=== PATIENT | female | born 1955 | race African-American/Black ===

== ENCOUNTER 2018-01-04 21:14 | Emergency (ER) | payer MEDICAID ==
--- OUTSIDE RECORDS SUMMARY | 2018-01-04 21:16 | XMS REPORT | Clinical Summary ---
:1955 Author Organization [facility] Address [address] [place] [address] Care Team Providers Name Role Phone Asked, No Pcp Primary Care Provider Unavailable Allergies No Known Allergies Current Medications Prescription Sig. Disp. Refills Start Date End Date Status hydrocortisone (CORTEF) Take by mouth 3 Active 20 MG tablet (three) times a day. unkown dose levothyroxine Take 88 mcg by Active (SYNTHROID, LEVOXYL) 88 mouth every mcg tablet morning. sertraline (ZOLOFT) 100 Take 200 mg by Active MG tablet mouth daily. ondansetron (ZOFRAN, Take 1 tablet (4 30 tablet 0 12/11/2016 Active HYDROCHLORIDE,) 4 MG mg total) by tabletIndications: mouth every 8 Nausea (eight) hours as needed for nausea. Active Problems Problem Noted Date Abdominal pain 11/23/2016 Immunizations Name Dates Previously Given Next Due INFLUENZA QUAD PF 11/25/2016 Social History Tobacco Use Types Packs/Day Years Used Date Former Smoker Cigarettes 1 27 05/07/1972 - 09/06/1998 Alcohol Use Drinks/Week oz/Week Comments No Sex Assigned at Date Recorded Not on file Last Filed Vital Signs Not on file Plan of Treatment Health Maintenance Due Date Last Done Comments PAP SMEAR 1977 COLONOSCOPY 2006 MAMMOGRAM 2006 SHINGRIX VACCINE (#1) 2006 ZOSTER VACCINE 2016 INFLUENZA VACCINE 04/06/2018 11/25/2016 Results Not on fileafter 01/03/2017 Insurance Payer Benefit Plan / Group Subscriber ID Type Phone Address [facility] [employer] xxxxxxxxx HMO
[2018-01-04] MEDS ORDERED: NA CHLORIDE 0.9% 1,000 ML ONE ×2 (22:10→23:12)
[2018-01-04 22:30] LABS: Absolute Lymphocytes (CBC) 2.3 K/uL (0.7-4.9); Absolute Monocytes 0.5 K/uL (0.1-1.3); Absolute Neutrophil 2.3 K/uL (1.8-8.0); Basophils % 0.5 % (0-1.3); Eosinophils % 3.5 % (0-4.4); Hematocrit 38.8 % (36.0-45.0); MCH 26.9 pg (27.0-35.0); MCV 85.2 fL (80-100); MPV 8.2 fL (7.6-11.3); Monocytes % 9.7 % (3.3-12.3); RBC Red Blood Cell Count 4.55 M/uL (3.86-4.86)
[2018-01-04 22:34] LABS: Potassium 4.2 mEq/L (3.6-5.0)
[2018-01-05] MEDS ORDERED: KETOROLAC 30 MG/ML INJ ONE (00:39)
[2018-01-05 01:54] LABS: Urine Blood NEGATIVE (NEG); Urine Glucose NEGATIVE (NEG); Urine Protein 1+ (NEG); Urine Specific Gravity >1.030 (1.005-1.030); Urine pH 5.5 (5.0-7.0)
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
[2018-01-05 07:52] VITALS: TEMP 97
[2018-01-05 08:11] VITALS: BP 114/78; O2SAT 97
--- NOTE | 2018-01-05 08:15 | RAD REPORT ---
EXAM DESCRIPTION: CT - Head C Spine Cap Wo Con - 01/05/2018 1:04 am CLINICAL HISTORY: Trauma, head and neck injury. Chest, abdomen and pelvis pain. COMPARISON: 11/23/2016, 01/13/2014 TECHNIQUE: CT head without contrast. CT cervical spine without contrast with coronal and sagittal reformatted images. CT chest, abdomen and pelvis without contrast with coronal and sagittal reformatted images of the [facility] [place]. All CT scans are performed using dose optimization technique as appropriate and may include automated exposure control or mA/KV adjustment according to patient size. FINDINGS: CT HEAD WITHOUT CONTRAST: No intracranial hemorrhage, hydrocephalus or extra-axial fluid collection. No areas of brain edema o r midline shift. The paranasal sinuses and mastoids are clear. The calvarium is intact. CT CERVICAL SPINE WITHOUT CONTRAST: No fracture or subluxation. The prevertebral soft tissues are normal in thickness.Mild lower cervica l degenerative change. CT CHEST, ABDOMEN, PELVIS WITHOUT CONTRAST: NOTE: Lack of contrast is a significant limitation in the assessment of trauma related findings. Spec ifically, solid organ, vascular and bowel evaluation is significantly limited. The lungs are clear.Cholecystectomy clips.No pneumothorax or pericardial/pleural fluid. No evidence of intra-abdominal visceral injury, free fluid or free air is seen within the above detai led limitations. Punctate bilateral nephrolithiasis without hydronephrosis. Evidence of prior gastric bypass present. No concerning pelvic findings. No fractures. IMPRESSION: Negative for acute traumatic findings within the above detailed limitations.
--- NOTE | 2018-01-05 10:20 | EKG ---
Test Date: 2018-01-04 Test Time: 22:17:54 Half Sole Fitter: GRIS MEASUREMENT RESULTS: Intervals: Rate: 77 CA: 150 QRSD: 86 QT: 392 QTc: 443 [place]: P: 51 CA: 150 QRS: 0 T: 46 INTERPRETIVE STATEMENTS: Normal sinus rhythm Inferior infarct, age undetermined Abnormal ECG Compared to ECG 06/23/2017 20:06:33 Myocardial infarct finding now present T-wave abnormality no longer present Electronically Signed On 01-05-18 10:20:29 CDT by Philip Hutchinson
== END 2018-01-05 07:26 | disposition home or self-care (01) ==
LOC: ER 21:14 → UNDOADMOB 01-05 06:19 → ERHOLD 01-05 06:19 → UNDODISOB 01-05 07:26 → ER 01-05 07:26
DX: I95.9 Hypotension, unspecified (principal); E11.9 Type 2 diabetes mellitus without complications; N17.9 Acute kidney failure, unspecified; E03.9 Hypothyroidism, unspecified; V49.9XXA Car occupant (driver) (passenger) injured in unspecified traffic accident, initial encounter
CPT/HCPCS: 36415; 70450; 71250; 72125; 80048; 81003; 82962; 84484; 85025; 86850; 86900; 86901; 93005; 96361; 96374; 99285; G0378; J7030

== ENCOUNTER 2018-03-13 22:43 | Emergency (ER) | payer MEDICAID ==
--- OUTSIDE RECORDS SUMMARY | 2018-03-13 22:45 | XMS REPORT | Clinical Summary ---
:1955 Author Organization [facility] Address [address] [place] [address] Care Team Providers Name Role Phone Asked, [...] Health Maintenance Due Date Last Done Comments CERVICAL CANCER SCREENING 1977 BREAST CANCER SCREENING 2006 COLON CANCER SCREENING 2006 SHINGRIX VACCINE (#1) 2006 ZOSTER VACCINE 2016 INFLUENZA VACCINE 04/06/2018 11/25/2016 Results Not on fileafter 03/12/2017 Insurance Payer Benefit Plan / Group Subscriber ID Type Phone Address [facility] [employer] xxxxxxxxx HMO
[2018-03-14] MEDS ORDERED: NA CHLORIDE 0.9% 1,000 ML ONE ×2 (00:08→01:52)
[2018-03-14 00:34] LABS: Absolute Lymphocytes (CBC) 2.2 K/uL (0.7-4.9); Absolute Monocytes 0.6 K/uL (0.1-1.3); Absolute Neutrophil 2.2 K/uL (1.8-8.0); Basophils % 0.8 % (0-1.3); Eosinophils % 4.9 % (0-4.4); Hematocrit 40.2 % (36.0-45.0); Lymphocytes % 42.4 % (15.3-44.8); MCH 27.1 pg (27.0-35.0); MCV 86.7 fL (80-100); MPV 7.9 fL (7.6-11.3); Monocytes % 10.8 % (3.3-12.3); RBC Red Blood Cell Count 4.64 M/uL (3.86-4.86)
[2018-03-14 00:35] LABS: Protime INR 0.94
[2018-03-14 00:56] LABS: ALT/SGPT 59 U/L (12-78); AST/SGOT 49 U/L (15-37); Albumin 3.8 g/dL (3.4-5.0); Alkaline Phosphatase 92 U/L (45-117); BUN Blood Urea Nitrogen 24 mg/dL (7-18); Bicarbonate 31 mmol/L (21-32); Bilirubin Direct < 0.1 mg/dL (0-0.2); Bilirubin Total 0.3 mg/dL (0.2-1.0); CKMB Creatine Kinase MB 1.5 ng/mL (0.3-3.6); Creatine Phosphokinase 160 U/L (26-192); Glucose Level 73 mg/dL (74-106); Lipase 136 U/L (73-393); Magnesium 2.2 mg/dL (1.8-2.4); NT PRO-BNP 32 pg/mL (<125); Potassium 4.4 mmol/L (3.5-5.1); Protein, Total 7.5 g/dL (6.4-8.2); Sodium Level 144 mmol/L (136-145)
[2018-03-14 01:21] LABS: Urine Blood NEGATIVE (NEG); Urine Glucose NEGATIVE (NEG); Urine Protein NEGATIVE (NEG); Urine Specific Gravity >1.030 (1.005-1.030); Urine pH 6.5 (5.0-7.0)
[2018-03-14] MEDS ORDERED: FENTANYL CITR 100 MCG/2 ML ONE (01:52)
[2018-03-14] MEDS ORDERED: ONDANSETRON 4 MG/2 ML VIAL ONE (01:52)
[2018-03-14] MEDS ORDERED: ACETYLCYST 6,000 MG/30 ML VIAL ONE (01:53)
--- NOTE | 2018-03-14 04:40 | EDPHYS ---
Physician Documentation [facility] Name: Adela Watts Age: 62 yrs Sex: Female : 1955 Arrival Date: 03/13/2018 Time: 22:56 Bed 19 Private MD: ED Physician Patricio Gaviria HPI: 03/14 00:53 This 62 yrs old Black Female presents to ER via Ambulatory with complaints of derick Dizziness, Back Pain, Neck and Upper Back Pain. 00:53 The patient presents with dizziness. Onset: The symptoms/episode began/occurred derick yesterday. Context: occurred at home. Modifying factors: The symptoms are alleviated by nothing, the symptoms are aggravated by nothing. Severity of symptoms: At their worst the symptoms were mild in the emergency department the symptoms are unchanged. Historical: - Allergies: 03/13 23:28 No Known Allergies; jd3 - Home Meds: 23:28 [place] 10-325 mg Oral tab 1 tab three times a day [Active]; Travatan Z 0.004 % jd3 ophthalmic drop 1 drop once daily [Active]; anxiety pill twice a day [Active]; baclofen 10 mg Oral tab 1 tab twice a day [Active]; levothyroxine 88 mcg tab 1 tab once daily [Active]; metformin 500 mg Oral Tb24 as needed [Active]; sertraline 100 mg Oral tab 1 tab once daily [Active]; Wellbutrin XL 300 mg Oral Tb24 1 tab once daily [Active]; - PMHx: 23:28 Anxiety; Chronic pain; Depression; Diabetes - NIDDM; Hypothyroidism; jd3 - PSHx: 23:28 Cholecystectomy; Hysterectomy; Gastric Bypass; Lap Band; Thyroidectomy; jd3 - Immunization history:: Adult Immunizations up to date. - Social history:: Smoking status: Patient/guardian denies using tobacco, the patient reports quitting approximately 19 years ago. - Ebola Screening: : Patient negative for fever greater than or equal to 101.5 degrees Fahrenheit, and additional compatible Ebola Virus Disease symptoms. - Family history:: not pertinent. ROS: 03/14 00:53 Constitutional: Negative for fever, chills, and weight loss, Eyes: Negative for injury, derick pain, redness, and discharge, ENT: Negative for injury, pain, and discharge, Neck: Negative for injury, pain, and swelling, Cardiovascular: Negative for chest pain, palpitations, and edema, Respiratory: Negative for shortness of breath, cough, wheezing, and pleuritic chest pain, Abdomen/GI: Negative for abdominal pain, nausea, vomiting, diarrhea, and constipation, : Negative for injury, bleeding, discharge, and swelling, MS/Extremity: Negative for injury and deformity, Skin: Negative for injury, rash, and discoloration, Neuro: Negative for headache, weakness, numbness, tingling, and seizure, Psych: Negative for depression, anxiety, suicide ideation, homicidal ideation, and hallucinations, Allergy/Immunology: Negative for hives, rash, and allergies, Endocrine: Negative for neck swelling, polydipsia, polyuria, polyphagia, and marked weight changes, Hematologic/Lymphatic: Negative for swollen nodes, abnormal bleeding, and unusual bruising. Back: Positive for pain at rest. Exam: 00:53 Constitutional: This is a well developed, well nourished patient who is awake, alert, derick and in no acute distress. Head/Face: Normocephalic, atraumatic. Eyes: Pupils equal round and reactive to light, extra-ocular motions intact. Lids and lashes normal. Conjunctiva and sclera are non-icteric and not injected. Cornea within normal limits. Periorbital areas with no swelling, redness, or edema. ENT: Nares patent. No nasal discharge, no septal abnormalities noted. Tympanic membranes are normal and external auditory canals are clear. Oropharynx with no redness, swelling, or masses, exudates, or evidence of obstruction, uvula midline. Mucous membranes moist. Neck: Trachea midline, no thyromegaly or masses palpated, and no cervical lymphadenopathy. Supple, full range of motion without nuchal rigidity, or vertebral point tenderness. No Meningismus. Chest/axilla: Normal chest wall appearance and motion. Nontender with no deformity. No lesions are appreciated. Cardiovascular: Regular rate and rhythm with a normal S1 and S2. No gallops, murmurs, or rubs. Normal PMI, no JVD. No pulse deficits. Respiratory: Lungs have equal breath sounds bilaterally, clear to auscultation and percussion. No rales, rhonchi or wheezes noted. No increased work of breathing, no retractions or nasal flaring. Abdomen/GI: Soft, non-tender, with normal bowel sounds. No distension or tympany. No guarding or rebound. No evidence of tenderness throughout. Back: No spinal tenderness. No costovertebral tenderness. Full range of motion. Skin: Warm, dry with normal turgor. Normal color with no rashes, no lesions, and no evidence of cellulitis. MS/ Extremity: Pulses equal, no cyanosis. Neurovascular intact. Full, normal range of motion. Neuro: Awake and alert, GCS 15, oriented to person, place, time, and situation. Cranial nerves II-XII grossly intact. Motor strength 5/5 in all extremities. Sensory grossly intact. Cerebellar exam normal. Normal gait. Psych: Awake, alert, with orientation to person, place and time. Behavior, mood, and affect are within normal limits. Vital Signs: 03/13 23:30 BP 106 / 77; Pulse 68; Resp 18 S; Temp 98.6(O); Pulse Ox 97% on R/A; Weight 81.65 kg jd3 (R); Height 5 ft. 5 in. (165.10 cm) (R); Pain 06/15; 03/14 00:55 BP 91 / 62; Pulse 80; Resp 16 S; Pulse Ox 97% on R/A; jd3 02:45 BP 122 / 90; Pulse 81; Resp 17 S; Pulse Ox 99% on R/A; jd3 03:48 BP 94 / 65; Pulse 78; Resp 17 S; Pulse Ox 97% on R/A; jd3 05:00 BP 123 / 58; Pulse 84; Resp 16 S; Pulse Ox 99% on R/A; jd3 05:51 BP 119 / 89; Pulse 84; Resp 17 S; Pulse Ox 98% on R/A; jd3 03/13 23:30 Body Mass Index 29.95 (81.65 kg, 165.10 cm) [facility] MDM: 03/13 23:26 Patient medically screened. [facility] 03/14 00:57 Data reviewed: vital signs, nurses notes, lab test result(s), EKG, radiologic studies, [facility] CT scan, plain films. 03/13 23:27 Order name: Basic Metabolic Panel; Complete Time: 01:23 [facility] 03/13 23:27 Order name: CBC with Diff; Complete Time: 00:52 [facility] 03/13 23:27 Order name: Ckmb; Complete Time: 01:23 [facility] 03/13 23:27 Order name: CPK; Complete Time: 01:23 [facility] 03/13 23:27 Order name: LFT's; Complete Time: 01:23 [facility] 03/13 23:27 Order name: Magnesium; Complete Time: 01:23 [facility] 03/13 23:27 Order name: NT PRO-BNP; Complete Time: 01:23 [facility] 03/13 23:27 Order name: PT-INR; Complete Time: 00:52 [facility] 03/13 23:27 Order name: Ptt, Activated; Complete Time: 00:52 [facility] 03/13 23:27 Order name: Troponin (emerg Dept Use Only); Complete Time: 00:52 [facility] 03/13 23:27 Order name: Lipase; Complete Time: 01:23 [facility] 03/13 23:27 Order name: Urine Culture [facility] 03/14 00:14 Order name: Urine Dipstick--Ancillary (enter results); Complete Time: 01:23 rg2 03/14 04:03 Order name: Ckmb [facility] 03/13 23:27 Order name: XRAY Chest (1 view) [facility] 03/13 23:27 Order name: Cardiac monitoring; Complete Time: 23:35 [facility] 03/13 23:27 Order name: EKG - Nurse/Tech; Complete Time: 00:14 [facility] 03/13 23:27 Order name: IV Saline Lock; Complete Time: 00:14 [facility] 03/13 23:27 Order name: Labs collected and sent; Complete Time: 00:14 [facility] 03/14 00:52 Order name: CT Aorta for Dissection [facility] 03/14 01:48 Order name: CT Head Brain wo Cont [facility] 03/14 04:03 Order name: Creatine Phosphokinase [facility] 03/14 04:03 Order name: Troponin (emerg Dept Use Only) [facility] 03/13 23:27 Order name: O2 Per Protocol; Complete Time: 23:36 [facility] 03/13 23:27 Order name: O2 Sat Monitoring; Complete Time: 23:35 [facility] 03/13 23:27 Order name: Urine Dipstick-Ancillary (obtain specimen); Complete Time: 00:14 [facility] 03/14 01:46 Order name: PO challenge: juice; Complete Time: 01:58 [facility] 03/14 02:33 Order name: Orthostatics; Complete Time: 04:05 [facility] 03/14 04:03 Order name: Repeat Cardiac Enzymes at: now; Complete Time: 04:39 derick Administered Medications: 00:14 Drug: NS 0.9% 1000 ml Route: IV; Rate: 125 ml/hr; Site: right antecubital; jd3 05:52 Follow up: Response: No adverse reaction; IV Status: Order to discontinue infusion jd3 02:37 Drug: NS 0.9% 1000 ml Route: IV; Rate: 1 bolus; Site: left antecubital; jd3 04:40 Follow up: Response: No adverse reaction; IV Status: Completed infusion; IV Intake: jd3 1000ml 02:42 Drug: Mucomyst - Acetylcysteine 600 mg Route: PO; jd3 04:39 Follow up: Response: No adverse reaction jd3 02:42 Drug: fentaNYL (PF) 25 mcg Route: IVP; Site: left antecubital; jd3 04:40 Follow up: Response: No adverse reaction jd3 02:42 Drug: Zofran 4 mg Route: IVP; Site: left antecubital; jd3 04:40 Follow up: Response: No adverse reaction jd3 04:53 Drug: Aspirin 81 mg Route: PO; jd3 05:30 Follow up: Response: No adverse reaction jd3 Disposition: 03/14/18 04:39 Discharged to Home. Impression: Dizziness and giddiness, Type 2 diabetes mellitus, Headache, Unspecified kidney failure, Other chronic pain. - Condition is Stable. - Discharge Instructions: Chronic Pain, Type 2 Diabetes Mellitus, Adult, Dizziness, General Headache Without Cause, Aspirin and Your Heart, General Headache Without Cause, [id number]-ta-Awrk, Type 2 Diabetes Mellitus, Adult, [id number], Dizziness, [id number]. - Medication Reconciliation Form, Thank You Letter, Antibiotic Education, Prescription Opioid Use, SBAR form form. - Follow up: Private Physician; When: 2 - 3 days; Reason: Recheck today's complaints, Continuance of care, Re-evaluation by your physician. - Problem is new. - Symptoms have improved. Signatures: Dispatcher [employer] EDPatricio Christianson MD MD cha Davies, Jonathon, RN RN jd3 Corrections: (The following items were deleted from the chart) 05:52 04:39 03/14/2018 04:39 Discharged to Home. Impression: Dizziness and giddiness; Type 2 jd3 diabetes mellitus; Headache; Unspecified kidney failure; Other chronic pain. Condition is Stable. Forms are SBAR form, Medication Reconciliation Form, Thank You Letter, Antibiotic Education, Prescription Opioid Use. Follow up: Private Physician; When: 2 - 3 days; Reason: Recheck today's complaints, Continuance of care, Re-evaluation by your physician. Problem is new. Symptoms have improved. derick
--- NOTE | 2018-03-14 04:40 | ER ---
Nurse's Notes [facility] Name: Adela Watts Age: 62 yrs Sex: Female : 1955 Arrival Date: 03/13/2018 Time: 22:56 Bed 19 Private MD: Diagnosis: Dizziness and giddiness;Type 2 diabetes mellitus;Headache;Unspecified kidney failure;Other chronic pain Presentation: 03/13 23:23 Presenting complaint: Patient states: "I am having a headache and my right neck and jd3 back are hurting. I am also having dizziness.". Transition of care: patient was not received from another setting of care. Onset of symptoms was March 13, 2018. Risk Assessment: Do you want to hurt yourself or someone else? Patient reports no desire to harm self or others. Initial Sepsis Screen: Does the patient meet any 2 criteria? No. Patient's initial sepsis screen is negative. Does the patient have a suspected source of infection? No. Patient's initial sepsis screen is negative. Care prior to arrival: None. 23:23 Method Of Arrival: Ambulatory jd3 23:23 Acuity: SHADY 3 jd3 Historical: - Allergies: 23:28 No Known Allergies; jd3 - Home Meds: 23:28 [place] 10-325 mg Oral tab 1 tab three times a day [Active]; Travatan Z 0.004 % jd3 ophthalmic drop 1 drop once daily [Active]; anxiety pill twice a day [Active]; baclofen 10 mg Oral tab 1 tab twice a day [Active]; levothyroxine 88 mcg tab 1 tab once daily [Active]; metformin 500 mg Oral Tb24 as needed [Active]; sertraline 100 mg Oral tab 1 tab once daily [Active]; Wellbutrin XL 300 mg Oral Tb24 1 tab once daily [Active]; - PMHx: 23:28 Anxiety; Chronic pain; Depression; Diabetes - NIDDM; Hypothyroidism; jd3 - PSHx: 23:28 Cholecystectomy; Hysterectomy; Gastric Bypass; Lap Band; Thyroidectomy; jd3 - Immunization history:: Adult Immunizations up to date. - Social history:: Smoking status: Patient/guardian denies using tobacco, the patient reports quitting approximately 19 years ago. - Ebola Screening: : Patient negative for fever greater than or equal to 101.5 degrees Fahrenheit, and additional compatible Ebola Virus Disease symptoms. - Family history:: not pertinent. Screenin:34 Abuse screen: Denies threats or abuse. Nutritional screening: No deficits noted. jd3 Tuberculosis screening: No symptoms or risk factors identified. Fall Risk Ambulatory Aid- None/Bed Rest/Nurse Assist (0 pts). Gait- Normal/Bed Rest/Wheelchair (0 pts) Mental Status- Oriented to own ability (0 pts). Total Ratliff Fall Scale indicates No Risk (0-24 pts). Assessment: 23:31 General: Appears uncomfortable, Behavior is calm, cooperative. Pain: Complains of pain jd3 in head, neck, right trapezius and right scapular area Pain currently is 10 out of 10 on a pain scale. Quality of pain is described as aching. Neuro: Level of Consciousness is awake, alert, obeys commands, Oriented to person, place, time, situation, Moves all extremities. Full function Speech is normal, Facial symmetry appears normal, Pupils are PERRLA, Intact. Cardiovascular: Heart tones S1 S2 present Capillary refill < 3 seconds Patient's skin is warm and dry. Respiratory: Airway is patent Respiratory effort is even, unlabored, Respiratory pattern is regular, symmetrical. GI: Abdomen is round non-distended, Patient currently denies nausea, vomiting. : No signs and/or symptoms were reported regarding the genitourinary system. EENT: No signs and/or symptoms were reported regarding the EENT system. Derm: Skin is intact, Skin is dry, Skin is normal, Skin temperature is warm. Musculoskeletal: Circulation, motion, and sensation intact. Range of motion:. 03/14 00:30 Reassessment: Patient appears in no apparent distress at this time. Patient and/or jd3 family updated on plan of care and expected duration. Pain level reassessed. Patient is alert, oriented x 3, equal unlabored respirations, skin warm/dry/pink. 00:55 Reassessment: Patient appears in no apparent distress at this time. Patient and/or jd3 family updated on plan of care and expected duration. Pain level reassessed. Patient is alert, oriented x 3, equal unlabored respirations, skin warm/dry/pink. 02:45 Reassessment: Patient appears in no apparent distress at this time. Patient and/or jd3 family updated on plan of care and expected duration. Pain level reassessed. Patient is alert, oriented x 3, equal unlabored respirations, skin warm/dry/pink. 03:48 Reassessment: Patient appears in no apparent distress at this time. Patient and/or jd3 family updated on plan of care and expected duration. Pain level reassessed. Patient is alert, oriented x 3, equal unlabored respirations, skin warm/dry/pink. 05:01 Reassessment: Patient appears in no apparent distress at this time. Patient and/or jd3 family updated on plan of care and expected duration. Pain level reassessed. Patient is alert, oriented x 3, equal unlabored respirations, skin warm/dry/pink. 05:49 Reassessment: Patient appears in no apparent distress at this time. Patient and/or jd3 family updated on plan of care and expected duration. Pain level reassessed. Patient is alert, oriented x 3, equal unlabored respirations, skin warm/dry/pink. pt reported understanding of discharge instructions, even and steady gait out to lobby to wait for ride. Vital Signs: 03/13 23:30 BP 106 / 77; Pulse 68; Resp 18 S; Temp 98.6(O); Pulse Ox 97% on R/A; Weight 81.65 kg jd3 (R); Height 5 ft. 5 in. (165.10 cm) (R); Pain 1010; 03/14 00:55 BP 91 / 62; Pulse 80; Resp 16 S; Pulse Ox 97% on R/A; jd3 02:45 BP 122 / 90; Pulse 81; Resp 17 S; Pulse Ox 99% on R/A; jd3 03:48 BP 94 / 65; Pulse 78; Resp 17 S; Pulse Ox 97% on R/A; jd3 05:00 BP 123 / 58; Pulse 84; Resp 16 S; Pulse Ox 99% on R/A; jd3 05:51 BP 119 / 89; Pulse 84; Resp 17 S; Pulse Ox 98% on R/A; jd3 03/13 23:30 Body Mass Index 29.95 (81.65 kg, 165.10 cm) [facility] ED Course: 03/13 22:56 Patient arrived in ED. al2 23:09 Yadiel Beck RN is Primary Nurse. jd3 23:25 Triage completed. jd3 23:26 Patricio Gaviria MD is Attending Physician. derick 23:31 Arm band placed on. jd3 23:35 Patient has correct armband on for positive identification. Bed in low position. Call jd3 light in reach. Side rails up X 1. 23:53 X-ray completed. Portable x-ray completed in exam room. Patient tolerated procedure kw well. 23:54 XRAY Chest (1 view) In Process Unspecified. EDMS 03/14 00:00 Inserted saline lock: 20 gauge in right antecubital area, using aseptic technique. jd3 Blood collected. 01:[address] via wheelchair. kw1 01:47 Inserted saline lock: 20 gauge in left antecubital area, using aseptic technique. ak1 ,using aseptic technique. measurement and sensing technician stated pt IV in right AC would not flush, requested new IV. 01:59 CT Head Brain wo Cont In Process Unspecified. EDMS 01:59 Radiology exam delayed due to IV insertion attempt and/or patient not having kw1 appropriate IV at this time. 02:16 CT completed. Patient tolerated procedure well. Patient moved back from CT. kw1 02:18 CT Aorta for Dissection In Process Unspecified. EDMS 05:49 No provider procedures requiring assistance completed. IV discontinued, intact, jd3 bleeding controlled, No redness/swelling at site. Pressure dressing applied. Administered Medications: 00:14 Drug: NS 0.9% 1000 ml Route: IV; Rate: 125 ml/hr; Site: right antecubital; jd3 05:52 Follow up: Response: No adverse reaction; IV Status: Order to discontinue infusion jd3 02:37 Drug: NS 0.9% 1000 ml Route: IV; Rate: 1 bolus; Site: left antecubital; jd3 04:40 Follow up: Response: No adverse reaction; IV Status: Completed infusion; IV Intake: jd3 1000ml 02:42 Drug: Mucomyst - Acetylcysteine 600 mg Route: PO; jd3 04:39 Follow up: Response: No adverse reaction jd3 02:42 Drug: fentaNYL (PF) 25 mcg Route: IVP; Site: left antecubital; jd3 04:40 Follow up: Response: No adverse reaction jd3 02:42 Drug: Zofran 4 mg Route: IVP; Site: left antecubital; jd3 04:40 Follow up: Response: No adverse reaction jd3 04:53 Drug: Aspirin 81 mg Route: PO; jd3 05:30 Follow up: Response: No adverse reaction jd3 Intake: 04:40 IV: 1000ml; Total: 1000ml. jd3 Outcome: 04:39 Discharge ordered by MD. sepulveda 05:50 Discharged to home jd3 05:50 Condition: stable 05:50 Discharge instructions given to patient, Instructed on discharge instructions, follow up and referral plans. Demonstrated understanding of instructions, follow-up care. 05:52 Patient left the ED. jd3 Addendum: 03/18/2018 11:47 Addendum: Culture Results: Phone call Attempt #1 at 1146, left a voicemail. a a5 14:11 Addendum: Culture Results: Phone call Attempt #2 spoke to pt's family member and they a a5 will relay the message for pt to call ER. Signatures: Dispatcher [employer] Patricio Carr MD MD cha Calderon, Audri, RN RN Francine Parker Amber RN RN Yadiel Baltazar RN RN jd3 Wilhelm, Kimberly kw1 Love, Angelica al2
[2018-03-14] MEDS ORDERED: ASPIRIN 81 MG CHEWABLE TABLET ONE (04:54)
[2018-03-14 05:17] LABS: CKMB Creatine Kinase MB 1.3 ng/mL (0.3-3.6)
[2018-03-14 05:56] VITALS: TEMP 98.6
[2018-03-14 06:02] VITALS: BP 119/89; O2SAT 98
--- NOTE | 2018-03-14 08:53 | RAD REPORT ---
EXAM DESCRIPTION: CT - Head Brain Wo Cont - 03/14/2018 6:45 am CLINICAL HISTORY: Headache COMPARISON: January 11, 2018 TECHNIQUE: Computed axial tomography of the head was obtained. IV contrast was not requested.A preli minary report was generated by [employer] and reviewed prior to this dictation All CT scans are performed using dose optimization technique as appropriate and may include automated exposure control or mA/KV adjustment according to patient size. FINDINGS: An intracranial bleed is not seen . The ventricles are normal in caliber. No extra-axial fluid collection is noted. Fluid within the sinuses/ mastoids is not seen. A 5 millimeter metallic round structure is present wi thin the tissues anterior to the right ear IMPRESSION: No acute intracranial abnormality is seen. If patient's symptoms persist MRI of the bra in would be recommended.
--- NOTE | 2018-03-14 09:10 | EKG ---
Test Date: 2018-03-14 Test Time: 00:16:26 Welfare Specialist: THERESE MEASUREMENT RESULTS: Intervals: Rate: 66 HI: 154 QRSD: 94 QT: 418 QTc: 438 [place]: P: 41 HI: 154 QRS: 2 T: 63 INTERPRETIVE STATEMENTS: Normal sinus rhythm Normal ECG Compared to ECG 01/04/2018 22:17:54 Myocardial infarct finding no longer present Electronically Signed On 03-14-18 09:09:37 CDT by Philip Hutchinson
--- NOTE | 2018-03-14 09:10 | RAD REPORT ---
EXAM DESCRIPTION: CT - Angio Aorta For Dissection - 03/14/2018 6:46 am CLINICAL HISTORY: . Chest pain abdominal pain back pain COMPARISON: January 2018 TECHNIQUE: Computed tomography angiography of the chest, abdomen pelvis were obtained. 100 cc Isovue 370 was administered intravenously. Coronal and sagittal reconstruction were performed. MIP 3D reconstruction was performed All CT scans are performed using dose optimization technique as appropriate and may include automated exposure control or mA/KV adjustment according to patient size. FINDINGS: An aortic dissection is not seen. An aortic aneurysm is not displayed. The celiac, SMA and ISIDRO are patent . A lung consolidation is not present. A pericardial effusion is not seen. A pleural effusion is not no radha. A 9 x 5 nodular opacity within the lingula image 57 is unchanged. The liver,spleen, pancreas adrenals kidneys demonstrate no significant abnormality. Postsurgical tamayo ges of a gastric bypass are seen. The appendix is normal. There no evidence diverticulitis. No ascites is noted. A tiny umbilical herni a contains fat IMPRESSION: Negative for an aortic dissection. 9 x 5 nodular opacity within the lingula is unchanged. Per Fleischner guidelines A followup CT chest in 6 months is recommended to assess stability.
--- NOTE | 2018-03-14 09:10 | RAD REPORT ---
EXAM DESCRIPTION: Gregorio Single View03/13/2018 11:54 pm CLINICAL HISTORY: Chest pain COMPARISON: June 2017 FINDINGS: The lungs appear clear of acute infiltrate. The heart is mildly enlarged. The aorta is to rtuous/ectatic IMPRESSION: No acute abnormalities displayed
== END 2018-03-14 05:52 | disposition home or self-care (01) ==
LOC: ER 22:43
DX: R51 Headache (principal); G89.29 Other chronic pain; E11.9 Type 2 diabetes mellitus without complications; N19 Unspecified kidney failure; E03.9 Hypothyroidism, unspecified; F32.9 Major depressive disorder, single episode, unspecified
CPT/HCPCS: 36415; 70450; 71045; 71275; 74175; 80048; 80076; 81003; 82550; 82553; 83690; 83735; 83880; 84484; 85025; 85610; 85730; 87077; 87086; 87088; 87186; 93005; 96361; 96374; 96375; 99284; J2405; J3010; J7030; Q9967

== ENCOUNTER 2018-05-17 22:04 | Emergency (ER) | payer MEDICAID ==
--- NOTE | 2018-05-18 00:10 | ER ---
Nurse's Notes [facility] Name: Adela Watts Age: 62 yrs Sex: Female : 1955 Arrival Date: 05/17/2018 Time: 22:07 Bed 16 Private MD: Diagnosis: Contusion left shoulder. S/P Fall Presentation: 05/17 22:11 Presenting complaint: Patient states: that yesterday she was sitting on the side of the bed and was reaching for something and fell. Thought she was ok but when she woke up this am she was having left shoulder pain. Denies hitting head or any LOC. Care prior to arrival: None. Mechanism of Injury: Fall out of bed. Trauma event details: Injury occurred in the [facility], Injury occurred: at home. Injury occurred: May 16, 2018. 22:11 Acuity: SHADY 4 22:11 Method Of Arrival: Ambulatory 22:14 Transition of care: patient was not received from another setting of care. Onset of symptoms was May 16, 2018. Risk Assessment: Do you want to hurt yourself or someone else? Patient reports no desire to harm self or others. Initial Sepsis Screen: Does the patient meet any 2 criteria? No. Patient's initial sepsis screen is negative. Does the patient have a suspected source of infection? No. Patient's initial sepsis screen is negative. Historical: - Allergies: 22:17 No Known Allergies; fc - Home Meds: 22:17 baclofen 10 mg Oral tab 1 tab twice a day [Active]; levothyroxine 88 mcg tab 1 tab once fc daily [Active]; metformin 500 mg Oral Tb24 as needed [Active]; Mayo 10-325 mg Oral tab 1 tab three times a day [Active]; Wellbutrin XL 300 mg Oral Tb24 1 tab once daily [Active]; Travatan Z 0.004 % ophthalmic drop 1 drop once daily [Active]; Hydroxyzine Oral 3 times per day [Active]; - PMHx: 22:17 Anxiety; Chronic pain; Depression; Diabetes - NIDDM; Hypothyroidism; fc - PSHx: 22:17 Cholecystectomy; Hysterectomy; Gastric Bypass; Lap Band; Thyroidectomy; fc - Immunization history: Last tetanus immunization: unknown. - Social history:: Smoking status: Patient/guardian denies using tobacco. - Ebola Screening: : Patient negative for fever greater than or equal to 101.5 degrees Fahrenheit, and additional compatible Ebola Virus Disease symptoms Patient denies exposure to infectious person Patient denies travel to an Ebola-affected area in the 21 days before illness onset. Screenin:11 Abuse screen: Denies threats or abuse. Tuberculosis screening: No symptoms or risk fc factors identified. 22:17 Nutritional screening: No deficits noted. Fall Risk No fall in past 12 months (0 pts). fc Secondary diagnosis (15 points) impaired mobility, No IV (0 pts). Ambulatory Aid- None/Bed Rest/Nurse Assist (0 pts). Gait- Weak (10 pts.). Mental Status- Overestimates/Forgets Limitations (15 pts.). Total Ratliff Fall Scale indicates Low Risk Score (25-44 pts). Fall prevention measures have been instituted. Side Rails Up X 2 Placed close to Nursing Station Frequent Obs/Assesments occuring As available Patient and Family Educated on Fall Prevention Program and strategies. Assessment: 22:42 General: Appears in no apparent distress. Behavior is calm, cooperative. Pain: ak1 Complains of pain in anterior aspect of left shoulder and posterior aspect of left shoulder. Neuro: No deficits noted. Cardiovascular: No deficits noted. Respiratory: No deficits noted. GI: No signs and/or symptoms were reported involving the gastrointestinal system. : No signs and/or symptoms were reported regarding the genitourinary system. EENT: No signs and/or symptoms were reported regarding the EENT system. Derm: No signs and/or symptoms reported regarding the dermatologic system. Musculoskeletal: Range of motion: limited in left shoulder pt c/o pain to left shoulder with movement. 23:29 Reassessment: Patient appears in no apparent distress at this time. No changes from ak1 previously documented assessment. pt stated while lying still she has no pain. . Vital Signs: 22:18 BP 102 / 76; Pulse 85; Resp 18; Temp 98.4(O); Pulse Ox 98% on R/A; Weight 83.91 kg (R); fc Height 5 ft. 5 in. (165.10 cm) (R); Pain 10/10; 23:06 BP 97 / 74; Pulse 88; Resp 16; Pulse Ox 100% on R/A; mt 05/18 00:41 BP 97 / 68; Pulse 59; Resp 17 S; Pulse Ox 97% on R/A; jd3 05/17 22:18 Body Mass Index 30.79 (83.91 kg, 165.10 cm) fc 05/17 22:18 Pt states that her bp has been running low and PCP aware fc [place] Coma Score: 22:11 Eye Response: spontaneous(4). Verbal Response: oriented(5). Motor Response: obeys fc commands(6). Total: 15. Trauma Score (Adult): 22:11 Eye Response: spontaneous(1); Verbal Response: oriented(1); Motor Response: obeys fc commands(2); Systolic BP: > 89 mm Hg(4); Respiratory Rate: 10 to 29 per min(4); [place] Score: 15; Trauma Score: 12 ED Course: 22:07 Patient arrived in ED. ds1 22:11 Patient has correct armband on for positive identification. Bed in low position. Call fc light in reach. 22:11 Patient maintains SpO2 saturation greater than 95% on room air. fc 22:13 Triage completed. fc 22:17 Arm band placed on Patient placed in an exam room, on a stretcher. fc 22:32 Elaine Randolph, RN is Primary Nurse. ak1 22:42 Pulse ox on. NIBP on. ak1 23:57 Jordi Wallace MD is Attending Physician. pkl 09 00:09 XRAY Shoulder LEFT 2 view In Process Unspecified. EDMS 00:09 Po Urban MD is Referral Physician. pkl 00:20 X-ray completed. Portable x-ray completed in exam room. Patient tolerated procedure kw well. 00:41 Sling applied to left arm. jd3 01:05 No provider procedures requiring assistance completed. Patient did not have IV access ak1 during this emergency room visit. Administered Medications: 00:40 CANCELLED (Patient Refused): Motrin 400 mg PO once ak1 01:04 Drug: Mayo (7.5 mg-325 mg) 1 tabs Route: PO; ak1 01:04 Follow up: Response: No adverse reaction; Medication administered at discharge. ak1 Outcome: 00:10 Discharge ordered by . pkl 01:05 Discharged to home ambulatory, with family. ak1 01:05 Condition: good 01:05 Discharge instructions given to patient, Instructed on discharge instructions, follow up and referral plans. no drinking with medication, no driving heavy equipment, medication usage, Demonstrated understanding of instructions, follow-up care, medications, Prescriptions given X 1. 01:06 Patient left the ED. ak1 Signatures: Dispatcher [employer] EDMS Jordi Wallace MD MD pkl Chretien, Felicia RN RN Ellen Leonardo ds1 Francine Yu Amber RN RN ak1 Linda Neumann mt, Jonathon, RN RN jd3
--- NOTE | 2018-05-18 00:10 | EDPHYS ---
Physician Documentation [facility] Name: Adela Watts Age: 62 yrs Sex: Female : 1955 Arrival Date: 05/17/2018 Time: 22:07 Bed 16 Private MD: ED Physician Jordi Wallace HPI: 05/18 00:02 This 62 yrs old Black Female presents to ER via Ambulatory with complaints of Fall pkl Injury. 00:02 Details of fall: The patient fell from a supine position, out of bed. Onset: The pkl symptoms/episode began/occurred yesterday. Associated injuries: The patient sustained left shoulder. Historical: - Allergies: 05/17 22:17 No Known Allergies; fc - Home Meds: 22:17 baclofen 10 mg Oral tab 1 tab twice a day [Active]; levothyroxine 88 mcg tab 1 tab once fc daily [Active]; metformin 500 mg Oral Tb24 as needed [Active]; [place] 10-325 mg Oral tab 1 tab three times a day [Active]; Wellbutrin XL 300 mg Oral Tb24 1 tab once daily [Active]; Travatan Z 0.004 % ophthalmic drop 1 drop once daily [Active]; Hydroxyzine Oral 3 times per day [Active]; - PMHx: 22:17 Anxiety; Chronic pain; Depression; Diabetes - NIDDM; Hypothyroidism; fc - PSHx: 22:17 Cholecystectomy; Hysterectomy; Gastric Bypass; Lap Band; Thyroidectomy; fc - Immunization history: Last tetanus immunization: unknown. - Social history:: Smoking status: Patient/guardian denies using tobacco. - Ebola Screening: : Patient negative for fever greater than or equal to 101.5 degrees Fahrenheit, and additional compatible Ebola Virus Disease symptoms Patient denies exposure to infectious person Patient denies travel to an Ebola-affected area in the 21 days before illness onset. ROS: 05/18 00:02 Eyes: Negative for injury, pain, redness, and discharge, ENT: Negative for injury, pkl pain, and discharge, Neck: Negative for injury, pain, and swelling, Cardiovascular: Negative for chest pain, palpitations, and edema, Respiratory: Negative for shortness of breath, cough, wheezing, and pleuritic chest pain, Abdomen/GI: Negative for abdominal pain, nausea, vomiting, diarrhea, and constipation, Back: Negative for injury and pain, : Negative for injury, bleeding, discharge, and swelling. MS/extremity: Positive for contusion, pain, of the left shoulder. Skin: Negative for rash. Neuro: Negative for altered mental status, loss of consciousness. Exam: 00:02 Head/Face: Normocephalic, atraumatic. Eyes: Pupils equal round and reactive to light, pkl extra-ocular motions intact. Lids and lashes normal. Conjunctiva and sclera are non-icteric and not injected. Cornea within normal limits. Periorbital areas with no swelling, redness, or edema. ENT: Nares patent. No nasal discharge, no septal abnormalities noted. Tympanic membranes are normal and external auditory canals are clear. Oropharynx with no redness, swelling, or masses, exudates, or evidence of obstruction, uvula midline. Mucous membranes moist. Neck: Trachea midline, no thyromegaly or masses palpated, and no cervical lymphadenopathy. Supple, full range of motion without nuchal rigidity, or vertebral point tenderness. No Meningismus. Chest/axilla: Normal chest wall appearance and motion. Nontender with no deformity. No lesions are appreciated. Cardiovascular: Regular rate and rhythm with a normal S1 and S2. No gallops, murmurs, or rubs. Normal PMI, no JVD. No pulse deficits. Respiratory: Lungs have equal breath sounds bilaterally, clear to auscultation and percussion. No rales, rhonchi or wheezes noted. No increased work of breathing, no retractions or nasal flaring. Abdomen/GI: Soft, non-tender, with normal bowel sounds. No distension or tympany. No guarding or rebound. No evidence of tenderness throughout. Skin: Warm, dry with normal turgor. Normal color with no rashes, no lesions, and no evidence of cellulitis. Neuro: Awake and alert, GCS 15, oriented to person, place, time, and situation. Cranial nerves II-XII grossly intact. Motor strength 5/5 in all extremities. Sensory grossly intact. Cerebellar exam normal. Normal gait. 00:02 Musculoskeletal/extremity: Extremities: grossly normal except: noted in the left shoulder: pain, tenderness. Vital Signs: 05/17 22:18 BP 102 / 76; Pulse 85; Resp 18; Temp 98.4(O); Pulse Ox 98% on R/A; Weight 83.91 kg (R); fc Height 5 ft. 5 in. (165.10 cm) (R); Pain 10; 23:06 BP 97 / 74; Pulse 88; Resp 16; Pulse Ox 100% on R/A; mt 05/18 00:41 BP 97 / 68; Pulse 59; Resp 17 S; Pulse Ox 97% on R/A; jd3 05/17 22:18 Body Mass Index 30.79 (83.91 kg, 165.10 cm) 05/17 22:18 Pt states that her bp has been running low and PCP aware fc [place] Coma Score: 22:11 Eye Response: spontaneous(4). Verbal Response: oriented(5). Motor Response: obeys fc commands(6). Total: 15. Trauma Score (Adult): 22:11 Eye Response: spontaneous(1); Verbal Response: oriented(1); Motor Response: obeys fc commands(2); Systolic BP: > 89 mm Hg(4); Respiratory Rate: 10 to 29 per min(4); [place] Score: 15; Trauma Score: 12 MDM: 23:57 Patient medically screened. pkl 05/18 00:09 Data reviewed: vital signs, nurses notes, radiologic studies, plain films. pkl 05/17 23:12 Order name: XRAY Shoulder LEFT 2 view snw 05/18 00:09 Order name: Sling; Complete Time: 00:41 pkl Administered Medications: 00:40 CANCELLED (Patient Refused): Motrin 400 mg PO once ak1 01:04 Drug: Naubinway (7.5 mg-325 mg) 1 tabs Route: PO; ak1 01:04 Follow up: Response: No adverse reaction; Medication administered at discharge. ak1 Disposition: 05/18/18 00:10 Discharged to Home. Impression: Contusion left shoulder. S/P Fall. - Condition is Stable. - Prescriptions for Ultram 50 mg Oral Tablet - take 1 tablet by ORAL route every 8 hours As needed; 20 tablet. - Medication Reconciliation Form, Thank You Letter, Antibiotic Education, Prescription Opioid Use form. - Follow up: Po Urban MD; When: 2 - 3 days; Reason: Re-evaluation by your physician. - Problem is new. - Symptoms have improved. Signatures: Dispatcher [employer] EDMS Jordi Wallace MD MD pkMandie Gaines RN RN Elaine Randolph RN RN ak1 Corrections: (The following items were deleted from the chart) 00:40 00:09 Motrin 400 mg PO once ordered. pkl ak1 01:06 00:10 05/18/2018 00:10 Discharged to Home. Impression: Contusion left shoulder. S/P ak1 Fall. Condition is Stable. Forms are Medication Reconciliation Form, Thank You Letter, Antibiotic Education, Prescription Opioid Use. Follow up: Po Urban; When: 2 - 3 days; Reason: Re-evaluation by your physician. Problem is new. Symptoms have improved. pkl
[2018-05-18] MEDS ORDERED: HYDROCODONE/APAP 7.5/325 MG TAB ONE (01:08)
[2018-05-18 01:21] VITALS: TEMP 98.4
[2018-05-18 01:24] VITALS: BP 97/68; O2SAT 97
--- OUTSIDE RECORDS SUMMARY | 2018-05-18 08:12 | XMS REPORT | Clinical Summary ---
:1955 Author Organization [facility] Address [address] [place] [address] Care Team Providers Name Role Phone Asked, [...] VACCINE 04/06/2018 11/25/2016 Results Not on fileafter 05/16/2017 Insurance Payer Benefit Plan / Group Subscriber ID Type Phone Address [facility] [employer] xxxxxxxxx HMO
--- NOTE | 2018-05-18 08:22 | RAD REPORT ---
EXAM DESCRIPTION: RAD - Shoulder Left 2 View - 05/18/2018 12:09 am CLINICAL HISTORY: PAIN History of fall COMPARISON: No comparisons FINDINGS: Vague poorly defined lucency is seen in the glenoid, which is equivocal for fracture. Dege nerative changes are present involving the AC joint and glenohumeral joint. No dislocation suspected. If pain persists or progresses, CT or MR imaging of the left shoulder may be of value.
== END 2018-05-18 01:06 | disposition home or self-care (01) ==
LOC: ER 22:04
DX: S40.012A Contusion of left shoulder, initial encounter (principal); W06.XXXA Fall from bed, initial encounter; Y93.9 Activity, unspecified; Y92.003 Bedroom of unspecified non-institutional (private) residence as the place of occurrence of the external cause; E03.9 Hypothyroidism, unspecified; E11.9 Type 2 diabetes mellitus without complications; F41.9 Anxiety disorder, unspecified; F32.9 Major depressive disorder, single episode, unspecified
CPT/HCPCS: 99284

== ENCOUNTER 2018-06-18 22:16 | Emergency (ER) | payer MEDICAID ==
--- OUTSIDE RECORDS SUMMARY | 2018-06-18 22:18 | XMS REPORT | Clinical Summary ---
:1955 Author Organization [facility] Address [address] [place] [address] Care Team Providers Name Role Phone Asked, [...] VACCINE 04/06/2018 11/25/2016 Results Not on fileafter 06/17/2017 Insurance Payer Benefit Plan / Group Subscriber ID Type Phone Address [facility] [employer] xxxxxxxxx HMO
[2018-06-18] MEDS ORDERED: IBUPROFEN 400 MG TAB ONE (23:03)
[2018-06-18] MEDS ORDERED: CYCLOBENZAPRINE 10 MG TAB ONE (23:03)
[2018-06-18] MEDS ORDERED: IBUPROFEN 200 MG TAB PO ONE (23:04)
--- NOTE | 2018-06-18 23:42 | ER ---
Nurse's Notes [facility] Name: Adela Watts Age: 62 yrs Sex: Female : 1955 Arrival Date: 06/18/2018 Time: 22:17 Bed 5 Private MD: Sapphire Rodriguez C Diagnosis: Muscle spasm of back Presentation: 06/18 22:42 Presenting complaint: Patient states: "I am hurting all down my left side, including my jd3 chest, arm, and leg. I see a pain management doctor for my back, but this is all different.". Transition of care: patient was not received from another setting of care. Onset of symptoms was June 18, 2018. Risk Assessment: Do you want to hurt yourself or someone else? Patient reports no desire to harm self or others. Initial Sepsis Screen: Does the patient meet any 2 criteria? No. Patient's initial sepsis screen is negative. Does the patient have a suspected source of infection? No. Patient's initial sepsis screen is negative. Care prior to arrival: None. 22:42 Method Of Arrival: Ambulatory jd3 22:42 Acuity: SHADY 3 jd3 Historical: - Allergies: 22:47 No Known Allergies; jd3 - Home Meds: 22:47 baclofen 10 mg Oral tab 1 tab twice a day [Active]; Hydroxyzine Oral 3 times per day jd3 [Active]; levothyroxine 88 mcg tab 1 tab once daily [Active]; metformin 500 mg Oral Tb24 as needed [Active]; [place] 10-325 mg Oral tab 1 tab three times a day [Active]; sertraline 100 mg Oral tab 1 tab once daily [Active]; Travatan Z 0.004 % ophthalmic drop 1 drop once daily [Active]; Wellbutrin XL 300 mg Oral Tb24 1 tab once daily [Active]; - PMHx: 22:47 Anxiety; Chronic pain; Depression; Diabetes - NIDDM; Hypothyroidism; jd3 - PSHx: 22:47 Cholecystectomy; Hysterectomy; Gastric Bypass; Lap Band; Thyroidectomy; jd3 - Immunization history:: Flu vaccine is not up to date. - Social history:: Smoking status: Patient/guardian denies using tobacco, the patient reports quitting approximately 29 years ago. - Ebola Screening: : Patient negative for fever greater than or equal to 101.5 degrees Fahrenheit, and additional compatible Ebola Virus Disease symptoms. Screenin:50 Abuse screen: Denies threats or abuse. Nutritional screening: No deficits noted. jd3 Tuberculosis screening: No symptoms or risk factors identified. Fall Risk Ambulatory Aid- None/Bed Rest/Nurse Assist (0 pts). Gait- Weak (10 pts.). Mental Status- Oriented to own ability (0 pts). Total Ratliff Fall Scale indicates No Risk (0-24 pts). Assessment: 22:47 General: Appears in no apparent distress. uncomfortable, Behavior is calm, cooperative, jd3 appropriate for age. Pain: Complains of pain in chest, abdomen, left arm and left leg Also complains of nausea. Neuro: Level of Consciousness is awake, alert, obeys commands, Oriented to person, place, time, situation, Appropriate for age Speech is normal, Facial symmetry appears normal, Pupils are PERRLA, Intact. Cardiovascular: Heart tones S1 S2 present Capillary refill < 3 seconds Patient's skin is warm and dry. Respiratory: Airway is patent Respiratory effort is even, unlabored, Respiratory pattern is regular, symmetrical, Breath sounds are clear bilaterally. GI: Abdomen is round non-distended, Bowel sounds present X 4 quads. Abd is soft and non tender X 4 quads. Reports nausea, vomiting. : No signs and/or symptoms were reported regarding the genitourinary system. EENT: No signs and/or symptoms were reported regarding the EENT system. Derm: Skin is intact, Skin is dry, Skin is normal, Skin temperature is warm. Musculoskeletal: Circulation, motion, and sensation intact. Range of motion: intact in all extremities. 23:36 Reassessment: Patient appears in no apparent distress at this time. Patient and/or jd3 family updated on plan of care and expected duration. Pain level reassessed. Patient is alert, oriented x 3, equal unlabored respirations, skin warm/dry/pink. awaiting provider to reassess pt. 06/19 00:00 Reassessment: Patient appears in no apparent distress at this time. Patient and/or jd3 family updated on plan of care and expected duration. Pain level reassessed. Patient is alert, oriented x 3, equal unlabored respirations, skin warm/dry/pink. Vital Signs: 06/18 22:25 BP 112 / 92; Pulse 73; Resp 18; Temp 98.7; Pulse Ox 98% ; Weight 83.91 kg; Height 5 ft. ms 5 in. (165.10 cm); Pain 10/10; 23:37 Pulse 77; Resp 17 S; Pulse Ox 99% on R/A; jd3 22:25 Body Mass Index 30.79 (83.91 kg, 165.10 cm) ms ED Course: 22:17 Patient arrived in ED. am2 22:18 Sapphire Rodriguez FNP is Private Physician. am2 22:20 Robb Cotter NP is [facility]. pm1 22:20 Chago Lockett MD is Attending Physician. pm1 22:32 Yadiel Beck RN is Primary Nurse. jd3 22:45 Triage completed. jd3 22:47 Arm band placed on. jd3 22:51 Patient has correct armband on for positive identification. Placed in gown. Bed in low jd3 position. Call light in reach. Side rails up X 1. 23:16 Sling applied to left arm. jd3 06/19 00:01 No provider procedures requiring assistance completed. Patient did not have IV access jd3 during this emergency room visit. Administered Medications: 06/18 23:05 Drug: Flexeril 10 mg Route: PO; jd3 06/19 00:02 Follow up: Response: No adverse reaction jd3 06/18 23:05 Drug: Ibuprofen 600 mg Route: PO; jd3 06/19 00:02 Follow up: Response: No adverse reaction jd3 Outcome: 06/18 23:42 Discharge ordered by . pm1 06/19 00:01 Discharged to home ambulatory. jd3 Condition: stable Discharge instructions given to patient, Instructed on discharge instructions, follow up and referral plans. medication usage, Demonstrated understanding of instructions, follow-up care, medications, Prescriptions given X 1. 00:02 Patient left the ED. jd3 Signatures: Caron Hawk ms Robb Cotter, ELVIS [employer]CT PROGRAMMER pm1 Carolyn Shepard am2 Yadiel Beck, MILE RN jd3
--- NOTE | 2018-06-18 23:42 | EDPHYS ---
Physician Documentation [facility] Name: Adela Watts Age: 62 yrs Sex: Female : 1955 Arrival Date: 06/18/2018 Time: 22:17 Bed 5 Private MD: Sapphire Rodriguez C ED Physician Chago Lockett HPI: 06/18 23:00 This 62 yrs old Black Female presents to ER via Ambulatory with complaints of Left side pm1 pain. 23:00 The patient presents with pain. The symptoms are located in the left trapezius, left pm1 scapular area, left subscapular area, left low back and left mid back. Onset: The symptoms/episode began/occurred yesterday. The pain does not radiate. Associated signs and symptoms: Pertinent negatives: chest pain, fever, nausea, numbness, tingling, vomiting, Shortness of breath. Modifying factors: The patient symptoms are alleviated by holding left arm up and tilting her head to the right. Severity of symptoms: in the emergency department the symptoms are unchanged. The patient has experienced similar episodes in the past, a few times, and the symptoms today are exactly the same, to previous muscle spasms that were improved with an arm sling and muscle relaxants. Historical: - Allergies: 22:47 No Known Allergies; jd3 - Home Meds: 22:47 baclofen 10 mg Oral tab 1 tab twice a day [Active]; Hydroxyzine Oral 3 times per day jd3 [Active]; levothyroxine 88 mcg tab 1 tab once daily [Active]; metformin 500 mg Oral Tb24 as needed [Active]; Deloit 10-325 mg Oral tab 1 tab three times a day [Active]; sertraline 100 mg Oral tab 1 tab once daily [Active]; Travatan Z 0.004 % ophthalmic drop 1 drop once daily [Active]; Wellbutrin XL 300 mg Oral Tb24 1 tab once daily [Active]; - PMHx: 22:47 Anxiety; Chronic pain; Depression; Diabetes - NIDDM; Hypothyroidism; jd3 - PSHx: 22:47 Cholecystectomy; Hysterectomy; Gastric Bypass; Lap Band; Thyroidectomy; jd3 - Immunization history:: Flu vaccine is not up to date. - Social history:: Smoking status: Patient/guardian denies using tobacco, the patient reports quitting approximately 29 years ago. - Ebola Screening: : Patient negative for fever greater than or equal to 101.5 degrees Fahrenheit, and additional compatible Ebola Virus Disease symptoms. ROS: 23:00 Constitutional: Negative for fever, chills, and weight loss, Eyes: Negative for injury, pm1 pain, redness, and discharge, ENT: Negative for injury, pain, and discharge, Neck: Negative for injury, pain, and swelling, Cardiovascular: Negative for chest pain, palpitations, and edema, Respiratory: Negative for shortness of breath, cough, wheezing, and pleuritic chest pain, Abdomen/GI: Negative for abdominal pain, nausea, vomiting, diarrhea, and constipation. 23:00 : Negative for injury, bleeding, discharge, and swelling, MS/Extremity: Negative for injury and deformity, Skin: Negative for injury, rash, and discoloration, Neuro: Negative for headache, weakness, numbness, tingling, and seizure. 23:00 Back: Positive for pain with movement, of the left trapezius, left scapular area, left subscapular area, left low back and left mid back. Exam: 23:00 Constitutional: This is a well developed, well nourished patient who is awake, alert, pm1 and in no acute distress. Head/Face: Normocephalic, atraumatic. Eyes: Pupils equal round and reactive to light, extra-ocular motions intact. Lids and lashes normal. Conjunctiva and sclera are non-icteric and not injected. Cornea within normal limits. Periorbital areas with no swelling, redness, or edema. ENT: Nares patent. No nasal discharge, no septal abnormalities noted. Tympanic membranes are normal and external auditory canals are clear. Oropharynx with no redness, swelling, or masses, exudates, or evidence of obstruction, uvula midline. Mucous membranes moist. Neck: Trachea midline, no thyromegaly or masses palpated, and no cervical lymphadenopathy. Supple, full range of motion without nuchal rigidity, or vertebral point tenderness. No Meningismus. Chest/axilla: Normal chest wall appearance and motion. Nontender with no deformity. No lesions are appreciated. Cardiovascular: Regular rate and rhythm with a normal S1 and S2. No gallops, murmurs, or rubs. Normal PMI, no JVD. No pulse deficits. Respiratory: Lungs have equal breath sounds bilaterally, clear to auscultation and percussion. No rales, rhonchi or wheezes noted. No increased work of breathing, no retractions or nasal flaring. Abdomen/GI: Soft, non-tender, with normal bowel sounds. No distension or tympany. No guarding or rebound. No evidence of tenderness throughout. 23:00 Skin: Warm, dry with normal turgor. Normal color with no rashes, no lesions, and no evidence of cellulitis. MS/ Extremity: Pulses equal, no cyanosis. Neurovascular intact. Full, normal range of motion. 23:00 Back: normal spinal alignment noted, muscle spasm, is appreciated in the left trapezius, left scapular area, left low back and left mid back. 23:00 Neuro: Orientation: is normal, Motor: is normal, moves all fours, strength is normal, strength is 5/5 in all extremities, Sensation: is normal, no obvious gross deficits, Gait: is steady, at a normal pace, without difficulty. Vital Signs: 22:25 BP 112 / 92; Pulse 73; Resp 18; Temp 98.7; Pulse Ox 98% ; Weight 83.91 kg; Height 5 ft. ms 5 in. (165.10 cm); Pain 10/10; 23:37 Pulse 77; Resp 17 S; Pulse Ox 99% on R/A; jd3 22:25 Body Mass Index 30.79 (83.91 kg, 165.10 cm) ms MDM: 22:26 Patient medically screened. pm1 23:41 Data reviewed: vital signs. Data interpreted: Pulse oximetry: on room air is 99 %. pm1 Interpretation: normal. Counseling: I had a detailed discussion with the patient and/or guardian regarding: the historical points, exam findings, and any diagnostic results supporting the discharge/admit diagnosis, the need for outpatient follow up, to return to the emergency department if symptoms worsen or persist or if there are any questions or concerns that arise at home. 06/18 22:40 Order name: Lexi; Complete Time: 23:15 pm1 Administered Medications: 23:05 Drug: Flexeril 10 mg Route: PO; jd3 06/19 00:02 Follow up: Response: No adverse reaction jd3 06/18 23:05 Drug: Ibuprofen 600 mg Route: PO; jd3 06/19 00:02 Follow up: Response: No adverse reaction jd3 Disposition: 00:59 Co-signature as Attending Physician, Chago Lockett MD. Disposition: 06/18/18 23:42 Discharged to Home. Impression: Muscle spasm of back. - Condition is Stable. - Discharge Instructions: Muscle Cramps and Spasms. - Prescriptions for Cyclobenzaprine 10 mg Oral Tablet - take 1 tablet by ORAL route every 8 hours As needed; 30 tablet. - Medication Reconciliation Form, Thank You Letter form. - Follow up: Emergency Department; When: As needed; Reason: Worsening of condition. Follow up: Private Physician; When: 2 - 3 days; Reason: Recheck today's complaints, Continuance of care, Re-evaluation by your physician. - Problem is new. - Symptoms have improved. Signatures: Robb Cotter, DIESEL DRAGLINE OPERATOR DIESEL DRAGLINE OPERATOR pm1 Chago Lockett MD MD Yadiel Beck RN RN jd3 Corrections: (The following items were deleted from the chart) 00:02 06/18 23:42 06/18/2018 23:42 Discharged to Home. Impression: Muscle spasm of back. jd3 Condition is Stable. Forms are Medication Reconciliation Form, Thank You Letter, Antibiotic Education, Prescription Opioid Use. Follow up: Emergency Department; When: As needed; Reason: Worsening of condition. Follow up: Private Physician; When: 2 - 3 days; Reason: Recheck today's complaints, Continuance of care, Re-evaluation by your physician. Problem is new. Symptoms have improved. pm1
[2018-06-19 00:23] VITALS: BP 112/92; TEMP 98.7
[2018-06-19 00:24] VITALS: O2SAT 99
== END 2018-06-19 00:02 | disposition home or self-care (01) ==
LOC: ER 22:16
DX: M62.830 Muscle spasm of back (principal); E03.9 Hypothyroidism, unspecified; E11.9 Type 2 diabetes mellitus without complications; F32.9 Major depressive disorder, single episode, unspecified; F41.9 Anxiety disorder, unspecified
CPT/HCPCS: 99283

== ENCOUNTER 2018-11-21 09:42 | Emergency (ER) | payer MEDICAID ==
--- OUTSIDE RECORDS SUMMARY | 2018-11-21 09:44 | XMS REPORT | Clinical Summary ---
:1955 Author Organization [facility] Address [address] [place] [address] Care Team Providers Name Role Phone Asked, No Pcp Primary Care Provider Unavailable Allergies No Known Allergies Medications Medication Sig Dispensed Refills Start Date End Date Status hydrocortisone (CORTEF) Take by mouth 3 0 Active 20 MG tablet (three) times a day. unkown dose levothyroxine Take 88 mcg by 0 Active (SYNTHROID, LEVOXYL) 88 mouth every mcg tablet morning. sertraline (ZOLOFT) 100 Take 200 mg by 0 Active MG tablet mouth daily. ondansetron (ZOFRAN, [...] Assigned at Date Recorded Not on file Job Start Date Occupation Industry Not on file Not on file Not on file Travel History Travel Start Travel End No recent travel history available. Last Filed Vital Signs Not on file Plan of Treatment Health Maintenance Due Date Last Done Comments CERVICAL CANCER SCREENING 1977 BREAST CANCER SCREENING 2006 COLON CANCER SCREENING 2006 SHINGLES VACCINES (#1) 2006 INFLUENZA VACCINE 04/06/2018 11/25/2016 Results Not on fileafter 11/20/2017 Insurance Payer Benefit Plan / Group Subscriber ID Type Phone Address [facility] [employer] xxxxxxxxx HMO ([place]) [address] [place] [address] Advance Directives Patient has advance care planning documents on file. For more information, please contact:Adriano [address] [place] [address]
--- OUTSIDE RECORDS SUMMARY | 2018-11-21 09:44 | XMS REPORT ---
:1955 [facility] Address [address] [place] [address] [address] [place] [id number] Care Team Providers Name Role Phone Unavailable Unavailable Unavailable Problems This patient has no known problems. Allergies, Adverse Reactions, Alerts This patient has no known allergies or adverse reactions. Medications This patient has no known medications.
[2018-11-21] MEDS ORDERED: MEPERIDINE HCL 50 MG/ML AMP ONE (10:49)
[2018-11-21] MEDS ORDERED: ONDANSETRON 4 MG (ODT) TAB ONE (10:49)
--- NOTE | 2018-11-21 11:35 | RAD REPORT ---
EXAM DESCRIPTION: RAD - Lumbar Spine 3 Views - 11/21/2018 11:29 am CLINICAL HISTORY: Back pain FINDINGS: Mild anterior subluxation of L4 on L5. The bones are osteoporotic. Mild spondylosis. Osteoarthritis involves the facet joints of lower lumba r spine No fracture or dislocation is seen.
--- NOTE | 2018-11-21 11:35 | RAD REPORT ---
EXAM DESCRIPTION: RAD - Pelvis - 11/21/2018 11:29 am CLINICAL HISTORY: PAIN History of fall COMPARISON: None FINDINGS: AP pelvis and left hip - two views are submitted Mild degenerative changes are present in the hips bilaterally. No evidence of acute fracture, disloca tion or AVN. Moderate lower lumbar degenerative changes are seen.
--- NOTE | 2018-11-21 11:46 | EDPHYS ---
Physician Documentation [facility] Name: Adela Watts Age: 63 yrs Sex: Female : 1955 Arrival Date: 11/21/2018 Time: 09:44 Bed 26 Private MD: Sapphire Rodriguez ED Physician Patricio Gaviria HPI: 11/21 10:35 This 63 yrs old Black Female presents to ER via Wheelchair with complaints of Fall jr8 Injury, Hip Pain. 10:35 Details of fall: The patient fell from an upright position. Onset: The symptoms/episode jr8 began/occurred suddenly, 2 week(s) ago. Associated injuries: The patient sustained injury to the low back, left hip. Severity of symptoms: At their worst the symptoms were moderate, in the emergency department the symptoms are unchanged. The patient has not experienced similar symptoms in the past. The patient has not recently seen a physician. Patient stated that she fell about 2 weeks ago. Has been able to walk but still in a lot of pain from incident. Pain to buttock, low back , and left hip . Historical: - Allergies: 10:09 No Known Allergies; hb - Immunization history:: Adult Immunizations up to date. - Social history:: Smoking status: Patient/guardian denies using tobacco. - Ebola Screening: : No symptoms or risks identified at this time. ROS: 10:35 Eyes: Negative for injury, pain, redness, and discharge, ENT: Negative for injury, jr8 pain, and discharge, Neck: Negative for injury, pain, and swelling, Cardiovascular: Negative for chest pain, palpitations, and edema, Respiratory: Negative for shortness of breath, cough, wheezing, and pleuritic chest pain, Abdomen/GI: Negative for abdominal pain, nausea, vomiting, diarrhea, and constipation, Skin: Negative for injury, rash, and discoloration, Neuro: Negative for headache, weakness, numbness, tingling, and seizure. 10:35 Back: Positive for pain at rest, pain with movement, of the low back area. 10:35 MS/extremity: Positive for pain, tenderness, of the left hip. Exam: 10:35 Head/Face: Normocephalic, atraumatic. Eyes: Pupils equal round and reactive to light, jr8 extra-ocular motions intact. Lids and lashes normal. Conjunctiva and sclera are non-icteric and not injected. Cornea within normal limits. Periorbital areas with no swelling, redness, or edema. ENT: Nares patent. No nasal discharge, no septal abnormalities noted. Tympanic membranes are normal and external auditory canals are clear. Oropharynx with no redness, swelling, or masses, exudates, or evidence of obstruction, uvula midline. Mucous membranes moist. Neck: Trachea midline, no thyromegaly or masses palpated, and no cervical lymphadenopathy. Supple, full range of motion without nuchal rigidity, or vertebral point tenderness. No Meningismus. Chest/axilla: Normal chest wall appearance and motion. Nontender with no deformity. No lesions are appreciated. Cardiovascular: Regular rate and rhythm with a normal S1 and S2. No gallops, murmurs, or rubs. Normal PMI, no JVD. No pulse deficits. Respiratory: Lungs have equal breath sounds bilaterally, clear to auscultation and percussion. No rales, rhonchi or wheezes noted. No increased work of breathing, no retractions or nasal flaring. Abdomen/GI: Soft, non-tender, with normal bowel sounds. No distension or tympany. No guarding or rebound. No evidence of tenderness throughout. Skin: Warm, dry with normal turgor. Normal color with no rashes, no lesions, and no evidence of cellulitis. Neuro: Awake and alert, GCS 15, oriented to person, place, time, and situation. Cranial nerves II-XII grossly intact. Motor strength 5/5 in all extremities. Sensory grossly intact. Cerebellar exam normal. Normal gait. 10:35 Back: pain, that is mild, of the left low back, ROM is painful, normal spinal alignment noted, CVA tenderness, is absent, vertebral tenderness, is not appreciated. 10:35 Musculoskeletal/extremity: Extremities: grossly normal except: noted in the left hip: pain, tenderness, ROM: intact in all extremities, full active range of motion, full passive range of motion, limited active range of motion due to pain, limited passive range of motion due to pain, Circulation is intact in all extremities. Sensation intact. No bruising or obvious deformity present . Vital Signs: 10:09 BP 146 / 86; Pulse 78; Resp 16; Temp 98.4; Pulse Ox 100% on R/A; Pain 10/10; hb MDM: 10:15 Patient medically screened. jr8 11:44 Data reviewed: vital signs, nurses notes, radiologic studies, plain films, and as a jr8 result, I will discharge patient. Data interpreted: Pulse oximetry: on room air is 100 %. Interpretation: normal. Counseling: I had a detailed discussion with the patient and/or guardian regarding: the historical points, exam findings, and any diagnostic results supporting the discharge/admit diagnosis, radiology results, the need for outpatient follow up, a family practitioner, a bait painter, to return to the emergency department if symptoms worsen or persist or if there are any questions or concerns that arise at home. 11/21 10:35 Order name: XRAY Lumbar Spine (3 Views); Complete Time: 11:37 jr8 11/21 10:35 Order name: XRAY Pelvis; Complete Time: 11:37 jr8 11/21 10:35 Order name: XRAY Hip LEFT 2 view jr8 Administered Medications: 10:42 Drug: Demerol 50 mg Route: IM; Site: left gluteus; aj1 11:58 Follow up: Response: No adverse reaction; Pain is decreased aj1 10:42 Drug: Zofran 4 mg Route: PO; aj1 11:58 Follow up: Response: No adverse reaction aj Disposition: 13:47 Co-signature as Attending Physician, Patricio Gaviria MD I agree with the assessment and derick plan of care. Disposition: 11/21/18 11:44 Discharged to Home. Impression: Low back pain, Contusion of left hip. - Condition is Stable. - Discharge Instructions: Back Pain, Adult, Chronic Back Pain. - Prescriptions for Mobic 7.5 mg Oral Tablet - take 1 tablet by ORAL route once daily take with food; 20 tablet. Tramadol 50 mg Oral Tablet - take 1 tablet by ORAL route every 8 hours as needed; 12 tablet. - Medication Reconciliation Form, Thank You Letter, Antibiotic Education, Prescription Opioid Use form. - Follow up: Private Physician; When: 5 - 6 days; Reason: Recheck today's complaints, Continuance of care, Re-evaluation by your physician. - Problem is new. - Symptoms have improved. Signatures: Dispatcher [employer] Mary Beth Hilton RN RN aj1 Patricio Gaviria MD MD cha Roszak, Josh, PA PA jr8 Xochitl Blunt RN RN Corrections: (The following items were deleted from the chart) 11:59 11:44 11/21/2018 11:44 Discharged to Home. Impression: Low back pain; Contusion of left aj1 hip. Condition is Stable. Forms are Medication Reconciliation Form, Thank You Letter, Antibiotic Education, Prescription Opioid Use. Follow up: Private Physician; When: 5 - 6 days; Reason: Recheck today's complaints, Continuance of care, Re-evaluation by your physician. Problem is new. Symptoms have improved. jr8
--- NOTE | 2018-11-21 11:46 | ER ---
Nurse's Notes [facility] Name: Adela Watts Age: 63 yrs Sex: Female : 1955 Arrival Date: 11/21/2018 Time: 09:44 Bed 26 Private MD: Sapphire Rodriguez Diagnosis: Low back pain;Contusion of left hip Presentation: 11/21 10:08 Presenting complaint: Right hip pain after fall from standing 2-3 weeks ago. Pt slumped hb over to the side in wheelchair, sticking finger down throat to induce vomiting in triage. Transition of care: patient was not received from another setting of care. Onset of symptoms is unknown. Risk Assessment: Do you want to hurt yourself or someone else? Patient reports no desire to harm self or others. Care prior to arrival: None. 10:08 Method Of Arrival: Wheelchair hb 10:08 Acuity: SHADY 4 hb 10:36 Initial Sepsis Screen: Does the patient meet any 2 criteria? No. Patient's initial aj1 sepsis screen is negative. Does the patient have a suspected source of infection? No. Patient's initial sepsis screen is negative. Historical: - Allergies: 10:09 No Known Allergies; hb - Immunization history:: Adult Immunizations up to date. - Social history:: Smoking status: Patient/guardian denies using tobacco. - Ebola Screening: : No symptoms or risks identified at this time. Screenin:35 Abuse screen: Denies threats or abuse. Denies injuries from another. Nutritional aj1 screening: No deficits noted. Tuberculosis screening: No symptoms or risk factors identified. 11:59 Fall Risk None identified. aj1 Assessment: 10:35 General: Appears in no apparent distress. uncomfortable, Behavior is cooperative, aj1 restless. Pain: Complains of pain in back and left hip Pain currently is 10 out of 10 on a pain scale. Neuro: Level of Consciousness is awake, alert, obeys commands. Cardiovascular: Patient's skin is warm and dry. Respiratory: Airway is patent Respiratory effort is even, unlabored, Respiratory pattern is regular, agonal. Derm: No signs and/or symptoms reported regarding the dermatologic system. Skin is pink, warm \T\ dry. normal. Musculoskeletal: Range of motion: limited in left hip. 11:28 Reassessment: Patient appears in no apparent distress at this time. No changes from aj1 previously documented assessment. Patient and/or family updated on plan of care and expected duration. Pain level reassessed. Patient is alert, oriented x 3, equal unlabored respirations, skin warm/dry/pink. Vital Signs: 10:09 BP 146 / 86; Pulse 78; Resp 16; Temp 98.4; Pulse Ox 100% on R/A; Pain 10/10; hb ED Course: 09:44 Patient arrived in ED. mr 09:46 Sapphire Rodriguez is Private Physician. mr 10:09 Triage completed. hb 10:09 Arm band placed on right wrist. hb 10:15 Gen Licea PA is PHCP. jr8 10:15 Patricio Gaviria MD is Attending Physician. jr8 10:16 Mary Beth Chaudhary, RN is Primary Nurse. aj1 10:35 Patient has correct armband on for positive identification. Bed in low position. Call aj1 light in reach. Side rails up X 1. 10:35 No provider procedures requiring assistance completed. aj1 11:16 Patient moved to radiology via stretcher. mh1 11:28 X-ray completed. Patient tolerated procedure well. Patient moved back from radiology. ls3 11:29 XRAY Lumbar Spine (3 Views) In Process Unspecified. EDMS 11:29 XRAY Pelvis In Process Unspecified. EDMS 11:29 XRAY Hip LEFT 2 view In Process Unspecified. EDMS 11:59 Patient did not have IV access during this emergency room visit. aj1 Administered Medications: 10:42 Drug: Demerol 50 mg Route: IM; Site: left gluteus; aj1 11:58 Follow up: Response: No adverse reaction; Pain is decreased aj1 10:42 Drug: Zofran 4 mg Route: PO; aj1 11:58 Follow up: Response: No adverse reaction aj1 Outcome: 11:44 Discharge ordered by . jr8 11:59 Discharged to home via wheelchair. aj1 11:59 Condition: good 11:59 Discharge instructions given to patient, Instructed on discharge instructions, follow up and referral plans. medication usage, Demonstrated understanding of instructions, follow-up care, medications, Prescriptions given X 2. 11:59 Patient left the ED. aj1 Signatures: Dispatcher [employer] Mary Beth Hilton, MILE RN aj1 DelatorreMary vale Martha 1 Gen Licea PA PA jr8 Xochitl Blunt, RN RN María Elena Emanuel ls3
[2018-11-21 12:04] VITALS: BP 146/86; TEMP 98.4; O2SAT 100
--- NOTE | 2018-11-21 12:24 | RAD REPORT ---
EXAM DESCRIPTION: RAD - Hip Left 2 View - 11/21/2018 11:29 am CLINICAL HISTORY: PAIN History of fall COMPARISON: None FINDINGS: AP pelvis and left hip - two views are submitted Mild degenerative changes are present in the hips bilaterally. No evidence of acute fracture, disloca tion or AVN. Moderate lower lumbar degenerative changes are seen.
== END 2018-11-21 11:59 | disposition home or self-care (01) ==
LOC: ER 09:42
DX: S70.02XA Contusion of left hip, initial encounter (principal); W19.XXXA Unspecified fall, initial encounter; Y93.9 Activity, unspecified; Y92.9 Unspecified place or not applicable
CPT/HCPCS: 72100; 72170; 96372; 99283; J2175

== ENCOUNTER 2019-02-15 06:57 | Emergency (ER) | payer MEDICAID ==
--- OUTSIDE RECORDS SUMMARY | 2019-02-15 06:59 | XMS REPORT | Clinical Summary ---
:1955 Author Organization [facility] Address [address] [place] [address] Care Team Providers Name Role Phone Asked, [...] Health Maintenance Due Date Last Done Comments BREAST CANCER SCREENING 2006 COLONOSCOPY SCREENING 2006 SHINGLES VACCINES (#1) 2006 INFLUENZA VACCINE 04/06/2019 11/25/2016 Results Not on fileafter 02/14/2018 ([place]) [address] [place] [address] Advance Directives Patient has advance care planning documents on file. For more information, please contact:Adriano [address] [place] [address]
--- OUTSIDE RECORDS SUMMARY | 2019-02-15 06:59 | XMS REPORT ---
:1955 [facility] Address [address] [place] [address] Care Team Providers Name Role Phone Unavailable Unavailable Unavailable Problems This patient has no known problems. Allergies, Adverse Reactions, Alerts This patient has no known allergies or adverse reactions. Medications This patient has no known medications.
[2019-02-15] MEDS ORDERED: HYDROCODONE/APAP 10/325 TAB ONE (08:30)
--- NOTE | 2019-02-15 09:10 | RAD REPORT ---
EXAM DESCRIPTION: RAD - Lumbar Spine 3 Views - 02/15/2019 8:10 am CLINICAL HISTORY: Back pain FINDINGS: Minimal anterior subluxation of L4 on L5 Osteoporosis No fracture is seen. Osteoarthritis involves the lower lumbar spine. .
--- NOTE | 2019-02-15 09:12 | RAD REPORT ---
EXAM DESCRIPTION: RAD - Hip Left 2 View - 02/15/2019 8:10 am CLINICAL HISTORY: Left hip pain status post injury FINDINGS: Bony/calcific density adjacent to the femoral greater trochanter is chronic No acute fracture or dislocation seen. Osteoporosis. If patient continues to have symptoms to suggest an occult fracture MRI would be recommended
--- NOTE | 2019-02-15 09:20 | RAD REPORT ---
EXAM DESCRIPTION: RAD - Shoulder Right 2 View - 02/15/2019 8:18 am CLINICAL HISTORY: Right shoulder pain FINDINGS: No fracture or dislocation is seen.
--- NOTE | 2019-02-15 10:00 | RAD REPORT ---
EXAM DESCRIPTION: RAD - Elbow Right 3 View - 02/15/2019 8:10 am CLINICAL HISTORY: Right elbow pain status post injury FINDINGS: No fracture or dislocation is seen.
--- NOTE | 2019-02-15 10:07 | ER ---
Nurse's Notes [facility] Name: Adela Watts Age: 63 yrs Sex: Female : 1955 Arrival Date: 02/15/2019 Time: 06:58 Bed 19 Private MD: Sapphire Rodriguez C Diagnosis: Contusion of right elbow;Lumbar Strain Presentation: 02/15 07:21 Presenting complaint: Patient states: i fell a couple of days ago, landed on my RIGHT tw2 shoulder and elbow and my lower left back hurts. Transition of care: patient was not received from another setting of care. Onset of symptoms was February 15, 2019. Risk Assessment: Do you want to hurt yourself or someone else? Patient reports no desire to harm self or others. Initial Sepsis Screen: Does the patient meet any 2 criteria? No. Patient's initial sepsis screen is negative. Does the patient have a suspected source of infection? No. Patient's initial sepsis screen is negative. Care prior to arrival: None. 07:21 Method Of Arrival: Ambulatory tw2 07:21 Acuity: SHADY 4 tw2 Triage Assessment: 07:22 General: Appears in no apparent distress. well groomed, Behavior is calm, cooperative, tw2 appropriate for age. Pain: Complains of pain in right elbow and shoulder and left lower back. EENT: No signs and/or symptoms were reported regarding the EENT system. Neuro: Level of Consciousness is awake, alert, obeys commands, Oriented to person, place, time, situation. Cardiovascular: Patient's skin is warm and dry. Respiratory: Airway is patent Respiratory effort is even, unlabored, Respiratory pattern is regular, symmetrical. GI: No signs and/or symptoms were reported involving the gastrointestinal system. : No signs and/or symptoms were reported regarding the genitourinary system. Derm: No signs and/or symptoms reported regarding the dermatologic system. Musculoskeletal: Range of motion: intact in all extremities. Historical: - Allergies: 07: No Known Allergies; tw2 - Home Meds: 07:26 Wellbutrin XL 300 mg Oral Tb24 1 tab once daily [Active]; Travatan Z 0.004 % ophthalmic tw2 drop 1 drop once daily [Active]; sertraline 100 mg Oral tab 1 tab once daily [Active]; metformin 500 mg Oral Tb24 as needed [Active]; levothyroxine 88 mcg tab 1 tab once daily [Active]; Hydroxyzine Oral 3 times per day [Active]; - PMHx: 07:26 Anxiety; Chronic pain; Diabetes - NIDDM; Hypothyroidism; Depression; tw2 - Immunization history:: Adult Immunizations. - Social history:: Smoking status: . - Ebola Screening: : Patient negative for fever greater than or equal to 101.5 degrees Fahrenheit, and additional compatible Ebola Virus Disease symptoms. Screenin:27 Abuse screen: Denies threats or abuse. Nutritional screening: No deficits noted. tw2 Tuberculosis screening: No symptoms or risk factors identified. Fall Risk None identified. Assessment: 07:26 Reassessment: see triage assessment. tw2 07:42 Reassessment: pt is in xray at this time. tw2 08:33 Reassessment: Patient appears in no apparent distress at this time. No changes from tw2 previously documented assessment. Patient and/or family updated on plan of care and expected duration. Pain level reassessed. Patient is alert, oriented x 3, equal unlabored respirations, skin warm/dry/pink. 10:23 Reassessment: Patient appears in no apparent distress at this time. No changes from tw2 previously documented assessment. Patient and/or family updated on plan of care and expected duration. Pain level reassessed. Patient is alert, oriented x 3, equal unlabored respirations, skin warm/dry/pink. Patient states feeling better. Patient states symptoms have improved. Vital Signs: 07:23 BP 147 / 110; Pulse 68; Resp 17; Pulse Ox 97% on R/A; Weight 83.91 kg (R); Height 5 ft. tw2 7 in. (170.18 cm); Pain 10/10; 08:33 BP 135 / 99; Pulse 63; Resp 17; Temp 97.8(TE); Pulse Ox 99% on R/A; tw2 10:23 BP 132 / 87; Pulse 68; Resp 17; Pulse Ox 100% on R/A; tw2 07:23 Body Mass Index 28.97 (83.91 kg, 170.18 cm) tw2 ED Course: 06:58 Patient arrived in ED. am2 07:00 Sapphire Rodriguez FNP is Private Physician. am2 07:12 Sridhar Mahoney PA is PHCP. m 07:12 Moshe Middleton MD is Attending Physician. m 07:20 Erinn Eduardo, RN is Primary Nurse. tw2 07:20 Bed in low position. Call light in reach. tw2 07:22 Triage completed. tw2 07:22 Arm band placed on. tw2 07:43 Hip Left 2 View XRAY In Process Unspecified. EDMS 08:10 Elbow Right 3 View XRAY In Process Unspecified. EDMS 08:10 Lumbar Spine (3 Views) XRAY In Process Unspecified. EDMS 08:11 Shoulder Right (2 View) XRAY In Process Unspecified. EDMS 09:54 Orthoglass splint: posterior long arm splint applied to the right arm. capillary refill dh3 less than 3 seconds, checked off by Jessica Tate Sling applied to right arm. 10:06 Deng Campbell MD is Referral Physician. jmm 10:24 No provider procedures requiring assistance completed. Patient did not have IV access tw2 during this emergency room visit. Administered Medications: 08:25 Drug: [place] 10 mg-325 mg 1 tabs Route: PO; tw2 09:40 Follow up: Response: No adverse reaction; Pain is decreased tw2 Outcome: 10:06 Discharge ordered by MD. [facility] 10:24 Discharged to home ambulatory. tw2 10:24 Condition: stable 10:24 Discharge instructions given to patient, Instructed on discharge instructions, follow up and referral plans. no drinking with medication, no driving heavy equipment, medication usage, Demonstrated understanding of instructions, follow-up care, medications, Prescriptions given X 1. 10:24 Patient left the ED. tw2 Signatures: Dispatcher [employer] Sridhar Carrillo PA PA jmm Wise, Tara, RN RN tw2 Carolyn Shepard am2 Willow Pepper 3
--- NOTE | 2019-02-15 10:07 | EDPHYS ---
Physician Documentation [facility] Name: Adela Watts Age: 63 yrs Sex: Female : 1955 Arrival Date: 02/15/2019 Time: 06:58 Bed 19 Private MD: Sapphire Rodriguez C ED Physician Moshe Middleton HPI: 02/15 07:14 This 63 yrs old Black Female presents to ER via Ambulatory with complaints of Fall jmm Injury, Arm Pain, Hip Pain. 07:14 Details of fall: The patient fell from an upright position. Onset: The symptoms/episode jmm began/occurred acutely, 2 day(s) ago. This is a 63 year old female with a history of chronic back pain that presents to the ED with complaints of right elbow pain and left hip pain after a fall which occurred 2 days ago. Patient states she landed directly on her right side but developed left sided pain soon after. Patient is able to bear weight. . Historical: - Allergies: 07:26 No Known Allergies; tw2 - Home Meds: 07:26 Wellbutrin XL 300 mg Oral Tb24 1 tab once daily [Active]; Travatan Z 0.004 % ophthalmic tw2 drop 1 drop once daily [Active]; sertraline 100 mg Oral tab 1 tab once daily [Active]; metformin 500 mg Oral Tb24 as needed [Active]; levothyroxine 88 mcg tab 1 tab once daily [Active]; Hydroxyzine Oral 3 times per day [Active]; - PMHx: 07:26 Anxiety; Chronic pain; Diabetes - NIDDM; Hypothyroidism; Depression; tw2 - Immunization history:: Adult Immunizations. - Social history:: Smoking status: . - Ebola Screening: : Patient negative for fever greater than or equal to 101.5 degrees Fahrenheit, and additional compatible Ebola Virus Disease symptoms. ROS: 07:25 Constitutional: Negative for fever, chills, and weight loss, Cardiovascular: Negative jmm for chest pain, palpitations, and edema, Respiratory: Negative for shortness of breath, cough, wheezing, and pleuritic chest pain, Abdomen/GI: Negative for abdominal pain, nausea, vomiting, diarrhea, and constipation. 07:25 Back: Positive for pain with movement. 07:25 MS/extremity: Positive for injury or acute deformity, pain. 07:25 All other systems are negative. Vital Signs: 07:23 BP 147 / 110; Pulse 68; Resp 17; Pulse Ox 97% on R/A; Weight 83.91 kg (R); Height 5 ft. tw2 7 in. (170.18 cm); Pain 10/10; 08:33 BP 135 / 99; Pulse 63; Resp 17; Temp 97.8(TE); Pulse Ox 99% on R/A; tw2 10:23 BP 132 / 87; Pulse 68; Resp 17; Pulse Ox 100% on R/A; tw2 07:23 Body Mass Index 28.97 (83.91 kg, 170.18 cm) tw2 Procedures: 10:04 Splinting: Splint applied to right arm using sling, posterior splint. applied by tech. aiden Examined by me, post splint application: neurovascular intact, 2+ distal pulses palpable, brisk capillary refill noted, Patient tolerated well. MDM: 07:14 Patient medically screened. [facility] 10:04 Data reviewed: vital signs, nurses notes. Counseling: I had a detailed discussion with aiden the patient and/or guardian regarding: the historical points, exam findings, and any diagnostic results supporting the discharge/admit diagnosis, radiology results, the need for outpatient follow up, to return to the emergency department if symptoms worsen or persist or if there are any questions or concerns that arise at home. 02/15 07:18 Order name: Elbow Right 3 View XRAY; Complete Time: 10:03 [facility] 02/15 07:18 Order name: Lumbar Spine (3 Views) XRAY; Complete Time: 09:22 [facility] 02/15 07:18 Order name: Hip Left 2 View XRAY; Complete Time: 09:22 [facility] 02/15 07:37 Order name: Shoulder Right (2 View) XRAY; Complete Time: 09:26 [facility] 02/15 09:37 Order name: Posterior Elbow Splint; Complete Time: 09:57 [facility] 02/15 09:37 Order name: Sling; Complete Time: 09:57 [facility] Administered Medications: 08:25 Drug: [place] 10 mg-325 mg 1 tabs Route: PO; tw2 09:40 Follow up: Response: No adverse reaction; Pain is decreased tw2 Disposition: 18:52 Co-signature as Attending Physician, Moshe Middleton MD Available for consultation at ps1 all times. . Disposition: 02/15/19 10:06 Discharged to Home. Impression: Contusion of right elbow, Lumbar Strain. - Condition is Stable. - Discharge Instructions: Back Pain, Adult, Elbow Contusion. - Prescriptions for Tylenol- Codeine #3 300-30 mg Oral Tablet - take 1 tablet by ORAL route every 6 hours As needed; 20 tablet. - Medication Reconciliation Form, Thank You Letter, Antibiotic Education, Prescription Opioid Use form. - Follow up: Deng Campbell MD; When: 2 - 3 days; Reason: Recheck today's complaints, Continuance of care, Re-evaluation by your physician. Signatures: Dispatcher [employer] EDMS Sridhar Mahoney PA PA Erinn Rosario RN RN tw2 Moshe Middleton MD MD ps1 Corrections: (The following items were deleted from the chart) 10:24 10:06 02/15/2019 10:06 Discharged to Home. Impression: Contusion of right elbow; Lumbar tw2 Strain. Condition is Stable. Forms are Medication Reconciliation Form, Thank You Letter, Antibiotic Education, Prescription Opioid Use. Follow up: Deng Campbell; When: 2 - 3 days; Reason: Recheck today's complaints, Continuance of care, Re-evaluation by your physician. aiden
[2019-02-15 10:50] VITALS: TEMP 97.8
[2019-02-15 10:51] VITALS: BP 132/87; O2SAT 100
== END 2019-02-15 10:24 | disposition home or self-care (01) ==
LOC: ER 06:57
DX: S50.01XA Contusion of right elbow, initial encounter (principal); S39.012A Strain of muscle, fascia and tendon of lower back, initial encounter; W19.XXXA Unspecified fall, initial encounter; Y93.9 Activity, unspecified; Y92.9 Unspecified place or not applicable; E11.9 Type 2 diabetes mellitus without complications; E03.9 Hypothyroidism, unspecified; F32.9 Major depressive disorder, single episode, unspecified; F41.9 Anxiety disorder, unspecified
CPT/HCPCS: 72100; 99284

== ENCOUNTER 2019-08-27 22:34 | Emergency (ER) | payer MEDICAID ==
--- OUTSIDE RECORDS SUMMARY | 2019-08-27 22:35 | XMS REPORT ---
:1955 [facility] [address] [place] [address] [address]. [address] [place] [id number] Care Team Providers Name Role Phone Unavailable Unavailable Unavailable Problems This patient has no known problems. Allergies, Adverse Reactions, Alerts This patient has no known allergies or adverse reactions. Medications This patient has no known medications.
--- NOTE | 2019-08-27 23:22 | EDPHYS ---
Physician Documentation [facility] Name: Adela Watts Age: 64 yrs Sex: Female : 1955 Arrival Date: 08/27/2019 Time: 22:37 Bed 18 Private MD: ED Physician Moshe Middleton HPI: 08/27 23:16 This 64 yrs old Black Female presents to ER via Ambulatory with complaints of Arm Pain. ps1 23:16 Pain is chronic. Has had pain for years. Has had prescriptions for pain but transition ps1 from [facility]. Pain localized to bicep insertion. No advanced imaging. . Historical: - Allergies: 23:11 No Known Allergies; lp1 - Home Meds: 23:11 levothyroxine 88 mcg tab 1 tab once daily [Active]; Wellbutrin XL 300 mg Oral Tb24 1 lp1 tab once daily [Active]; Travatan Z 0.004 % ophthalmic drop 1 drop once daily [Active]; - PMHx: 23:11 Anxiety; Chronic pain; Depression; Diabetes - NIDDM; Hypothyroidism; lp1 - PSHx: 23:11 Cholecystectomy; goiter removal; Hysterectomy; lap band; lp1 - Immunization history:: Adult Immunizations up to date. - Social history:: Smoking status: Patient/guardian denies using tobacco. - Ebola Screening: : No symptoms or risks identified at this time. ROS: 23:18 Constitutional: Negative for fever, chills, and weight loss, Eyes: Negative for injury, ps1 pain, redness, and discharge, Cardiovascular: Negative for chest pain, palpitations, and edema, Respiratory: Negative for shortness of breath, cough, wheezing, and pleuritic chest pain, Abdomen/GI: Negative for abdominal pain, nausea, vomiting, diarrhea, and constipation, Skin: Negative for injury, rash, and discoloration. 23:18 Neuro: Negative for headache, weakness, numbness, tingling, and seizure. 23:18 MS/extremity: Positive for tenderness, of the anterior aspect of right shoulder and right axilla. Exam: 23:18 Constitutional: This is a well developed, well nourished patient who is awake, alert, ps1 and in no acute distress. Head/Face: Normocephalic, atraumatic. Eyes: Pupils equal round and reactive to light, extra-ocular motions intact. Lids and lashes normal. Conjunctiva and sclera are non-icteric and not injected. Chest/axilla: Normal chest wall appearance and motion. Nontender with no deformity. No lesions are appreciated. Cardiovascular: Regular rate and rhythm. No gallops, murmurs, or rubs. Normal PMI, no JVD. No pulse deficits. Respiratory: Lungs have equal breath sounds bilaterally, clear to auscultation and percussion. No rales, rhonchi or wheezes noted. No increased work of breathing, no retractions or nasal flaring. Abdomen/GI: Soft, non-tender, with normal bowel sounds. No distension or tympany. No guarding or rebound. No evidence of tenderness throughout. Skin: Warm, dry with normal turgor. Normal color with no rashes, no lesions, and no evidence of cellulitis. Neuro: Awake and alert, GCS 15, oriented to person, place, time, and situation. Cranial nerves II-XII grossly intact. Sensory grossly intact. 23:18 Musculoskeletal/extremity: Extremities: grossly normal except: noted in the anterior aspect of right shoulder: pain, There is no evidence of dislocation or functional limitation. . Vital Signs: 23:08 BP 104 / 64; Pulse 88; Resp 16; Temp 97.5; Pulse Ox 100% on R/A; Weight 83.91 kg; lp1 Height 5 ft. 5 in. (165.10 cm); Pain 10/10; 23:08 Body Mass Index 30.78 (83.91 kg, 165.10 cm) lp1 MDM: 23:20 Differential diagnosis: tendonitis. Data reviewed: vital signs, nurses notes, and as a ps1 result, I will discharge patient. Counseling: I had a detailed discussion with the patient and/or guardian regarding: the historical points, exam findings, and any diagnostic results supporting the discharge/admit diagnosis, the need for outpatient follow up, a orthopedic surgeon. 23:21 Patient medically screened. ps1 Administered Medications: No medications were administered Disposition: 08/27/19 23:21 Discharged to Home. Impression: Bicipital tendonitis. - Condition is Stable. - Discharge Instructions: Bicipital Tendinitis. - Prescriptions for Robaxin 500 mg Oral Tablet - take 2 tablet by ORAL route every 6 hours As needed; 40 tablet. Tylenol- Codeine #3 300-30 mg Oral Tablet - take 2 tablets by ORAL route every 6 hours As needed; 20 tablet. - Medication Reconciliation Form, Thank You Letter, Antibiotic Education, Prescription Opioid Use form. - Follow up: Bradley Leo MD; When: As needed; Reason: Further diagnostic work-up, Recheck today's complaints, Continuance of care, Re-evaluation by your physician. Follow up: Emergency Department; When: As needed; Reason: Fever > 102 F, Worsening of condition. - Problem is chronic. - Symptoms are unchanged. Signatures: Paty Roger RN RN lp1 Moshe Middleton MD MD ps1 Corrections: (The following items were deleted from the chart) 23:43 23:21 08/27/2019 23:21 Discharged to Home. Impression: Bicipital tendonitis. Condition lp1 is Stable. Forms are Medication Reconciliation Form, Thank You Letter, Antibiotic Education, Prescription Opioid Use. Follow up: Dr. Bradley Leo; When: As needed; Reason: Further diagnostic work-up, Recheck today's complaints, Continuance of care, Re-evaluation by your physician. Follow up: Emergency Department; When: As needed; Reason: Fever > 102 F, Worsening of condition. Problem is chronic. Symptoms are unchanged. ps1
--- NOTE | 2019-08-27 23:22 | ER ---
Nurse's Notes [facility] Name: Adela Watts Age: 64 yrs Sex: Female : 1955 Arrival Date: 08/27/2019 Time: 22:37 Bed 18 Private MD: Diagnosis: Bicipital tendonitis Presentation: 08/27 23:05 Presenting complaint: Patient states: Right arm pain that has been going on for the lp1 last year, states worse over the last 2-3 days; denies any injury/trauma; States back spasms for years but worse over the last couple days; Spasms to general body. Transition of care: patient was not received from another setting of care. Onset of symptoms was August 27, 2019. Risk Assessment: Do you want to hurt yourself or someone else? Patient reports no desire to harm self or others. Initial Sepsis Screen: Does the patient meet any 2 criteria? No. Patient's initial sepsis screen is negative. Does the patient have a suspected source of infection? No. Patient's initial sepsis screen is negative. Care prior to arrival: None. 23:05 Method Of Arrival: Ambulatory lp1 23:05 Acuity: SHADY 4 lp1 Historical: - Allergies: 23:11 No Known Allergies; lp1 - Home Meds: 23:11 levothyroxine 88 mcg tab 1 tab once daily [Active]; Wellbutrin XL 300 mg Oral Tb24 1 lp1 tab once daily [Active]; Travatan Z 0.004 % ophthalmic drop 1 drop once daily [Active]; - PMHx: 23:11 Anxiety; Chronic pain; Depression; Diabetes - NIDDM; Hypothyroidism; lp1 - PSHx: 23:11 Cholecystectomy; goiter removal; Hysterectomy; lap band; lp1 - Immunization history:: Adult Immunizations up to date. - Social history:: Smoking status: Patient/guardian denies using tobacco. - Ebola Screening: : No symptoms or risks identified at this time. Screenin:11 Abuse screen: Denies threats or abuse. Denies injuries from another. Nutritional lp1 screening: No deficits noted. Tuberculosis screening: No symptoms or risk factors identified. Fall Risk None identified. Assessment: 23:12 General: Appears in no apparent distress. Behavior is calm, cooperative, appropriate lp1 for age. Pain: Complains of pain in right arm Pain currently is 10 out of 10 on a pain scale. Quality of pain is described as aching. Neuro: Level of Consciousness is awake, alert, obeys commands, Oriented to person, place, time, situation, Gait is steady. Cardiovascular: Patient's skin is warm and dry. Respiratory: No deficits noted. GI: No signs and/or symptoms were reported involving the gastrointestinal system. : No signs and/or symptoms were reported regarding the genitourinary system. EENT: No signs and/or symptoms were reported regarding the EENT system. Derm: Skin is intact, Skin is dry, Skin is normal. Musculoskeletal: Circulation, motion, and sensation intact. Range of motion: intact in all extremities. Vital Signs: 23:08 BP 104 / 64; Pulse 88; Resp 16; Temp 97.5; Pulse Ox 100% on R/A; Weight 83.91 kg; lp1 Height 5 ft. 5 in. (165.10 cm); Pain 10/10; 23:08 Body Mass Index 30.78 (83.91 kg, 165.10 cm) lp1 ED Course: 22:37 Patient arrived in ED. ag3 22:49 Paty Roger, MILE is Primary Nurse. lp1 22:59 Moshe Middleton MD is Attending Physician. ps1 23:08 Triage completed. lp1 23:08 Arm band placed on. lp1 23:13 Patient has correct armband on for positive identification. lp1 23:21 Bradley Leo MD is Referral Physician. ps1 23:42 No provider procedures requiring assistance completed. Patient did not have IV access lp1 during this emergency room visit. Administered Medications: No medications were administered Outcome: 23:21 Discharge ordered by . ps1 23:42 Discharged to home ambulatory. lp1 23:42 Condition: good 23:42 Discharge instructions given to patient, Instructed on discharge instructions, follow up and referral plans. medication usage, Demonstrated understanding of instructions, follow-up care, medications, Prescriptions given X 2. 23:43 Patient left the ED. lp1 Signatures: Paty Roger RN RN lp1 Moshe Middleton MD MD ps1 Kera Gan ag3 Corrections: (The following items were deleted from the chart) 23:42 23:08 BP 104 / 64; Pulse 88bpm; Resp 16bpm; Pulse Ox 100% RA; 83.91 kg; Height 5 ft. 5 lp1 in.; BMI: 30.7; Pain 10/10; lp1
[2019-08-28 00:57] VITALS: BP 104/64; TEMP 97.5; O2SAT 100
== END 2019-08-27 23:43 | disposition home or self-care (01) ==
LOC: ER 22:34
DX: M75.21 Bicipital tendinitis, right shoulder (principal); F41.9 Anxiety disorder, unspecified; F32.9 Major depressive disorder, single episode, unspecified; E11.9 Type 2 diabetes mellitus without complications; E03.9 Hypothyroidism, unspecified
CPT/HCPCS: 99282

== ENCOUNTER 2021-02-01 05:53 | Emergency (ER) | payer MEDICAID ==
--- OUTSIDE RECORDS SUMMARY | 2021-02-01 06:23 | XMS REPORT | Continuity of Care Document ---
:1955 Author Organization [facility] t Address [address] [place] [address] Care Team Providers Name Role Phone Asked, Pcp Primary Care Physician Unavailable Problems Condition Condition Condition Status Onset Resolution Last Treating Co mments Source Name Details Category Date Date Treatment Clinician Date Abdominal Abdominal Disease Active Peter ston pain pain 3-20 [facility] 00:00: st 00 Allergies, Adverse Reactions, Alerts This patient has no known allergies or adverse reactions. Social History Social Habit Start Date Stop Date Quantity Comments Source Cigarettes smoked 2019-08-04 2019-08-04 [facility] current (pack per 00:00:00 00:00:00 day) - Reported Cigarette 2019-08-04 2019-08-04 [facility] pack-years 00:00:00 00:00:00 Tobacco use and 2019-08-04 2019-08-04 Never used Adriano Emery [facility] exposure 00:00:00 00:00:00 Alcohol intake 2019-08-04 2019-08-04 Current [facility]ist 00:00:00 00:00:00 non-drinker of alcohol (finding) History of tobacco 1972-05-07 1998-09-06 Current smoker [facility] use 00:00:00 00:00:00 Sex Ass[birth year] [facility] 00:00:00 00:00:00 Smoking Status Start Date Stop Date Source Former smoker 2019-08-04 00:00:00 2019-08-04 00:00:00 [facility] Medications Ordered Filled Start Stop Current Ordering Indication Dosage Frequency Signature Comments Components Source Medication Medication Date Date Medication? Clinician (SIG) Name Name travoprost 2018-09 Yes 1[drp] QD Administer [facility] (TRAVATAN-Z 1-29 1 drop to Met [facility]odi ) 0.004 % 17:42: both eyes st 06 daily. buPROPion 2018-09 Yes 100mg Q.5D Take 100 Peter ston (WELLBUTRIN 1-29 mg by [facility] ) 100 MG 17:42: mouth 2 st tablet 06 (two) times a day. ondansetron Yes Nausea 4mg Q8H Take 1 [facility] cristine (ZOFRAN, 4-07 tablet (4 Met [facility] HYDROCHLORI 00:00: mg total) s t DE,) 4 MG 00 by mouth tablet every 8 (eight) hours as needed for nausea. hydrocortis Yes [id number] Take by [facility] one 3-23 [id number] mouth 3 [facility] i (CORTEF) 20 21:05: 3D (three) st MG tablet 54 times a day. unkown dose levothyroxi Yes 88ug QD Take 88 Peter ston ne 3-23 mcg by [facility] (SYNTHROID, 21:05: mouth st LEVOXYL) 88 54 every mcg tablet morning. Immunizations Ordered Immunization Filled Immunization Date Status Commen ts Source Name Name FLUZONE QUAD PF 2016-11-25 Completed [facility] 00:00:00 [facility] Procedures This patient has no known procedures. Plan of Care Planned Activity Planned Date Details Comments Source Future Scheduled 2021-04-06 INFLUENZA VACCINE [facility] Test 00:00:00 [code = INFLUENZA VACCINE] Future Scheduled 2006 [facility]EN[facility] [code = BREAST CANCER SCREENING] Future Scheduled 2006 COLONOSCOPY SCREENING [facility] Test 00:00:00 [code = COLONOSCOPY SCREENING] Future Scheduled 2006 SHINGLES VACCINES [place] [facility] Test 00:00:00 (#1) [code = SHINGLES VACCINES (#1)] Future Scheduled 1977 [facility] malignant neoplasm of cervix (procedure) [code = 436954308] Future Scheduled 1968 COVID-19 VACCINE (1) Peter stoelena [facility] Test 00:00:00 [code = COVID-19 VACCINE (1)] Results This patient has no known results.
[2021-02-01 06:43] LABS: Basophils % 0.5 % (0-1.3); Hematocrit 34.8 % (36.0-45.0); Lymphocytes % 15.2 % (15.3-44.8); MPV 7.9 fL (7.6-11.3); RBC Red Blood Cell Count 4.61 M/uL (3.86-4.86)
[2021-02-01] MEDS ORDERED: ONDANSETRON 4 MG/2 ML VIAL ONE (06:57)
[2021-02-01] MEDS ORDERED: MORPHINE 4 MG/ML SYR ONE (06:57)
[2021-02-01 07:07] LABS: ALT/SGPT 50 U/L (12-78); AST/SGOT 56 U/L (15-37); Albumin 3.5 g/dL (3.4-5.0); Alkaline Phosphatase 160 U/L (45-117); BUN Blood Urea Nitrogen 15 mg/dL (7-18); Bicarbonate 30 mmol/L (21-32); Bilirubin Direct < 0.1 mg/dL (0-0.2); Bilirubin Total 0.3 mg/dL (0.2-1.0); Glucose Level 106 mg/dL (74-106); Magnesium 2.1 mg/dL (1.8-2.4); Protein, Total 7.8 g/dL (6.4-8.2); Sodium Level 142 mmol/L (136-145)
--- NOTE | 2021-02-01 07:17 | EDPHYS ---
Physician Documentation [facility] Name: Adela Watts Age: 65 yrs Sex: Female : 1955 Arrival Date: 02/01/2021 Time: 05:56 Bed 7 Private MD: ED Physician Vinicius Soria HPI: 02/01 06:39 This 65 yrs old Black Female presents to ER via EMS with complaints of leg cramps. mh7 06:39 The patient presents with pain, that is acute, spasm. The complaints affect the right mh7 leg. Context: The problem was sustained at an unknown site, resulted from an unknown cause, the patient can fully bear weight, the patient is able to ambulate. Onset: The symptoms/episode began/occurred last night. Modifying factors: The symptoms are alleviated by nothing. the symptoms are aggravated by movement, weight bearing. Associated signs and symptoms: Pertinent negatives calf tenderness, fever, nausea, numbness, rash, swelling, tingling, vomiting, warmth, weakness. Treatment prior to arrival includes: no previous treatment. Severity of symptoms: At their worst the symptoms were moderate, last night, in the emergency department the symptoms are unchanged. Historical: - Allergies: 06:03 No Known Allergies; rr5 - Home Meds: 06:03 levothyroxine 88 mcg tab 1 tab once daily [Active]; Travatan Z 0.004 % ophthalmic drop rr5 1 drop once daily [Active]; Wellbutrin XL 300 mg Oral Tb24 1 tab once daily [Active]; - PMHx: 06:03 Anxiety; Chronic pain; Depression; Diabetes - NIDDM; Hypothyroidism; rr5 - PSHx: 06:03 Hysterectomy; Thyroidectomy; Cholecystectomy; rr5 - Immunization history:: Adult Immunizations. - Social history:: Smoking status: unknown. ROS: 06:39 Constitutional: Negative for fever, chills, and weight loss, Eyes: Negative for injury, mh7 pain, redness, and discharge, ENT: Negative for injury, pain, and discharge, Neck: Negative for injury, pain, and swelling, Cardiovascular: Negative for chest pain, palpitations, and edema, Respiratory: Negative for shortness of breath, cough, wheezing, and pleuritic chest pain, Abdomen/GI: Negative for abdominal pain, nausea, vomiting, diarrhea, and constipation. 06:39 : Negative for injury, bleeding, discharge, and swelling, Skin: Negative for injury, rash, and discoloration, Neuro: Negative for headache, weakness, numbness, tingling, and seizure, Psych: Negative for depression, anxiety, suicide ideation, homicidal ideation, and hallucinations, Allergy/Immunology: Negative for hives, rash, and allergies, Endocrine: Negative for neck swelling, polydipsia, polyuria, polyphagia, and marked weight changes, Hematologic/Lymphatic: Negative for swollen nodes, abnormal bleeding, and unusual bruising. 06:39 Back: Positive for pain at rest. Exam: 06:39 Constitutional: This is a well developed, well nourished patient who is awake, alert, mh7 and in no acute distress. Head/Face: Normocephalic, atraumatic. Eyes: Pupils equal round and reactive to light, extra-ocular motions intact. Lids and lashes normal. Conjunctiva and sclera are non-icteric and not injected. Cornea within normal limits. Periorbital areas with no swelling, redness, or edema. Neck: Trachea midline, no thyromegaly or masses palpated, and no cervical lymphadenopathy. Supple, full range of motion without nuchal rigidity, or vertebral point tenderness. No Meningismus. Chest/axilla: Normal chest wall appearance and motion. Nontender with no deformity. No lesions are appreciated. Cardiovascular: Regular rate and rhythm with a normal S1 and S2. No gallops, murmurs, or rubs. Normal PMI, no JVD. No pulse deficits. Respiratory: Lungs have equal breath sounds bilaterally, clear to auscultation and percussion. No rales, rhonchi or wheezes noted. No increased work of breathing, no retractions or nasal flaring. Abdomen/GI: Soft, non-tender, with normal bowel sounds. No distension or tympany. No guarding or rebound. No evidence of tenderness throughout. 06:39 Skin: Warm, dry with normal turgor. Normal color with no rashes, no lesions, and no evidence of cellulitis. 06:39 Neuro: Awake and alert, GCS 15, oriented to person, place, time, and situation. Cranial nerves II-XII grossly intact. Motor strength 5/5 in all extremities. Sensory grossly intact. Cerebellar exam normal. Normal gait. Psych: Awake, alert, with orientation to person, place and time. Behavior, mood, and affect are within normal limits. 06:39 Back: pain, that is moderate, of the lumbar area, ROM is painful, with all movement, normal spinal alignment noted, CVA tenderness, is absent, vertebral tenderness, is not appreciated, muscle spasm, is appreciated in the lumbar area, Straight leg raises: right lower extremity illicits pain, at 30 degrees, left lower extremity illicits pain, at 30 degrees. 06:39 Musculoskeletal/extremity: Extremities: noted in the right leg: pain, tenderness, ROM: limited active range of motion due to pain, in the right leg, limited passive range of motion due to pain, in the right leg, Circulation is intact in all extremities. Sensation intact. Compartment Syndrome exam of affected extremity: is normal. no numbness, no tingling, no sensation deficit, no palor, no weak pulses, Joints: All joints appear normal with full range of motion. Weight bearing: Vital Signs: 06:01 BP 138 / 90; Pulse 92; Resp 16; Temp 98.2; Pulse Ox 100% ; Weight 90.72 kg; Height 5 rr5 ft. 5 in. (165.10 cm); Pain 8/10; 07:00 BP 117 / 99; Pulse 86; Resp 16; Temp 98; Pulse Ox 97% ; rr5 06:01 Body Mass Index 33.28 (90.72 kg, 165.10 cm) rr5 MDM: 02/01 06:32 Order name: CBC with Diff; Complete Time: 07:10 [facility] 02/01 06:32 Order name: Basic Metabolic Panel; Complete Time: 07:10 [facility] 02/01 06:32 Order name: LFT's; Complete Time: 07:10 7 02/01 06:32 Order name: Magnesium; Complete Time: 07:10 [facility] 02/01 06:32 Order name: Saline Lock; Complete Time: 06:42 7 Administered Medications: 06:40 Drug: Zofran (Ondansetron) 4 mg Route: IVP; Site: right antecubital; rr5 07:15 Follow up: Response: No adverse reaction rr5 06:42 Drug: morphine 4 mg {Note: rass 0.} Route: IVP; Site: right antecubital; rr5 07:15 Follow up: Response: Pain is decreased rr5 Disposition: 02/01/21 07:16 Patient has left against medical advice. - Patients states they are going to Home. - Condition is Stable. Signatures: Dispatcher [employer] Sigifredo Tillman RN RN rr5 Vinicius Soria MD MD 7
--- NOTE | 2021-02-01 07:17 | ER ---
Nurse's Notes [facility] Name: Adela Watts Age: 65 yrs Sex: Female : 1955 Arrival Date: 02/01/2021 Time: 05:56 Bed 7 Private MD: Diagnosis: Presentation: 02/01 06:01 Chief complaint: EMS states: leg cramps started 7 PM last night and it got worse this rr5 morning. BS 123 mg/Dl. Coronavirus screen: Client denies travel out of the [place] in the last 14 days. At this time, the client does not indicate any symptoms associated with coronavirus-19. Ebola Screen: Patient negative for fever greater than or equal to 101.5 degrees Fahrenheit, and additional compatible Ebola Virus Disease symptoms Patient denies exposure to infectious person. Patient denies travel to an Ebola-affected area in the 21 days before illness onset. Initial Sepsis Screen: Does the patient meet any 2 criteria? No. Patient's initial sepsis screen is negative. Does the patient have a suspected source of infection? No. Patient's initial sepsis screen is negative. Risk Assessment: Do you want to hurt yourself or someone else? Patient reports no desire to harm self or others. Onset of symptoms was January 31, 2021. 06:01 Method Of Arrival: EMS: [facility] rr5 06:01 Acuity: SHADY 3 rr5 Historical: - Allergies: 06:03 No Known Allergies; rr5 - Home Meds: 06:03 levothyroxine 88 mcg tab 1 tab once daily [Active]; Travatan Z 0.004 % ophthalmic drop rr5 1 drop once daily [Active]; Wellbutrin XL 300 mg Oral Tb24 1 tab once daily [Active]; - PMHx: 06:03 Anxiety; Chronic pain; Depression; Diabetes - NIDDM; Hypothyroidism; rr5 - PSHx: 06:03 Hysterectomy; Thyroidectomy; Cholecystectomy; rr5 - Immunization history:: Adult Immunizations. - Social history:: Smoking status: unknown. Screenin:05 Abuse screen: Denies threats or abuse. Denies injuries from another. Nutritional rr5 screening: No deficits noted. Tuberculosis screening: No symptoms or risk factors identified. Fall Risk IV access (20 points). Total Ratliff Fall Scale indicates No Risk (0-24 pts). Assessment: 06:05 General: Appears in no apparent distress. uncomfortable, Behavior is calm, cooperative, rr5 appropriate for age. 06:05 Pain: Complains of pain in right leg and left leg Pain currently is 8 out of 10 on a rr5 pain scale. Quality of pain is described as aching, Pain began gradually, Is intermittent. Neuro: Level of Consciousness is awake, alert, obeys commands, Oriented to person, place, time, situation. Cardiovascular: Capillary refill < 3 seconds Patient's skin is warm and dry. Respiratory: Airway is patent Respiratory effort is even, unlabored, Respiratory pattern is regular, symmetrical. GI: No signs and/or symptoms were reported involving the gastrointestinal system. : No signs and/or symptoms were reported regarding the genitourinary system. EENT: No signs and/or symptoms were reported regarding the EENT system. Derm: Skin is intact, is healthy with good turgor, Skin temperature is warm. Musculoskeletal: Capillary refill < 3 seconds, Reports pain in right leg and left leg muscle cramps. 07:00 Reassessment: RECD REPORT FROM JOEL TREADWELL. 65YO BF P/W LEG CRAMPS. rr5 07:14 Reassessment: PT SIGN OUT AMA. PT URGED TO REMAIN BY STAFF AND PROVIDER BUT REFUSED. PT rr5 COUNSELED TO RETURN IF S/S WORSEN. AOx4, AMBULATORY WITH STEADY GAIT. Vital Signs: 06:01 BP 138 / 90; Pulse 92; Resp 16; Temp 98.2; Pulse Ox 100% ; Weight 90.72 kg; Height 5 rr5 ft. 5 in. (165.10 cm); Pain 8/10; 07:00 BP 117 / 99; Pulse 86; Resp 16; Temp 98; Pulse Ox 97% ; rr5 06:01 Body Mass Index 33.28 (90.72 kg, 165.10 cm) rr5 ED Course: 05:56 Patient arrived in ED. iw 05:56 Joel Diego RN is Primary Nurse. rr5 06:02 Triage completed. rr5 06:03 Arm band placed on right wrist. rr5 06:05 Patient has correct armband on for positive identification. Bed in low position. Call rr5 light in reach. Side rails up X2. Pulse ox on. NIBP on. 06:15 Vinicius Soria MD is Attending Physician. [facility] 06:20 No provider procedures requiring assistance completed. Maintain EMS IV. Dressing rr5 intact. Good blood return noted. Site clean \T\ dry. Gauge \T\ site: G20 right Ac. 07:14 IV discontinued, intact, bleeding controlled, No redness/swelling at site. Pressure rr5 dressing applied. Administered Medications: 06:40 Drug: Zofran (Ondansetron) 4 mg Route: IVP; Site: right antecubital; rr5 07:15 Follow up: Response: No adverse reaction rr5 06:42 Drug: morphine 4 mg {Note: rass 0.} Route: IVP; Site: right antecubital; rr5 07:15 Follow up: Response: Pain is decreased rr5 Outcome: 07:14 AMA AMA form signed rr5 07:14 Condition: stable 07:16 Patient left the ED. rr5 Signatures: Jie Zelaya RN RN iw Joel Diego RN RN rr5 Vinicius Soria MD MD [facility]
[2021-02-01 07:25] VITALS: BP 117/99; TEMP 98; O2SAT 97
== END 2021-02-01 07:16 | disposition left against medical advice (07) ==
LOC: ER 05:53
DX: R25.2 Cramp and spasm (principal); Z53.29 Procedure and treatment not carried out because of patient's decision for other reasons; F41.9 Anxiety disorder, unspecified; G89.29 Other chronic pain; F32.9 Major depressive disorder, single episode, unspecified; E11.9 Type 2 diabetes mellitus without complications; E03.9 Hypothyroidism, unspecified
CPT/HCPCS: 85025; 80048; 36415; 83735; 80076; 96375; 96374; 99283; J2405

== ENCOUNTER 2021-03-01 06:12 | Emergency (ER) | payer MEDICAID ==
--- OUTSIDE RECORDS SUMMARY | 2021-03-01 06:15 | XMS REPORT | Continuity of Care Document ---
:1955 Author Organization [facility] t Address [address] [place] [address] Care Team Providers Name Role Phone Asked, [...] Comments Source Cigarettes smoked 2019-08-04 2019-08-04 [place] [facility] current (pack per 00:00:00 00:00:00 day) - Reported Cigarette 2019-08-04 2019-08-04 [place] [facility] pack-years 00:00:00 00:00:00 Tobacco use and 2019-08-04 2019-08-04 Never used [facility] exposure 00:00:00 00:00:00 Alcohol intake 2019-08-04 2019-08-04 Current [facility] 00:00:00 00:00:00 non-drinker of alcohol (finding) History of tobacco 1972-05-07 1998-09-06 Current smoker [facility] [facility] use 00:00:00 00:00:00 Sex Ass[birth year] [facility] 00:00:00 00:00:00 Smoking Status Start Date Stop Date Source Former smoker 2019-08-04 00:00:00 2019-08-04 00:00:00 Adriano Gongora Medications Ordered Filled Start Stop Current Ordering Indication Dosage Frequency Signature Comments Components Source Medication Medication Date Date Medication? Clinician (SIG) Name Name travoprost 2018-09 Yes 1[drp] QD Administer [place] (TRAVATAN-Z 1-29 1 drop to Met [facility] ) 0.004 % 17:42: both eyes st 06 daily. buPROPion 2018-09 Yes 100mg Q.5D Take 100 Peter ston (WELLBUTRIN 1-29 mg by [facility] ) 100 MG 17:42: mouth 2 st tablet 06 (two) times a day. ondansetron Yes Nausea 4mg Q8H Take 1 Ho uscristine (ZOFRAN, 4-07 tablet (4 Met [facility] HYDROCHLORI 00:00: mg total) s t DE,) 4 MG 00 by mouth tablet every 8 (eight) hours as needed for nausea. hydrocortis Yes [id number] Take by [place] one 3-23 [id number] mouth 3 Method i (CORTEF) 20 21:05: 3D (three) st MG tablet 54 times a day. unkown dose levothyroxi Yes 88ug QD Take 88 Peter ston ne 3-23 mcg by [facility] (SYNTHROID, 21:05: mouth st LEVOXYL) 88 54 every mcg tablet morning. Immunizations Ordered Immunization Filled Immunization Date Status Commen ts Source Name Name TOMÁS DE JESUS PF 2016-11-25 Completed [place] 00:00:00 [facility] Procedures This patient has no known procedures. Plan of Care Planned Activity Planned Date Details Comments Source Future Scheduled 2021-04-06 INFLUENZA VACCINE [facility] [facility] Test 00:00:00 [code = INFLUENZA VACCINE] Future Scheduled 2006 BREAST CANCER [facility] Test 00:00:00 SCREENING [code = BREAST CANCER SCREENING] Future Scheduled 2006 COLONOSCOPY SCREENING [place] [facility] Test 00:00:00 [code = COLONOSCOPY SCREENING] Future Scheduled 2006 SHINGLES VACCINES [place] [facility] Test 00:00:00 (#1) [code = SHINGLES VACCINES (#1)] Future Scheduled 1977 Screening for [facility] Test 00:00:00 malignant neoplasm of cervix (procedure) [code = 382873824] Future Scheduled 1968 COVID-19 VACCINE (1) [facility] Test 00:00:00 [code = COVID-19 VACCINE (1)] Results This patient has no known results.
[2021-03-01] MEDS ORDERED: MORPHINE 4 MG/ML SYR ONE (07:42)
--- NOTE | 2021-03-01 07:51 | ER ---
Nurse's Notes [facility] Name: Adela Watts Age: 65 yrs Sex: Female : 1955 Arrival Date: 03/01/2021 Time: 06:16 Bed 8 Private MD: Sapphire Rodriguez Diagnosis: Strain of muscle, fascia and tendon at neck level;Chronic pain syndrome Presentation: 03/01 06:31 Chief complaint: Patient states: neck pain for 3 days, denies trauma. Coronavirus em screen: Client denies travel out of the [place] in the last 14 days. Ebola Screen: Patient negative for fever greater than or equal to 101.5 degrees Fahrenheit, and additional compatible Ebola Virus Disease symptoms Patient denies exposure to infectious person. Patient denies travel to an Ebola-affected area in the 21 days before illness onset. No symptoms or risks identified at this time. Initial Sepsis Screen: Does the patient meet any 2 criteria? No. Patient's initial sepsis screen is negative. Does the patient have a suspected source of infection? No. Patient's initial sepsis screen is negative. Risk Assessment: Do you want to hurt yourself or someone else? Patient reports no desire to harm self or others. Onset of symptoms was March 01, 2021. 06:31 Method Of Arrival: Ambulatory em 06:31 Acuity: SHADY 4 em Historical: - Allergies: 06:33 No Known Allergies; em - PMHx: 06:33 Anxiety; Chronic pain; Depression; Diabetes - NIDDM; Hypothyroidism; em - PSHx: 06:33 Hysterectomy; Thyroidectomy; Cholecystectomy; em - Immunization history:: Adult Immunizations up to date, Client reports receiving the 2nd dose of the Covid vaccine. - Social history:: Smoking status: Patient denies any tobacco usage or history of. Screenin:41 Abuse screen: Denies threats or abuse. Nutritional screening: No deficits noted. bb Tuberculosis screening: No symptoms or risk factors identified. Fall Risk None identified. Assessment: 06:41 General: Appears in no apparent distress. uncomfortable, Behavior is calm, cooperative. bb Pain: Complains of pain in neck and back Pain currently is 10 out of 10 on a pain scale. Neuro: Level of Consciousness is awake, alert, obeys commands, Oriented to person, place, time, situation. Cardiovascular: Capillary refill < 3 seconds Patient's skin is warm and dry. Respiratory: Airway is patent Respiratory effort is even, unlabored, Respiratory pattern is regular. GI: No signs and/or symptoms were reported involving the gastrointestinal system. Derm: Skin is dry, Skin is normal, Skin temperature is warm. Musculoskeletal: Circulation, motion, and sensation intact. Reports pain in neck radiating down back denies numbness or tingling. Vital Signs: 06:31 BP 143 / 96; Pulse 76; Resp 12; Temp 97.9; Pulse Ox 97% on R/A; Weight 92.99 kg; Height em 5 ft. 5 in. (165.10 cm); Pain 10/10; 07:00 BP 127 / 89; Pulse 77; Resp 20; Pulse Ox 99% on R/A; kg 08:35 BP 148 / 94; Pulse 77; Resp 20; Pulse Ox 100% on R/A; kg 06:31 Body Mass Index 34.11 (92.99 kg, 165.10 cm) em ED Course: 06:16 Patient arrived in ED. es 06:16 Sapphire Rodriguez is Private Physician. es 06:33 Triage completed. em 06:33 Arm band placed on. em 06:38 Vinicius Soria MD is Attending Physician. [facility] 06:41 Patient has correct armband on for positive identification. Bed in low position. Call bb light in reach. Side rails up X 1. Warm blanket given. 06:59 Sangeetha Pineda RN is Primary Nurse. kg 07:05 Report given to Sangeetha TREADWELL. bb 07:22 Attending Physician role handed off by Vinicius Soria MD derick 07:22 Patricio Gaviria MD is Attending Physician. derick 07:44 CT C Spine In Process Unspecified. EDMS 07:50 Mian Jose MD is Referral Physician. derick 08:36 No provider procedures requiring assistance completed. Patient did not have IV access kg during this emergency room visit. Administered Medications: 07:19 Drug: morphine 4 mg Route: IM; Site: right deltoid; kg 08:37 Follow up: Response: No adverse reaction; Pain is decreased kg Outcome: 07:50 Discharge ordered by . derick 08:36 Discharged to home ambulatory. kg 08:36 Condition: good 08:36 Discharge instructions given to patient, Instructed on discharge instructions, follow up and referral plans. Demonstrated understanding of instructions, follow-up care, medications, Prescriptions given X 2. 08:37 Patient left the ED. kg Signatures: Dispatcher [employer] Patricio Carr MD MD cha Salyer, Edna es Munoz, Edgar, RN RN Yudith Jacques RN RN Vinicius Martins MD MD [facility] Sangeetha Pineda RN RN kg
--- NOTE | 2021-03-01 07:51 | EDPHYS ---
Physician Documentation [facility] Name: Adela Watts Age: 65 yrs Sex: Female : 1955 Arrival Date: 03/01/2021 Time: 06:16 Bed 8 Private MD: Sapphire Rodriguez ED Physician Patricio Gaviria HPI: 03/01 07:14 This 65 yrs old Black Female presents to ER via Ambulatory with complaints of Neck mh7 Problem. 07:14 The patient or guardian complains of pain, that is acute. The symptoms are located mh7 posterior lateral neck. Onset: The symptoms/episode began/occurred 3 day(s) ago. Context: The problem was sustained at home, The neck injury/problem resulted from from unknown cause. Associated signs and symptoms: Pertinent negatives: chills, constipation, fever, headache, bladder incontinence, bowel incontinence, nausea, numbness, tingling, vomiting, weakness. The pain radiates to the right shoulder. Modifying factors: The symptoms are alleviated by nothing. the symptoms are aggravated by movement. Severity of symptoms: At their worst the symptoms were moderate, earlier today, in the emergency department the symptoms are unchanged. Historical: - Allergies: 06:33 No Known Allergies; em - PMHx: 06:33 Anxiety; Chronic pain; Depression; Diabetes - NIDDM; Hypothyroidism; em - PSHx: 06:33 Hysterectomy; Thyroidectomy; Cholecystectomy; em - Immunization history:: Adult Immunizations up to date, Client reports receiving the 2nd dose of the Covid vaccine. - Social history:: Smoking status: Patient denies any tobacco usage or history of. ROS: 07:14 Constitutional: Negative for fever, chills, and weight loss, Eyes: Negative for injury, mh7 pain, redness, and discharge, ENT: Negative for injury, pain, and discharge, Cardiovascular: Negative for chest pain, palpitations, and edema, Respiratory: Negative for shortness of breath, cough, wheezing, and pleuritic chest pain, Abdomen/GI: Negative for abdominal pain, nausea, vomiting, diarrhea, and constipation, Back: Negative for injury and pain, : Negative for injury, bleeding, discharge, and swelling, MS/Extremity: Negative for injury and deformity, Skin: Negative for injury, rash, and discoloration, Neuro: Negative for headache, weakness, numbness, tingling, and seizure, Psych: Negative for depression, anxiety, suicide ideation, homicidal ideation, and hallucinations, Allergy/Immunology: Negative for hives, rash, and allergies, Endocrine: Negative for neck swelling, polydipsia, polyuria, polyphagia, and marked weight changes, Hematologic/Lymphatic: Negative for swollen nodes, abnormal bleeding, and unusual bruising. Exam: 07:14 Constitutional: This is a well developed, well nourished patient who is awake, alert, mh7 and in no acute distress. Head/Face: Normocephalic, atraumatic. Eyes: Pupils equal round and reactive to light, extra-ocular motions intact. Lids and lashes normal. Conjunctiva and sclera are non-icteric and not injected. Cornea within normal limits. Periorbital areas with no swelling, redness, or edema. 07:14 Chest/axilla: Normal chest wall appearance and motion. Nontender with no deformity. No lesions are appreciated. Cardiovascular: Regular rate and rhythm with a normal S1 and S2. No gallops, murmurs, or rubs. Normal PMI, no JVD. No pulse deficits. Respiratory: Lungs have equal breath sounds bilaterally, clear to auscultation and percussion. No rales, rhonchi or wheezes noted. No increased work of breathing, no retractions or nasal flaring. Abdomen/GI: Soft, non-tender, with normal bowel sounds. No distension or tympany. No guarding or rebound. No evidence of tenderness throughout. Back: No spinal tenderness. No costovertebral tenderness. Full range of motion. Skin: Warm, dry with normal turgor. Normal color with no rashes, no lesions, and no evidence of cellulitis. MS/ Extremity: Pulses equal, no cyanosis. Neurovascular intact. Full, normal range of motion. Neuro: Awake and alert, GCS 15, oriented to person, place, time, and situation. Cranial nerves II-XII grossly intact. Motor strength 5/5 in all extremities. Sensory grossly intact. Cerebellar exam normal. Normal gait. Psych: Awake, alert, with orientation to person, place and time. Behavior, mood, and affect are within normal limits. 07:14 Neck: External neck: tenderness, that is moderate, of the right mid cervical area and right trapezius, C-spine: appears grossly normal, Thyroid: appears normal, Trachea: is midline with no obvious abnormalities, ROM/movement: pain, that is moderate, with any movement, limited range of motion, that is moderate, in any direction, Meningeal signs: are not present, nuchal rigidity, is not appreciated, Lymph nodes: no appreciated lymphadenopathy. Vital Signs: 06:31 BP 143 / 96; Pulse 76; Resp 12; Temp 97.9; Pulse Ox 97% on R/A; Weight 92.99 kg; Height em 5 ft. 5 in. (165.10 cm); Pain 10/10; 07:00 BP 127 / 89; Pulse 77; Resp 20; Pulse Ox 99% on R/A; kg 08:35 BP 148 / 94; Pulse 77; Resp 20; Pulse Ox 100% on R/A; kg 06:31 Body Mass Index 34.11 (92.99 kg, 165.10 cm) em MDM: 07:22 Patient medically screened. derick 07:49 Differential diagnosis: arthritis, Cervical Disc Herniation Cervical Spondylosis derick cervical strain, Degenerative Disc Disease Neck Contusion Osteoarthritis Spondylolisthesis Spondylosis torticollis. Data reviewed: vital signs, nurses notes, radiologic studies, CT scan. Data interpreted: monitor technician: not applicable for this patient encounter. Pulse oximetry: on room air is 97 %. Test interpretation: by ED physician or midlevel provider:. Counseling: I had a detailed discussion with the patient and/or guardian regarding: the historical points, exam findings, and any diagnostic results supporting the discharge/admit diagnosis, lab results, the need for outpatient follow up, for definitive care, a family practitioner, a neurologist. 03/01 07:14 Order name: CT C Spine mh7 Administered Medications: 07:19 Drug: morphine 4 mg Route: IM; Site: right deltoid; kg 08:37 Follow up: Response: No adverse reaction; Pain is decreased kg Disposition: 03/01/21 07:50 Discharged to Home. Impression: Strain of muscle, fascia and tendon at neck level, Chronic pain syndrome. - Condition is Stable. - Discharge Instructions: Chronic Pain, Muscle Strain, Cervical Sprain, [id number]. - Prescriptions for Motrin IB 200 mg Oral Tablet - take 2 tablet by ORAL route every 6 hours As needed as needed with food; 30 tablet. Cyclobenzaprine 5 mg Oral Tablet - take 1 tablet by ORAL route 3 times per day As needed; 15 tablet. - Medication Reconciliation Form, Thank You Letter, Antibiotic Education, Prescription Opioid Use form. - Follow up: Private Physician; When: 2 - 3 days; Reason: Recheck today's complaints, Continuance of care, Re-evaluation by your physician. Follow up: Mian Jose; When: 2 - 3 days; Reason: Recheck today's complaints, Re-evaluation by your physician. - Problem is new. - Symptoms have improved. 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 Impression: Strain of muscle, fascia and kg tendon at neck level; Chronic pain syndrome. Condition is Stable. Discharge Instructions: Chronic Pain, Muscle Strain, Cervical Sprain, [id number]. Prescriptions for Motrin IB 200 mg Oral Tablet - take 2 tablet by ORAL route every 6 hours As needed as needed with food; 30 tablet, Cyclobenzaprine 5 mg Oral Tablet - take 1 tablet by ORAL route 3 times per day As needed; 15 tablet. and Forms are Medication Reconciliation Form, Thank You Letter, Antibiotic Education, Prescription Opioid Use. Follow up: Private Physician; When: 2 - 3 days; Reason: Recheck today's complaints, Continuance of care, Re-evaluation by your physician. Follow up: Mian Jose; When: 2 - 3 days; Reason: Recheck today's complaints, Re-evaluation by your physician. Problem is new. Symptoms have improved. derick
--- NOTE | 2021-03-01 08:14 | RAD REPORT ---
EXAM DESCRIPTION: CT - C Spine Wo Con - 03/01/2021 7:44 am CLINICAL HISTORY: Nontraumatic neck pain COMPARISON: None. TECHNIQUE: Axial 2 mm thick images of the cervical spine were obtained with sagittal and coronal rec onstruction images generated and reviewed. All CT scans are performed using dose optimization technique as appropriate and may include automated exposure control or mA/KV adjustment according to patient size. FINDINGS: Mastoid air cells and partially visualized paranasal sinuses are clear. Partially visualiz ed globes and orbits also unremarkable. Prominent internal carotid artery calcifications are present. Patient has a prominent sized sella turcica with low-density. This is probably empty sella configura tion. There has been no change since 2018. Cervical body height and alignment are normal. Slight narrowing of the C4-5 disc space is noted. Elizabeth ent has very large anterior endplate spurs at C5-6 with bridging ossification. More moderate spurs ar e seen at C4-5. No fracture or acute bone process identifiable. No pathologic abnormalities seen. Advanced facet joint degenerative change on the right at C3-4 causes a mild foraminal stenosis. There is prominent protrusion of disc material with calcification at C4-5. Central spinal stenosis do wn to 7-8 mm is present. The protruding disc material, endplate spurring and uncovertebral changes ca use significant bilateral foraminal stenosis at this level as well. Prominent disc bulge present as well at C6-7 causing borderline to mild spinal stenosis. Severe right -sided facet degenerative change seen. There is protruding disc material in calcification causing a s ignificant right foraminal stenosis. No paraspinal mass or hematoma. Thyroidectomy surgical changes are noted. A few small nonspecific cer vical lymph nodes are present. Central canal detail is inherently limited on CT imaging. IMPRESSION: No fracture or acute cervical spine finding seen. Advanced cervical spondylosis changes are present causing significant central spinal stenosis and for aminal stenosis at C4-5. C6-7 shows borderline to mild spinal stenosis and a significant right foraminal stenosis. Follow-up outpatient MRI cervical spine examination may be helpful for better characterization of the central canal and cord.
[2021-03-01 08:44] VITALS: TEMP 97.9
[2021-03-01 08:47] VITALS: BP 148/94; O2SAT 100
== END 2021-03-01 08:37 | disposition home or self-care (01) ==
LOC: ER 06:12
DX: S16.1XXA Strain of muscle, fascia and tendon at neck level, initial encounter (principal); G89.4 Chronic pain syndrome
CPT/HCPCS: 72125; 96372; 99283

== ENCOUNTER 2022-04-27 11:02 | Emergency (ER) | payer OTHER ==
--- OUTSIDE RECORDS SUMMARY | 2022-04-27 11:05 | XMS REPORT | Continuity of Care Document ---
:1955 Author Organization [facility] t Address [address] [place] [address] Care Team Providers Name Role Phone Natalie Rodriguez Primary Care Physician Only, Ang Db Test Attending Clinician Unavailable Davin Nunez RN Attending Clinician Unavailable Brianna Tse Attending Clinician BRIANNA SUH Attending Clinician Unavailable Doctor Unassigned, [place] Attending Clinician Unavailable MARISSA MERCADO Attending Clinician Unavailable Payers Payer Name Policy Type Policy Number Effective Date Expiration Date S ource Problems This patient has no known problems. Allergies, Adverse Reactions, Alerts Allergy Allergy Status Severity Reaction(s) Onset Inactive Treating Comm ents Source Name Type Date Date Clinician NO KNOWN Drug Active [facility] Social History Social Habit Start Date Stop Date Quantity Comments Source Sex Assigned At [birth year] [facility] 00:00:00 00:00:00 Medical [place] Smoking Status Start Date Stop Date Source Unknown if ever smoked [facility] Medications Ordered Filled Start Stop Current Ordering Indication Dosage Frequency Signature Comments Components Source Medication Medication Date Date Medication? Clinician (SIG) Name Name levothyroxi 2019- Yes 88ug Take 88 Uni vers ne 88 mcg 3-14 mcg by ity of tablet 15:22: mouth [place] 57 every Medical morning. Branch rOPINIRole Yes 10mg Take 10 mg U nivers 5 mg tablet 3-14 by mouth ity of 15:22: at [place] 57 bedtime. Medical Branch hydrOXYzine Yes 25mg Take 25 mg Univers 25 mg 3-14 by mouth ity of tablet 15:22: every 6 [place] (six) Medical hours. Branch escitalopra 2019-0 Yes 20mg Take 20 mg Univers m oxalate 3-14 by mouth ity of 20 mg 15:22: daily. [place] tablet 57 Medical Branch lisinopril 0 Yes 10mg Take 10 mg U nivers 10 mg 3-14 by mouth ity of tablet 15:22: daily. [place] [address] Medical Branch levothyroxi 0 Yes 88ug Take 88 Uni vers ne 88 mcg 3-14 mcg by ity of tablet 15:22: mouth [place] 57 every Medical morning. Branch rOPINIRole 0 Yes 10mg Take 10 mg U nivers 5 mg tablet 3-14 by mouth ity of 15:22: at [place] bedtime. Medical Branch hydrOXYzine 0 Yes 25mg Take 25 mg Univers 25 mg 3-14 by mouth ity of tablet 15:22: every 6 [place] [address] (six) Medical hours. Branch escitalopra Yes 20mg Take 20 mg Univers m oxalate 3-14 by mouth ity of 20 mg 15:22: daily. [place] tablet Medical Branch lisinopril 0 Yes 10mg Take 10 mg U nivers 10 mg 3-14 by mouth ity of tablet 15:22: daily. [place] [address] Medical Branch levothyroxi 0 Yes 88ug Take 88 Uni vers ne 88 mcg 3-14 mcg by ity of tablet 15:22: mouth [place] 57 every Medical morning. Branch rOPINIRole 0 Yes 10mg Take 10 mg U nivers 5 mg tablet 3-14 by mouth ity of 15:22: at [place] [address] bedtime. Medical Branch hydrOXYzine 0 Yes 25mg Take 25 mg Univers 25 mg 3-14 by mouth ity of tablet 15:22: every 6 [place] (six) Medical hours. Branch escitalopra 0 Yes 20mg Take 20 mg Univers m oxalate 3-14 by mouth ity of 20 mg 15:22: daily. [place] tablet Medical Branch lisinopril 0 Yes 10mg Take 10 mg U nivers 10 mg 3-14 by mouth ity of tablet 15:22: daily. [place] [address] Medical Branch levothyroxi 0 Yes 88ug Take 88 Uni vers ne 88 mcg 3-14 mcg by ity of tablet 15:22: mouth [place] every Medical morning. Branch rOPINIRole 2019-0 Yes 10mg Take 10 mg U nivers 5 mg tablet 3-14 by mouth ity of 15:22: at [place] [address] bedtime. Medical Branch hydrOXYzine 0 Yes 25mg Take 25 mg Univers 25 mg 3-14 by mouth ity of tablet 15:22: every 6 [place] [address] (six) Medical hours. Branch escitalopra 0 Yes 20mg Take 20 mg Univers m oxalate 3-14 by mouth ity of 20 mg 15:22: daily. [place] tablet Medical Branch lisinopril 0 Yes 10mg Take 10 mg U nivers 10 mg 3-14 by mouth ity of tablet 15:22: daily. [address] Branch levothyroxi 0 Yes 88ug Take 88 Uni vers ne 88 mcg 3-14 mcg by ity of tablet 15:22: mouth [place] every Medical morning. Branch rOPINIRole 0 Yes 10mg Take 10 mg U nivers 5 mg tablet 3-14 by mouth ity of 15:22: at [place] [address] bedtime. Medical Branch hydrOXYzine 0 Yes 25mg Take 25 mg Univers 25 mg 3-14 by mouth ity of tablet 15:22: every 6 [place] [address] (six) Medical hours. Branch escitalopra 0 Yes 20mg Take 20 mg Univers m oxalate 3-14 by mouth ity of 20 mg 15:22: daily. [place] tablet [address] [place] [address] lisinopril 0 Yes 10mg Take 10 mg U nivers 10 mg 3-14 by mouth ity of tablet 15:22: daily. [address] Immunizations Ordered Filled Immunization Date Status Comments [facility] e Immunization Name Name SARS-COV-2 COVID-19 2020-12-11 Completed Unive rsity of MODERNA VACCINE 00:00:00 [facility] SARS-COV-2 COVID-19 2020-12-11 Completed Unive rsity of MODERNA VACCINE 00:00:00 [facility] SARS-COV-2 COVID-19 2020-12-11 Completed Unive rsity of MODERNA VACCINE 00:00:00 [facility] SARS-COV-2 COVID-19 2020-12-11 Completed Unive rsity of MODERNA VACCINE 00:00:00 [facility] SARS-COV-2 COVID-19 2020-12-11 Completed Unive rsity of MODERNA VACCINE 00:00:00 [facility] SARS-COV-2 COVID-19 2020-11-13 Completed Unive rsity of MODERNA VACCINE 00:00:00 [facility] SARS-COV-2 COVID-19 2020-11-13 Completed Unive rsity of MODERNA VACCINE 00:00:00 [facility] SARS-COV-2 COVID-19 2020-11-13 Completed Unive rsity of MODERNA VACCINE 00:00:00 [facility] SARS-COV-2 COVID-19 2020-11-13 Completed Unive rsity of MODERNA VACCINE 00:00:00 [facility] SARS-COV-2 COVID-19 2020-11-13 Completed Unive rsity of MODERNA VACCINE 00:00:00 [facility] Procedures This patient has no known procedures. Encounters Start End Encounter Admission Attending Care Care Encounter Source Date/Time Date/Time Type Type Clinicians Facility Department ID 2021-09-07 2021-09-07 Outpatient [facility] [id number] Univers 09:45:00 09:45:00 [id number] [facility] 2021-09-07 2021-09-07 Telephone Only, Jay [facility] [id number] Univers 00:00:00 00:00:00 Db Test HEALTH [id number] it y of [place] [id number] Cristiano as FISH?BLEA [id number] [address] MEDICAL OFFICE BUILDING 2021-09-07 2021-09-07 Telephone LIZBETH Nunez [id number] Univers 00:00:00 00:00:00 Anekatiee NARDA [id number] ity of [facility] [id number] Cristiano as [id number] [address] 2021-09-06 2021-09-06 Laboratory Only, Ang Db Test [facility] [id number] Univers 15:30:00 15:45:00 Only Lanette Suhy HEALTH [id number] ity of [facility] [id number] Cristiano as FISH?BLEA [id number] [place] zeina [address] MEDICAL OFFICE BUILDING 2021-09-06 2021-09-06 Outpatient R [facility] [id number] Univers 15:30:00 15:30:00 [id number] ity [facility] 2021-09-06 2021-09-06 [facility] [id number] Univers 15:30:00 15:30:00 [facility] 2021-09-06 Letter Doctor LIZBETH [id number] Univers 00:00:00 00:00:00 (Out) Unassigned, NARDA [id number] ity of [facility] [id number] Cristiano as [phone] [address] 2021-09-06 2021-09-06 Letter Doctor LIZBETH [id number] Univers 00:00:00 00:00:00 (Out) Unassigned, NARDA [id number] ity of [place] [facility] [id number] Cristiano as [id number] [address] 2020-12-11 2020-12-11 Outpatient R ROGELIO [facility] [id number] Univers 10:30:00 10:30:00 MARISSA [facility] 2020-11-13 2020-11-13 [facility] [id number] Univers 08:20:00 08:20:00 MARISSA [facility] Results This patient has no known results.
[2022-04-27] MEDS ORDERED: CYCLOBENZAPRINE 10 MG TAB ONE (11:32)
[2022-04-27] MEDS ORDERED: dexAMETHasone 10 MG/ML VIAL ONE (11:33)
[2022-04-27] MEDS ORDERED: HYDROCODONE/APAP 5/325 MG TAB ONE (11:33)
--- NOTE | 2022-04-27 12:36 | EDPHYS ---
Physician Documentation [facility] Name: Adela Watts Age: 66 yrs Sex: Female : 1955 Arrival Date: 04/27/2022 Time: 11:04 Bed 10 Private MD: ED Physician Korey Thomas HPI: 04/27 12:07 This 66 yrs old Black Female presents to ER via Ambulatory with complaints of Back rn Pain, Leg Pain. 12:07 The patient presents with pain that is chronic, with no known mechanism of injury. The rn symptoms are located in the low back. Onset: The symptoms/episode began/occurred at an unknown time. The pain radiates to the left leg. Associated signs and symptoms: Pertinent negatives: abdominal pain, chest pain, fever, hematuria, incontinence, urinary retention, weakness. Modifying factors: The patient symptoms are alleviated by remaining still, the patient symptoms are aggravated by any movement. Severity of symptoms: At their worst the symptoms were moderate, in the emergency department the symptoms are unchanged. The patient has experienced similar episodes in the past, chronically. The patient has not recently seen a physician. Pt reports chronic back pain, has seen pain management and has had spinal injections in past. Reports back pain identical to previous episodes of back pain, no new injury, no new symptoms. Came in because hasn't been able to get in with pain management. Reports norco used to get rid of this pain. No weakness of lower extremities or bowel/bladder problems. . Historical: - Allergies: 11:10 No Known Allergies; ss - PMHx: 11:10 Anxiety; Chronic pain; Depression; Diabetes - NIDDM; Hypothyroidism; ss - PSHx: 11:10 Thyroidectomy; Hysterectomy; ss - Immunization history:: Client reports receiving the 2nd dose of the Covid vaccine. - Social history:: Smoking status: Patient denies any tobacco usage or history of. - Family history:: not pertinent. - Hospitalizations: : No recent hospitalization is reported. ROS: 12:07 Constitutional: Negative for fever, chills, and weight loss, Eyes: Negative for injury, rn pain, redness, and discharge, Neck: Negative for injury, pain, and swelling, Cardiovascular: Negative for chest pain, palpitations, and edema, Respiratory: Negative for shortness of breath, cough, wheezing, and pleuritic chest pain, Abdomen/GI: Negative for abdominal pain, nausea, vomiting, diarrhea, and constipation, Back: Negative for injury : Negative for injury, bleeding, discharge, and swelling, MS/Extremity: Negative for injury and deformity, Skin: Negative for injury, rash, and discoloration, Neuro: Negative for headache, weakness, numbness, tingling, and seizure. Exam: 12:07 Constitutional: This is a well developed, well nourished patient who is awake, alert, rn and in no acute distress. Head/Face: Normocephalic, atraumatic. Cardiovascular: Regular rate and rhythm. No pulse deficits. Respiratory: No increased work of breathing, no retractions or nasal flaring. Abdomen/GI: Soft, non-tender Back: No spinal tenderness. Skin: Warm, dry MS/ Extremity: Pulses equal, no cyanosis. Neurovascular intact. Full, normal range of motion. Equal circumference. Neuro: Awake and alert, GCS 15, oriented to person, place, time, and situation. Cranial nerves II-XII grossly intact. Motor strength 5/5 in all extremities. Sensory grossly intact. Vital Signs: 11:10 BP 119 / 92; Pulse 98; Resp 17; Temp 98.6(TE); Pulse Ox 97% on R/A; Weight 95.25 kg; ss Height 5 ft. 5 in. (165.10 cm); Pain 10/10; 11:10 Body Mass Index 34.95 (95.25 kg, 165.10 cm) ss MDM: 11:06 Patient medically screened. rn 12:34 Differential diagnosis: arthritis, chronic back pain, Osteoarthritis disc problems, rn radiculopathy. Data reviewed: vital signs, nurses notes, and as a result, I will discharge patient. Counseling: I had a detailed discussion with the patient and/or guardian regarding: the historical points, exam findings, and any diagnostic results supporting the discharge/admit diagnosis, the need for outpatient follow up, to return to the emergency department if symptoms worsen or persist or if there are any questions or concerns that arise at home. Response to treatment: the patient's symptoms have mildly improved after treatment, and as a result, I will discharge patient. Special discussion: I discussed with the patient/guardian in detail that at this point there is no indication for admission to the hospital. It is understood, however, that if the symptoms persist or worsen the patient needs to return immediately for re-evaluation. Based on the history and exam findings, there is no indication for further emergent testing or inpatient evaluation. I discussed with the patient/guardian the need to see the painter aircraft for further evaluation of the symptoms. I discussed with the patient/guardian the need to see the primary care provider for further evaluation of the symptoms. ED course: Patient improved, not resolved, stable vitals, normal neuro exam without signs/symptoms of cord problems. Will dc home with pain management/steroids/muscle relaxer and will f/u with pcp and pain management as well as get outpt MRI.. Administered Medications: 11:29 Drug: HYDROcodone-acetaminophen (5 mg-500 mg) 1 tabs Route: PO; ss 12:50 Follow up: Response: No adverse reaction; No adverse reaction, some relief in symptoms ss 11:29 Drug: Decadron (dexamethasone) 10 mg Route: IM; Site: left deltoid; ss 12:51 Follow up: Response: No adverse reaction; Marked relief of symptoms ss 11:29 Drug: Flexeril (cyclobenzaprine) 10 mg Route: PO; ss 12:51 Follow up: Response: No adverse reaction; Marked relief of symptoms ss Disposition Summary: 04/27/22 12:35 Discharge Ordered Location: Home rn Problem: chronic rn Symptoms: have improved rn Condition: Stable rn Diagnosis - Low back pain rn - Chronic pain, not elsewhere classified rn Followup: rn - With: Private Physician - When: As needed - Reason: Recheck today's complaints, Re-evaluation by your physician Discharge Instructions: - Discharge Summary Sheet rn - Chronic Back Pain rn - Chronic Pain, Adult rn Forms: - Medication Reconciliation Form rn - Thank You Letter rn - Antibiotic rn neurosurgical - Prescription Opioid Use rn Prescriptions: - Cyclobenzaprine 10 mg Oral Tablet - take 1 tablet by ORAL route every 8 hours As needed; 12 tablet; Refills: 0, rn Product Selection Permitted - Tramadol 50 mg Oral Tablet - take 1 tablet by ORAL route every 8 hours as needed; 12 tablet; Refills: 0, rn Product Selection Permitted - Medrol (Larry) 4 mg Oral Tablets, Dose Pack - take 1 tablet by ORAL route as directed - follow package instructions; 1 rn packet; Refills: 0, Product Selection Permitted Signatures: Korey Thomas MD MD rn Smirch, Shelby, RN RN ss Corrections: (The following items were deleted from the chart) 11:12 11:10 PSHx: hysterectomy; ss ss
--- NOTE | 2022-04-27 12:36 | ER ---
Nurse's Notes [facility] Name: Adela Watts Age: 66 yrs Sex: Female : 1955 Arrival Date: 04/27/2022 Time: 11:04 Bed 10 Private MD: Diagnosis: Low back pain;Chronic pain, not elsewhere classified Presentation: 04/27 11:12 Chief complaint: Patient states: Pain to L buttock that radiates down L leg that began ss 4 days ago. Coronavirus screen: Client denies travel out of the [place] in the last 14 days. Ebola Screen: Patient denies exposure to infectious person. Patient denies travel to an Ebola-affected area in the 21 days before illness onset. Initial Sepsis Screen: Does the patient meet any 2 criteria? No. Patient's initial sepsis screen is negative. Does the patient have a suspected source of infection? No. Patient's initial sepsis screen is negative. Risk Assessment: Do you want to hurt yourself or someone else? Patient reports no desire to harm self or others. Onset of symptoms was April 23, 2022. 11:12 Method Of Arrival: Ambulatory ss 11:12 Acuity: SHADY 4 ss Historical: - Allergies: 11:10 No Known Allergies; ss - PMHx: 11:10 Anxiety; Chronic pain; Depression; Diabetes - NIDDM; Hypothyroidism; ss - PSHx: 11:10 Thyroidectomy; Hysterectomy; ss - Immunization history:: Client reports receiving the 2nd dose of the Covid vaccine. - Social history:: Smoking status: Patient denies any tobacco usage or history of. - Family history:: not pertinent. - Hospitalizations: : No recent hospitalization is reported. Screenin:49 Abuse screen: Denies threats or abuse. Denies injuries from another. Nutritional ss screening: No deficits noted. Tuberculosis screening: Never had TB. Fall Risk None identified. Assessment: 12:50 Reassessment: Patient appears in no apparent distress at this time. Patient and/or ss family updated on plan of care and expected duration. Pain level reassessed. Patient states feeling better. Respiratory: Airway is patent Respiratory effort is even, unlabored, Respiratory pattern is regular, symmetrical. Derm: Skin is pink, warm \T\ dry. normal. Vital Signs: 11:10 BP 119 / 92; Pulse 98; Resp 17; Temp 98.6(TE); Pulse Ox 97% on R/A; Weight 95.25 kg; ss Height 5 ft. 5 in. (165.10 cm); Pain 10; 11:10 Body Mass Index 34.95 (95.25 kg, 165.10 cm) ss ED Course: 11:04 Patient arrived in ED. mr 11:06 Korey Thomas MD is Attending Physician. rn 11:10 Arm band placed on right wrist. ss 11:14 Triage completed. ss 11:29 Cecille Wilkerson RN is Primary Nurse. ss 12:45 No provider procedures requiring assistance completed. Patient did not have IV access ss during this emergency room visit. 12:49 Patient has correct armband on for positive identification. ss Administered Medications: 11:29 Drug: HYDROcodone-acetaminophen (5 mg-500 mg) 1 tabs Route: PO; ss 12:50 Follow up: Response: No adverse reaction; No adverse reaction, some relief in symptoms ss 11:29 Drug: Decadron (dexamethasone) 10 mg Route: IM; Site: left deltoid; ss 12:51 Follow up: Response: No adverse reaction; Marked relief of symptoms ss 11:29 Drug: Flexeril (cyclobenzaprine) 10 mg Route: PO; ss 12:51 Follow up: Response: No adverse reaction; Marked relief of symptoms ss Medication: 12:50 VIS not applicable for this client. ss Outcome: 12:35 Discharge ordered by . rn 12:45 Discharged to home via wheelchair, awaiting in ER lobby for ride. ss 12:45 Condition: good 12:45 Discharge instructions given to patient, Instructed on discharge instructions, follow up and referral plans. medication usage, Demonstrated understanding of instructions, follow-up care, Prescriptions given X 3. 12:50 Patient left the ED. ss Signatures: Juan Ramon mr Korey Thomas MD MD rn Smirch, Shelby, RN RN ss Corrections: (The following items were deleted from the chart) 11:12 11:10 PSHx: hysterectomy; ss ss
[2022-04-27 14:02] VITALS: BP 119/92; TEMP 98.6; O2SAT 97
== END 2022-04-27 12:50 | disposition home or self-care (01) ==
LOC: ER 11:02
DX: M54.50 Low back pain, unspecified (principal); G89.29 Other chronic pain; E11.9 Type 2 diabetes mellitus without complications
CPT/HCPCS: 96372; 99283; J1100

== ENCOUNTER 2023-01-20 10:32 | Emergency (ER) | payer OTHER ==
--- OUTSIDE RECORDS SUMMARY | 2023-01-20 10:46 | XMS REPORT | Continuity of Care Document ---
:1955 Author Organization [facility] t Address [address] [place] [address] Care Team Providers Name Role Phone Asked, No Pcp Primary Care Physician Unavailable VENUS PARK Attending Clinician Unavailable Venus Park MD Attending Clinician Doctor Unassigned, [place] Attending Clinician Unavailable Only, Ang Db Test Attending Clinician Unavailable Davin Nunez RN Attending Clinician Unavailable Myra Tse Attending Clinician MYRA SUH Attending Clinician Unavailable MARISSA MERCADO Attending Clinician Unavailable Payers Payer Name Policy Type Policy Number Effective Date Expiration Date [facility] [id number] 2022 STAR PLUS 00:00:00 Problems Condition Condition Condition Status Onset Resolution Last Treating Co mments Source Name Details Category Date Date Treatment Clinician Date Abdominal Abdominal Disease Active Met hodi pain pain 3-20 [facility] 00:00: Hospita 00 l No known No known Disease Unive rs active active ity of problems problems [facility] Allergies, Adverse Reactions, Alerts Allergy Allergy Status Severity Reaction(s) Onset Inactive Treating Comm ents Source Name Type Date Date Clinician NO KNOWN Drug Active Univers ALLERGIE Class ity of S [facility] Social History Social Habit Start Date Stop Date Quantity Comments Source History of tobacco Cigarette Smoker University of use [facility] Gender identity [facility] Sexual orientation [facility] Exposure to 2022-08-31 2022-09-10 Not sure [facility] SARS-CoV-2 (event) 00:00:00 09:38:00 [facility] Tobacco use and 2022-09-10 2022-09-10 Smokeless Universit y of exposure 00:00:00 00:00:00 tobacco non-user [facility] History of Social 2019-08-04 2019-08-[address] function 00:00:00 00:00:00 Hospital Cigarettes smoked 2019-08-04 2019-08-[address] current (pack per 00:00:00 00:00:00 Hospita l day) - Reported Cigarette 2019-08-04 2019-08-04 [facility] pack-years 00:00:00 00:00:00 Hospital Alcohol intake 2019-08-04 2019-08-04 Current [facility] 00:00:00 00:00:00 non-drinker of Hospital alcohol (finding) Sex [birth year] [facility] 00:00:00 00:00:00 Hospital Smoking Status Start Date Stop Date Source Tobacco smoking [facility] consumption unknown Medical Bran ch Ex-smoker 2022-09-10 00:00:00 2022-09-10 [facility] [place] 00:00:00 [facility] Medications Ordered Filled Start Stop Current Ordering Indication Dosage Frequency Signature Comments Components Source Medication Medication Date Date Medication? Clinician (SIG) Name Name travoprost 2018-09 Yes 1[drp] QD Administer Methodi (TRAVATAN-Z 1-[address] ) 0.004 % 17:42: both eyes [facility] 06 daily. l buPROPion 2018-09 Yes 100mg Q.5D Take 100 Met hodi (WELLBUTRIN 1-[address] ) 100 MG 17:42: mouth 2 Hospit a tablet 06 (two) l times a day. travoprost 2018-09 Yes 1[drp] QD Administer Methodi (TRAVATAN-Z 1-[address] ) 0.004 % 17:42: both eyes [facility] 06 daily. l buPROPion 2018-09 Yes 100mg Q.5D Take 100 Met hodi (WELLBUTRIN 1-[address] ) 100 MG 17:42: mouth 2 Hospit a tablet 06 (two) l times a day. rOPINIRole Yes 10mg Take 10 mg U nivers 5 mg tablet 3-14 by mouth ity of 15:22: at [place] 57 bedtime. Medical Branch hydrOXYzine 2019-0 Yes 25mg Take 25 mg Univers 25 mg 3-14 by mouth ity of tablet 15:22: every 6 [place] [address] (six) Medical hours. Branch escitalopra 2018-0 Yes 20mg Take 20 mg Univers m oxalate 3-14 by mouth ity of 20 mg 15:22: daily. [place] tablet 57 Medical Branch lisinopril 2018-0 Yes 10mg Take 10 mg U nivers 10 mg 3-14 by mouth ity of tablet 15:22: daily. [place] [address] Medical Branch levothyroxi 20190 Yes 88ug Take 88 Uni vers ne 88 mcg 3-14 mcg by ity of tablet 15:22: mouth [place] every Medical morning. Branch rOPINIRole 0 Yes 10mg Take 10 mg U nivers 5 mg tablet 3-14 by mouth ity of 15:22: at [place] [address] bedtime. Medical Branch hydrOXYzine 0 Yes 25mg Take 25 mg Univers 25 mg 3-14 by mouth ity of tablet 15:22: every 6 [place] [address] (six) Medical hours. Branch escitalopra 0 Yes 20mg Take 20 mg Univers m oxalate 3-14 by mouth ity of 20 mg 15:22: daily. [place] tablet Medical Branch lisinopril 0 Yes 10mg Take 10 mg U nivers 10 mg 3-14 by mouth ity of tablet 15:22: daily. [place] [address] Medical Branch levothyroxi 0 Yes 88ug Take 88 Uni vers ne 88 mcg 3-14 mcg by ity of tablet 15:22: mouth [place] [address] every Medical morning. Branch rOPINIRole 2019-0 Yes 10mg Take 10 mg U nivers 5 mg tablet 3-14 by mouth ity of 15:22: at [place] [address] bedtime. Medical Branch hydrOXYzine 20190 Yes 25mg Take 25 mg Univers 25 mg 3-14 by mouth ity of tablet 15:22: every 6 [place] [address] (six) Medical hours. Branch escitalopra 20190 Yes 20mg Take 20 mg Univers m oxalate 3-14 by mouth ity of 20 mg 15:22: daily. [place] tablet Medical Branch lisinopril 2019-0 Yes 10mg Take 10 mg U nivers 10 mg 3-14 by mouth ity of tablet 15:22: daily. [place] [address] Medical Branch levothyroxi 2019-0 Yes 88ug Take 88 Uni vers ne 88 mcg 3-14 mcg by ity of tablet 15:22: mouth [place] every Medical morning. Branch rOPINIRole 0 Yes 10mg Take 10 mg U nivers 5 mg tablet 3-14 by mouth ity of 15:22: at [place] bedtime. Medical Branch hydrOXYzine Yes 25mg Take 25 mg Univers 25 mg 3-14 by mouth ity of tablet 15:22: every 6 [place] (six) Medical hours. Branch escitalopra Yes 20mg Take 20 mg Univers m oxalate 3-14 by mouth ity of 20 mg 15:22: daily. [place] tablet 57 Medical Branch lisinopril 0 Yes 10mg Take 10 mg U nivers 10 mg 3-14 by mouth ity of tablet 15:22: daily. [place] [address] Medical Branch levothyroxi Yes 88ug Take 88 Uni vers ne 88 mcg 3-14 mcg by ity of tablet 15:22: mouth [place] every Medical morning. Branch rOPINIRole Yes 10mg Take 10 mg U nivers 5 mg tablet 3-14 by mouth ity of 15:22: at [place] bedtime. Medical Branch hydrOXYzine Yes 25mg Take 25 mg Univers 25 mg 3-14 by mouth ity of tablet 15:22: every 6 [place] (six) Medical hours. Branch escitalopra Yes 20mg Take 20 mg Univers m oxalate 3-14 by mouth ity of 20 mg 15:22: daily. [place] tablet 57 Medical Branch lisinopril 0 Yes 10mg Take 10 mg U nivers 10 mg 3-14 by mouth ity of tablet 15:22: daily. [place] [address] Medical Branch levothyroxi 0 Yes 88ug Take [...] 15:22: daily. [place] tablet Medical Branch lisinopril 2018-0 Yes 10mg Take 10 mg U nivers 10 mg 3-14 by mouth ity of tablet 15:22: daily. [place] [address] Medical Branch levothyroxi 0 Yes 88ug Take 88 Uni vers ne 88 mcg 3-14 mcg by ity of tablet 15:22: mouth [place] [address] every Medical morning. Branch rOPINIRole 0 Yes 10mg Take 10 mg U nivers 5 mg tablet 3-14 by mouth ity of 15:22: at [place] [address] bedtime. Medical Branch hydrOXYzine 0 Yes 25mg Take 25 mg Univers 25 mg 3-14 by mouth ity of tablet 15:22: every 6 [place] [address] (six) Medical hours. Branch escitalopra 0 Yes 20mg Take 20 mg Univers m oxalate 3-14 by mouth ity of 20 mg 15:22: daily. [place] tablet Medical Branch lisinopril 0 Yes 10mg Take 10 mg U nivers 10 mg 3-14 by mouth ity of tablet 15:22: daily. [place] [address] Medical Branch levothyroxi 0 Yes 88ug Take 88 Uni vers ne 88 mcg 3-14 mcg by ity of tablet 15:22: mouth [place] [address] every Medical morning. Branch rOPINIRole 0 Yes 10mg Take 10 mg U nivers 5 mg tablet 3-14 by mouth ity of 15:22: at [place] [address] bedtime. Medical Branch hydrOXYzine 0 Yes 25mg Take 25 mg Univers 25 mg 3-14 by mouth ity of tablet 15:22: every 6 [place] [address] (six) Medical hours. Branch escitalopra 0 Yes 20mg Take 20 mg Univers m oxalate 3-14 by mouth ity of 20 mg 15:22: daily. [place] tablet Medical Branch lisinopril 2019-0 Yes 10mg Take 10 mg U nivers 10 mg 3-14 by mouth ity of tablet 15:22: daily. [place] [address] Medical Branch levothyroxi 0 Yes 88ug Take 88 Uni vers ne 88 mcg 3-14 mcg by ity of tablet 15:22: mouth [place] [address] every Medical morning. Branch rOPINIRole 2019-0 Yes 10mg Take 10 mg U nivers 5 mg tablet 3-14 by mouth ity of 15:22: at [place] [address] bedtime. Medical Branch hydrOXYzine Yes 25mg Take 25 mg Univers 25 mg 3-14 by mouth ity of tablet 15:22: every 6 [place] [address] (six) Medical hours. Branch escitalopra Yes 20mg Take 20 mg Univers m oxalate 3-14 by mouth ity of 20 mg 15:22: daily. [place] [address] Medical Branch lisinopril Yes 10mg Take 10 mg U nivers 10 mg 3-14 by mouth ity of tablet 15:22: daily. [place] [address] Medical Branch levothyroxi Yes 88ug Take 88 Uni vers ne 88 mcg 3-14 mcg by ity of tablet 15:22: mouth [place] [address] every Medical morning. Branch ondansetron Yes [id number] 4mg Q8H Take 1 Methodi (ZOFRAN, 4-07 tablet (4 st HYDROCHLORI 00:00: mg total) H ospita DE,) 4 MG 00 by mouth l tablet every 8 (eight) hours as needed for nausea. ondansetron Yes [id number] 4mg Q8H Take 1 Method[facility] (ZOFRAN, 4-07 tablet (4 st HYDROCHLORI 00:00: mg total) H ospita DE,) 4 MG 00 by mouth l tablet every 8 (eight) hours as needed for nausea. hydrocortis Yes [id number] Take by Methodi one 3-[id number] (CORTEF) 20 21:05: 3D (three) [facility] MG tablet 54 times a l day. unkown dose levothyroxi Yes 88ug QD Take 88 Met hodi ne 3-[address] (SYNTHROID, 21:05: mouth Hospi ta LEVOXYL) 88 54 every l mcg tablet morning. hydrocortis 2016- Yes Q.[id number] Take by Methodi one 3-[id number] (CORTEF) 20 21:05: 3D (three) Hos [facility] MG tablet 54 times a l day. unkown dose levothyroxi Yes 88ug QD Take 88 Met hodi ne 3-[address] (SYNTHROID, 21:05: mouth Hospi ta LEVOXYL) 88 54 every l mcg tablet morning. Immunizations Ordered Filled Immunization Date Status Comments [facility] e Immunization Name Name Influenza Virus 2022-07-29 Completed Universit y of Vaccine 00:00:00 [facility] Influenza Virus 2022-07-29 Completed Universit y of Vaccine 00:00:00 [facility] SARS-COV-2 COVID-19 2020-12-11 Completed Unive rsity of MODERNA 12+ YRS 00:00:00 [place] Med ical VACCINE Branch SARS-COV-2 COVID-19 2020-12-11 Completed Unive rsity of MODERNA 12+ YRS 00:00:00 [place] Med ical VACCINE Branch SARS-COV-2 COVID-19 2020-12-11 Completed Unive rsity of MODERNA VACCINE 00:00:00 [facility] [place] [facility] ical Branch SARS-COV-2 COVID-19 2020-12-11 Completed Unive rsity of MODERNA VACCINE 00:00:00 [facility] [place] [facility] ical Branch SARS-COV-2 COVID-19 2020-12-11 Completed Unive rsity of MODERNA VACCINE 00:00:00 [facility] [place] [facility] ical Branch SARS-COV-2 COVID-19 2020-12-11 Completed Unive rsity of MODERNA VACCINE 00:00:00 [facility] [place] [facility] ical Branch SARS-COV-2 COVID-19 2020-12-11 Completed Unive rsity of MODERNA VACCINE 00:00:00 [facility] [place] [facility] ical Branch SARS-COV-2 COVID-19 2020-12-11 Completed Unive rsity of MODERNA 12+ YRS 00:00:00 [place] Med ical VACCINE Branch SARS-COV-2 COVID-19 2020-12-11 Completed Unive rsity of MODERNA 12+ YRS 00:00:00 [place] Med ical VACCINE Branch SARS-COV-2 COVID-19 2020-11-13 Completed Unive rsity of MODERNA 12+ YRS 00:00:00 [place] Med ical VACCINE Branch SARS-COV-2 COVID-19 2020-11-13 Completed Unive rsity of MODERNA 12+ YRS 00:00:00 [place] Med ical VACCINE Branch SARS-COV-2 COVID-19 2020-11-13 Completed Unive rsity of MODERNA VACCINE 00:00:00 [place] Med ical Branch SARS-COV-2 COVID-19 2020-11-13 Completed Unive rsity of MODERNA VACCINE 00:00:00 [place] Med ical Branch SARS-COV-2 COVID-19 2020-11-13 Completed Unive rsity of MODERNA VACCINE 00:00:00 [place] Med ical Branch SARS-COV-2 COVID-19 2020-11-13 Completed Unive rsity of MODERNA VACCINE 00:00:00 [place] Med ical Branch SARS-COV-2 COVID-19 2020-11-13 Completed Unive rsity of MODERNA VACCINE 00:00:00 [place] Med ical Branch SARS-COV-2 COVID-19 2020-11-13 Completed Unive rsity of MODERNA 12+ YRS 00:00:00 [place] Med ical VACCINE Branch SARS-COV-2 COVID-19 2020-11-13 Completed Unive rsity of MODERNA 12+ YRS 00:00:00 [place] Med ical VACCINE Branch FLUZONE QUAD PF 2016-11-25 Completed [facility] 00:00:00 Hospital FLUZONE QUAD PF 2016-11-25 Completed [facility] 00:00:00 Hospital Vital Signs Vital Name Observation Time Observation Value Comments Source Systolic blood 2022-09-10 15:49:00 110 mm[Hg] [facility] [place] pressure [facility] [place] Diastolic blood 2022-09-10 15:49:00 78 mm[Hg] [facility]ive [facility] of [place] pressure [facility] Branch Heart rate 2022-09-10 15:49:00 92 /min [facility] Body height 2022-09-10 15:49:00 165.1 cm [facility] Body weight 2022-09-10 15:49:00 90.719 kg [facility] BMI 2022-09-10 15:49:00 33.28 kg/m2 [facility] Oxygen saturation 2022-09-10 15:49:00 97 /[facility] Br anch by Pulse oximetry Procedures Procedure Date / Time Performed Performing Clinician [facility] e CONSENT/REFUSAL FOR 2022-09-10 15:38:58 Doctor Unassigned, No [facility] [place] DIAGNOSIS AND Name Medical Branch 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 - 2022-07-28 06:01:00 [facility]igned, [facility]ERR[facility] Name Medical Branch Plan of Care Planned Activity Planned Date Details Comments Source Future Scheduled 2022-12-27 SHINGLES VACCINES (1 [facility] Test 22:44:07 of 2) [code = SHINGLES VACCINES (1 of 2)] Future Scheduled 2022-12-27 65+ PNEUMOCOCCAL [facility] Test 22:44:07 VACCINE (1 - PCV) [code = 65+ PNEUMOCOCCAL VACCINE (1 - PCV)] Future Scheduled 2022-12-27 INFLUENZA VACCINE [facility] Test 22:44:07 [code = INFLUENZA VACCINE] Future Scheduled 2022-12-27 COVID-19 VACCINE (#1) [facility] Test 22:44:07 [code = COVID-19 VACCINE (#1)] Future Scheduled 2022-12-27 [facility] Test 22:44:07 SCREENING [code = BREAST CANCER SCREENING] Future Scheduled 2022-12-27 COLONOSCOPY SCREENING [facility] Test 22:44:07 [code = COLONOSCOPY SCREENING] Future Scheduled 2022-12-27 SHINGLES VACCINES (1 [facility] Test 22:44:07 of 2) [code = SHINGLES VACCINES (1 of 2)] Future Scheduled 2022-12-27 65+ PNEUMOCOCCAL [facility] Test 22:44:07 VACCINE (1 - PCV) [code = 65+ PNEUMOCOCCAL VACCINE (1 - PCV)] Future Scheduled 2022-12-27 INFLUENZA VACCINE [facility] Test 22:44:07 [code = INFLUENZA VACCINE] Future Scheduled 2022-12-27 COVID-19 VACCINE (#1) [facility] Test 22:44:07 [code = COVID-19 VACCINE (#1)] Future Scheduled 2022-12-27 [facility] Test 22:44:07 SCREENING [code = BREAST CANCER SCREENING] Future Scheduled 2022-12-27 COLONOSCOPY SCREENING [facility] Test 22:44:07 [code = COLONOSCOPY SCREENING] Encounters Start End Encounter Admission Attending Care Care Encounter Source Date/Time Date/Time Type Type Clinicians Facility Department ID 2022-10-06 2022-10-06 Outpatient Reagan PARK [facility] [id number] Univers 09:30:00 09:30:00 VENUS hilton [facility] 2022-09-102022-09-10 Office Xavier [facility] [id number] Univers 10:00:00 10:11:06 Visit Venus DA SILVAMARSHALL [id number] ity [facility] [id number] [id number] Ar zeina NAL 059 [facility] 2022-09-10 2022-09-10 Outpatient R XAVIER [facility] [id number] Univers 10:00:00 10:11:06 VENUS ity o f [facility] 2022-09-10 2022-09-10 Orders Doctor LIZBETH [id number] Univers 00:00:00 00:00:00 Only Unassigned, NARDA [id number] ity of [facility] [id number] [place] as [id number] [address] 2022-07-28 2022-07-28 Orders Doctor LIZBETH [id number] Univers 00:00:00 00:00:00 Only Unassigned, NARDA [id number] ity of [facility] [id number] Crist[place] as [phone] [facility] [address] [place] 2021-09-07 2021-09-07 Telephone Only, Jay [facility] [id number] Univers 00:00:00 00:00:00 Db Test HEALTH [id number] it y of [place] 4.2.7.2.686 [place] as FISH?BLEA [id number] Ar dical KNEY [address] [place] MEDICAL OFFICE BUILDING 2021-09-07 2021-09-07 Telephone EnriqueLIZBETH [id number] Univers 00:00:00 00:00:00 Aneatrice NARDA [id number] ity of [facility] [id number] [place] as [phone] [facility] [address] [place] 2021-09-06 2021-09-06 Laboratory Only, Ang Db Test [facility] 1.2.8 [id number] Univers 15:30:00 15:45:00 Only Green, Myra HEALTH [id number] ity of [place] 4.2.7.2.686 Crist[place] as FISH?BLEA [phone] Ar zeina [address] MEDICAL OFFICE BUILDING 2021-09-06 2021-09-06 Outpatient Reagan SUH [facility] [id number] Univers 15:30:00 15:30:00 [facility] 2021-09-06 2021-09-06 Letter Doctor NIEVES [id number] Univers 00:00:00 00:00:00 (Out) Unassigned, NARDA [id number] ity of [place] [facility] [id number] Crist[place] as [phone] [address] 2021-09-06 2021-09-06 Letter Doctor NIEVES [id number] Univers 00:00:00 00:00:00 (Out) Unassigned, NARDA [id number] ity of [place] [facility] [id number] [place] as [phone] [address] 2020-12-11 2020-12-11 Outpatient Reagan MERCADO [facility] [id number] Univers 10:30:00 10:30:00 [facility] 2020-11-13 2020-11-13 [facility] [id number] Univers 08:20:00 08:20:00 [facility] Results This patient has no known results.
[2023-01-20] MEDS ORDERED: MORPHINE 4 MG/ML SYR ONE (11:24)
[2023-01-20] MEDS ORDERED: ONDANSETRON 4 MG (ODT) TAB ONE (11:24)
--- NOTE | 2023-01-20 12:05 | RAD REPORT ---
EXAM DESCRIPTION: CT - Thorax Wo Con CLINICAL HISTORY: Chest pain fall, chest injury COMPARISON: Chest For Pe Angio dated 06/23/2017 FINDINGS: Mild linear atelectasis is present in the lingula and both lung bases. No focal infiltrate seen. No worrisome nodule or mass evident. No pleural thickening or pleural effusion. No pneumothora x. No axillary, mediastinal or hilar adenopathy. No evidence of fracture. No gross upper abdominal finding. Thyroidectomy. All CT scans are performed using dose optimization technique as appropriate and may include automated exposure control or mA/KV adjustment according to patient size. IMPRESSION: No acute intrathoracic abnormality.
--- NOTE | 2023-01-20 12:23 | EDPHYS ---
Physician Documentation [facility] Name: Adela Watts Age: 67 yrs Sex: Female : 1955 Arrival Date: 01/20/2023 Time: 10:32 Bed 14 Private MD: MARVEL Physician Patricio Gaviria HPI: 01/20 10:56 This 67 yrs old Black Female presents to ER via Ambulatory with complaints of Fall jmm Injury, Rib pain. 10:56 Details of fall: The patient fell from an upright position. Onset: The symptoms/episode jmm began/occurred acutely, 3 day(s) ago. Patient states that she slipped hitting her chest against the tub 3 days ago. Patient states that she has had continued pain with shortness of breath. Denies other injury.. Historical: - Allergies: 10:50 No Known Allergies; nj1 - PMHx: 10:50 Anxiety; Chronic pain; Depression; Diabetes - NIDDM; Hypothyroidism; Glaucoma; nj1 - PSHx: 10:50 hysterectomy; Thyroidectomy; nj1 - Immunization history:: Client reports receiving the 2nd dose of the Covid vaccine. - Social history:: Smoking status: Patient/guardian denies using tobacco, but has a distant history of tobacco abuse. ROS: 10:56 Constitutional: Negative for fever, chills, and weight loss. jmm 10:56 Cardiovascular: Positive for chest pain. 10:56 All other systems are negative. Exam: 10:56 Constitutional: This is a well developed, well nourished patient who is awake, alert, jmm and in no acute distress. Head/Face: atraumatic. Eyes: EOMI, no conjunctival erythema appreciated ENT: Moist Mucus Membranes Neck: Trachea midline, Supple 10:56 Cardiovascular: Regular rate and rhythm. No edema appreciated Respiratory: Normal respirations, no respiratory distress appreciated Abdomen/GI: Non distended Back: Normal ROM Skin: General appearance color normal MS/ Extremity: Moves all extremities, no obvious deformities appreciated, no edema noted to the lower extremities Neuro: Awake and alert Psych: Behavior is normal, Mood is normal, Patient is cooperative and pleasant 10:56 Chest/axilla: Inspection: normal, Palpation: tenderness, that is mild, of the right breast. Vital Signs: 10:45 BP 105 / 70; Pulse 80; Resp 17; Temp 97.9; Pulse Ox 99% ; Weight 95.25 kg; Height 5 ft. nj1 5 in. ; Pain 8/10; 12:49 BP 117 / 65; Pulse 79; Resp 16; Pulse Ox 99% ; bp 10:45 Body Mass Index 34.95 (95.25 kg, 165.1 cm) nj1 10:45 Pain Scale: Adult nj1 MDM: 10:56 Patient medically screened. [facility] 12:21 Differential diagnosis: Fracture, pneumothorax, contusion. Data reviewed: vital signs, [facility] nurses notes, radiologic studies, CT scan. I considered the following discharge prescriptions or medication management in the emergency department Medications were administered in the Emergency Department. See MAR. Counseling: I had a detailed discussion with the patient and/or guardian regarding: the historical points, exam findings, and any diagnostic results supporting the discharge/admit diagnosis, radiology results, the need for outpatient follow up, to return to the emergency department if symptoms worsen or persist or if there are any questions or concerns that arise at home. 01/20 11:00 Order name: CT Chest Wo Con; Complete Time: 12:15 [facility] Administered Medications: 11:29 Drug: morphine IM 4 mg Route: IM; Site: right deltoid; bp 12:50 Follow up: Response: No adverse reaction bp 11:29 Drug: Ondansetron PO 4 mg Route: PO; bp 12:50 Follow up: Response: No adverse reaction bp Disposition Summary: 01/20/23 12:22 Discharge Ordered Location: Home [facility] Condition: Stable [facility] Diagnosis - Chest wall contusion [facility] Followup: [facility] - With: Private Physician - When: 2 - 3 days - Reason: Recheck today's complaints, Continuance of care, Re-evaluation by your physician Discharge Instructions: - Discharge Summary Sheet [facility] - Chest Wall Pain [facility] Forms: - Medication Reconciliation Form [facility] - Thank You Letter [facility] - Antibiotic Education [facility] - Prescription Opioid Use [facility] Prescriptions: - orphenadrine citrate 100 mg Oral Tablet Sustained Release - take 1 tablet by ORAL route 2 times per day As needed; 20 tablet; Refills: 0, [facility] Product Selection Permitted Signatures: Dispatcher [employer] Sridhar Carrillo PA PA jmm Peltier, Brian, RN RN bp Pavithra Yung RN RN nj1
--- NOTE | 2023-01-20 12:23 | ER ---
Nurse's Notes [facility] Name: Adela Watts Age: 67 yrs Sex: Female : 1955 Arrival Date: 01/20/2023 Time: 10:32 Bed 14 Private MD: Diagnosis: Chest wall contusion Presentation: 01/20 10:45 Chief complaint: Patient states: A few days ago, her chair slipped when trying to get nj1 up the table, hitting right chest wall on edge of table, pain got a little better but it seems to be getting worse now. Coronavirus screen: Vaccine status: Patient reports receiving the 2nd dose of the covid vaccine. Ebola Screen: Patient denies travel to an Ebola-affected area in the 21 days before illness onset. Initial Sepsis Screen: Does the patient meet any 2 criteria? No. Patient's initial sepsis screen is negative. Does the patient have a suspected source of infection? No. Patient's initial sepsis screen is negative. Risk Assessment: Do you want to hurt yourself or someone else? Patient reports no desire to harm self or others. Onset of symptoms was January 14, 2023. 10:45 Method Of Arrival: Ambulatory [facility] 10:45 Acuity: SHADY 3 nj1 Triage Assessment: 10:45 General: Appears uncomfortable, obese, Behavior is calm, cooperative, appropriate for bp age. Pain: Complains of pain in right lateral posterior chest. EENT: No deficits noted. Neuro: No deficits noted. Cardiovascular: No deficits noted. Respiratory: No deficits noted. GI: No signs and/or symptoms were reported involving the gastrointestinal system. : No signs and/or symptoms were reported regarding the genitourinary system. Derm: No deficits noted. Musculoskeletal: No deficits noted. Historical: - Allergies: 10:50 No Known Allergies; nj1 - PMHx: 10:50 Anxiety; Chronic pain; Depression; Diabetes - NIDDM; Hypothyroidism; Glaucoma; nj1 - PSHx: 10:50 hysterectomy; Thyroidectomy; nj1 - Immunization history:: Client reports receiving the 2nd dose of the Covid vaccine. - Social history:: Smoking status: Patient/guardian denies using tobacco, but has a distant history of tobacco abuse. Screenin:45 [facility] ED Fall Risk Assessment (Adult) History of falling in the last 3 months, bp including since admission Yes- single mechanical fall (1 pt). Abuse screen: Denies threats or abuse. Denies injuries from another. Nutritional screening: No deficits noted. Tuberculosis screening: No symptoms or risk factors identified. Assessment: 10:45 General: SEE TRIAGE NOTE. bp 12:49 Reassessment: PT DC HOME. bp Vital Signs: 10:45 BP 105 / 70; Pulse 80; Resp 17; Temp 97.9; Pulse Ox 99% ; Weight 95.25 kg; Height 5 ft. nj1 5 in. ; Pain 8/10; 12:49 BP 117 / 65; Pulse 79; Resp 16; Pulse Ox 99% ; bp 10:45 Body Mass Index 34.95 (95.25 kg, 165.1 cm) nj1 10:45 Pain Scale: Adult [facility] ED Course: 10:35 Patient arrived in ED. mr 10:45 Patient has correct armband on for positive identification. Bed in low position. Call bp light in reach. Side rails up X2. 10:49 Triage completed. nj1 10:51 Arm band placed on right wrist. [facility] 10:52 Sridhar Mahoney PA is PHCP. [facility] 10:52 Patricio Gaviria MD is Attending Physician. [facility] 10:59 Wan Cote, MILE is Primary Nurse. bp 11:20 CT Chest Wo Con In Process Unspecified. EDMS 12:49 No provider procedures requiring assistance completed. Patient did not have IV access bp during this emergency room visit. Administered Medications: 11:29 Drug: morphine IM 4 mg Route: IM; Site: right deltoid; bp 12:50 Follow up: Response: No adverse reaction bp 11:29 Drug: Ondansetron PO 4 mg Route: PO; bp 12:50 Follow up: Response: No adverse reaction bp Medication: 10:45 VIS not applicable for this client. bp Outcome: 12:22 Discharge ordered by MD. jmm 12:49 Discharged to home ambulatory. bp 12:49 Condition: stable 12:49 Discharge instructions given to patient, Instructed on discharge instructions, follow up and referral plans. medication usage, Demonstrated understanding of instructions, follow-up care, medications, Prescriptions given X 1. 12:50 Patient left the ED. bp Signatures: Dispatcher [employer] EDMS Sridhar Mahoney PA PA Mary Spann mr Wan Cote, RN RN Carlos Diaza, RN RN nj1
[2023-01-20 12:57] VITALS: TEMP 97.9; O2SAT 99
[2023-01-20 12:58] VITALS: BP 117/65
== END 2023-01-20 12:50 | disposition home or self-care (01) ==
LOC: ER 10:32
DX: S20.219A Contusion of unspecified front wall of thorax, initial encounter (principal)
CPT/HCPCS: 71250; Q0162

== ENCOUNTER 2023-02-01 21:00 | Emergency (ER) | payer OTHER ==
--- OUTSIDE RECORDS SUMMARY | 2023-02-01 21:04 | XMS REPORT | Continuity of Care Document ---
:1955 Author Organization [facility] t Address [address] [facility] [place] [address] Care Team Providers Name Role Phone Asked, No Pcp Primary Care Physician Unavailable VENUS PARK Attending Clinician Unavailable Venus Park MD Attending Clinician Doctor Unassigned, [place] Attending Clinician Unavailable Only, Ang Db Test Attending Clinician Unavailable Davin Nunez RN Attending Clinician Unavailable Myra Tse Attending Clinician MYRA SUH Attending Clinician Unavailable MARISSA MERCADO Attending Clinician Unavailable Payers Payer Name Policy Type Policy Number Effective Date Expiration Date [facility] [id number] 2022 [employer] 00:00:00 Problems Condition Condition Condition Status Onset Resolution Last Treating Co mments Source Name Details Category Date Date Treatment Clinician Date Abdominal Abdominal Disease Active [facility] pain pain [facility]osp[facility] 00 l No known No known Disease Unive rs active active ity of problems problems [facility] Allergies, Adverse Reactions, Alerts Allergy Allergy Status Severity Reaction(s) Onset Inactive Treating Comm ents Source Name Type Date Date Clinician NO KNOWN Drug Active Univers ALLERGIE Class ity of S [facility] Social History Social Habit Start Date Stop Date Quantity Comments Source History of tobacco Cigarette Smoker University of use [facility] Gender identity [facility] Exposure to 2022-08-31 2022-09-10 Not sure [facility] SARS-CoV-2 (event) 00:00:00 09:38:00 [facility] Tobacco use and 2022-09-10 2022-09-10 Smokeless Universit y of exposure 00:00:00 00:00:00 tobacco non-user [facility] History of Social 2019-08-04 2019-08-[address] function 00:00:00 00:00:00 Hospital Cigarettes smoked 2019-08-04 2019-08-[address] current (pack per 00:00:00 00:00:00 Hospita l day) - Reported Cigarette 2019-08-04 2019-08-04 [facility]00 Hospital Alcohol intake 2019-08-04 2019-08-04 Current [facility] 00[facility]00:00 00:00:00 non-drinker of Hospital alcohol (finding) Sex Assigned At [birth year] [facility] 00:[facility]:00 [facility]:00 [facility] Smoking Status Start Date Stop Date Source Tobacco smoking [facility] consumption unknown Medical Bran ch Ex-smoker 2022-09-10 00:00:00 2022-09-10 University o [facility] 00:00:00 [facility] Branch Medications Ordered Filled Start Stop Current Ordering [...] eyes [facility] 06 daily. l buPROPion 2019-1 Yes 100mg Q.5D Take 100 Met hodi (WELLBUTRIN 1-[address] ) 100 MG 17:42: mouth 2 Hospit a tablet 06 (two) l times a day. levothyroxi 20190 Yes 88ug Take 88 Uni vers ne 88 mcg 3-14 mcg by ity of tablet 15:22: mouth [place] every Medical morning. Branch rOPINIRole 2019-0 Yes 10mg Take 10 mg U nivers 5 mg tablet 3-14 by mouth ity of 15:22: at [place] [address] bedtime. Medical Branch hydrOXYzine 0 Yes 25mg Take 25 mg Univers 25 mg 3-14 by mouth ity of tablet 15:22: every 6 [place] (six) Medical hours. Branch escitalopra 0 Yes 20mg Take 20 mg Univers m oxalate 3-14 by mouth ity of 20 mg 15:22: daily. [place] [address] Medical Branch lisinopril 0 Yes 10mg Take 10 mg U nivers 10 mg 3-14 by mouth ity of tablet 15:22: daily. [place] [address] Medical Branch levothyroxi 0 Yes 88ug Take 88 Uni vers ne 88 mcg 3-14 mcg by ity of tablet 15:22: mouth [place] 57 every Medical morning. Branch rOPINIRole 0 Yes 10mg Take 10 mg U nivers 5 mg tablet 3-14 by mouth ity of 15:22: at [place] [address] bedtime. Medical Branch hydrOXYzine 0 Yes 25mg Take 25 mg Univers 25 mg 3-14 by mouth ity of tablet 15:22: every 6 [place] [address] (six) Medical hours. Branch escitalopra 2018-0 Yes 20mg Take 20 mg Univers m oxalate 3-14 by mouth ity of 20 mg 15:22: daily. [place] [address] Medical Branch lisinopril 2019-0 Yes 10mg Take 10 mg U nivers 10 mg 3-14 by mouth ity of tablet 15:22: daily. [place] [address] Medical Branch levothyroxi 0 Yes 88ug Take 88 Uni vers ne 88 mcg 3-14 mcg by ity of tablet 15:22: mouth [place] every Medical morning. Branch rOPINIRole 2019-0 Yes 10mg Take 10 mg U nivers 5 mg tablet 3-14 by mouth ity of 15:22: at [place] [address] bedtime. Medical Branch hydrOXYzine 2019-0 Yes 25mg Take 25 mg Univers 25 mg 3-14 by mouth ity of tablet 15:22: every 6 [place] [address] (six) Medical hours. Branch escitalopra 2019-0 Yes 20mg Take 20 mg Univers m oxalate 3-14 by mouth ity of 20 mg 15:22: daily. [place] tablet Medical Branch lisinopril 2018-0 Yes 10mg Take 10 mg U nivers 10 mg 3-14 by mouth ity of tablet 15:22: daily. [place] [address] Medical Branch levothyroxi 2018-0 Yes 88ug Take 88 Uni vers ne 88 mcg 3-14 mcg by ity of tablet 15:22: mouth [place] every Medical morning. Branch rOPINIRole 2019-0 Yes 10mg Take 10 mg U nivers 5 mg tablet 3-14 by mouth ity of 15:22: at [place] [address] bedtime. Medical Branch hydrOXYzine 2018-0 Yes 25mg Take 25 mg Univers 25 mg 3-14 by mouth ity of tablet 15:22: every 6 [place] [address] (six) Medical hours. Branch escitalopra 2018-0 Yes 20mg Take 20 mg Univers m oxalate 3-14 by mouth ity of 20 mg 15:22: daily. [place] tablet Medical Branch lisinopril 0 Yes 10mg Take 10 mg U nivers 10 mg 3-14 by mouth ity of tablet 15:22: daily. [place] [address] Medical Branch levothyroxi 2019-0 Yes 88ug Take 88 Uni vers ne 88 mcg 3-14 mcg by ity of tablet 15:22: mouth [place] [address] every Medical morning. Branch rOPINIRole 2019-0 Yes 10mg Take 10 mg U nivers 5 mg tablet 3-14 by mouth ity of 15:22: at [place] [address] bedtime. Medical Branch hydrOXYzine 2019-0 Yes 25mg Take 25 mg Univers 25 mg 3-14 by mouth ity of tablet 15:22: every 6 [place] [address] (six) Medical hours. Branch escitalopra 2019-0 Yes 20mg Take 20 mg Univers m oxalate 3-14 by mouth ity of 20 mg 15:22: daily. [place] [address] Medical Branch lisinopril 2019-0 Yes 10mg Take 10 mg U nivers 10 mg 3-14 by mouth ity of tablet 15:22: daily. [place] [address] Medical Branch levothyroxi 2019-0 Yes 88ug Take 88 Uni vers ne 88 mcg 3-14 mcg by ity of tablet 15:22: mouth [place] every Medical morning. Branch rOPINIRole 2019-0 Yes 10mg Take 10 mg U nivers 5 mg tablet 3-14 by mouth ity of 15:22: at [place] [address] bedtime. Medical Branch hydrOXYzine 2019-0 Yes 25mg Take 25 mg Univers 25 mg 3-14 by mouth ity of tablet 15:22: every 6 [place] [address] (six) Medical hours. Branch escitalopra 2019-0 Yes 20mg Take 20 mg Univers m oxalate 3-14 by mouth ity of 20 mg 15:22: daily. [place] [address] Medical Branch lisinopril 2019-0 Yes 10mg Take 10 mg U nivers 10 mg 3-14 by mouth ity of tablet 15:22: daily. [place] [address] Medical Branch levothyroxi 2018-0 Yes 88ug Take 88 Uni vers ne 88 mcg 3-14 mcg by ity of tablet 15:22: mouth [place] [address] every Medical morning. Branch rOPINIRole 2019-0 Yes 10mg Take 10 mg U nivers 5 mg tablet 3-14 by mouth ity of 15:22: at [place] [address] bedtime. Medical Branch hydrOXYzine 2019-0 Yes 25mg Take 25 mg Univers 25 mg 3-14 by mouth ity of tablet 15:22: every 6 [place] [address] (six) Medical hours. Branch escitalopra 2019-0 Yes 20mg Take 20 mg Univers m oxalate 3-14 by mouth ity of 20 mg 15:22: daily. [place] [address] Medical Branch lisinopril 2019-0 Yes 10mg Take 10 mg U nivers 10 mg 3-14 by mouth ity of tablet 15:22: daily. [place] [address] Medical Branch levothyroxi 2019-0 Yes 88ug Take 88 Uni vers ne 88 mcg 3-14 mcg by ity of tablet 15:22: mouth [place] [address] every Medical morning. Branch rOPINIRole 2019-0 Yes 10mg Take 10 mg U nivers 5 mg tablet 3-14 by mouth ity of 15:22: at [place] [address] bedtime. Medical Branch hydrOXYzine 2019-0 Yes 25mg Take 25 mg Univers 25 mg 3-14 by mouth ity of tablet 15:22: every 6 [place] [address] (six) Medical hours. Branch escitalopra Yes 20mg Take 20 mg Univers m oxalate 3-14 by mouth ity of 20 mg 15:22: daily. [place] tablet [address] [place] [address] Branch lisinopril 0 Yes 10mg Take 10 mg U nivers 10 mg 3-14 by mouth ity of tablet 15:22: daily. [address] levothyroxi 0 Yes 88ug Take 88 Uni vers ne 88 mcg 3-14 mcg by ity of tablet 15:22: mouth [place] [address] every Medical morning. Branch rOPINIRole 0 Yes 10mg Take 10 mg U nivers 5 mg tablet 3-14 by mouth ity of 15:22: at [place] [address] bedtime. Medical Branch hydrOXYzine 0 Yes 25mg Take 25 mg Univers 25 mg 3-14 by mouth ity of tablet 15:22: every 6 [place] [address] (six) Medical hours. Branch escitalopra Yes 20mg Take 20 mg Univers m oxalate 3-14 by mouth ity of 20 mg 15:22: daily. [address] lisinopril Yes 10mg Take 10 mg U nivers 10 mg 3-14 by mouth ity of tablet 15:22: daily. [address] ondansetron Yes [id number] 4mg Q8H Take 1 Method[facility] (ZOFRAN, 4-07 tablet (4 st HYDROCHLORI 00:00: mg total) H ospita DE,) 4 MG 00 by mouth l tablet every 8 (eight) hours as needed for nausea. ondansetron Yes [id number] 4mg Q8H Take 1 [facility] (ZOFRAN, 4-07 tablet (4 st HYDROCHLORI 00:00: mg total) H ospita DE,) 4 MG 00 by mouth l tablet every 8 (eight) hours as needed for nausea. ondansetron 2016-0 Yes [id number] 4mg Q8H Take 1 [facility] (ZOFRAN, 4-07 tablet (4 st HYDROCHLORI 00:00: mg total) H ospita DE,) 4 MG 00 by mouth l tablet every 8 (eight) hours as needed for nausea. hydrocortis 2017-0 Yes [id number] Take by [facility] one 3-[id number] (CORTEF) 20 21:05: 3D (three) [facility] MG tablet 54 times a l day. unkown dose levothyroxi Yes 88ug QD Take 88 Met hodi ne 3-[address] (SYNTHROID, 21:05: mouth Hospi ta LEVOXYL) 88 54 every l mcg tablet morning. hydrocortis Yes [id number] Take by Method[facility] one 3-[id number] (CORTEF) 20 21:05: 3D (three) [facility] MG tablet 54 times a l day. unkown dose levothyroxi Yes 88ug QD Take 88 Met hodi ne 3-[address] (SYNTHROID, 21:05: mouth Hospi ta LEVOXYL) 88 54 every l mcg tablet morning. hydrocortis Yes [id number] Take by Methodi one 3-[id number] (CORTEF) 20 21:05: 3D (three) [facility] MG tablet 54 times a l day. unkown dose levothyroxi Yes 88ug QD Take 88 Met hodi ne 3-[address] (SYNTHROID, 21:05: mouth Hospi ta LEVOXYL) 88 54 every l mcg tablet morning. Immunizations Ordered Filled Immunization Date Status Comments [facility] Immunization Name Name Influenza Virus 2022-07-29 Completed Universit y of Vaccine 00:00:00 [facility] Influenza Virus 2022-07-29 Completed Universit y of Vaccine 00:00:00 [facility] SARS-COV-2 COVID-19 2020-12-11 Completed Unive rsity of MODERNA 12+ YRS 00:00:00 [facility] VACCINE Branch SARS-COV-2 COVID-19 2020-12-11 Completed Unive rsity of MODERNA 12+ YRS 00:00:00 [facility] VACCINE Branch SARS-COV-2 COVID-19 2020-12-11 Completed Unive rsity of [place] VACCINE 00:00:00 [facility] SARS-COV-2 COVID-19 2020-12-11 Completed Unive rsity of [place] VACCINE 00:00:00 [facility] SARS-COV-2 COVID-19 2020-12-11 Completed Unive rsity of [place] VACCINE 00:00:00 [place] Med ical Branch SARS-COV-2 COVID-19 2020-12-11 Completed Unive rsity of MODERNA VACCINE 00:00:00 [place] Med ical Branch SARS-COV-2 COVID-19 2020-12-11 Completed Unive rsity of MODERNA VACCINE 00:00:00 [place] Med ical Branch SARS-COV-2 COVID-19 2020-12-11 Completed Unive [...] YRS 00:00:00 [place] Med ical VACCINE Branch FLUZONE QUAD PF 2016-11-25 Completed [facility] 00:00:00 [facility] FLUZONE QUAD PF 2016-11-25 Completed [facility] 00:00:00 [facility] 2016-11-25 Completed [facility] 00:00:00 Hospital Vital Signs Vital Name Observation Time Observation Value Comments Source Systolic blood 2022-09-10 15:49:00 110 mm[Hg] Univer sity [facility] pressure Medical Branch Diastolic blood 2022-09-10 15:49:00 78 [facility]Hg[facility] Heart rate 2022-09-10 15:49:00 92 /min [facility] Medical [place] Body height 2022-09-10 15:49:00 165.1 cm [facility] Body weight 2022-09-10 15:49:00 90.719 kg [facility] BMI 2022-09-10 15:49:00 33.28 kg/m2 [facility] Oxygen saturation 2022-09-10 15:49:00 97 /min [facility] Arterial blood Medical Br anch by Pulse oximetry Procedures Procedure Date / Time Performed Performing Clinician [facility] CONSENT/REFUSAL FOR 2022-09-10 15:38:58 Doctor Unassigned, No [facility] [place] DIAGNOSIS AND Name Medical Branch 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 - 2022-07-28 06:01:00 Doctor Unassigned, No [facility] [place] ADC REFERRAL Name Medical Branch Plan of Care Planned Activity Planned Date Details Comments Source Future Scheduled 2022-12-27 COVID-19 VACCINE (#1) [facility] Test 22:44:07 [code = COVID-19 VACCINE (#1)] Future Scheduled 2022-12-27 BREAST CANCER [facility] Test 22:44:07 SCREENING [code = BREAST CANCER SCREENING] Future Scheduled 2022-12-27 COLONOSCOPY SCREENING [facility] Test 22:44:07 [code = COLONOSCOPY SCREENING] Future Scheduled 2022-12-27 SHINGLES VACCINES (1 Met [facility] Test 22:44:07 of 2) [code = SHINGLES VACCINES (1 of 2)] Future Scheduled 2022-12-27 65+ [facility]OCOCCAL [facility] Test 22:44:07 VACCINE (1 - PCV) [code = 65+ PNEUMOCOCCAL VACCINE (1 - PCV)] Future Scheduled 2022-12-27 INFLUENZA VACCINE [facility] Test 22:44:07 [code = INFLUENZA VACCINE] Future Scheduled 2022-12-27 COVID-19 VACCINE (#1) [facility] Test 22:44:07 [code = COVID-19 VACCINE (#1)] Future Scheduled 2022-12-27 COVID-19 VACCINE (#1) [facility] Test 22:44:07 [code = COVID-19 VACCINE (#1)] Future Scheduled 2022-12-27 BREAST CANCER [facility] Test 22:44:07 SCREENING [code = BREAST CANCER SCREENING] Future Scheduled 2022-12-27 BREAST CANCER [facility] Test 22:44:07 SCREENING [code = BREAST CANCER SCREENING] Future Scheduled 2022-12-27 COLONOSCOPY SCREENING [facility] Test 22:44:07 [code = COLONOSCOPY SCREENING] Future Scheduled 2022-12-27 SHINGLES VACCINES (1 Met [facility] Test 22:44:07 of 2) [code = SHINGLES VACCINES (1 of 2)] Future Scheduled 2022-12-27 65+ [facility]AL [facility] Test 22:44:07 VACCINE (1 - PCV) [code = 65+ PNEUMOCOCCAL VACCINE (1 - PCV)] Future Scheduled 2022-12-27 INFLUENZA VACCINE [facility] Test 22:44:07 [code = INFLUENZA VACCINE] Future Scheduled 2022-12-27 COLONOSCOPY SCREENING [facility] Test 22:44:07 [code = COLONOSCOPY SCREENING] Future Scheduled 2022-12-27 SHINGLES VACCINES (1 Met [facility] Test 22:44:07 of 2) [code = SHINGLES VACCINES (1 of 2)] Future Scheduled 2022-12-27 65+ PNEUMOCOCCAL Methodi [facility] Test 22:44:07 VACCINE (1 - PCV) [code = 65+ PNEUMOCOCCAL VACCINE (1 - PCV)] Future Scheduled 2022-12-27 INFLUENZA VACCINE [facility] Test 22:44:07 [code = INFLUENZA VACCINE] Encounters Start End Encounter Admission Attending Care Care Encounter Source Date/Time Date/Time Type Type Clinicians Facility Department ID 2022-10-06 2022-10-06 Outpatient R XAVIER [facility] [id number] Univers 09:30:00 09:30:00 VENUS trottery o f [facility] 2022-09-10 2022-09-10 Office Xavier [facility] [id number] Univers 10:00:00 10:11:06 Visit Venus ROBERTSON [id number] [place]y [id number] PROF[place] [id number] Ak zeina CRUZ 059 Branch BUILDING 2022-09-10 2022-09-10 Outpatient R XAVIER, [facility] [id number] Univers 10:00:00 10:11:06 VENUS ity o f [facility] 2022-09-10 2022-09-10 Orders Doctor LIZBETH [id number] Univers 00:00:00 00:00:00 Only Unassigned, NARDA [id number] ity of [facility] [facility] [id number] Cristiano as [id number] [facility] [address] [place] 2022-07-28 2022-07-28 Orders Doctor NIEVES [id number] Univers 00:00:00 00:00:00 Only Unassigned, NARDA [id number] ity of [facility] [id number] Cristiano as [phone] [facility] 009 Branch 2021-09-07 2021-09-07 Telephone Only, Ang [facility] [id number] Univers 00:00:00 00:00:00 Db Test HEALTH [id number] it y of [place] [id number] Cristiano as FISH?BLEA [id number] [facility] KNEY [address] [place] MEDICAL OFFICE BUILDING 2021-09-07 2021-09-07 Telephone EnriqueLIZBETH [id number] Univers 00:00:00 00:00:00 Aneatrice NARDA 350.1.13.10 ity of [facility] [id number] Cristiano as [phone] [facility] 019 Branch 2021-09-06 2021-09-06 Laboratory Only, Ang Db Test [facility] 1.2.8 40.114 [id number] Univers 15:30:00 15:45:00 Only Green, Myra HEALTH [id number] ity of [place] [id number] Cristiano as FISH?BLEA [id number] [address] MEDICAL OFFICE BUILDING 2021-09-06 2021-09-06 Outpatient Reagan SUH [facility] [id number] Univers 15:30:00 15:30:00 [facility] 2021-09-06 2021-09-06 Letter Doctor LIZBETH [id number] Univers 00:00:00 00:00:00 (Out) Unassigned, NARDA [id number] ity of [place] [facility] [id number] Cristiano as [id number] [address] 2021-09-06 2021-09-06 Letter Doctor LIZBETH [id number] Univers 00:00:00 00:00:00 (Out) Unassigned, NARDA [id number] ity of [place] [facility] [id number] Cristiano as [phone] [address] 2020-12-11 2020-12-11 Outpatient Reagan MERCADO [facility] [id number] Univers 10:30:00 10:30:[address] [facility] 2020-11-13 2020-11-13 Outpatient Reagan MERCADO [facility] [id number] Univers 08:20:00 08:20:00 [facility] Results This patient has no known results.
[2023-02-01] MEDS ORDERED: MORPHINE 4 MG/ML SYR ONE (21:43)
[2023-02-01] MEDS ORDERED: ONDANSETRON 4 MG/2 ML VIAL ONE (21:43)
[2023-02-01 21:57] LABS: Absolute Lymphocytes (CBC) 1.8 K/uL (0.7-4.9); Lymphocytes % 30.9 % (15.3-44.8); MCV 82.7 fL (80-100); MPV 7.2 fL (7.6-11.3); RBC Red Blood Cell Count 4.71 M/uL (3.86-4.86)
[2023-02-01 22:23] LABS: Albumin 3.2 g/dL (3.4-5.0); Bilirubin Direct 0.1 mg/dL (0-0.2); Bilirubin Indirect, Calculated 0.2 mg/dL (0.2-0.8); Bilirubin Total 0.3 mg/dL (0.2-1.0); Protein, Total 7.6 g/dL (6.4-8.2); Troponin High Sensitivity 11.3 pg/mL (<58.9)
[2023-02-01 22:26] LABS: Magnesium 1.9 mg/dL (1.6-2.4); Potassium 3.4 mEq/L (3.5-5.1)
[2023-02-01 22:54] LABS: Protime INR 0.97
[2023-02-01] MEDS ORDERED: POTASSIUM 25 MEQ EFFERV TAB ONE (23:51)
[2023-02-01] MEDS ORDERED: KETOROLAC 30 MG/ML INJ ONE (23:54)
[2023-02-01] MEDS ORDERED: dexAMETHasone 10 MG/ML VIAL ONE (23:54)
[2023-02-01] MEDS ORDERED: NA CHLORIDE 0.9% 500 ML ONE (23:55)
--- NOTE | 2023-02-02 02:12 | EDPHYS ---
Physician Documentation [facility] Name: Adela Watts Age: 67 yrs Sex: Female : 1955 Arrival Date: 02/01/2023 Time: 21:00 Bed 15 Private MD: ED Physician Andrew Cartagena HPI: 02/01 22:00 This 67 yrs old Black Female presents to ER via Ambulatory with complaints of Arm Pain, cp Shoulder Pain, Neck pain. 22:00 The patient or guardian complains of pain, that is acute. cp 22:00 The complaints affect the left lateral neck and left upper back and left shoulder and cp left arm. Context: resulted from unknown cause. 22:00 Onset: The symptoms/episode began/occurred today. Treatment prior to arrival includes: cp no previous treatment. Associated signs and symptoms: Pertinent negatives: deformity, numbness, warmth, weakness. Historical: - PMHx: 21:23 Anxiety; Chronic pain; Glaucoma; Hypothyroidism; Diabetes - NIDDM; Depression; kd3 - PSHx: 21:23 hysterectomy; Thyroidectomy; kd3 - Immunization history:: Adult Immunizations up to date. - Social history:: Smoking status: Patient denies any tobacco usage or history of. ROS: 22:05 Constitutional: Negative for body aches, chills, fever, poor PO intake. cp 22:05 Eyes: Negative for injury, pain, redness, and discharge. cp 22:05 ENT: Negative for drainage from ear(s), ear pain, sore throat, difficulty swallowing, difficulty handling secretions. 22:05 Cardiovascular: Negative for chest pain, palpitations. 22:05 Respiratory: Negative for cough, shortness of breath, wheezing. 22:05 Abdomen/GI: Negative for abdominal pain, nausea, vomiting, and diarrhea. 22:05 Back: Positive for pain at rest, pain with movement, of the left trapezius and left scapular area. 22:05 MS/extremity: Positive for pain, tenderness, of the left hand and left arm, Negative for injury or acute deformity, decreased range of motion, paresthesias. 22:05 Skin: Negative for cellulitis, rash. 22:05 Neuro: Negative for altered mental status, dizziness, headache, numbness, syncope, weakness. 22:05 All other systems are negative. Exam: 22:04 ECG was reviewed by the Attending Physician. cp 22:10 Constitutional: The patient appears in no acute distress, alert, awake, cp non-diaphoretic, non-toxic, well developed, well nourished, uncomfortable. 22:10 Head/Face: Normocephalic, atraumatic. cp 22:10 Eyes: Periorbital structures: appear normal, Conjunctiva: normal, no exudate, no injection, Sclera: no appreciated abnormality, Lids and lashes: appear normal, bilaterally. 22:10 ENT: External ear(s): are unremarkable, Nose: is normal, Mouth: Lips: moist, Oral mucosa: pink and intact, moist, Posterior pharynx: is normal, airway is patent, no erythema, no exudate. 22:10 Neck: C-spine: vertebral tenderness, is not appreciated, crepitus, is not appreciated, ROM/movement: pain, that is mild, with any movement, limited range of motion, is not appreciated, Meningeal signs: are not present, nuchal rigidity, is not appreciated. 22:10 Chest/axilla: Inspection: normal. 22:10 Cardiovascular: Rate: normal, Rhythm: regular, Pulses: Pulses are 2+ in left radial artery. Edema: is not appreciated, JVD: is not appreciated. 22:10 Respiratory: the patient does not display signs of respiratory distress, Respirations: normal, no use of accessory muscles, no retractions, labored breathing, is not present, Breath sounds: decreased breath sounds, are not appreciated, stridor, is not appreciated, wheezing: is not appreciated. 22:10 Abdomen/GI: Inspection: abdomen appears normal, Palpation: abdomen is soft and non-tender, in all quadrants. 22:10 Back: pain, that is moderate, of the left trapezius and left scapular area, vertebral tenderness, is not appreciated. 22:10 Musculoskeletal/extremity: Extremities: noted in the left arm: pain, There is no evidence of decreased ROM, deformity. 22:10 Skin: cellulitis, is not appreciated, no rash present. 22:10 Neuro: Orientation: to person, place \T\ time. Mentation: is normal, Motor: moves all fours, strength is normal, Sensation: no obvious gross deficits. Vital Signs: 21:19 Pulse 84; Resp 18; Temp 100.1(O); Pulse Ox 95% on R/A; Weight 95.25 kg; Height 5 ft. 5 kd3 in. ; 21:19 BP 129 / 86; kd3 22:18 BP 139 / 99; Pulse 84; Resp 16; Pulse Ox 100% on R/A; mb9 23:14 BP 155 / 122; Pulse 84; Resp 17; Pulse Ox 98% on R/A; mb9 02/02 00:30 BP 156 / 99; Pulse 72; Resp 18 S; Pulse Ox 100% on R/A; as6 01:49 BP 138 / 107; Pulse 62; Resp 18 S; Pulse Ox 97% on R/A; as6 02/01 21:19 Body Mass Index 34.95 (95.25 kg, 165.1 cm) kd3 MDM: 02/01 21:27 Patient medically screened. 22:00 Differential diagnosis: tendonitis, DVT, arterial occlusion, pneumothorax, muscle cp strain, acute WA. 02/02 02:10 Data reviewed: vital signs, nurses notes, lab test result(s), EKG, radiologic studies, cp CT scan, plain films, ultrasound. 02:10 ED course: Patient denies cough/congestion. US tech reports negative studies for left cp arm DVT and/or arterial occlusion. 02:11 I considered the following discharge prescriptions or medication management in the emergency department Medications were administered in the Emergency Department. See NOV. 02:11 Independent interpretation of the following test(s) in the Emergency Department EKG: See my EKG interpretation above. Care significantly affected by the following chronic conditions: Diabetes, pain. Counseling: I had a detailed discussion with the patient and/or guardian regarding: the historical points, exam findings, and any diagnostic results supporting the discharge/admit diagnosis, lab results, radiology results, the need for outpatient follow up, a family practitioner, to return to the emergency department if symptoms worsen or persist or if there are any questions or concerns that arise at home. 02/01 21:27 Order name: Basic Metabolic Panel; Complete Time: 22:54 02/01 22:54 Interpretation: Normal except: K 3.4; ANION GAP 4.4; GFR 65. 02/01 21:27 Order name: CBC with Diff; Complete Time: 22:54 02/01 22:55 Interpretation: Normal except: MCH 25.9; MCHC 31.3; RDW 16.9; MPV 7.2. cp 02/01 21:27 Order name: LFT's; Complete Time: 22:54 cp 02/01 22:55 Interpretation: Normal except: ALB 3.2; GLOB 4.4; A/G 0.7. cp 02/01 21:27 Order name: Magnesium; Complete Time: 22:54 cp 02/01 21:27 Order name: PT-INR; Complete Time: 23:27 cp 02/01 21:27 Order name: Troponin HS; Complete Time: 22:54 cp 02/01 21:27 Order name: XRAY Chest (1 view) cp 02/01 23:43 Order name: CT Chest W/ Con cp 02/02 02:24 Order name: UPPER EXTREMITY VENOUS UNILATE EDMS 02/02 02:24 Order name: Upper Ext Artery Uni Lanre EDMS 02/01 21:27 Order name: EKG; Complete Time: 21:28 cp 02/01 21:27 Order name: Cardiac monitoring; Complete Time: 21:48 cp 02/01 21:27 Order name: EKG - Nurse/Tech; Complete Time: 21:48 cp 02/01 21:27 Order name: IV Saline Lock; Complete Time: 21:48 cp 02/01 21:27 Order name: Labs collected and sent; Complete Time: 21:48 cp 02/01 21:27 Order name: O2 Per Protocol; Complete Time: 21:48 cp 02/01 21:27 Order name: O2 Sat Monitoring; Complete Time: 21:48 cp EC/29 22:04 Rate is 81 beats/min. Rhythm is regular. ID interval is normal. QRS interval is normal. cp QT interval is normal. T waves are Inverted in leads aVR, V2. Interpreted by me. Reviewed by me. Administered Medications: 21:45 Drug: morphine IVP or IV 4 mg Route: IVP; Infused Over: 4 mins; Site: right antecubital;mb9 23:13 Follow up: Response: No adverse reaction mb9 21:47 Drug: Ondansetron IVP 4 mg Route: IVP; Site: right antecubital; mb9 23:13 Follow up: Response: No adverse reaction mb9 23:45 Drug: Decadron - Dexamethasone IVP 10 mg Route: IVP; Site: right antecubital; mb9 02/02 02:29 Follow up: Response: No adverse reaction 02/01 23:55 Drug: Ketorolac IVP 15 mg Route: IVP; Site: right antecubital; 9 02/02 02:29 Follow up: Response: No adverse reaction 02/01 23:59 Drug: Potassium PO Effervescent Tablet 50 mEq Route: PO; 02/02 02:29 Follow up: Response: No adverse reaction 02/01 23:59 Drug: NS 0.9% IV 500 ml Route: IV; Rate: 250 ml/hr; Site: right antecubital; 02/02 02:29 Follow up: Response: No adverse reaction; IV Status: Completed infusion; IV Intake: as6 250ml Disposition: : Co-signature as Attending Physician, Andrew Cartagena MD I agree with the assessment sp4 and plan of care. I reviewed the patient's care provided by the Advanced Practice Provider and agree with the diagnosis and treatment plan. Disposition Summary: 02/02/23 02:11 Discharge Ordered Location: Home cp Condition: Stable cp Diagnosis - Dorsalgia, unspecified cp - Pain in left arm cp Followup: cp - With: Private Physician - When: 2 - 3 days - Reason: Recheck today's complaints Discharge Instructions: - Discharge Summary Sheet cp - Musculoskeletal Pain cp Forms: - Medication Reconciliation Form cp - Thank You Letter cp - Antibiotic Education cp - Prescription Opioid Use cp Prescriptions: - Tramadol 50 mg Oral Tablet - take 1 tablet by ORAL route every 8 hours as needed; 12 tablet; Refills: 0, cp Product Selection Permitted - Medrol (Larry) 4 mg Oral Tablets, Dose Pack - take 1 tablet by ORAL route as directed - follow package instructions; 1 cp packet; Refills: 0, Product Selection Permitted - methocarbamol 750 mg Oral Tablet - take 1 tablet by ORAL route 3 times per day; 30 tablet; Refills: 0, Product cp Selection Permitted Signatures: Dispatcher [employer] Patricio Saxena PA PA cp Doucette, Kyli RN RN kd3 Mary Dozier RN RN [id number] Andrew Cartagena MD MD sp4 Kemal Dillard RN as6 Corrections: (The following items were deleted from the chart) 02:16 01:31 The patient or guardian complains of pain, that is acute, cp cp 02:16 01:31 This 67 yrs old Black Female presents to ER via Ambulatory with complaints of Arm cp Pain, Shoulder Pain, Neck pain. cp 02:24 01:35 Extremity Venous Uni Ltd+[email or web address].RAD.BRZ ordered. EDMS EDMS 02:24 01:37 Lower Extremity Artery Uni Ltd+US.RAD.BRZ ordered. EDMS EDMS
--- NOTE | 2023-02-02 02:12 | ER ---
Nurse's Notes [facility] Name: Adela Watts Age: 67 yrs Sex: Female : 1955 Arrival Date: 02/01/2023 Time: 21:00 Bed 15 Private MD: Diagnosis: Dorsalgia, unspecified;Pain in left arm Presentation: 02/01 21:19 Chief complaint: Patient states: I have a pain that starts in my left collar bone and kd3 it goes down my arm and even goes into my back. I do not know that i injured it. It started earlier today. Coronavirus screen: Vaccine status: Patient reports receiving the 2nd dose of the covid vaccine. Ebola Screen: No symptoms or risks identified at this time. Initial Sepsis Screen: Does the patient meet any 2 criteria? No. Patient's initial sepsis screen is negative. Does the patient have a suspected source of infection? No. Patient's initial sepsis screen is negative. Risk Assessment: Do you want to hurt yourself or someone else? Patient reports no desire to harm self or others. Onset of symptoms was February 01, 2023. 21:19 Method Of Arrival: Ambulatory kd3 21:19 Acuity: SHADY 4 kd3 21:24 Chief complaint:. kd3 Triage Assessment: 21:23 General: Appears uncomfortable, Behavior is calm, cooperative. Pain: Complains of pain kd3 in anterior aspect of left shoulder Pain radiates to left sternocleidomastoid. Neuro: Level of Consciousness is awake, alert, obeys commands, Oriented to person, place, time, situation. Historical: - PMHx: 21:23 Anxiety; Chronic pain; Glaucoma; Hypothyroidism; Diabetes - NIDDM; Depression; kd3 - PSHx: 21:23 hysterectomy; Thyroidectomy; kd3 - Immunization history:: Adult Immunizations up to date. - Social history:: Smoking status: Patient denies any tobacco usage or history of. Screenin:17 [facility] ED Fall Risk Assessment (Adult) History of falling in the last 3 months, mb9 including since admission No falls in past 3 months (0 pts) Confusion or Disorientation No (0 pts) Intoxicated or Sedated No (0 pts) Impaired Gait No (0 pts) Mobility Assist Device Used No (0 pt) Altered Elimination No (0 pt) Score/Fall Risk Level 0 - 2 = Low Risk Oriented to surroundings, Maintained a safe environment, Educated pt \T\ family on fall prevention, incl call for assistance when getting out of bed. Abuse screen: Denies threats or abuse. Nutritional screening: No deficits noted. Tuberculosis screening: No symptoms or risk factors identified. Assessment: 22:19 General: Appears in no apparent distress. Pain: Complains of pain in left mb9 sternocleidomastoid Pain radiates to neck and left arm and anterior aspect of left shoulder Pain currently is 10 out of 10 on a pain scale. Quality of pain is described as sharp, shooting, Pain began suddenly. Neuro: Level of Consciousness is awake, alert, obeys commands, Oriented to person, place, time, situation, Appropriate for age. Cardiovascular: Patient's skin is warm and dry. Respiratory: Airway is patent Respiratory effort is even, unlabored, Respiratory pattern is regular, symmetrical, Breath sounds are clear bilaterally. GI: Abdomen is flat, non-distended. Derm: Skin is pink, warm \T\ dry. Musculoskeletal: Range of motion: intact in all extremities. 02/02 01:50 General: ultrasound at bedside . as6 Vital Signs: 02/01 21:19 Pulse 84; Resp 18; Temp 100.1(O); Pulse Ox 95% on R/A; Weight 95.25 kg; Height 5 ft. 5 kd3 in. ; 21:19 BP 129 / 86; kd3 22:18 BP 139 / 99; Pulse 84; Resp 16; Pulse Ox 100% on R/A; mb9 23:14 BP 155 / 122; Pulse 84; Resp 17; Pulse Ox 98% on R/A; mb9 02/02 00:30 BP 156 / 99; Pulse 72; Resp 18 S; Pulse Ox 100% on R/A; as6 01:49 BP 138 / 107; Pulse 62; Resp 18 S; Pulse Ox 97% on R/A; as6 02/01 21:19 Body Mass Index 34.95 (95.25 kg, 165.1 cm) kd3 ED Course: 02/01 21:02 Patient arrived in ED. mr 21:16 Patricio Berry PA is PHCP. cp 21:16 Andrew Cartagena MD is Attending Physician. cp 21:22 Triage completed. kd3 21:24 Arm band placed on right wrist. kd3 21:30 Mary Dozier, RN is Primary Nurse. mb9 21:48 Basic Metabolic Panel Sent. mb9 21:48 CBC with Diff Sent. mb9 21:48 LFT's Sent. mb9 21:48 Magnesium Sent. mb9 21:48 PT-INR Sent. mb9 21:48 Troponin HS Sent. mb9 22:17 Placed in gown. Bed in low position. Call light in reach. Side rails up X 1. Client mb9 placed on continuous cardiac and pulse oximetry monitoring. NIBP monitoring applied. electronic device monitor on. 22:18 No provider procedures requiring assistance completed. mb9 22:18 EKG done, by ED staff, reviewed by Patricio AGUIAR. Inserted saline lock: 22 gauge in mb9 right antecubital area, using aseptic technique. 22:58 XRAY Chest (1 view) In Process Unspecified. EDMS 02/02 00:16 CT Chest W/ Con In Process Unspecified. EDMS 02:24 UPPER EXTREMITY VENOUS UNILATE In Process Unspecified. EDMS 02:24 Upper Ext Artery Uni Lanre In Process Unspecified. EDMS 02:30 IV discontinued, intact, bleeding controlled, No redness/swelling at site. Pressure as6 dressing applied. Administered Medications: 02/01 21:45 Drug: morphine IVP or IV 4 mg Route: IVP; Infused Over: 4 mins; Site: right antecubital;mb9 23:13 Follow up: Response: No adverse reaction mb9 21:47 Drug: Ondansetron IVP 4 mg Route: IVP; Site: right antecubital; mb9 23:13 Follow up: Response: No adverse reaction mb9 23:45 Drug: Decadron - Dexamethasone IVP 10 mg Route: IVP; Site: right antecubital; mb9 02/02 02:29 Follow up: Response: No adverse reaction as6 02/01 23:55 Drug: Ketorolac IVP 15 mg Route: IVP; Site: right antecubital; mb9 02/02 02:29 Follow up: Response: No adverse reaction as6 02/01 23:59 Drug: Potassium PO Effervescent Tablet 50 mEq Route: PO; mb9 02/02 02:29 Follow up: Response: No adverse reaction as6 02/01 23:59 Drug: NS 0.9% IV 500 ml Route: IV; Rate: 250 ml/hr; Site: right antecubital; mb9 02/02 02:29 Follow up: Response: No adverse reaction; IV Status: Completed infusion; IV Intake: as6 250ml Medication: 02/01 22:17 VIS not applicable for this client. mb9 Intake: 02/02 02:29 IV: 250ml; Total: 250ml. as6 Outcome: 02:11 Discharge ordered by MD. jazmin 02:30 Discharged to home ambulatory. as6 02:30 Condition: stable 02:30 Discharge instructions given to patient, Instructed on discharge instructions, follow up and referral plans. medication usage, Demonstrated understanding of instructions, follow-up care, medications, Prescriptions given X 3. 02:30 Patient left the ED. as6 Signatures: Dispatcher [employer] EDGA Delatorre, Mary arrington Patricio Berry, Kemal Bergman cp RN RN as6 Sarah Bernard RN RN kd3 Mary Dozier, RN RN mb9 Corrections: (The following items were deleted from the chart) 02/01 21:23 21:19 BP 129 / 96; kd3 kd3 21:24 21:19 Chief complaint: Patient states: I have a pain that starts in my left collar bone kd3 and it goes down my arm and even goes into my back. I do not know that i injured it. kd3
[2023-02-02 02:40] VITALS: TEMP 100.1
[2023-02-02 02:56] VITALS: BP 138/107; O2SAT 97
--- NOTE | 2023-02-02 11:11 | RAD REPORT ---
EXAM DESCRIPTION: US - UPPER EXTREMITY VENOUS UNILATE - 02/02/2023 2:24 am CLINICAL HISTORY: PAIN TECHNIQUE: Real-time duplex ultrasound scan of the left upper extremity veins integrating B-mode two -dimensional vascular structure, Doppler spectral analysis, color flow Doppler imaging and compressio n. COMPARISON: No relevant prior studies available. FINDINGS: Deep veins: Unremarkable. No DVT in the internal jugular, subclavian, axillary, brachi al, radial or ulnar veins. The veins demonstrate normal color flow, are normally compressible, with normal phasic flow and/or augmentation response. Superficial veins: Unremarkable. No thrombus in the visualized basilic vein. Soft tissues: No acute findings. IMPRESSION: No evidence for deep venous thrombosis within the left upper extremity. Electronically signed by: Kylie Ortiz MD 02/02/2023 2:44 AM CDT Due to temporary technical issues with the PACS/Fluency reporting system, reports are being signed by the in house radiologists without review as a courtesy to insure prompt reporting. The interpreting radiologist is fully responsible for the content of the report.
--- NOTE | 2023-02-02 11:33 | RAD REPORT ---
EXAM DESCRIPTION: US - Upper Ext Artery Uni Lanre - 02/02/2023 2:24 am CLINICAL HISTORY: The patient is 67 years old and is Female; PAIN [facility] MAIN TECHNIQUE: Real-time duplex ultrasound scan of the left upper extremity arteries integrating B-mode two-dimensional vascular structure, Doppler spectral analysis and color flow Doppler imaging. COMPARISON: No relevant prior studies available. FINDINGS: LEFT SUBCLAVIAN ARTERY: No acute findings. Normal waveform. Peak systolic velocity in the left subclavian artery is 94 cm/s. LEFT AXILLARY ARTERY: No acute findings. Normal waveform. Peak systolic velocity in the left axillary artery is 49 cm/s. LEFT BRACHIAL ARTERY: No acute findings. Normal waveform. Peak systolic velocity in the left brachial artery is 47 cm/s. LEFT RADIAL ARTERY: No acute findings. Normal waveform. Peak systolic velocity in the left radial artery is 17 cm/s. LEFT ULNAR ARTERY: No acute findings. Normal waveform. Peak systolic velocity in the left ulnar artery is 25 cm/s. IMPRESSION: No occlusion or high-grade stenosis of the left upper extremity. Electronically signed by: Mikhail Gleason MD 02/02/2023 2:51 AM CDT Due to temporary technical issues with the PACS/Fluency reporting system, reports are being signed by the in house radiologists without review as a courtesy to insure prompt reporting. The interpreting radiologist is fully responsible for the content of the report.
--- NOTE | 2023-02-02 16:14 | RAD REPORT ---
EXAM DESCRIPTION: RAD - Chest Single View - 02/01/2023 10:56 pm CLINICAL HISTORY: Left side pain COMPARISON: 01/20/2023 FINDINGS: Single frontal radiograph view of the chest. Cardiomediastinal silhouette: Normal size and contour. Lungs: No consolidation, pneumothorax, or pleural effusion. Low lung volumes. Bones: Degenerative change of the spine and shoulders. Upper abdomen: No abnormality identified. IMPRESSION: 1. No acute pulmonary process identified. Electronically signed by: Kunal Hoyos 02/02/2023 12:43 AM CDT Due to temporary technical issues with the PACS/Fluency reporting system, reports are being signed by the in house radiologists without review as a courtesy to insure prompt reporting. The interpreting radiologist is fully responsible for the content of the report.
--- NOTE | 2023-02-02 16:21 | RAD REPORT ---
EXAM DESCRIPTION: CT - Thorax W/ Con - 02/02/2023 7:01 am CLINICAL HISTORY: PAIN TECHNIQUE: Axial computed tomography images of the chest with intravenous contrast. Sagittal and c oronal reformatted images were created and reviewed. This CT exam was performed using one or more o f the following dose reduction techniques: automated exposure control, adjustment of the mA and/or kV according to patient size, and/or use of iterative reconstruction technique. COMPARISON: CT Chest dated 01/20/2023 FINDINGS: Lungs: Ill-defined lingular opacity measuring 2.2 x 1.1 x 1.4 cm, similar to the prior. Bibasilar subsegmental atelectasis/pleural parenchymal scar. Pleural space: Unremarkable. No pneumothorax. No significant effusion. Heart: Unremarkable. No cardiomegaly. No significant pericardial effusion. No significant cor onary artery calcifications. Thyroid: Surgical clips adjacent to the thyroid. Bones/joints: Multilevel spondylosis. Contiguous flowing ossification involving multiple consecut braeden vertebral bodies which can be seen in the setting of DISH. Right anterior 7th and 8th rib fract ures with interval development of minimal callus. No dislocation. Soft tissues: Unremarkable. Vasculature: Mild atherosclerotic disease. No thoracic aortic aneurysm. Lymph nodes: Unremarkable. No enlarged lymph nodes. Gallbladder and bile ducts: Prior cholecystectomy. Intrahepatic and extrahepatic biliary dilatati on. Stomach and bowel: Prior gastric bypass. IMPRESSION: 1. No focal infiltrate. 2. Subacute right 7th and 8th rib fractures. 3. Ill-defined lingular opacity which may be related to pleural parenchymal scar. Underlying mass /malignancy is not excluded. Consider a non-contrast Chest CT at 3 months, a PET/CT, or tissue samp ling. Note: This recommendation does not apply to patients younger than 35 years, immunocompromised patients, and patients with cancer. F/u in patients with significant comorbidities as clinically w arranted. For lung cancer screening, adhere to Lung-RADS guidelines. Reference: Radiology. 2017 J ul; 284(1):228-243 4. Other findings as above. Electronically signed by: Kylie Ortiz MD 02/02/2023 1:48 AM CDT Due to temporary technical issues with the PACS/Fluency reporting system, reports are being signed by the in house radiologists without review as a courtesy to insure prompt reporting. The interpreting radiologist is fully responsible for the content of the report.
--- NOTE | 2023-02-03 07:09 | EKG ---
Test Date: 2023-02-01 Test Time: 21:56:26 [employer] Equipment Operator: PASQUALE MEASUREMENT RESULTS: Intervals: Rate: 81 SC: 146 QRSD: 80 QT: 398 QTc: 462 [place]: P: 54 SC: 146 QRS: -20 T: 26 INTERPRETIVE STATEMENTS: Sinus rhythm with occasional premature ventricular complexes Minimal voltage criteria for LVH, may be normal variant Anterolateral infarct, age undetermined Abnormal ECG Compared to ECG 03/14/2018 00:16:26 Ventricular premature complex(es) now present Left ventricular hypertrophy now present Myocardial infarct finding now present Electronically Signed On 02-03-23 07:06:56 CDT by Rupert Hightower
== END 2023-02-02 02:30 | disposition home or self-care (01) ==
LOC: ER 21:00
DX: M54.9 Dorsalgia, unspecified (principal); M79.602 Pain in left arm
CPT/HCPCS: 96361; 93005; 85025; 80048; 36415; 83735; 85610; 80076; 84484; 71260; 71045; 93971; 93931; 96375; 96374; 99285; Q9967; J1100; J2405; J7040

== ENCOUNTER 2023-03-04 03:01 | Emergency (ER) | payer OTHER ==
--- OUTSIDE RECORDS SUMMARY | 2023-03-04 03:05 | XMS REPORT | Continuity of Care Document ---
:1955 Author Organization [facility] t Address [address] [facility]. [address] [place] [address] Care Team Providers Name Role Phone Asked, No Pcp Primary Care Physician Unavailable VENUS PARK Attending Clinician Unavailable Venus Park MD Attending Clinician Doctor Unassigned, [place] Attending Clinician Unavailable Only, Ang Db Test Attending Clinician Unavailable Enrique RN, Anebella Attending Clinician Unavailable Angeli PLASCENCIA Myra Attending Clinician MYRA SUH Attending Clinician Unavailable MARISSA MERCADO Attending Clinician Unavailable Payers Payer Name Policy Type Policy Number Effective Date Expiration Date [facility] [id number] 2022 [employer] 00:00:00 Problems Condition Condition Condition Status Onset Resolution Last Treating Co mments Source Name Details Category Date Date Treatment Clinician Date Abdominal Abdominal Disease Active [facility] pain pain [facility] 00[facility]: Hosp[facility] 00 l No known No known Disease Unive rs active active ity of problems problems [facility] Allergies, Adverse Reactions, Alerts Allergy Allergy Status Severity Reaction(s) Onset Inactive Treating Comm ents Source Name Type Date Date Clinician NO KNOWN Drug Active Univers ALLERGIE Class ity of S [facility] Social History Social Habit Start Date Stop Date Quantity Comments Source History of tobacco Cigarette Smoker University of use [facility] identity [facility] Sexual orientation [facility] Exposure to 2022-08-31 2022-09-10 Not sure University SARS-CoV-2 (event) 00:00:00 09:38:00 [facility] Tobacco use and 2022-09-10 2022-09-10 Smokeless Universit y of exposure 00:00:00 00:00:00 tobacco non-user [facility] History of Social 2019-08-04 2019-08-[address] function 00:00:00 00:00:00 Hospital Cigarettes smoked 2019-08-04 2019-08-[address] current (pack per 00:00:00 00:00:00 Hospita l day) - Reported Cigarette 2019-08-04 2019-08-04 [facility] pack-[facility] 00:00:00 00:00:00 Hospital Alcohol intake 2019-08-04 2019-08-04 Current [facility] 00:00:00 00:00:00 non-drinker of Hospital alcohol (finding) Sex Ass[birth year] At [birth year] [facility] 00:00:00 00:00:00 Hospital Smoking Status Start Date Stop Date Source Tobacco smoking [facility] consumption unknown Medical Bran ch Ex-smoker 2022-09-10 00:00:00 2022-09-10 [facility] [place] 00:00:00 Medical Branch Medications Ordered Filled Start Stop Current [...] 06 (two) l times a day. travoprost 2019 Yes 1[drp] QD Administer [facility] (TRAVATAN-Z 1-[address] ) 0.004 % 17:42: both eyes [facility] 06 daily. l buPROPion 2018-09 Yes 100mg Q.5D Take 100 Met hodi (WELLBUTRIN 1-[address] ) 100 MG 17:42: mouth 2 Hospit a tablet 06 (two) l times a day. levothyroxi Yes 88ug Take 88 Uni vers [...] mouth ity of 20 mg 15:22: daily. [place] tablet 57 Medical Branch lisinopril 0 Yes 10mg Take 10 mg U nivers 10 mg 3-14 by mouth ity of tablet 15:22: daily. [place] [address] Medical Branch levothyroxi Yes 88ug Take 88 [...] ity of tablet 15:22: every 6 [place] 57 (six) Medical hours. Branch escitalopra 2019 Yes 20mg Take 20 mg Univers m oxalate 3-14 by mouth ity of 20 mg 15:22: daily. [place] tablet 57 Medical Branch lisinopril 0 Yes 10mg Take 10 mg U nivers 10 mg 3-14 by mouth ity of tablet 15:22: daily. [place] [address] Medical Branch levothyroxi 0 Yes 88ug Take 88 Uni vers ne 88 mcg 3-14 mcg by ity of tablet 15:22: mouth [place] 57 every Medical morning. Branch rOPINIRole Yes 10mg Take 10 mg U nivers 5 mg tablet 3-14 by mouth ity of 15:22: at [place] [address] bedtime. Medical Branch hydrOXYzine 0 Yes 25mg Take 25 mg Univers 25 mg 3-14 by mouth ity of tablet 15:22: every 6 [place] (six) Medical hours. Branch escitalopra Yes 20mg Take 20 mg Univers m oxalate 3-14 by mouth ity of 20 mg 15:22: daily. [place] tablet Medical Branch lisinopril 0 Yes 10mg Take 10 mg U nivers 10 mg 3-14 by mouth ity of tablet 15:22: daily. [place] [address] Medical Branch levothyroxi Yes 88ug Take 88 Uni vers ne 88 mcg 3-14 mcg by ity of tablet 15:22: mouth [place] every Medical morning. Branch rOPINIRole 0 Yes 10mg Take 10 mg U nivers 5 mg tablet 3-14 by mouth ity of 15:22: at [place] [address] bedtime. Medical Branch hydrOXYzine 0 Yes 25mg Take 25 mg Univers 25 mg 3-14 by mouth ity of tablet 15:22: every 6 [place] [address] (six) Medical hours. Branch escitalopra 0 Yes 20mg Take 20 mg Univers m oxalate 3-14 by mouth ity of 20 mg 15:22: daily. [place] tablet Medical Branch lisinopril 0 Yes 10mg Take 10 mg U nivers 10 mg 3-14 by mouth ity of tablet 15:22: daily. [place] [address] Medical Branch levothyroxi 0 Yes 88ug Take 88 Uni vers ne 88 mcg 3-14 mcg by ity of tablet 15:22: mouth [place] 57 every Medical morning. Branch rOPINIRole 0 Yes 10mg Take 10 mg U nivers 5 mg tablet 3-14 by mouth ity of 15:22: at [place] [address] bedtime. Medical Branch hydrOXYzine 0 Yes 25mg Take 25 mg Univers 25 mg 3-14 by mouth ity of tablet 15:22: every 6 [place] (six) Medical hours. Branch escitalopra 0 Yes 20mg Take 20 mg Univers m oxalate 3-14 by mouth ity of 20 mg 15:22: daily. [place] tablet 57 Medical Branch lisinopril 0 Yes 10mg Take 10 mg U nivers 10 mg 3-14 by mouth ity of tablet 15:22: daily. [place] [address] Medical Branch levothyroxi 0 Yes 88ug Take [...] mouth ity of tablet 15:22: every 6 [place] [address] (six) Medical hours. Branch escitalopra Yes 20mg Take 20 mg Univers m oxalate 3-14 by mouth ity of 20 mg 15:22: daily. [place] tablet Medical Branch lisinopril Yes 10mg Take 10 mg U nivers 10 mg 3-14 by mouth ity of tablet 15:22: daily. [place] [address] Medical Branch levothyroxi 0 Yes 88ug Take 88 Uni vers ne 88 mcg 3-14 mcg by ity of tablet 15:22: mouth [place] 57 every Medical morning. Branch rOPINIRole Yes 10mg Take 10 mg U nivers 5 mg tablet 3-14 by mouth ity of 15:22: at [place] [address] bedtime. Medical Branch hydrOXYzine 0 Yes 25mg Take 25 mg Univers 25 mg 3-14 by mouth ity of tablet 15:22: every 6 [place] (six) Medical hours. Branch escitalopra 0 Yes 20mg Take 20 mg Univers m oxalate 3-14 by mouth ity of 20 mg 15:22: daily. [place] tablet Medical Branch lisinopril 0 Yes 10mg Take 10 mg U nivers 10 mg 3-14 by mouth ity of tablet 15:22: daily. [place] [address] Medical Branch levothyroxi 0 Yes 88ug Take 88 Uni vers ne 88 mcg 3-14 mcg by ity of tablet 15:22: mouth [place] 57 every Medical morning. Branch rOPINIRole 2019-0 Yes 10mg Take 10 mg U nivers 5 mg tablet 3-14 by mouth ity of 15:22: at [place] [address] bedtime. Medical Branch hydrOXYzine 2019-0 Yes 25mg Take 25 mg Univers 25 mg 3-14 by mouth ity of tablet 15:22: every 6 [place] [address] (six) Medical hours. Branch escitalopra 0 Yes 20mg Take 20 mg Univers m oxalate 3-14 by mouth ity of 20 mg 15:22: daily. [place] tablet Medical Branch lisinopril 0 Yes 10mg Take 10 mg U nivers 10 mg 3-14 by mouth ity of tablet 15:22: daily. [address] Branch levothyroxi 0 Yes 88ug Take 88 Uni vers ne 88 mcg 3-14 mcg by ity of tablet 15:22: mouth [place] 57 every Medical morning. Branch rOPINIRole 0 Yes 10mg Take 10 mg U nivers 5 mg tablet 3-14 by mouth ity of 15:22: at [place] [address] bedtime. Medical Branch hydrOXYzine Yes 25mg Take 25 mg Univers 25 mg 3-14 by mouth ity of tablet 15:22: every 6 [place] [address] (six) Medical hours. Branch escitalopra 0 Yes 20mg Take 20 mg Univers m oxalate 3-14 by mouth ity of 20 mg 15:22: daily. [address] lisinopril 0 Yes 10mg Take 10 mg U nivers 10 mg 3-14 by mouth ity of tablet 15:22: daily. [address] ondansetron Yes [id number] 4mg Q8H Take 1 [facility] (ZOFRAN, 4-07 tablet (4 st HYDROCHLORI 00:00: mg total) H ospita [place],) 4 MG 00 by mouth l tablet every 8 (eight) hours as needed for nausea. ondansetron Yes [id number] 4mg Q8H Take 1 [facility] (ZOFRAN, 4-07 tablet (4 st HYDROCHLORI 00:00: mg total) H ospita [place],) 4 MG 00 by mouth l tablet every 8 (eight) hours as needed for nausea. ondansetron Yes [id number] 4mg Q8H Take 1 [facility] (ZOFRAN, 4-07 tablet (4 st HYDROCHLORI 00:00: mg total) H ospita [place],) 4 MG 00 by mouth l tablet every 8 (eight) hours as needed for nausea. ondansetron Yes [id number] 4mg Q8H Take 1 [facility] (ZOFRAN, 4-07 tablet (4 st HYDROCHLORI 00:00: mg total) H ospita [place],) 4 MG 00 by mouth l tablet every 8 (eight) hours as needed for nausea. hydrocortis Yes Q.[id number] Take by [facility] one 3-[id number] (CORTEF) 20 21:05: 3D (three) [facility] tablet 54 times a l day. unkown dose levothyroxi Yes 88ug QD Take 88 Met hodi ne 3-[address] (SYNTHROID, 21:05: mouth Hospi ta LEVOXYL) 88 54 every l mcg tablet morning. hydrocortis 0 Yes Q.[id number] Take by [facility] one 3-[id number] (CORTEF) 20 21:05: 3D (three) [facility] MG tablet 54 times a l day. unkown dose levothyroxi 0 Yes 88ug QD Take 88 Met hodi ne 3-[address] (SYNTHROID, 21:05: mouth Hospi ta LEVOXYL) 88 54 every l mcg tablet morning. hydrocortis 0 Yes Q.[id number] Take by Methodi one 3-[id number] (CORTEF) 20 21:05: 3D (three) [facility] MG tablet 54 times a l day. unkown dose levothyroxi 0 Yes 88ug QD Take 88 Met hodi ne 3-[address] (SYNTHROID, 21:05: mouth Hospi ta LEVOXYL) 88 54 every l mcg tablet morning. hydrocortis 2016-0 Yes Q.[id number] Take by Methodi one 3-[id number] (CORTEF) 20 21:05: 3D (three) [facility] MG tablet 54 times a l day. unkown dose levothyroxi Yes 88ug QD Take 88 Met hodi ne 3-[address] (SYNTHROID, 21:05: mouth Hospi ta LEVOXYL) 88 54 every l mcg tablet morning. Immunizations Ordered Filled Immunization Date Status Comments [facility] Immunization Name Name Influenza Virus 2022-07-29 Completed Universit y of Vaccine 00:00:00 [facility] Influenza Virus 2022-07-29 Completed Universit y of Vaccine 00:00:00 [facility] Branch SARS-COV-2 COVID-19 2020-12-11 Completed Unive rsity [...] Completed Unive rsity of MODERNA VACCINE 00:00:00 [place] Med ical Branch SARS-COV-2 COVID-19 2020-11-13 Completed Unive rsity of MODERNA VACCINE 00:00:00 [place] Med ical Branch SARS-COV-2 COVID-19 2020-11-13 Completed Unive rsity of MODERNA VACCINE 00:00:00 [place] Med ical Branch SARS-COV-2 COVID-19 2020-11-13 Completed Unive rsity of MODERNA VACCINE 00:00:00 [place] Med ical Branch SARS-COV-2 COVID-19 2020-11-13 Completed Unive rsity of MODERNA VACCINE 00:00:00 [facility] ical Branch SARS-COV-2 COVID-19 2020-11-13 Completed Unive rsity of MODERNA 12+ YRS 00:00:00 [facility] ical VACCINE Branch SARS-COV-2 COVID-19 2020-11-13 Completed Unive rsity of MODERNA 12+ YRS 00:00:00 [facility] ical VACCINE Branch FLUZONE QUAD PF 2016-11-25 Completed [facility] 00:[facility]:00 [facility] FLUZONE QUAD PF 2016-11-25 Completed [facility] 00:00:00 Hospital FLUZONE QUAD PF 2016-11-25 Completed [facility] 00:00:00 Hospital FLUZONE QUAD PF 2016-11-25 Completed [facility] 00:00:00 Hospital Vital Signs Vital Name Observation Time Observation Value Comments Source Systolic blood 2022-09-10 15:49:00 110 mm[Hg] [facility] [place] pressure Medical [place] Diastolic blood 2022-09-10 15:49:00 78 mm[Hg] [facility] [place] pressure Medical Branch Heart rate 2022-09-10 15:49:00 92 /min [facility] Body height 2022-09-10 15:49:00 165.1 cm [facility] Body weight 2022-09-10 15:49:00 90.719 kg [facility] BMI 2022-09-10 15:49:00 33.28 kg/m2 [facility] Oxygen saturation 2022-09-10 15:49:00 97 /min [facility] in Arterial blood Medical Br anch by Pulse oximetry Procedures Procedure Date / Time Performed Performing Clinician [facility] CONSENT/REFUSAL FOR 2022-09-10 15:38:58 Doctor Unassigned, No [facility] [place] DIAGNOSIS AND Name Medical Branch 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 - 2022-07-28 06:01:00 Doctor Unassigned, No [facility] [place] ADC REFERRAL Name Medical Branch Plan of Care Planned Activity Planned Date Details Comments Source Future Scheduled 2023-02-24 [facility] Test 04:47:03 malignant neoplasm of colon (procedure) [code = 536888813] Future Scheduled 2023-02-24 [facility] Test 04:47:03 malignant neoplasm of colon (procedure) [code = 625111280] Future Scheduled 2023-02-24 [facility] Test 04:47:03 malignant neoplasm of colon (procedure) [code = 438369431] Future Scheduled 2023-02-24 COVID-19 VACCINE (#1) [facility] Test 04:47:03 [code = COVID-19 VACCINE (#1)] Future Scheduled 2023-02-24 BREAST CANCER [facility] Test 04:47:03 SCREENING [code = BREAST CANCER SCREENING] Future Scheduled 2023-02-24 [facility] Test 04:47:03 malignant neoplasm of colon (procedure) [code = 747866771] Future Scheduled 2023-02-24 [facility] Test 04:47:03 malignant neoplasm of colon (procedure) [code = 489498411] Future Scheduled 2023-02-24 SHINGLES VACCINES (1 [facility] Test 04:47:03 of 2) [code = SHINGLES VACCINES (1 of 2)] Future Scheduled 2023-02-24 65+ PNEUMOCOCCAL [facility] Test 04:47:03 VACCINE (1 - PCV) [code = 65+ PNEUMOCOCCAL VACCINE (1 - PCV)] Future Scheduled 2023-02-24 INFLUENZA VACCINE [facility] Test 04:47:03 [code = INFLUENZA VACCINE] Future Scheduled 2022-12-27 COVID-19 VACCINE (#1) [facility] Test 22:44:07 [code = COVID-19 VACCINE (#1)] Future Scheduled 2022-12-27 BREAST CANCER [facility] Test 22:44:07 SCREENING [code = BREAST CANCER SCREENING] Future Scheduled 2022-12-27 COLONOSCOPY SCREENING [facility] Test 22:44:07 [code = COLONOSCOPY SCREENING] Future Scheduled 2022-12-27 SHINGLES VACCINES (1 [facility] Test 22:44:07 of 2) [code = SHINGLES VACCINES (1 of 2)] Future Scheduled 2022-12-27 65+ PNEUMOCOCCAL [facility] Test 22:44:07 VACCINE (1 - PCV) [code = 65+ PNEUMOCOCCAL VACCINE (1 - PCV)] Future Scheduled 2022-12-27 INFLUENZA VACCINE [facility] Test 22:44:07 [code = INFLUENZA VACCINE] Future Scheduled 2022-12-27 COVID-19 VACCINE (#1) [facility] Test 22:44:07 [code = COVID-19 VACCINE (#1)] Future Scheduled 2022-12-27 BREAST CANCER [facility] Test 22:44:07 SCREENING [code = BREAST CANCER SCREENING] Future Scheduled 2022-12-27 COLONOSCOPY SCREENING [facility] Test 22:44:07 [code = COLONOSCOPY SCREENING] Future Scheduled 2022-12-27 SHINGLES VACCINES (1 [facility] Test 22:44:07 of 2) [code = SHINGLES VACCINES (1 of 2)] Future Scheduled 2022-12-27 65+ PNEUMOCOCCAL [facility] Test 22:44:07 VACCINE (1 - PCV) [code = 65+ PNEUMOCOCCAL VACCINE (1 - PCV)] Future Scheduled 2022-12-27 INFLUENZA VACCINE [facility] Test 22:44:07 [code = INFLUENZA VACCINE] Future Scheduled 2022-12-27 COVID-19 VACCINE (#1) [facility] Test 22:44:07 [code = COVID-19 VACCINE (#1)] Future Scheduled 2022-12-27 BREAST CANCER [facility] Test 22:44:07 SCREENING [code = BREAST CANCER SCREENING] Future Scheduled 2022-12-27 COLONOSCOPY SCREENING [facility] Test 22:44:07 [code = COLONOSCOPY SCREENING] Future Scheduled 2022-12-27 SHINGLES VACCINES (1 [facility] Test 22:44:07 of 2) [code = [...] Department ID 2022-10-06 2022-10-06 Outpatient R XAVIER [facility] [id number] Univers 09:30:00 09:30:00 DAVINELIZABETH krysten o f [facility] 2022-09-10 2022-09-10 Office [facility] [id number] Univers 10:00:00 10:11:06 Visit Venus ROBERTSON [id number] it[place] [id number] Md dicchris CRUZ 059 [facility] 2022-09-10 2022-09-10 [id number] Univers 10:00:00 10:11:06 VENUS bashir o f [facility] 2022-09-10 2022-09-10 Orders Doctor LIZBETH [id number] [id number] Univers 00:00:00 00:00:00 Only Unassigned, NARDA 350.1.13.10 ity of [place] [facility] 4.2.7.2.686 Cristiano as [phone] [address] 2022-07-28 2022-07-28 Orders Doctor LIZBETH [id number] [id number] Univers 00:00:00 00:00:00 Only Unassigned, NARDA 350.1.13.10 ity of [place] [facility] 4.2.7.2.686 Cristiano as [phone] [address] 2021-09-07 2021-09-07 Telephone Only, Jay [facility] 1.2.840.114 [id number] Univers 00:00:00 00:00:00 Db Test HEALTH 350.1.13.10 it y of [place] 4.2.7.2.686 Cristiano as FISH?BLEA [id number] Md dical KNEY [address] MEDICAL OFFICE BUILDING 2021-09-07 2021-09-07 Telephone LIZBETH Nunez [id number] Univers 00:00:00 00:00:00 Aneatrice NARDA 350.1.13.10 ity of HOSPITAL 4.2.7.2.686 Cristiano as [id number] [facility] [address] [place] 2021-09-06 2021-09-06 Laboratory Only, Ang Db Test [facility] 1.2.8 40.114 [id number] Univers 15:30:00 15:45:00 [facility] 350.1.13.10 [place] 4.2.7.2.686 Cristiano as FISH?BLEA [id number] [address] MEDICAL OFFICE BUILDING 2021-09-06 2021-09-06 Outpatient R ANGELI [facility] [id number] Univers 15:30:00 15:30:00 MYRA [facility] 2021-09-06 2021-09-06 Letter Doctor LIZBETH [id number] [id number] Univers 00:00:00 00:00:00 (Out) Unassigned, NARDA 350.1.13.10 ity of [place] [facility] 4.2.7.2.686 Cristiano as [phone] [facility] [address] [place] 2021-09-06 2021-09-06 Letter Doctor LIZBETH 1.2.840.114 [id number] Univers 00:00:00 00:00:00 (Out) Unassigned, NARDA 350.1.13.10 ity of [place] [facility] 4.2.7.2.686 Cristiano as [id number] [address] 2020-12-11 2020-12-11 Outpatient Reagan MERCADO [facility] [id number] Univers 10:30:00 10:30:00 MARISSA [facility] 2020-11-13 2020-11-13 Outpatient Reagan MERCADO [facility] [id number] Univers 08:20:00 08:20:00 [facility] Results This patient has no known results.
[2023-03-04] MEDS ORDERED: ONDANSETRON 4 MG/2 ML VIAL ONE (03:31)
[2023-03-04 03:59] LABS: Protime INR 0.91
[2023-03-04 04:00] LABS: Absolute Lymphocytes (CBC) 1.9 K/uL (0.7-4.9); Hematocrit 40.2 % (36.0-45.0); Lymphocytes % 32.3 % (15.3-44.8); MCV 82.5 fL (80-100); MPV 7.2 fL (7.6-11.3); RBC Red Blood Cell Count 4.87 M/uL (3.86-4.86)
[2023-03-04] MEDS ORDERED: NA CHLORIDE 0.9% 1,000 ML ONE (04:06)
[2023-03-04] MEDS ORDERED: DIPHENHYDRAMINE 50 MG/ML VIAL ONE (04:06)
[2023-03-04] MEDS ORDERED: MORPHINE 4 MG/ML SYR ONE (04:06)
[2023-03-04] MEDS ORDERED: METOCLOPRAMIDE 10 MG/2mL INJ ONE (04:06)
[2023-03-04 04:22] LABS: Albumin 3.1 g/dL (3.4-5.0); Bilirubin Direct 0.1 mg/dL (0-0.2); Bilirubin Indirect, Calculated 0.2 mg/dL (0.2-0.8); Bilirubin Total 0.3 mg/dL (0.2-1.0); Potassium 3.7 mEq/L (3.5-5.1); Protein, Total 7.1 g/dL (6.4-8.2); Troponin High Sensitivity 9.5 pg/mL (<58.9)
--- NOTE | 2023-03-04 07:07 | EDPHYS ---
Physician Documentation [facility] Name: Adela Watts Age: 67 yrs Sex: Female : 1955 Arrival Date: 03/04/2023 Time: 03:01 Bed 16 Private MD: ED Physician Andrew Cartagena HPI: 03/04 03:44 This 67 yrs old Black Female presents to ER via Wheelchair with complaints of Chest sp4 Pain, Vomiting, Headache, Dizziness. 06:42 67-year-old female with history of anxiety, chronic pain, depression, diabetes, sp4 glaucoma presents with cute onset of dizziness, headache, chest discomfort, vomiting starting 3 hours prior to arrival. Patient reports associated anxiety. Historical: - Allergies: 03:13 No Known Allergies; kl - Home Meds: 03:13 levothyroxine 88 mcg tab 1 tab once daily [Active]; kl - PMHx: 03:13 Anxiety; Chronic pain; Depression; Diabetes - NIDDM; Glaucoma; Hypothyroidism; kl - PSHx: 03:13 hysterectomy; Thyroidectomy; kl - Immunization history:: Adult Immunizations up to date. - Social history:: Smoking status: Patient denies any tobacco usage or history of. - Family history:: not pertinent. ROS: 06:42 Constitutional: Negative for fever, chills, and weight loss, positive dizziness, chest sp4 discomfort, vomiting, nausea, headache. Eyes: Negative for injury, pain, redness, and discharge, ENT: Negative for injury, pain, and discharge, Neck: Negative for injury, pain, and swelling, Cardiovascular: Negative for chest pain, palpitations, and edema, positive chest discomfort. Respiratory: Negative for shortness of breath, cough, wheezing, and pleuritic chest pain, Abdomen/GI: Negative for abdominal pain, diarrhea, and constipation, positive nausea vomiting Back: Negative for injury and pain, : Negative for injury, bleeding, discharge, and swelling, MS/Extremity: Negative for injury and deformity, Skin: Negative for injury, rash, and discoloration, Neuro: Negative for headache, weakness, numbness, tingling, and seizure, Psych: Negative for depression, positive anxiety. Allergy/Immunology: Negative for hives, rash, and allergies Endocrine: Negative for neck swelling, polydipsia, polyuria, polyphagia, and weight changes Hematologic/Lymphatic: Negative for swollen nodes, abnormal bleeding, and unusual bruising Exam: 06:42 ECG was reviewed by the Attending Physician. EKG time 0 318, there is normal sinus sp4 rhythm, no ST elevation or depression, no ectopy, overall normal EKG. 06:42 Constitutional: This is a well developed, well nourished patient who is awake, alert, sp4 and in no acute distress. Head/Face: Normocephalic, atraumatic. Eyes: Pupils equal round and reactive to light, extra-ocular motions intact. Lids and lashes normal. Conjunctiva and sclera are not injected. Cornea within normal limits. Periorbital areas with no swelling, redness, or edema. ENT: Nares patent. No nasal discharge, no septal abnormalities noted. Tympanic membranes are normal and external auditory canals are clear. Oropharynx with no redness, swelling, or masses, exudates, or evidence of obstruction, uvula midline. Mucous membranes moist. Neck: Trachea midline, no thyromegaly or masses palpated, and no cervical lymphadenopathy. Supple, full range of motion without nuchal rigidity, or vertebral point tenderness. Chest/axilla: Normal chest wall appearance and motion. Nontender with no deformity. No lesions are appreciated. Cardiovascular: Regular rate and rhythm with a normal S1 and S2. No gallops, murmurs, or rubs. Normal PMI, no JVD. No pulse deficits. Respiratory: Lungs have equal breath sounds bilaterally, clear to auscultation and percussion. No rales, rhonchi or wheezes noted. No increased work of breathing, no retractions or nasal flaring. Abdomen/GI: Soft, non-tender, with normal bowel sounds. No distension or tympany. No guarding or rebound. No evidence of tenderness throughout. Back: No spinal tenderness. No costovertebral tenderness. Skin: Warm, dry with normal turgor. Normal color with no rashes, no lesions, and no evidence of cellulitis. MS/ Extremity: Pulses equal, no cyanosis. Neurovascular intact. Full, normal range of motion. Neuro: Awake and alert, GCS 15, oriented to person, place, time, and situation. Cranial nerves II-XII grossly intact. Motor strength 5/5 in all extremities. Sensory grossly intact. Psych: Awake, alert, with orientation to person, place and time. Behavior, mood, and affect are within normal limits Vital Signs: 03:10 BP 130 / 93; Pulse 84; Resp 18; Temp 98(O); Pulse Ox 100% on R/A; Weight 92.99 kg; kl Height 5 ft. 5 in. ; Pain 8/10; 03:30 BP 125 / 95; Pulse 78; Resp 18 S; Pulse Ox 96% on R/A; ha1 04:30 BP 125 / 92; Pulse 73; Resp 18 S; Pulse Ox 98% on R/A; ha1 05:30 BP 130 / 80; Pulse 71; Resp 18 S; Pulse Ox 95% on R/A; ha1 07:15 BP 125 / 82; Pulse 73; Resp 16; Pulse Ox 98% ; bp 03:10 Body Mass Index 34.11 (92.99 kg, 165.1 cm) kl 03:10 Pain Scale: Adult kl MDM: 03:15 Patient medically screened. sp4 06:40 ED course: EXAM: XR Chest, 1 View CLINICAL HISTORY: The patient is 67 years old and is sp4 Female; CHEST PAIN TECHNIQUE: Single view of the chest. COMPARISON: February 01, 2023. FINDINGS: Lungs: No pulmonary vascular congestion or consolidation. Pleural space: Unremarkable. No pneumothorax. Heart: Unremarkable. No cardiomegaly. Mediastinum: Unremarkable. Bones/joints: No acute fracture visualized. Upper abdomen: No free air in the visualized upper abdomen. IMPRESSION: No acute cardiopulmonary process identified. . ED course: EXAM: CTAngiography Chest With Intravenous Contrast CLINICAL HISTORY: The patient is 67 years old and is Female; CHEST PAIN TECHNIQUE: Axial computed tomographic angiography images of the chest with intravenous contrast. Sagittal and coronal reformatted images were created and reviewed. This CT exam was performed using one or more of the following dose reduction techniques: automated exposure control, adjustment of the mA and/or kV according to patient size, and/or use of iterative reconstruction technique. MIP reconstructed images were created and reviewed. COMPARISON: February 02, 2023. FINDINGS: Pulmonary arteries: No PE identified. Aorta: No acute findings. No thoracic aortic aneurysm. Lungs: Lingula pulmonary lesion versus scar 2.1 cm. No mass. Pleural space: No pleural effusion or pneumothorax. Heart: No cardiomegaly. No significant pericardial effusion. Mediastinum: No pneumomediastinum. Thyroid: Thyroidectomy. Bones/joints: Multilevel marginal and bridging osteophytes. No acute compression fracture. No acute rib fracture visualized. No dislocation. Soft tissues: Unremarkable. Lymph nodes: No pathologically enlarged lymph nodes. Stomach and bowel: Prior gastric bypass. IMPRESSION: 1. 21 mm lingula solid pulmonary nodule versus scar. Consider a non-contrast Chest CT at 3 months, a PET/CT, or tissue sampling. 2. No PE identified. 06:42 Differential diagnosis: acute pericarditis, anxiety, coronary artery disease chest wall sp4 pain, congestive heart failure stable angina. HEART Score: History: Slightly Suspicious (0), ECG: Normal (0), Age: > or = 65 years (2), Risk Factors: > or = 3 Risk factors for atherosclerotic disease (2), Troponin: < or = 1 x Normal Limit (0), Total Score = 4. The patient was given aspirin in the Emergency Department. 07:05 Data reviewed: vital signs, nurses notes, old medical records, lab test result(s), EKG, sp4 radiologic studies, CT scan. ED course: The [age]-year-old female presents with complaint of dizziness, headache, vomiting, chest pain, also anxiety. Patient had extensive work-up that has not identified any acute medical emergencies. EKG is unremarkable today. Patient is stable for discharge home with as needed medications for headache, nausea, and anxiety. Symptoms most likely stem from patient's anxiety disorder.. 03/04 03:15 Order name: Basic Metabolic Panel; Complete Time: 06:10 03/04 03:15 Order name: CBC with Diff; Complete Time: 06:10 03/04 03:15 Order name: LFT's; Complete Time: 06:10 03/04 03:15 Order name: Magnesium; Complete Time: 06:10 03/04 03:15 Order name: NT PRO-BNP; Complete Time: 06:10 03/04 03:15 Order name: PT-INR; Complete Time: 06:10 03/04 03:15 Order name: Troponin HS; Complete Time: 06:10 03/04 03:15 Order name: XRAY Chest (1 view) 03/04 03:49 Order name: CT Chest For PE Angio 03/04 03:15 Order name: EKG; Complete Time: 03:16 03/04 03:15 Order name: Cardiac monitoring; Complete Time: 03:43 sp4 03/04 03:15 Order name: EKG - Nurse/Tech; Complete Time: :43 sp4 03/04 03:15 Order name: IV Saline Lock; Complete Time: :43 sp4 03/04 03:15 Order name: Labs collected and sent; Complete Time: :43 sp4 03/04 03:15 Order name: O2 Per Protocol; Complete Time: : sp4 03/04 03:15 Order name: O2 Sat Monitoring; Complete Time: : sp4 EC:42 Rate is 80 beats/min. Rhythm is regular, Normal Sinus Rhythm. QRS [place] is Normal. CA sp4 interval is normal. QRS interval is normal. QT interval is normal. T waves are Normal. No ST changes noted. Clinical impression: No evidence of ischemia. Interpreted by me. Administered Medications: 03:44 Drug: Ondansetron IVP 4 mg Route: IVP; Site: right antecubital; ha1 07:14 Follow up: Response: No adverse reaction bp 03:50 Drug: NS 0.9% IV 1000 ml Route: IV; Rate: 125 ml/hr; Site: right antecubital; ha1 07:16 Follow up: IV Status: Completed infusion; IV Intake: 400ml bp 03:53 Drug: metoCLOPramide IVP 10 mg Route: IVP; Site: right antecubital; ha1 05:30 Follow up: Response: No adverse reaction ha1 03:55 Drug: diphenhydrAMINE IVP 25 mg Route: IVP; Site: right antecubital; ha1 05:30 Follow up: Response: No adverse reaction ha1 04:00 Drug: morphine IVP or IV 4 mg Route: IVP; Infused Over: 4 mins; Site: right antecubital;ha1 04:25 Follow up: Response: No adverse reaction; Pain is decreased; RASS: Alert and Calm (0) ha1 07:14 Drug: Aspirin PO Chewable Tablet 324 mg Route: PO; bp 07:14 Follow up: Response: No adverse reaction bp 07:14 Drug: [place] PO 10 mg-325 mg 1 tabs Route: PO; bp 07:14 Follow up: Response: No adverse reaction bp 07:14 Drug: Ondansetron PO 4 mg {Note: GIVEN IV.} Route: PO; bp 07:15 Follow up: Response: No adverse reaction bp Disposition Summary: 03/04/23 07:07 Discharge Ordered Location: Home sp4 Problem: new sp4 Symptoms: have improved sp4 Condition: Stable sp4 Diagnosis - Anxiety disorder, unspecified sp4 - Episodic tension-type headache sp4 - Vomiting, unspecified sp4 Followup: sp4 - With: Private Physician - When: 5 - 6 days - Reason: Recheck today's complaints Discharge Instructions: - Discharge Summary Sheet sp4 - Pulmonary Nodule, [id number] sp4 - Managing Anxiety, Adult sp4 Forms: - [email or web address] sp4 Prescriptions: - Fioricet 50-300-40 mg Oral capsule - take 1 capsule by ORAL route every 6 hours PRN head ache; 30 capsule; Refills: sp4 0, Product Selection Permitted - ondansetron 4 mg Oral Tablet,disintegrating - take 1 tablet by ORAL route every 6 hours for 5 days PRN nausea; 30 tablet; sp4 Refills: 0, Product Selection Permitted Signatures: Dispatcher [employer] Sigrid Lewis RN RN kl Peltier, Brian, RN RN bp Nieto, Raymond, MD MD rn3 Radha Liu RN RN ha1 Andrew Cartagena MD MD sp4
--- NOTE | 2023-03-04 07:07 | ER ---
Nurse's Notes [facility] Name: Adela Watts Age: 67 yrs Sex: Female : 1955 Arrival Date: 03/04/2023 Time: 03:01 Bed 16 Private MD: Diagnosis: Anxiety disorder, unspecified;Episodic tension-type headache;Vomiting, unspecified Presentation: 03/04 03:10 Chief complaint: Patient states: Chest pain x 3 hours while sitting in bed left breast kl non radiating pain. Coronavirus screen: Vaccine status: Patient reports receiving the 2nd dose of the covid vaccine. Ebola Screen: Patient negative for fever greater than or equal to 101.5 degrees Fahrenheit, and additional compatible Ebola Virus Disease symptoms. Initial Sepsis Screen: Does the patient meet any 2 criteria? No. Patient's initial sepsis screen is negative. Does the patient have a suspected source of infection? No. Patient's initial sepsis screen is negative. Risk Assessment: Do you want to hurt yourself or someone else? Patient reports no desire to harm self or others. Onset of symptoms was March 04, 2023 at 00:00. 03:10 Method Of Arrival: Wheelchair kl 03:10 Acuity: SHADY 3 kl Triage Assessment: 03:14 General: Appears uncomfortable, Behavior is cooperative. Pain: Complains of pain in kl anterior aspect of left upper chest and left breast Pain does not radiate. Pain currently is 8 out of 10 on a pain scale. EENT: No deficits noted. Neuro: No deficits noted. Cardiovascular: Reports chest pain. Respiratory: No deficits noted. GI: No deficits noted. No signs and/or symptoms were reported involving the gastrointestinal system. : No deficits noted. No signs and/or symptoms were reported regarding the genitourinary system. Derm: No deficits noted. No signs and/or symptoms reported regarding the dermatologic system. Musculoskeletal: No deficits noted. No signs and/or symptoms reported regarding the musculoskeletal system. Historical: - Allergies: 03:13 No Known Allergies; - Home Meds: 03:13 levothyroxine 88 mcg tab 1 tab once daily [Active]; kl - PMHx: 03:13 Anxiety; Chronic pain; Depression; Diabetes - NIDDM; Glaucoma; Hypothyroidism; kl - PSHx: 03:13 hysterectomy; Thyroidectomy; kl - Immunization history:: Adult Immunizations up to date. - Social history:: Smoking status: Patient denies any tobacco usage or history of. - Family history:: not pertinent. Screenin:02 [facility] ED Fall Risk Assessment (Adult) History of falling in the last 3 months, ha1 including since admission No falls in past 3 months (0 pts) Confusion or Disorientation No (0 pts) Intoxicated or Sedated No (0 pts) Impaired Gait No (0 pts) Mobility Assist Device Used No (0 pt) Altered Elimination No (0 pt) Score/Fall Risk Level 0 - 2 = Low Risk Oriented to surroundings, Maintained a safe environment, Educated pt \T\ family on fall prevention, incl call for assistance when getting out of bed. Abuse screen: Denies threats or abuse. Denies injuries from another. Nutritional screening: No deficits noted. Tuberculosis screening: No symptoms or risk factors identified. Assessment: 03:02 General: Appears uncomfortable, Behavior is calm, cooperative. Pain: Complains of pain ha1 in chest and abdomen Pain does not radiate. Pain currently is 8 out of 10 on a pain scale. Pain began suddenly. Neuro: Level of Consciousness is awake, alert, obeys commands, Oriented to person, place, time, situation. Neuro: Reports dizziness. Cardiovascular: Patient's skin is warm and dry. Respiratory: Airway is patent Respiratory effort is even, unlabored, Respiratory pattern is regular, symmetrical. GI: Abdomen is round non-distended, Bowel sounds present X 4 quads. Reports upper abdominal pain, nausea, vomiting. : No signs and/or symptoms were reported regarding the genitourinary system. Derm: Skin is moist, Skin is normal. Musculoskeletal: Circulation, motion, and sensation intact. Range of motion: intact in all extremities. 04:00 Reassessment: Patient and/or family updated on plan of care and expected duration. Pain ha1 level reassessed. Patient is alert, oriented x 3, equal unlabored respirations, skin warm/dry/pink. 05:00 Reassessment: Patient and/or family updated on plan of care and expected duration. Pain ha1 level reassessed. Patient is alert, oriented x 3, equal unlabored respirations, skin warm/dry/pink. Patient denies pain at this time. Patient states feeling better. Patient states symptoms have improved. 06:00 Reassessment: Patient and/or family updated on plan of care and expected duration. Pain ha1 level reassessed. Patient is alert, oriented x 3, equal unlabored respirations, skin warm/dry/pink. Patient denies pain at this time. Patient states feeling better. Patient states symptoms have improved. Vital Signs: 03:10 BP 130 / 93; Pulse 84; Resp 18; Temp 98(O); Pulse Ox 100% on R/A; Weight 92.99 kg; kl Height 5 ft. 5 in. ; Pain 8/10; 03:30 BP 125 / 95; Pulse 78; Resp 18 S; Pulse Ox 96% on R/A; ha1 04:30 BP 125 / 92; Pulse 73; Resp 18 S; Pulse Ox 98% on R/A; ha1 05:30 BP 130 / 80; Pulse 71; Resp 18 S; Pulse Ox 95% on R/A; ha1 07:15 BP 125 / 82; Pulse 73; Resp 16; Pulse Ox 98% ; bp 03:10 Body Mass Index 34.11 (92.99 kg, 165.1 cm) kl 03:10 Pain Scale: Adult kl ED Course: 03:02 Patient arrived in ED. ja2 03:02 Arm band placed on right wrist. ha1 03:02 Patient has correct armband on for positive identification. Placed in gown. Bed in low ha1 position. Call light in reach. Side rails up X 1. 03:13 Triage completed. kl 03:15 Andrew Cartagena MD is Attending Physician. sp4 03:32 Inserted saline lock: 22 gauge in right antecubital area, using aseptic technique. ha1 Blood collected. 03:43 Radha Liu RN is Primary Nurse. ha1 03:43 Basic Metabolic Panel Sent. ha1 03:44 CBC with Diff Sent. ha1 03:44 LFT's Sent. ha1 03:44 Magnesium Sent. ha1 03:44 NT PRO-BNP Sent. ha1 03:44 PT-INR Sent. ha1 03:44 Troponin HS Sent. ha1 03:46 XRAY Chest (1 view) In Process Unspecified. EDMS 04:56 CT Chest For PE Angio In Process Unspecified. EDMS 07:15 No provider procedures requiring assistance completed. IV discontinued, intact, bp bleeding controlled, No redness/swelling at site. Pressure dressing applied. Patient maintains SpO2 saturation greater than 95% on room air. 07:16 Client placed on continuous cardiac and pulse oximetry monitoring. NIBP monitoring bp applied. Administered Medications: 03:44 Drug: Ondansetron IVP 4 mg Route: IVP; Site: right antecubital; ha1 07:14 Follow up: Response: No adverse reaction bp 03:50 Drug: NS 0.9% IV 1000 ml Route: IV; Rate: 125 ml/hr; Site: right antecubital; ha1 07:16 Follow up: IV Status: Completed infusion; IV Intake: 400ml bp 03:53 Drug: metoCLOPramide IVP 10 mg Route: IVP; Site: right antecubital; ha1 05:30 Follow up: Response: No adverse reaction ha1 03:55 Drug: diphenhydrAMINE IVP 25 mg Route: IVP; Site: right antecubital; ha1 05:30 Follow up: Response: No adverse reaction ha1 04:00 Drug: morphine IVP or IV 4 mg Route: IVP; Infused Over: 4 mins; Site: right antecubital;ha1 04:25 Follow up: Response: No adverse reaction; Pain is decreased; RASS: Alert and Calm (0) ha1 07:14 Drug: Aspirin PO Chewable Tablet 324 mg Route: PO; bp 07:14 Follow up: Response: No adverse reaction bp 07:14 Drug: Bells PO 10 mg-325 mg 1 tabs Route: PO; bp 07:14 Follow up: Response: No adverse reaction bp 07:14 Drug: Ondansetron PO 4 mg {Note: GIVEN IV.} Route: PO; bp 07:15 Follow up: Response: No adverse reaction bp Medication: 04:12 VIS not applicable for this client. ha1 Intake: 07:16 IV: 400ml; Total: 400ml. bp Outcome: 07:07 Discharge ordered by MD. ji 07:16 Discharged to home ambulatory. bp 07:16 Condition: stable 07:16 Discharge instructions given to patient, Instructed on discharge instructions, follow up and referral plans. medication usage, Demonstrated understanding of instructions, follow-up care, medications, Prescriptions given X 2. 07:23 Patient left the ED. bp Signatures: Dispatcher [facility], [facility], Cancer CenterSigrid Krause RN RN kl Peltier, Brian, RN RN bp Alexander, Jessica ja2 Radha Liu RN RN ha1 Andrew Cartagena MD MD sp4 Corrections: (The following items were deleted from the chart) 04:10 04:09 diphenhydrAMINE IVP 25 mg IVP in right antecubital ha1 ha1 06:31 05:25 Response: No adverse reaction; Pain is decreased; RASS: Alert and Calm (0) ha1 ha1
[2023-03-04] MEDS ORDERED: ASPIRIN 81 MG CHEWABLE TABLET ONE (07:13)
[2023-03-04] MEDS ORDERED: ONDANSETRON 4 MG (ODT) TAB ONE (07:14)
[2023-03-04] MEDS ORDERED: HYDROCODONE/APAP 10/325 TAB ONE (07:14)
[2023-03-04 07:31] VITALS: TEMP 98
[2023-03-04 07:47] VITALS: BP 125/82; O2SAT 98
--- NOTE | 2023-03-04 11:30 | RAD REPORT ---
EXAM DESCRIPTION: CT Angiography Chest With Intravenous Contrast CLINICAL HISTORY: The patient is 67 years old and is Female; CHEST PAIN TECHNIQUE: Axial computed tomographic angiography images of the chest with intravenous contrast. S agittal and coronal reformatted images were created and reviewed. This CT exam was performed using one or more of the following dose reduction techniques: automated exposure control, adjustment of t he mA and/or kV according to patient size, and/or use of iterative reconstruction technique. MIP re constructed images were created and reviewed. COMPARISON: February 02, 2023. FINDINGS: Pulmonary arteries: No PE identified. Aorta: No acute findings. No thoracic aortic aneurysm. Lungs: Lingula pulmonary lesion versus scar 2.1 cm. No mass. Pleural space: No pleural effusion or pneumothorax. Heart: No cardiomegaly. No significant pericardial effusion. Mediastinum: No pneumomediastinum. Thyroid: Thyroidectomy. Bones/joints: Multilevel marginal and bridging osteophytes. No acute compression fracture. No acute rib fracture visualized. No dislocation. Soft tissues: Unremarkable. Lymph nodes: No pathologically enlarged lymph nodes. Stomach and bowel: Prior gastric bypass. IMPRESSION: 1. 21 mm lingula solid pulmonary nodule versus scar. Consider a non-contrast Chest CT at 3 months, a PET/CT, or tissue sampling. These guidelines do not apply to immunocompromised patients and patients with cancer. Follow up in pa tients with significant comorbidities as clinically warranted. For lung cancer screening, adhere to L shawn-RADS guidelines. Reference: Radiology. 2017; 284(1):228-43. 2. No PE identified. Electronically signed by: Natalie Rangel MD 03/04/2023 5:24 AM CDT Due to temporary technical issues with the PACS/Fluency reporting system, reports are being signed by the in house radiologists without review as a courtesy to insure prompt reporting. The interpreting radiologist is fully responsible for the content of the report.
--- NOTE | 2023-03-04 11:42 | RAD REPORT ---
EXAM DESCRIPTION: XR Chest, 1 View CLINICAL HISTORY: The patient is 67 years old and is Female; CHEST PAIN TECHNIQUE: Single view of the chest. COMPARISON: February 01, 2023. FINDINGS: Lungs: No pulmonary vascular congestion or consolidation. Pleural space: Unremarkable. No pneumothorax. Heart: Unremarkable. No cardiomegaly. Mediastinum: Unremarkable. Bones/joints: No acute fracture visualized. Upper abdomen: No free air in the visualized upper abdomen. IMPRESSION: No acute cardiopulmonary process identified. Electronically signed by: Natalie Rangel MD 03/04/2023 4:08 AM CDT Due to temporary technical issues with the PACS/Fluency reporting system, reports are being signed by the in house radiologists without review as a courtesy to insure prompt reporting. The interpreting radiologist is fully responsible for the content of the report.
--- NOTE | 2023-03-04 12:34 | EKG ---
Test Date: 2023-03-04 Test Time: 03:18:22 Rv Detailer: ADENIKE MEASUREMENT RESULTS: Intervals: Rate: 80 DC: 140 QRSD: 82 QT: 404 QTc: 465 [place]: P: 56 DC: 140 QRS: 6 T: 64 INTERPRETIVE STATEMENTS: Normal sinus rhythm Low voltage QRS Nonspecific ST abnormality Abnormal ECG Compared to ECG 02/01/2023 21:56:26 Low QRS voltage now present ST (T wave) deviation now present Ventricular premature complex(es) no longer present Left ventricular hypertrophy no longer present Myocardial infarct finding no longer present Electronically Signed On 03-04-23 12:34:01 CDT by Isaías Dixon
== END 2023-03-04 07:23 | disposition home or self-care (01) ==
LOC: ER 03:01
DX: F41.9 Anxiety disorder, unspecified (principal); G44.219 Episodic tension-type headache, not intractable; R11.10 Vomiting, unspecified; E11.9 Type 2 diabetes mellitus without complications; E03.9 Hypothyroidism, unspecified
CPT/HCPCS: 96361; 93005; 85025; 80048; 36415; 83735; 85610; 80076; 84484; 83880; 71275; 71045; 96375; 96374; 99285; Q9967; Q0162; J2765; J1200; J2405; J7030

== ENCOUNTER 2023-03-17 07:07 | Emergency (ER) | payer OTHER ==
--- OUTSIDE RECORDS SUMMARY | 2023-03-17 07:11 | XMS REPORT | Continuity of Care Document ---
:1955 Author Organization [facility] t Address [address] [facility]. [address] [place] [address] Care Team Providers Name Role Phone Asked, No Pcp Primary Care Physician Unavailable VENUS PARK Attending Clinician Unavailable Venus Park MD Attending Clinician Doctor Unassigned, [place] Attending Clinician Unavailable Only, Ang Db Test Attending Clinician Unavailable Enrique RN, Anebella Attending Clinician Unavailable Angeli PLASCENCIA Myra Attending Clinician MYRA SUH Attending Clinician Unavailable MARISSA MERCADO Attending Clinician Unavailable Payers Payer Name Policy Type Policy Number Effective Date Expiration Date [facility] [id number] 2022 STAR PLUS 00:00:00 Problems Condition Condition Condition Status Onset Resolution Last Treating Co mments Source Name Details Category Date Date Treatment Clinician Date Abdominal Abdominal Disease Active [facility] pain pain [facility] l No known No known Disease Unive rs active active ity of problems problems [facility] Allergies, Adverse Reactions, Alerts Allergy Allergy Status Severity Reaction(s) Onset Inactive Treating Comm ents Source Name Type Date Date Clinician NO KNOWN Drug Active Univers ALLERGIE Class ity of S [facility] Social History Social Habit Start Date Stop Date Quantity Comments Source History of tobacco Cigarette Smoker University of use [facility] Gender identity [facility] Exposure to 2022-08-31 2022-09-10 Not sure University SARS-CoV-2 (event) 00:00:00 09:38:00 [facility] Tobacco use and 2022-09-10 2022-09-10 Smokeless Universit y of exposure 00:00:00 00:00:00 tobacco non-user [facility] History of Social 2019-08-04 2019-08-[address] [...] Start Date Stop Date Source Tobacco smoking [facility] consumption unknown Medical Bran ch Ex-smoker 2022-09-10 00:00:00 2022-09-10 [facility] [place] 00:00:00 Medical Branch Medications Ordered Filled Start Stop Current Ordering Indication Dosage Frequency Signature Comments Components Source Medication Medication Date Date Medication? Clinician (SIG) Name Name travoprost 2018-09 Yes 1[drp] QD Administer Methodi (TRAVATAN-Z 10-[address] ) 0.004 % 17:42: both eyes [facility] 06 daily. l travoprost 2018-09 Yes 1[drp] QD Administer [facility] (TRAVATAN-Z 10-[address] ) 0.004 % 17:42: both eyes [facility] 06 daily. l buPROPion 2018-09 Yes 100mg Q.5D Take 100 Met hodi (WELLBUTRIN 1-[address] ) 100 MG 17:42: mouth 2 Hospit a tablet 06 (two) l times a day. buPROPion 2018-09 Yes 100mg Q.5D Take 100 Met hodi (WELLBUTRIN 1-[address] ) 100 MG 17:42: mouth 2 Hospit a tablet 06 (two) l times a day. travoprost 2018-09 Yes 1[drp] QD Administer [facility] (TRAVATAN-Z 10-[address] ) 0.004 % [...] 06 (two) l times a day. levothyroxi 0 Yes 88ug Take 88 Uni vers ne 88 mcg 3-14 mcg by ity of tablet 15:22: mouth [place] every Medical morning. Branch rOPINIRole 0 Yes 10mg Take 10 mg U nivers 5 mg tablet 3-14 by mouth ity of 15:22: at [place] [address] bedtime. Medical Branch hydrOXYzine 2018-0 Yes 25mg Take 25 mg Univers 25 mg 3-14 by mouth ity of tablet 15:22: every 6 [place] 57 (six) Medical hours. Branch escitalopra 2019-0 Yes 20mg Take 20 mg Univers m oxalate 3-14 by mouth ity of 20 mg 15:22: daily. [place] tablet 57 Medical Branch lisinopril 2019-0 Yes 10mg Take 10 mg U nivers 10 mg 3-14 by mouth ity of tablet 15:22: daily. [place] 57 Medical Branch levothyroxi 2019-0 Yes 88ug Take 88 Uni vers ne 88 mcg 3-14 mcg by ity of tablet 15:22: mouth [place] 57 every Medical morning. Branch rOPINIRole 2019-0 Yes 10mg Take 10 mg U nivers 5 mg tablet 3-14 by mouth ity of 15:22: at [place] [address] bedtime. Medical Branch hydrOXYzine 2019-0 Yes 25mg Take 25 mg Univers 25 mg 3-14 by mouth ity of tablet 15:22: every 6 [place] [address] (six) Medical hours. Branch escitalopra 2019-0 Yes 20mg Take 20 mg Univers m oxalate 3-14 by mouth ity of 20 mg 15:22: daily. [place] tablet Medical Branch lisinopril 2018-0 Yes 10mg Take 10 mg U nivers 10 mg 3-14 by mouth ity of tablet 15:22: daily. [place] [address] Medical Branch levothyroxi 20190 Yes 88ug Take 88 Uni vers ne 88 mcg 3-14 mcg by ity of tablet 15:22: mouth [place] [address] every Medical morning. Branch rOPINIRole 0 Yes 10mg Take 10 mg U nivers 5 mg tablet 3-14 by mouth ity of 15:22: at [place] [address] bedtime. Medical Branch hydrOXYzine 0 Yes 25mg Take 25 mg Univers 25 mg 3-14 by mouth ity of tablet 15:22: every 6 [place] [address] (six) Medical hours. Branch escitalopra 2018-0 Yes 20mg Take 20 mg Univers m oxalate 3-14 by mouth ity of 20 mg 15:22: daily. [place] tablet Medical Branch lisinopril 0 Yes 10mg Take 10 mg U nivers 10 mg 3-14 by mouth ity of tablet 15:22: daily. [place] [address] Medical Branch levothyroxi 20190 Yes 88ug Take 88 Uni vers ne 88 mcg 3-14 mcg by ity of tablet 15:22: mouth [place] [address] every Medical morning. Branch rOPINIRole 2019-0 Yes 10mg Take 10 mg U nivers 5 mg tablet 3-14 by mouth ity of 15:22: at [place] [address] bedtime. Medical Branch hydrOXYzine 2019-0 Yes 25mg Take 25 mg Univers 25 mg 3-14 by mouth ity of tablet 15:22: every 6 [place] [address] (six) Medical hours. Branch escitalopra 2019-0 Yes 20mg Take 20 mg Univers m oxalate 3-14 by mouth ity of 20 mg 15:22: daily. [place] [address] Medical Branch lisinopril 2019-0 Yes 10mg Take 10 mg U nivers 10 mg 3-14 by mouth ity of tablet 15:22: daily. [place] [address] Medical Branch levothyroxi 2019-0 Yes 88ug Take 88 Uni vers ne 88 mcg 3-14 mcg by ity of tablet 15:22: mouth [place] every Medical morning. Branch rOPINIRole 2019-0 Yes 10mg Take 10 mg U nivers 5 mg tablet 3-14 by mouth ity of 15:22: at [place] [address] bedtime. Medical Branch hydrOXYzine 2019-0 Yes 25mg Take 25 mg Univers 25 mg 3-14 by mouth ity of tablet 15:22: every 6 [place] [address] (six) Medical hours. Branch escitalopra 2019-0 Yes 20mg Take 20 mg Univers m oxalate 3-14 by mouth ity of 20 mg 15:22: daily. [place] [address] Medical Branch lisinopril 0 Yes 10mg Take 10 mg U nivers 10 mg 3-14 by mouth ity of tablet 15:22: daily. [place] [address] Medical Branch levothyroxi 0 Yes 88ug Take 88 Uni vers ne 88 mcg 3-14 mcg by ity of tablet 15:22: mouth [place] [address] every Medical morning. Branch rOPINIRole 2018-0 Yes 10mg Take 10 mg U nivers 5 mg tablet 3-14 by mouth ity of 15:22: at [place] [address] bedtime. Medical Branch hydrOXYzine 0 Yes 25mg Take 25 mg Univers 25 mg 3-14 by mouth ity of tablet 15:22: every 6 [place] [address] (six) Medical hours. Branch escitalopra 0 Yes 20mg Take 20 mg Univers m oxalate 3-14 by mouth ity of 20 mg 15:22: daily. [place] [address] Medical Branch lisinopril 2019-0 Yes 10mg Take 10 mg U nivers 10 mg 3-14 by mouth ity of tablet 15:22: daily. [place] [address] Medical Branch levothyroxi 2019-0 Yes 88ug Take 88 Uni vers ne 88 mcg 3-14 mcg by ity of tablet 15:22: mouth [place] [address] every Medical morning. Branch rOPINIRole 2019-0 Yes 10mg Take 10 mg U nivers 5 mg tablet 3-14 by mouth ity of 15:22: at [place] [address] bedtime. Medical Branch hydrOXYzine 2019-0 Yes 25mg Take 25 mg Univers 25 mg 3-14 by mouth ity of tablet 15:22: every 6 [place] [address] (six) Medical hours. Branch escitalopra 2019-0 Yes 20mg Take 20 mg Univers m oxalate 3-14 by mouth ity of 20 mg 15:22: daily. [place] tablet Medical Branch lisinopril 0 Yes 10mg Take 10 mg U nivers 10 mg 3-14 by mouth ity of tablet 15:22: daily. [place] [address] Medical Branch levothyroxi 0 Yes 88ug Take 88 Uni vers ne 88 mcg 3-14 mcg by ity of tablet 15:22: mouth [place] [address] every Medical morning. Branch rOPINIRole 0 Yes 10mg Take 10 mg U nivers 5 mg tablet 3-14 by mouth ity of 15:22: at [place] [address] bedtime. Medical Branch hydrOXYzine 0 Yes 25mg Take 25 mg Univers 25 mg 3-14 by mouth ity of tablet 15:22: every 6 [place] [address] (six) Medical hours. Branch escitalopra Yes 20mg Take 20 mg Univers m oxalate 3-14 by mouth ity of 20 mg 15:22: daily. [place] [address] Medical Branch lisinopril Yes 10mg Take 10 mg U nivers 10 mg 3-14 by mouth ity of tablet 15:22: daily. [place] [address] Medical Branch levothyroxi Yes 88ug Take 88 Uni vers ne 88 mcg 3-14 mcg by ity of tablet 15:22: mouth [place] [address] every Medical morning. Branch rOPINIRole 0 Yes 10mg Take 10 mg U nivers 5 mg tablet 3-14 by mouth ity of 15:22: at [place] [address] bedtime. Medical Branch hydrOXYzine 0 Yes 25mg Take 25 mg Univers 25 mg 3-14 by mouth ity of tablet 15:22: every 6 [place] [address] (six) Medical hours. Branch escitalopra Yes 20mg Take 20 mg Univers m oxalate 3-14 by mouth ity of 20 mg 15:22: daily. [place] [address] Medical Branch lisinopril 0 Yes 10mg Take 10 mg U nivers 10 mg 3-14 by mouth ity of tablet 15:22: daily. [address] Branch ondansetron Yes [id number] 4mg Q8H Take 1 [facility] (ZOFRAN, 4-07 tablet (4 st HYDROCHLORI 00:00: mg total) H ospita DE,) 4 MG 00 by mouth l tablet every 8 (eight) hours as needed for nausea. ondansetron 2017-0 Yes [id number] 4mg Q8H Take 1 [facility] (ZOFRAN, 4-07 tablet (4 st HYDROCHLORI 00:00: mg total) H ospita DE,) 4 MG 00 by mouth l tablet every 8 (eight) hours as needed for nausea. ondansetron 2017-0 Yes [id number] 4mg Q8H Take 1 [facility] (ZOFRAN, 4-07 tablet (4 st HYDROCHLORI 00:00: mg total) H ospita DE,) 4 MG 00 by mouth l tablet every 8 (eight) hours as needed for nausea. ondansetron 2017-0 Yes [id number] 4mg Q8H Take 1 [facility] (ZOFRAN, 4-07 tablet (4 st HYDROCHLORI 00:00: mg total) H ospita DE,) 4 MG 00 by mouth l tablet every 8 (eight) hours as needed for nausea. ondansetron 2016-0 Yes [id number] 4mg Q8H Take 1 [facility] (ZOFRAN, 4-07 tablet (4 st HYDROCHLORI 00:00: mg total) H ospita DE,) 4 MG 00 by mouth l tablet every 8 (eight) hours as needed for nausea. hydrocortis 2017-0 Yes Q.[id number] Take by Method[facility] one 3-[id number] (CORTEF) 20 21:05: 3D (three) [facility] MG tablet 54 times a l day. unkown dose levothyroxi 2017-0 Yes 88ug QD Take 88 Met hodi ne 3-[address] (SYNTHROID, 21:05: mouth Hospi ta LEVOXYL) 88 54 every l mcg tablet morning. hydrocortis 2017-0 Yes Q.[id number] Take by Methodi one 3-[id number] (CORTEF) 20 21:05: 3D (three) [facility] MG tablet 54 times a l day. unkown dose levothyroxi 2017-0 Yes 88ug QD Take 88 Met hodi ne 3-[address] (SYNTHROID, 21:05: mouth Hospi ta LEVOXYL) 88 54 every l mcg tablet morning. hydrocortis 2017-0 Yes Q.[id number] Take by Methodi one 3-[id number] (CORTEF) 20 21:05: 3D (three) [facility] MG tablet 54 times a l day. unkown dose levothyroxi Yes 88ug QD Take 88 Met hodi ne 3-[address] (SYNTHROID, 21:05: mouth Hospi ta LEVOXYL) 88 54 every l mcg tablet morning. hydrocortis 0 Yes Q.[id number] Take by Methodi one 3-[id number] (CORTEF) 20 21:05: 3D (three) [facility] MG tablet 54 times a l day. unkown dose levothyroxi Yes 88ug QD Take 88 Met hodi ne 3-[address] (SYNTHROID, 21:05: mouth Hospi ta LEVOXYL) 88 54 every l mcg tablet morning. hydrocortis Yes Q.[id number] Take by Methodi one 3-[id number] (CORTEF) 20 21:05: 3D (three) [facility] MG tablet 54 times a l day. unkown dose levothyroxi Yes 88ug QD Take 88 Met hodi ne 3-[address] (SYNTHROID, 21:05: mouth Hospi ta LEVOXYL) 88 54 every l mcg tablet morning. Immunizations Ordered Filled Immunization Date Status Comments [facility] e Immunization Name Name Influenza Virus 2022-07-29 Completed Universit y of Vaccine 00:00:00 [facility] Influenza Virus 2022-07-29 Completed Universit y of Vaccine 00:00:00 [facility] SARS-COV-2 COVID-19 2020-12-11 Completed Unive rsity of MODERNA 12+ YRS 00:00:00 [facility] VACCINE Branch SARS-COV-2 COVID-19 2020-12-11 Completed Unive rsity of MODERNA 12+ YRS 00:00:00 [facility] VACCINE Branch SARS-COV-2 COVID-19 2020-12-11 Completed Unive rsity of MODERNA VACCINE 00:00:00 [facility] SARS-COV-2 COVID-19 2020-12-11 Completed Unive rsity of [...] Unive rsity of MODERNA 12+ YRS 00:00:00 [facility] VACCINE Branch FLUZONE QUAD PF 2016-11-25 Completed [facility] 00:00:00 Hospital FLUZONE QUAD PF 2016-11-25 Completed [facility] 00:00:00 Hospital FLUZONE QUAD PF 2016-11-25 Completed [facility] 00:00:00 Hospital FLUZONE QUAD PF 2016-11-25 Completed [facility] 00:00:00 Hospital FLUZONE QUAD PF 2016-11-25 Completed [facility] 00:00:00 Hospital Vital Signs Vital Name Observation Time Observation Value Comments Source Systolic blood 2022-09-10 15:49:00 110 mm[Hg] Univer sity [facility] pressure Medical Branch Diastolic blood 2022-09-10 15:49:00 78 mm[Hg] Unive rsity [facility] pressure [facility] Heart rate 2022-09-10 15:49:00 92 /min [facility] Body height 2022-09-10 15:49:00 165.1 cm [facility] Body weight 2022-09-10 15:49:00 90.719 kg [facility] BMI 2022-09-10 15:49:00 33.28 kg/m2 [facility] Oxygen saturation 2022-09-10 15:49:00 97 /min [facility] in Arterial blood Medical Br anch by Pulse oximetry Procedures Procedure Date / Time Performed Performing Clinician [facility] e CONSENT/REFUSAL FOR 2022-09-10 15:38:58 Doctor Unassigned, No [facility] [place] DIAGNOSIS AND Name Medical Branch 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 - 2022-07-28 06:01:00 Doctor Unassigned, No [facility] [place] ADC REFERRAL Name Medical Branch Plan of Care Planned Activity Planned Date Details Comments Source Future Scheduled 2023-02-24 Screening for [facility] Test 04:47:03 malignant neoplasm of colon (procedure) [code = 011898559] Future Scheduled 2023-02-24 Screening for [facility] Test 04:47:03 malignant neoplasm of colon (procedure) [code = 116927394] Future Scheduled 2023-02-24 Screening for [facility] Test 04:47:03 malignant neoplasm of colon (procedure) [code = 687002460] Future Scheduled 2023-02-24 Scre[facility] for [facility] Test 04:47:03 malignant neoplasm of colon (procedure) [code = 156807702] Future Scheduled 2023-02-24 COVID-19 VACCINE (#1) [facility] Test 04:47:03 [code = COVID-19 VACCINE (#1)] Future Scheduled 2023-02-24 BREAST CANCER [facility] Test 04:47:03 SCREENING [code = BREAST CANCER SCREENING] Future Scheduled 2023-02-24 [facility] for [facility] Test 04:47:03 malignant neoplasm of colon (procedure) [code = 016525079] Future Scheduled 2023-02-24 [facility] for [facility] Test 04:47:03 malignant neoplasm of colon (procedure) [code = 614351460] Future Scheduled 2023-02-24 SHINGLES VACCINES (1 [facility] Test 04:47:03 of 2) [code = SHINGLES VACCINES (1 of 2)] Future Scheduled 2023-02-24 65+ [facility]OCOCC[facility] Test 04:47:03 VACCINE (1 - PCV) [code = 65+ PNEUMOCOCCAL VACCINE (1 - PCV)] Future Scheduled 2023-02-24 INFLUENZA VACCINE [facility] Test 04:47:03 [code = INFLUENZA VACCINE] Future Scheduled 2023-02-24 [facility] Test 04:47:03 malignant neoplasm of colon (procedure) [code = 671191057] Future Scheduled 2023-02-24 [facility] for [facility] Test 04:47:03 malignant neoplasm of colon (procedure) [code = 527586910] Future Scheduled 2023-02-24 COVID-19 VACCINE (#1) [facility] Test 04:47:03 [code = COVID-19 VACCINE (#1)] Future Scheduled 2023-02-24 BREAST CANCER [facility] Test 04:47:03 SCREENING [code = BREAST CANCER SCREENING] Future Scheduled 2023-02-24 [facility] Test 04:47:03 malignant neoplasm of colon (procedure) [code = 303043539] Future Scheduled 2023-02-24 [facility] Test 04:47:03 malignant neoplasm of colon (procedure) [code = 408659688] Future Scheduled 2023-02-24 SHINGLES VACCINES (1 [facility] Test 04:47:03 of 2) [code = SHINGLES VACCINES (1 of 2)] Future Scheduled 2023-02-24 65+ P[facility]UMOCOCCAL [facility] Test 04:47:03 VACCINE (1 - PCV) [code = 65+ PNEUMOCOCCAL VACCINE (1 - PCV)] Future Scheduled 2023-02-24 INFLUENZA VACCINE [facility] Test 04:47:03 [code = INFLUENZA VACCINE] Future Scheduled 2022-12-27 COVID-19 VACCINE (#1) [facility] Test 22:44:07 [code = COVID-19 VACCINE (#1)] Future Scheduled 2022-12-27 BREAST CANCER [facility] Test 22:44:07 SCREENING [code = BREAST CANCER SCREENING] Future Scheduled 2022-12-27 COLONOSCOPY SCREENING [facility] Test 22:44:07 [code = COLONOSCOPY SCREENING] Future Scheduled 2022-12-27 SHINGLES VACCINES (1 Met [facility] Test 22:44:07 of 2) [code = SHINGLES VACCINES (1 of 2)] Future Scheduled 2022-12-27 65+ PNEUMOCOCCAL [facility] Test 22:44:07 VACCINE (1 - PCV) [code = 65+ PNEUMOCOCCAL VACCINE (1 - PCV)] Future Scheduled 2022-12-27 INFLUENZA VACCINE [facility] Test 22:44:07 [code = INFLUENZA VACCINE] Future Scheduled 2022-12-27 COVID-19 VACCINE (#1) [facility] Test 22:44:07 [code = COVID-19 VACCINE (#1)] Future Scheduled 2022-12-27 BREAST CANCER [facility] Test 22:44:07 SCREENING [code = BREAST CANCER SCREENING] Future Scheduled 2022-12-27 COLONOSCOPY SCREENING [facility] Test 22:44:07 [code = COLONOSCOPY SCREENING] Future Scheduled 2022-12-27 SHINGLES VACCINES (1 Met [facility] Test 22:44:07 of 2) [code = SHINGLES VACCINES (1 of 2)] Future Scheduled 2022-12-27 65+ PNEUMOCOCCAL [facility] Test 22:44:07 VACCINE (1 - PCV) [code = 65+ PNEUMOCOCCAL VACCINE (1 - PCV)] Future Scheduled 2022-12-27 INFLUENZA VACCINE [facility] Test 22:44:07 [code = INFLUENZA VACCINE] Future Scheduled 2022-12-27 COVID-19 VACCINE (#1) [facility] Test 22:44:07 [code = COVID-19 VACCINE (#1)] Future Scheduled 2022-12-27 BREAST CANCER [facility] Test 22:44:07 SCREENING [code = BREAST CANCER SCREENING] Future Scheduled 2022-12-27 COLONOSCOPY SCREENING [facility] Test 22:44:07 [code = COLONOSCOPY SCREENING] Future Scheduled 2022-12-27 SHINGLES VACCINES (1 [facility] Test 22:44:07 of 2) [code = [...] Facility Department ID 2022-10-06 2022-10-06 [facility] [id number] Univers 09:30:00 09:30:00 VENUS hilton [facility] 2022-09-10 2022-09-10 [facility] [id number] Univers 10:00:00 10:11:06 Visit Venus ROBERTSON 350.1.13.10 ity [facility] 4.2.7.2.686 [facility] PROFESSIO [id number] [place] [address] [facility] 2022-09-10 2022-09-10 [facility] [id number] Univers 10:00:00 10:11:06 VENUS hilton [facility] 2022-09-10 2022-09-10 Orders Doctor NIEVES [id number] Univers 00:00:00 00:00:00 Only Unassigned, NARDA 350.1.13.10 ity of [facility] 4.2.7.2.686 Cristiano as [phone] [address] 2022-07-28 2022-07-28 Orders Doctor NIEVES [id number] Univers 00:00:00 00:00:00 Only Unassigned, NARDA 350.1.13.10 ity of [place] [facility] 4.2.7.2.686 Cristiano as [phone] [facility] [address] 2021-09-07 2021-09-07 Telephone Only, Ang [facility] [id number] Univers 00:00:00 00:00:00 Db Test HEALTH 350.1.13.10 it y of [place] 4.2.7.2.686 Cristiano as FISH?BLEA [id number] [address] OFFICE [facility] 2021-09-07 2021-09-07 Telephone LIZBETH Nunez [id number] Univers 00:00:00 00:00:00 Aneatrice NARDA 350.1.13.10 ity of HOSPITAL 4.2.7.2.686 Cristiano as [id number] [facility] [address] 2021-09-06 2021-09-06 Laboratory Only, Ang Db Test [facility] 1.2.8 40.114 [id number] Univers 15:30:00 15:45:00 Only Angeli Myra HEALTH 350.1.13.10 ity of [place] 4.2.7.2.686 Cristiano as FISH?BLEA [id number] [address] 2021-09-06 2021-09-06 Outpatient R ANGELI [facility] [id number] Univers 15:30:00 15:30:00 MYRA ity of [facility] 2021-09-06 2021-09-06 Letter Doctor NIEVES [id number] [id number] Univers 00:00:00 00:00:00 (Out) Unassigned, NARDA 350.1.13.10 ity of [place] [facility] 4.2.7.2.686 Cristiano as [phone] [address] 2021-09-06 2021-09-06 Letter Doctor NIEVES [id number] Univers 00:00:00 00:00:00 (Out) Unassigned, NARDA 350.1.13.10 ity of [place] [facility] 4.2.7.2.686 Cristiano as [id number] [address] 2020-12-112020-12-11 Outpatient Reagan MERCADO [facility] [id number] [facility] 10:30:00 10:30:00 [facility] 2020-11-13 2020-11-13 Outpatient Reagan MERCADO [facility] [id number] [facility] 08:20:00 08:20:00 [facility] Results This patient has no known results.
[2023-03-17] MEDS ORDERED: MECLIZINE HCL 12.5 MG TAB ONE (07:34)
[2023-03-17] MEDS ORDERED: KETOROLAC 30 MG/ML INJ ONE (07:35)
--- NOTE | 2023-03-17 07:52 | EDPHYS ---
Physician Documentation [facility] Name: Adela Watts Age: 67 yrs Sex: Female : 1955 Arrival Date: 03/17/2023 Time: 07:07 Bed 5 Private MD: ED Physician Candie Nance HPI: 03/17 07:28 This 67 yrs old Black Female presents to ER via Wheelchair with complaints of Nausea, sp3 Dizziness. 07:28 67-year-old female with history of chronic pain, depression, diabetes, anxiety presents sp3 to the ED again for similar and chronic symptoms of headache and dizziness. Patient's been here multiple times and has had multiple work-ups but has not yet seen neurology. She denies trauma, fever, chest pain, shortness of breath, abdominal pain, nausea, vomiting, diarrhea, syncope, focal neurological deficit, or any other signs or symptoms at this time.. Historical: - Allergies: 07:19 No Known Allergies; ll3 - PMHx: 07:19 Chronic pain; Depression; Diabetes - NIDDM; Glaucoma; Anxiety; Hypothyroidism; ll3 - PSHx: 07:19 hysterectomy; Thyroidectomy; ll3 - Immunization history:: Client reports receiving the 2nd dose of the Covid vaccine. - Social history:: Smoking status: Patient denies any tobacco usage or history of. ROS: 07:30 Constitutional: Negative for fever, chills, and weight loss, Eyes: Negative for injury, sp3 pain, redness, and discharge, ENT: Negative for injury, pain, and discharge, Neck: Negative for injury, pain, and swelling, Cardiovascular: Negative for chest pain, palpitations, and edema, Respiratory: Negative for shortness of breath, cough, wheezing, and pleuritic chest pain, Abdomen/GI: Negative for abdominal pain, nausea, vomiting, diarrhea, and constipation, Back: Negative for injury and pain, MS/Extremity: Negative for injury and deformity, Skin: Negative for injury, rash, and discoloration, Neuro: Negative for headache, weakness, numbness, tingling, and seizure, Psych: Negative for depression, anxiety, suicide ideation, homicidal ideation, and hallucinations, Allergy/Immunology: Negative for hives, rash, and allergies, Endocrine: Negative for neck swelling, polydipsia, polyuria, polyphagia, and marked weight changes. 07:30 All other systems are negative. Exam: 07:30 Constitutional: This is a well developed, well nourished patient who is awake, alert, sp3 and in no acute distress. Head/Face: Normocephalic, atraumatic. Eyes: Pupils equal round and reactive to light, extra-ocular motions intact. Lids and lashes normal. Conjunctiva and sclera are non-icteric and not injected. Cornea within normal limits. Periorbital areas with no swelling, redness, or edema. ENT: Nares patent. No nasal discharge, no septal abnormalities noted. External auditory canals are clear. Oropharynx with no redness, swelling, or masses, exudates, or evidence of obstruction, uvula midline. Mucous membranes moist. Neck: Trachea midline, no thyromegaly or masses palpated, and no cervical lymphadenopathy. Supple, full range of motion without nuchal rigidity, or vertebral point tenderness. No Meningismus. Chest/axilla: Normal chest wall appearance and motion. Nontender with no deformity. No lesions are appreciated. Cardiovascular: Regular rate and rhythm with a normal S1 and S2. No gallops, murmurs, or rubs. Normal PMI, no JVD. No pulse deficits. Respiratory: Lungs have equal breath sounds bilaterally, clear to auscultation and percussion. No rales, rhonchi or wheezes noted. No increased work of breathing, no retractions or nasal flaring. Abdomen/GI: Soft, non-tender, with normal bowel sounds. No distension or tympany. No guarding or rebound. No evidence of tenderness throughout. Back: No spinal tenderness. No costovertebral tenderness. Full range of motion. Skin: Warm, dry with normal turgor. Normal color with no rashes, no lesions, and no evidence of cellulitis. MS/ Extremity: Pulses equal, no cyanosis. Neurovascular intact. Full, normal range of motion. Neuro: Awake and alert, GCS 15, oriented to person, place, time, and situation. Cranial nerves II-XII grossly intact. Motor strength 5/5 in all extremities. Sensory grossly intact. Cerebellar exam normal. Normal gait. Psych: Awake, alert, with orientation to person, place and time. Behavior, mood, and affect are within normal limits. Vital Signs: 07:19 BP 130 / 104; Pulse 88; Resp 17; Temp 99; Pulse Ox 98% on R/A; Weight 92.99 kg; Height ll3 5 ft. 5 in. ; Pain 10/10; 08:00 BP 133 / 95; Pulse 78; Resp 18; Pulse Ox 95% on R/A; db 07:19 Body Mass Index 34.11 (92.99 kg, 165.1 cm) ll3 07:19 Pain Scale: Adult ll3 MDM: 07:18 Patient medically screened. sp3 07:30 Data reviewed: vital signs, nurses notes, old medical records. ED course: 67-year-old sp3 female with chronic symptoms. Do not believe patient has any acute change or current emergency including acute coronary syndrome, ICH, CVA, sepsis, shock, or any other pathological process that requires immediate intervention. Will obtain EKG and Accu-Chek and administer ketorolac and meclizine and discharged to neurology follow-up.. 07:49 ED course: EKG demonstrates normal sinus rhythm at 84 bpm with normal intervals, normal sp3 QRS, normal axis, nonspecific diffuse ST/T-segment's without evidence of acute ischemia. Accu-Chek is normal. We will safely discharge patient home at this time with neurology follow-up.. 03/17 07:44 Order name: Glucose, Ancillary Testing; Complete Time: 07:48 EDMS 03/17 07:22 Order name: EKG; Complete Time: 07:23 sp3 03/17 07:22 Order name: EKG - Nurse/Tech; Complete Time: 07:37 sp3 03/17 07:22 Order name: Accucheck; Complete Time: 07:37 sp3 Administered Medications: 07:30 Drug: Meclizine PO 25 mg Route: PO; db 08:15 Follow up: Response: No adverse reaction db 07:35 Drug: Ketorolac IM 60 mg Route: IM; Site: right ventrogluteal; db 08:15 Follow up: Response: No adverse reaction db Point of Care Testing: Blood Glucose: 07:40 Blood Glucose: 110 mg/dL; db Ranges: Critical Glucose Levels:Adult <50 mg/dl or >400 mg/dl <40 mg/dl or >180 mg/dl Disposition Summary: 03/17/23 07:51 Discharge Ordered Location: Home sp3 Condition: Stable sp3 Diagnosis - Dizziness, chronic pain sp3 Followup: sp3 - With: [place], [place], MD - When: Upon discharge from the Emergency Department - Reason: Recheck today's complaints Discharge Instructions: - Discharge Summary Sheet sp3 - Chronic Pain, Adult sp3 Forms: - Medication Reconciliation Form sp3 - Thank You Letter sp3 - Antibiotic Education sp3 - Prescription Opioid Use sp3 - Patient Portal [email or web address] sp3 Signatures: Candie Nance MD MD sp3 Angela Truong RN RN 3 Candie Graves RN RN db
--- NOTE | 2023-03-17 07:52 | ER ---
Nurse's Notes [facility] Name: Adela Watts Age: 67 yrs Sex: Female : 1955 Arrival Date: 03/17/2023 Time: 07:07 Bed 5 Private MD: Diagnosis: Dizziness, chronic pain Presentation: 03/17 07:19 Chief complaint: Patient states: Still has STROUD, N/V, dizziness since her last visit here ll3 2 weeks ago. No fever. Coronavirus screen: Vaccine status: Patient reports receiving the 2nd dose of the covid vaccine. Client denies travel out of the [place] in the last 14 days. At this time, the client does not indicate any symptoms associated with coronavirus-19. Ebola Screen: Patient denies travel to an Ebola-affected area in the 21 days before illness onset. Initial Sepsis Screen: Does the patient meet any 2 criteria? No. Patient's initial sepsis screen is negative. Does the patient have a suspected source of infection? No. Patient's initial sepsis screen is negative. Risk Assessment: Do you want to hurt yourself or someone else? Patient reports no desire to harm self or others. Onset of symptoms was February 28, 2023. 07:19 Method Of Arrival: Wheelchair ll3 07:19 Acuity: SHADY 3 ll3 Triage Assessment: 07:21 General: Appears uncomfortable, ill, Behavior is calm, cooperative, appropriate for ll3 age. Pain: Complains of pain in head Quality of pain is described as aching. Neuro: Reports dizziness, headache weakness. Cardiovascular: No deficits noted. Respiratory: No deficits noted. GI: Reports cramping. Historical: - Allergies: 07:19 No Known Allergies; ll3 - PMHx: 07:19 Chronic pain; Depression; Diabetes - NIDDM; Glaucoma; Anxiety; Hypothyroidism; ll3 - PSHx: 07:19 hysterectomy; Thyroidectomy; ll3 - Immunization history:: Client reports receiving the 2nd dose of the Covid vaccine. - Social history:: Smoking status: Patient denies any tobacco usage or history of. Screenin:39 [facility] ED Fall Risk Assessment (Adult) History of falling in the last 3 months, db including since admission No falls in past 3 months (0 pts) Confusion or Disorientation No (0 pts) Intoxicated or Sedated No (0 pts) Impaired Gait No (0 pts) Mobility Assist Device Used No (0 pt) Altered Elimination No (0 pt) Score/Fall Risk Level 0 - 2 = Low Risk Oriented to surroundings, Maintained a safe environment. Abuse screen: Denies threats or abuse. Denies injuries from another. Nutritional screening: No deficits noted. Tuberculosis screening: No symptoms or risk factors identified. Assessment: 07:30 Reassessment: Patient appears in no apparent distress at this time. Patient and/or db family updated on plan of care and expected duration. Pain level reassessed. Patient is alert, oriented x 3, equal unlabored respirations, skin warm/dry/pink. General: Appears in no apparent distress. comfortable, Behavior is calm, cooperative. Pain:. Neuro: Level of Consciousness is awake, alert, obeys commands, Oriented to person, place, time, situation, Reports dizziness. Respiratory: Airway is patent Respiratory effort is even, unlabored, Respiratory pattern is regular, symmetrical. GI: Abdomen is flat, non-distended, Reports nausea. 08:00 Reassessment: Patient appears in no apparent distress at this time. Patient and/or db family updated on plan of care and expected duration. Pain level reassessed. Patient is alert, oriented x 3, equal unlabored respirations, skin warm/dry/pink. Patient states symptoms have improved. Vital Signs: 07:19 BP 130 / 104; Pulse 88; Resp 17; Temp 99; Pulse Ox 98% on R/A; Weight 92.99 kg; Height ll3 5 ft. 5 in. ; Pain 10/10; 08:00 BP 133 / 95; Pulse 78; Resp 18; Pulse Ox 95% on R/A; db 07:19 Body Mass Index 34.11 (92.99 kg, 165.1 cm) ll3 07:19 Pain Scale: Adult ll3 ED Course: 07:10 Patient arrived in ED. im 07:13 Candie Nance MD is Attending Physician. sp3 07:13 Arm band placed on Patient placed in an exam room, on a stretcher. ll3 07:21 Triage completed. ll3 07:21 Attending Physician role handed off by Candie Nance MD sp4 07:21 Andrew Cartagena MD is Attending Physician. sp4 07:23 Attending Physician role handed off by Andrew Cartagena MD sp3 07:23 Candie Nance MD is Attending Physician. sp3 07:37 Candie Graves, RN is Primary Nurse. db 07:39 Patient has correct armband on for positive identification. Placed in gown. Bed in low db position. Call light in reach. Side rails up X 1. Pulse ox on. NIBP on. 07:50 Mian Jose MD is Referral Physician. sp3 08:19 Provided Education on: PATIENT EDUCATED TO FOLLOW UP WITH NEUROLOGY. db 08:19 No provider procedures requiring assistance completed. Patient did not have IV access db during this emergency room visit. Administered Medications: 07:30 Drug: Meclizine PO 25 mg Route: PO; db 08:15 Follow up: Response: No adverse reaction db 07:35 Drug: Ketorolac IM 60 mg Route: IM; Site: right ventrogluteal; db 08:15 Follow up: Response: No adverse reaction db Medication: 08:19 VIS not applicable for this client. db Point of Care Testing: Blood Glucose: 07:40 Blood Glucose: 110 mg/dL; db Ranges: Outcome: 07:51 Discharge ordered by . sp3 08:19 Discharged to home ambulatory. db 08:19 Condition: stable 08:19 Discharge instructions given to patient, Instructed on discharge instructions, follow up and referral plans. 08:27 Patient left the ED. db Signatures: Candie Nance MD MD sp3 Angela Truong RN RN ll3 Candie Graves, RN RN db Andrew Cartagena MD MD sp4 Emelia Maria im
[2023-03-17 08:36] VITALS: BP 133/95; TEMP 99; O2SAT 95
--- NOTE | 2023-03-17 17:02 | EKG ---
Test Date: 2023-03-17 Test Time: 07:31:34 Perfume Compounder: RADHA MEASUREMENT RESULTS: Intervals: Rate: 84 OR: 136 QRSD: 78 QT: 386 QTc: 456 [place]: P: 49 OR: 136 QRS: -13 T: 49 INTERPRETIVE STATEMENTS: Normal sinus rhythm Anterolateral infarct, age undetermined Abnormal ECG Compared to ECG 03/04/2023 03:18:22 Myocardial infarct finding now present ST (T wave) deviation no longer present Electronically Signed On 03-17-23 17:02:11 CDT by Isaías Dixon
== END 2023-03-17 08:27 | disposition home or self-care (01) ==
LOC: ER 07:07
DX: G89.29 Other chronic pain (principal); R11.0 Nausea
CPT/HCPCS: 93005; 82947; J8597

== ENCOUNTER 2023-04-29 18:50 | Emergency (ER) | payer OTHER ==
--- OUTSIDE RECORDS SUMMARY | 2023-04-29 18:57 | XMS REPORT | Continuity of Care Document ---
:1955 Author Organization Formerly [facility] t Address [address] [place] [address] Care Team Providers Name Role Phone Asked, No Pcp Primary Care Physician Unavailable DASHA ZIMMER Attending Clinician Unavailable DASHA ZIMMER Attending Clinician Unavailable CLARISSA MARQUEZ Attending Clinician Unavailable CLARISSA MARQUEZ Attending Clinician Unavailable VENUS PARK Attending Clinician Unavailable Venus Park MD Attending Clinician Doctor Unassigned, [place] Attending Clinician Unavailable Only, Ang Db Test Attending Clinician Unavailable Davin Nunez RN Attending Clinician Unavailable Myra Tse Attending Clinician MYRA SUH Attending Clinician Unavailable MARISSA MERCADO Attending Clinician Unavailable CLARISSA MARQUEZ Admitting Clinician Unavailable Payers Payer Name Policy Type Policy Number Effective Date Expiration Date [facility] [id number] 2022 STAR PLUS 00:00:00 Problems Condition Condition Condition Status Onset Resolution Last Treating Co mments Source Name Details Category Date Date Treatment Clinician Date Abdominal Abdominal Disease Active [facility] pain pain [facility]: Hosp[facility] 00 l No known No known Disease Unive rs active active ity of problems problems [facility] Allergies, Adverse Reactions, Alerts Allergy Allergy Status Severity Reaction(s) Onset Inactive Treating Comm ents Source Name Type Date Date Clinician NO KNOWN Drug Active Univers ALLERGIE Class ity of S [facility] Social History Social Habit Start Date Stop Date Quantity Comments Source History of tobacco Cigarette Smoker University of use [facility] Gender identity [facility] Exposure to 2022-08-31 2022-09-10 Not sure [facility] SARS-CoV-2 (event) 00:00:00 09:38:00 [facility] Tobacco use and 2022-09-10 2022-09-10 Smokeless Universit y of exposure 00:00:00 00:00:00 tobacco non-user [facility] History of Social 2019-08-04 2019-08-[address] function 00:00:00 00:00:00 Hospital Cigarettes smoked 2019-08-04 2019-08-[address] current (pack per 00:00:00 00:00:00 Hospita l day) - Reported Cigarette 2019-08-04 2019-08-04 [facility]:00:00 Hospital Alcohol intake 2019-08-04 2019-08-04 Current [facility] 00:00:00 00:00:00 non-drinker of Hospital alcohol (finding) Sex Ass[birth year] [facility] 00:[facility]00 [facility] Smoking Status Start Date Stop Date Source Tobacco smoking [facility] [place] consumption unknown Medical Bran ch Ex-smoker 2022-09-10 00:00:00 2022-09-10 [facility] [place] 00:00:00 [facility] Medications Ordered Filled Start Stop Current Ordering Indication Dosage Frequency Signature Comments Components Source Medication Medication Date Date Medication? Clinician (SIG) Name Name cefTRIAXone No 1000mg 1,000 mg, Univers (ROCEPHIN) 04-22 IV ity of 1,000 mg in 06:00: 06:30 [place], [place] NaCl 0.9% 00 :00 ONCE, 1 Medical (NS) 100 mL dose, On Bran ch MINI-BAG Lori 04/22/23 at 0100, Administer over 30 Minutes, 100 mL
Reas on for Anti-Infec tive: Documented Infection< br>Documen radha Infection Site: Respirator y
Du ration of Therapy: 7 days morpHINE (4 No 4mg 4 mg, Slow Univers mg/mL) 04-22 IV Push, ity of injection 4 06:00: 06:02 [place] 1 [place] mg 00 :[place] dose, On Medical Lori Branch 04/22/23 at 0100, STAT iopamidol 2022- No [id number] 100mL 100 mL, Univers (ISOVUE 04-22 Intravenou ity o f 370-500 mL) 05:30: 05:30 s, ONCE, 1 [place] injection 00 :00 dose, On Medica l 100 mL Lori Branch 04/22/23 at 0030, Routine NaCl 0.9% 2022- No 1000mL at 999 Uni vers (NS) bolus 04-22 mL/hr, ity of infusion 05:00: 06:30 1,000 mL, Cristiano as 1,000 mL 00 :00 IV Medical Infusion, Branch ONCE, 1 dose, On Lori 04/22/23 at 0000, GAY famotidine 2022- No 20mg 20 mg, Univ ers (PEPCID 04-22 Slow IV ity of (PF)) 04:15: 04:51 Push, [place] injection 00 :00 ONCE, 1 Medical 20 mg dose, On Branch 04/21/23 at 2315, GAY meclizine 2022- No 25mg 25 mg, Unive rs (TRAVEL-EAS 04-22 Oral, ity of E 04:15: 04:51 ONCE, 1 [place] (MECLIZINE) 00 :00 dose, On Medi jun ) tablet 25 Wed Branch mg 04/21/23 at 2315, GAY metoclopram 2022- No 10mg 10 mg, Uni vers elis HCl 04-22 Slow IV ity of (REGLAN) 04:15: 04:50 Push, [place] injection 00 :00 ONCE, 1 Medical 10 mg dose, On Branch 04/21/23 at 2315, GAY ondansetron 0 Yes [id number] 4mg Take 1 Univers 4 mg 8-17 tablet by ity of disintegrat 00:00: mouth [place] ing tablet 00 every 8 Medica l (eight) Branch hours as needed for Nausea and Vomiting (N/V) for up to 20 doses. cefUROXime 2022- Yes [id number] 500mg Take 1 Univers 500 mg 04-22-23 tablet by ity of tablet 00:00: 04:59 mouth in [place] 00 :00 the [facility] Branch and 1 tablet in the evening. Do all this for 5 days. azithromyci 2022- Yes [id number] 500mg Take 2 Univers n 250 mg 04-22-21 tablets by ity of tablet 00:00: 04:59 mouth in [place] 00 :00 the [facility] for 3 days. travoprost 2018-09 Yes 1[drp] QD Administer Methodi [...] mouth ity of 20 mg 15:22: daily. [place] [address] Medical Branch lisinopril 0 Yes 10mg Take 10 mg U nivers 10 mg 3-14 by mouth ity of tablet 15:22: daily. [place] [address] Medical Branch levothyroxi 0 Yes 88ug Take 88 Uni vers ne 88 mcg 3-14 mcg by ity of tablet 15:22: mouth [place] 57 every Medical morning. Branch rOPINIRole 0 Yes 10mg Take 10 mg U nivers 5 mg tablet 3-14 by mouth ity of 15:22: at [place] 57 bedtime. Medical Branch hydrOXYzine 0 Yes 25mg Take 25 mg Univers 25 mg 3-14 by mouth ity of tablet 15:22: every 6 [place] 57 (six) Medical hours. Branch escitalopra 2018-0 Yes 20mg Take 20 mg Univers m oxalate 3-14 by mouth ity of 20 mg 15:22: daily. [place] tablet Medical Branch lisinopril Yes 10mg Take 10 mg U nivers 10 mg 3-14 by mouth ity of tablet 15:22: daily. [place] [address] Medical Branch levothyroxi 0 Yes 88ug Take 88 Uni vers ne 88 mcg 3-14 mcg by ity of tablet 15:22: mouth [place] every Medical morning. Branch rOPINIRole Yes 10mg Take 10 mg U nivers 5 mg tablet 3-14 by mouth ity of 15:22: at [place] [address] bedtime. Medical Branch hydrOXYzine Yes 25mg Take 25 mg Univers 25 mg 3-14 by mouth ity of tablet 15:22: every 6 [place] [address] (six) Medical hours. Branch escitalopra Yes 20mg Take 20 mg Univers m oxalate 3-14 by mouth ity of 20 mg 15:22: daily. [place] tablet Medical Branch lisinopril Yes 10mg Take 10 mg U nivers 10 mg 3-14 by mouth ity of tablet 15:22: daily. [place] [address] Medical Branch levothyroxi Yes 88ug Take 88 Uni vers ne 88 mcg 3-14 mcg by ity of tablet 15:22: mouth [place] [address] every Medical morning. Branch rOPINIRole Yes 10mg Take 10 mg U nivers 5 mg tablet 3-14 by mouth ity of 15:22: at [place] [address] bedtime. Medical Branch hydrOXYzine Yes 25mg Take 25 mg Univers 25 mg 3-14 by mouth ity of tablet 15:22: every 6 [place] [address] (six) Medical hours. Branch escitalopra Yes 20mg Take 20 mg Univers m oxalate 3-14 by mouth ity of 20 mg 15:22: daily. [place] tablet Medical Branch lisinopril 0 Yes 10mg Take 10 mg U nivers 10 mg 3-14 by mouth ity of tablet 15:22: daily. [place] [address] Medical Branch levothyroxi 0 Yes 88ug Take 88 Uni vers ne 88 mcg 3-14 mcg by ity of tablet 15:22: mouth [place] every Medical morning. Branch rOPINIRole Yes 10mg Take 10 mg U nivers 5 mg tablet 3-14 by mouth ity of 15:22: at [place] [address] bedtime. Medical Branch hydrOXYzine 2019-0 Yes 25mg Take 25 mg Univers 25 mg 3-14 by mouth ity of tablet 15:22: every 6 [place] [address] (six) Medical hours. Branch escitalopra 2019-0 Yes 20mg Take 20 mg Univers m oxalate 3-14 by mouth ity of 20 mg 15:22: daily. [place] tablet Medical Branch lisinopril 2018-0 Yes 10mg Take 10 mg U nivers 10 mg 3-14 by mouth ity of tablet 15:22: daily. [place] [address] Medical Branch levothyroxi 20190 Yes 88ug Take 88 Uni vers ne 88 mcg 3-14 mcg by ity of tablet 15:22: mouth [place] [address] every Medical morning. Branch rOPINIRole 0 Yes 10mg Take 10 mg U nivers 5 mg tablet 3-14 by mouth ity of 15:22: at [place] [address] bedtime. Medical Branch hydrOXYzine 0 Yes 25mg Take 25 mg Univers 25 mg 3-14 by mouth ity of tablet 15:22: every 6 [place] [address] (six) Medical hours. Branch escitalopra 2018-0 Yes 20mg Take 20 mg Univers m oxalate 3-14 by mouth ity of 20 mg 15:22: daily. [place] tablet Medical Branch lisinopril 0 Yes 10mg Take 10 mg U nivers 10 mg 3-14 by mouth ity of tablet 15:22: daily. [place] [address] Medical Branch levothyroxi 20190 Yes 88ug Take 88 Uni vers ne 88 mcg 3-14 mcg by ity of tablet 15:22: mouth [place] [address] every Medical morning. Branch rOPINIRole 2019-0 Yes 10mg Take 10 mg U nivers 5 mg tablet 3-14 by mouth ity of 15:22: at [place] [address] bedtime. Medical Branch hydrOXYzine 2019-0 Yes 25mg Take 25 mg Univers 25 mg 3-14 by mouth ity of tablet 15:22: every 6 [place] [address] (six) Medical hours. Branch escitalopra 2019-0 Yes 20mg Take 20 mg Univers m oxalate 3-14 by mouth ity of 20 mg 15:22: daily. [place] [address] Medical Branch lisinopril 2019-0 Yes 10mg Take 10 mg U nivers 10 mg 3-14 by mouth ity of tablet 15:22: daily. [place] [address] Medical Branch levothyroxi 2019-0 Yes 88ug Take 88 Uni vers ne 88 mcg 3-14 mcg by ity of tablet 15:22: mouth [place] every Medical morning. Branch rOPINIRole 2019-0 Yes 10mg Take 10 mg U nivers 5 mg tablet 3-14 by mouth ity of 15:22: at [place] [address] bedtime. Medical Branch hydrOXYzine 2019-0 Yes 25mg Take 25 mg Univers 25 mg 3-14 by mouth ity of tablet 15:22: every 6 [place] [address] (six) Medical hours. Branch escitalopra 2019-0 Yes 20mg Take 20 mg Univers m oxalate 3-14 by mouth ity of 20 mg 15:22: daily. [place] [address] Medical Branch lisinopril 0 Yes 10mg Take 10 mg U nivers 10 mg 3-14 by mouth ity of tablet 15:22: daily. [place] [address] Medical Branch levothyroxi 0 Yes 88ug Take 88 Uni vers ne 88 mcg 3-14 mcg by ity of tablet 15:22: mouth [place] [address] every Medical morning. Branch rOPINIRole 2018-0 Yes 10mg Take 10 mg U nivers 5 mg tablet 3-14 by mouth ity of 15:22: at [place] [address] bedtime. Medical Branch hydrOXYzine 0 Yes 25mg Take 25 mg Univers 25 mg 3-14 by mouth ity of tablet 15:22: every 6 [place] [address] (six) Medical hours. Branch escitalopra 0 Yes 20mg Take 20 mg Univers m oxalate 3-14 by mouth ity of 20 mg 15:22: daily. [place] [address] Medical Branch lisinopril 2019-0 Yes 10mg Take 10 mg U nivers 10 mg 3-14 by mouth ity of tablet 15:22: daily. [place] [address] Medical Branch levothyroxi 2019-0 Yes 88ug Take 88 Uni vers ne 88 mcg 3-14 mcg by ity of tablet 15:22: mouth [place] [address] every Medical morning. Branch rOPINIRole 2019-0 Yes 10mg Take 10 mg U nivers 5 mg tablet 3-14 by mouth ity of 15:22: at [place] [address] bedtime. Medical Branch hydrOXYzine 2019-0 Yes 25mg Take 25 mg Univers 25 mg 3-14 by mouth ity of tablet 15:22: every 6 [place] [address] (six) Medical hours. Branch escitalopra 2019-0 Yes 20mg Take 20 mg Univers m oxalate 3-14 by mouth ity of 20 mg 15:22: daily. [address] lisinopril Yes 10mg Take 10 mg U nivers 10 mg 3-14 by mouth ity of tablet 15:22: daily. [address] ondansetron Yes [id number] 4mg Q8H Take 1 Methodi (ZOFRAN, 4-07 tablet (4 st HYDROCHLORI 00:00: mg total) H ospita [place],) 4 MG 00 by mouth l tablet every 8 (eight) hours as needed for nausea. ondansetron Yes [id number] 4mg Q8H Take 1 Methodi (ZOFRAN, 4-07 tablet (4 st HYDROCHLORI 00:00: mg total) H ospita [place],) 4 MG 00 by mouth l tablet every 8 (eight) hours as needed for nausea. ondansetron Yes [id number] 4mg Q8H Take 1 Methodi (ZOFRAN, 4-07 tablet (4 st HYDROCHLORI 00:00: mg total) H ospita [place],) 4 MG 00 by mouth l tablet every 8 (eight) hours as needed for nausea. ondansetron Yes [id number] 4mg Q8H Take 1 Methodi (ZOFRAN, 4-07 tablet (4 st HYDROCHLORI 00:00: mg total) H ospita [place],) 4 MG 00 by mouth l tablet every 8 (eight) hours as needed for nausea. ondansetron Yes [id number] 4mg Q8H Take 1 Methodi (ZOFRAN, 4-07 tablet (4 st HYDROCHLORI 00:00: mg total) H ospita [place],) 4 MG 00 by mouth l tablet every 8 (eight) hours as needed for nausea. ondansetron Yes [id number] 4mg Q8H Take 1 Methodi (ZOFRAN, 4-07 tablet (4 st HYDROCHLORI 00:00: mg total) H ospita [place],) 4 MG 00 by mouth l tablet every 8 (eight) hours as needed for nausea. hydrocortis Yes Q.[id number] Take by Methodi one 11-[id number] (CORTEF) 20 21:05: 3D (three) [facility] [place] [facility] tablet 54 times a l day. unkown dose levothyroxi 2017-0 Yes 88ug QD Take 88 Met hodi ne 3-[address] (SYNTHROID, 21:05: mouth Hospi ta LEVOXYL) 88 54 every l mcg tablet morning. hydrocortis 2017-0 Yes Q.[id number] Take by Methodi one 3-[id number] (CORTEF) 20 21:05: 3D (three) [facility] [place] MG tablet 54 times a l day. unkown dose levothyroxi 2017-0 Yes 88ug QD Take 88 Met hodi ne 3-[address] (SYNTHROID, 21:05: mouth Hospi ta LEVOXYL) 88 54 every l mcg tablet morning. hydrocortis 2017-0 Yes Q.[id number] Take by Methodi one 3-[id number] (CORTEF) 20 21:05: 3D (three) [facility] [place] MG tablet 54 times a l day. unkown dose levothyroxi 20170 Yes 88ug QD Take 88 Met hodi ne 3-[address] (SYNTHROID, 21:05: mouth Hospi ta LEVOXYL) 88 54 every l mcg tablet morning. hydrocortis 2017-0 Yes Q.[id number] Take by Methodi one 3-[id number] (CORTEF) 20 21:05: 3D (three) [facility] [place] MG tablet 54 times a l day. unkown dose levothyroxi 2017-0 Yes 88ug QD Take 88 Met hodi ne 3-[address] (SYNTHROID, 21:05: mouth Hospi ta LEVOXYL) 88 54 every l mcg tablet morning. hydrocortis 2017-0 Yes Q.[id number] Take by Methodi one 3-[id number] (CORTEF) 20 21:05: 3D (three) [facility] [place] MG tablet 54 times a l day. unkown dose levothyroxi 2017-0 Yes 88ug QD Take 88 Met hodi ne 3-[address] (SYNTHROID, 21:05: mouth Hospi ta LEVOXYL) 88 54 every l mcg tablet morning. hydrocortis Yes Q.[id number] Take by Methodi one 3-[id number] (CORTEF) 20 21:05: 3D (three) [facility] [place] MG tablet 54 times a l day. unkown dose levothyroxi Yes 88ug QD Take 88 Met hodi ne 3-[address] (SYNTHROID, 21:05: mouth Hospi ta LEVOXYL) 88 54 every l mcg tablet morning. Immunizations Ordered Filled Immunization Date Status Comments [facility] e Immunization Name Name Influenza Virus 2022-07-29 Completed Universit y of Vaccine 00:00:00 [facility] Influenza Virus 2022-07-29 Completed Universit y of Vaccine 00:00:00 [facility] Influenza Virus 2022-07-29 Completed Universit y of Vaccine 00:00:00 [facility] SARS-COV-2 COVID-19 2020-12-11 Completed Unive rsity of MODERNA 12+ YRS 00:00:00 [facility] VACCINE Branch SARS-COV-2 COVID-19 2020-12-11 Completed Unive rsity of MODERNA 12+ YRS 00:00:00 [facility] ical VACCINE Branch SARS-COV-2 COVID-19 2020-12-11 Completed Unive rsity of MODERNA 12+ YRS 00:00:00 [facility] VACCINE Branch SARS-COV-2 COVID-19 2020-12-11 Completed Unive rsity of MODERNA VACCINE 00:00:00 [facility] [place] [facility] SARS-COV-2 COVID-19 2020-12-11 Completed Unive rsity of MODERNA VACCINE 00:00:00 [facility] [place] [facility] SARS-COV-2 COVID-19 2020-12-11 Completed Unive rsity of MODERNA VACCINE 00:00:00 [facility] [place] [facility] SARS-COV-2 COVID-19 2020-12-11 Completed Unive rsity of MODERNA VACCINE 00:00:00 [facility] [place] [facility] SARS-COV-2 COVID-19 2020-12-11 Completed Unive rsity of MODERNA VACCINE 00:00:00 [facility] [place] [facility] SARS-COV-2 COVID-19 2020-12-11 Completed Unive rsity of [...] Unive rsity of MODERNA VACCINE 00:00:00 [place] [facility] ical Branch SARS-COV-2 COVID-19 2020-11-13 Completed Unive rsity of MODERNA VACCINE 00:00:00 [place] [facility] ical Branch SARS-COV-2 COVID-19 2020-11-13 Completed Unive rsity of MODERNA VACCINE 00:00:00 [place] [facility] ical Branch SARS-COV-2 COVID-19 2020-11-13 Completed Unive rsity of MODERNA 12+ YRS 00:00:00 [place] Med ical VACCINE Branch SARS-COV-2 COVID-19 2020-11-13 Completed Unive rsity of MODERNA 12+ YRS 00:00:00 [place] Med ical VACCINE Branch FLUZONE QUAD PF 2016-11-25 Completed [facility] FLUZONE QUAD PF 2016-11-25 Completed [facility] 00:00:00 Hospital FLUZONE QUAD PF 2016-11-25 Completed [facility] 00:00:00 Hospital FLUZONE QUAD PF 2016-11-25 Completed [facility] 00:00:00 Hospital FLUZONE QUAD PF 2016-11-25 Completed [facility] 00:00:00 Hospital FLUZONE QUAD PF 2016-11-25 Completed [facility] 00:[facility]:00 Hospital Vital Signs Vital Name Observation Time Observation Value Comments Source Systolic blood 2023-04-22 06:30:00 116 mm[Hg] Univer sity of pressure [facility] Branch Diastolic blood 2023-04-22 06:30:00 77 mm[Hg] Unive rsity of pressure [facility] Heart rate 2023-04-22 06:30:00 82 /min [facility] [place] [facility] [place] Body temperature 2023-04-22 06:30:00 36.61 Marleny Univ ers[facility] [place] [facility] Respiratory rate 2023-04-22 06:30:00 18 /min [facility] Oxygen saturation in 2023-04-22 06:30:00 96 /min University of Arterial blood by [place] [employer] [facility] Pulse oximetry Branch Body height 2023-04-21 23:14:00 165.1 cm [facility] [place] [facility] [place] Body weight 2023-04-21 23:14:00 89.359 kg [facility] [place] [facility] BMI 2023-04-21 23:14:00 32.78 kg/m2 [facility] [place] [facility] Systolic blood 2022-09-10 15:49:00 110 mm[Hg] Univer sity of pressure [place] [facility] Diastolic blood 2022-09-10 15:49:00 78 mm[Hg] Unive rsity of pressure [place] [facility] Heart rate 2022-09-10 15:49:00 92 /min [facility] [place] [facility] Body height 2022-09-10 15:49:00 165.1 cm [facility] [place] [facility] Body weight 2022-09-10 15:49:00 90.719 kg [facility] [place] [facility] BMI 2022-09-10 15:49:00 33.28 kg/m2 [facility] [place] [facility] Oxygen saturation in 2022-09-10 15:49:00 97 /min University of Arterial blood by [place] [employer] [facility] Pulse oximetry Branch Procedures Procedure Date / Time Performed Performing Clinician Sourmisty e CT ABDOMEN PELVIS W 2023-04-22 04:41:19 Maria Esther Fonseca [facility] CONTRAST Clarissa O. [facility] [place] CBC WITH DIFF 2023-04-22 01:02:00 Maria Esther Fonseca [facility] [place] LACTIC ACID WHOLE 2023-04-22 01:02:00 Maria Esther Fonseca [facility] BLOOD [facility] LIPASE 2023-04-22 00:56:00 Maria Esther Fonseca [facility] [place] TROPONIN I 2023-04-22 00:56:00 Maria Esther Fonseca [facility] [place] COMP. METABOLIC PANEL 2023-04-22 00:56:00 Maria Esther Fonseca [facility] ([id number]) [facility] URINALYSIS 2023-04-22 00:56[facility]00 [facility] 2023-04-22 00:56:00 Maria Esther Fonseca [facility] COVID-19 (ID NOW RAPID 2023-04-22 00:56:00 [facility] CONSENT/REFUSAL FOR 2022-09-10 15:38:58 [facility] Unassigned, [facility] AND Name [facility] 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 - 2022-07-28 06:01:00 [facility] Plan of Care Planned Activity Planned Date Details Comments Source Future Scheduled 2023-04-07 Screening for [facility] Test 04:32:33 malignant neoplasm of colon (procedure) [code = 546615548] Future Scheduled 2023-04-07 Screening for [facility] Test 04:32:33 malignant neoplasm of colon (procedure) [code = 525766765] Future Scheduled 2023-04-07 [facility]ening for [facility] Test 04:32:33 malignant neoplasm of colon (procedure) [code = 999689605] Future Scheduled 2023-04-07 COVID-19 VACCINE (#1) [facility] Test 04:32:33 [code = COVID-19 VACCINE (#1)] Future Scheduled 2023-04-07 BREAST CANCER [facility] Test 04:32:33 SCREENING [code = BREAST CANCER SCREENING] Future Scheduled 2023-04-07 Screening for [facility] Test 04:32:33 malignant neoplasm of colon (procedure) [code = 374406334] Future Scheduled 2023-04-07 Screening for [facility] Test 04:32:33 malignant neoplasm of colon (procedure) [code = 334206447] Future Scheduled 2023-04-07 SHINGLES VACCINES ([facility] 04:32:33 of 2) [code = SHINGLES VACCINES (1 of 2)] Future Scheduled 2023-04-07 65+ [facility]OCOCC[address] [facility] Test 04:32:33 VACCINE (1 - PCV) [code = 65+ PNEUMOCOCCAL VACCINE (1 - PCV)] Future Scheduled 2023-04-07 INFLUENZA VACCINE [facility] Test 04:32:33 [code = INFLUENZA VACCINE] Future Scheduled 2023-02-24 Screening for [facility] Test 04:47:03 malignant neoplasm of colon (procedure) [code = 161597776] Future Scheduled 2023-02-24 Screening for [facility] Test 04:47:03 malignant neoplasm of colon (procedure) [code = 599683182] Future Scheduled 2023-02-24 Screening for [facility] Test 04:47:03 malignant neoplasm of colon (procedure) [code = 566497113] Future Scheduled 2023-02-24 COVID-19 VACCINE (#1) [facility] Test 04:47:03 [code = COVID-19 VACCINE (#1)] Future Scheduled 2023-02-24 BREAST CANCER [facility] Test 04:47:03 SCREENING [code = BREAST CANCER SCREENING] Future Scheduled 2023-02-24 Screening for [facility] Test 04:47:03 malignant neoplasm of colon (procedure) [code = 709783923] Future Scheduled 2023-02-24 Screening for [facility] Test 04:47:03 malignant neoplasm of colon (procedure) [code = 468205154] Future Scheduled 2023-02-24 SHINGLES VACCINES (1 [facility] Test 04:47:03 of 2) [code = SHINGLES VACCINES (1 of 2)] Future Scheduled 2023-02-24 65+ [facility]OCOCCAL [facility] Test 04:47:03 VACCINE (1 - PCV) [code = 65+ PNEUMOCOCCAL VACCINE (1 - PCV)] Future Scheduled 2023-02-24 INFLUENZA VACCINE [facility] Test 04:47:03 [code = INFLUENZA VACCINE] Future Scheduled 2023-02-24 Screening for [facility] Test 04:47:03 malignant neoplasm of colon (procedure) [code = 287332265] Future Scheduled 2023-02-24 Screening for [facility] Test 04:47:03 malignant neoplasm of colon (procedure) [code = 446014013] Future Scheduled 2023-02-24 Screening for [facility] Test 04:47:03 malignant neoplasm of colon (procedure) [code = 059701818] Future Scheduled 2023-02-24 COVID-19 VACCINE (#1) [facility] Test 04:47:03 [code = COVID-19 VACCINE (#1)] Future Scheduled 2023-02-24 BREAST CANCER [facility] Test 04:47:03 SCREENING [code = BREAST CANCER SCREENING] Future Scheduled 2023-02-24 Screening for [facility] Test 04:47:03 malignant neoplasm of colon (procedure) [code = 642757209] Future Scheduled 2023-02-24 Screening for [facility] Test 04:47:03 malignant neoplasm of colon (procedure) [code = 611722423] Future Scheduled 2023-02-24 SHINGLES VACCINES (1 Met [facility] [place] Test 04:47:03 of 2) [code = SHINGLES VACCINES (1 of 2)] Future Scheduled 2023-02-24 65+ [facility] 04:47:03 VACCINE (1 - PCV) [code = 65+ PNEUMOCOCCAL VACCINE (1 - PCV)] Future Scheduled 2023-02-24 INFLUENZA VACCINE [facility] Test 04:47:03 [code = INFLUENZA VACCINE] Future Scheduled 2022-12-27 COVID-19 VACCINE (#1) [facility] Test 22:44:07 [code = COVID-19 VACCINE (#1)] Future Scheduled 2022-12-27 BREAST CANCER [facility] Test 22:44:07 SCREENING [code = BREAST CANCER SCREENING] Future Scheduled 2022-12-27 COLONOSCOPY SCREENING [facility] Test 22:44:07 [code = COLONOSCOPY SCREENING] Future Scheduled 2022-12-27 SHINGLES VACCINES (1 Met [facility] Test 22:44:07 of 2) [code = SHINGLES VACCINES (1 of 2)] Future Scheduled 2022-12-27 65+ [facility]OCOCCAL [facility] Test 22:44:07 VACCINE (1 - PCV) [code = 65+ PNEUMOCOCCAL VACCINE (1 - PCV)] Future Scheduled 2022-12-27 INFLUENZA VACCINE [facility] Test 22:44:07 [code = INFLUENZA VACCINE] Future Scheduled 2022-12-27 COVID-19 VACCINE (#1) [facility] Test 22:44:07 [code = COVID-19 VACCINE (#1)] Future Scheduled 2022-12-[address] [facility] Test 22:44:07 SCREENING [code = BREAST CANCER SCREENING] Future Scheduled 2022-12-27 COLONOSCOPY SCREENING [facility] Test 22:44:07 [code = COLONOSCOPY SCREENING] Future Scheduled 2022-12-27 SHINGLES VACCINES (1 Met [facility] Test 22:44:07 of 2) [code = SHINGLES VACCINES (1 of 2)] Future Scheduled 2022-12-27 65+ [facility] VACCINE (1 - PCV) [code = 65+ PNEUMOCOCCAL VACCINE (1 - PCV)] Future Scheduled 2022-12-27 INFLUENZA VACCINE Method [facility] Test 22:44:07 [code = INFLUENZA VACCINE] Future Scheduled 2022-12-27 COVID-19 VACCINE (#1) [facility] Test 22:44:07 [code = COVID-19 VACCINE (#1)] Future Scheduled 2022-12-[address] [facility] Test 22:44:07 SCREENING [code = BREAST CANCER SCREENING] Future Scheduled 2022-12-27 COLONOSCOPY SCREENING [facility] Test 22:44:07 [code = COLONOSCOPY SCREENING] Future Scheduled 2022-12-27 SHINGLES VACCINES (1 Met [facility] Test 22:44:07 of 2) [code = SHINGLES VACCINES (1 of 2)] Future Scheduled 2022-12-27 65+ [facility]OCOCCAL [facility] Test 22:44:07 VACCINE (1 - PCV) [code = 65+ PNEUMOCOCCAL VACCINE (1 - PCV)] Future Scheduled 2022-12-27 INFLUENZA VACCINE [facility] Test 22:44:07 [code = INFLUENZA VACCINE] Encounters Start End Encounter Admission Attending Care Care Encounter Source Date/Time Date/Time Type Type Clinicians Facility Department ID 2023-04-21 2023-04-22 Emergency X CLARISSA MARQUEZ ERT [id number] [facility] 19:03:00 01:53:00 MARIA ESTHER TAVERASCLARISSA Tate ity of [facility] 2023-04-21 2023-04-22 Emergency Maria Esther [facility] [id number] Univers 19:03:00 01:53:00 RaymundoAILYN 350.1.13.10 i ty of Clarissa Christopher [facility] 4.2.7.2.686 Te [facility] [phone] [facility] [address] [place] 2022-10-06 2022-10-06 Outpatient R XAVIER, [facility] [id number] Univers 09:30:00 09:30:00 VENUS krysten katja h[facility] 2022-09-10 2022-09-10 [facility] 1.2.840.114 [id number] Univers 10:00:00 10:11:06 Visit Venus ROBERTSON 350.1.13.10 ity [facility] [place]7.2.[place] [phone] Ak dical [facility] 2022-09-10 2022-09-10 Outpatient R XAVIER, [facility] [id number] Univers 10:00:00 10:11:06 VENUS bashir katja hilton [facility] 2022-09-10 2022-09-10 Orders Doctor NIEVES 1.2.840.114 [id number] Univers 00:00:00 00:00:00 Only Unassigned, NARDA 350.1.13.10 ity of [place] [facility] 4.2.7.2.686 Cristiano as [phone] [address] 2022-07-28 2022-07-28 Orders Doctor LIZBETH 1.2.840.114 [id number] Univers 00:00:00 00:00:00 Only Unassigned, NARDA 350.1.13.10 ity of [place] [facility] 4.2.7.2.686 Cristiano as [phone] [address] 2021-09-07 2021-09-07 Telephone Only, Jay [facility] 1.2.840.114 [id number] Univers 00:00:00 00:00:00 Db Test HEALTH 350.1.13.10 it y of [place] 4.2.7.2.686 Cristiano as FISH?BLEA [phone] [address] MEDICAL OFFICE [facility] 2021-09-07 2021-09-07 Telephone LIZBETH Nunez [id number] [id number] Univers 00:00:00 00:00:00 Aneatrice NARDA 350.1.13.10 ity of HOSPITAL 4.2.7.2.686 Cristiano as [phone] [address] 2021-09-06 2021-09-06 Laboratory Only, Ang Db Test [facility] 1.2.8 40.114 [id number] Univers 15:30:00 15:45:00 Only [employer] HEALTH 350.1.13.10 [facility] 4.2.7.2.686 Cristiano as FISH?BLEA [phone] [address] OFFICE [facility] 2021-09-06 2021-09-06 Outpatient Reagan SUH [facility] [id number] Univers 15:30:00 15:30:00 MYRA ity [facility] 2021-09-06 2021-09-06 Letter Doctor LIZBETH 1.2.840.114 [id number] Univers 00:00:00 00:00:00 (Out) Unassigned, NARDA 350.1.13.10 ity of [place] [facility] 4.2.7.2.686 Cristiano as [phone] [address] 2021-09-06 2021-09-06 Letter Doctor LIZBETH 1.2.840.114 [id number] Univers 00:00:00 00:00:00 (Out) Unassigned, NARDA 350.1.13.10 ity of [place] [facility]OSPITAL 4.2.7.2.686 Cristiano as [phone] [address] 2020-12-11 2020-12-11 Outpatient Reagan MERCADO [facility] [id number] Univers 10:30:00 10:30:00 MARISSA ity [facility] 2020-11-13 2020-11-13 Outpatient [facility] [id number] Univers 08:20:00 08:20:00 MARISSA [facility] Results Test Description Test Time Test Comments Results Result Comments Source COMP. METABOLIC PANEL (44875) 2023-04-22 03:22:55 Test Item Value Reference Range Interpretation Comme nts NA (test code = 3081140257) 141 mmol/L 135-145 K (test code = 6624877588) 4.0 mmol/L 3.5-5.0 CL (test code = 2731448498) 103 mmol/L 98-108 CO2 TOTAL (test code = 1345426998) 33 mmol/L 23-31 H AGAP (test code = 7724429411) 5 2-16 BUN (test code = 8352868302) 12 mg/dL 7-23 GLUCOSE (test code = 3358637387) 100 mg/dL 70-110 CREATININE (test code = 0.79 mg/dL 0.50-1.04 0587302884) TOTAL BILI (test code = 0.6 mg/dL 0.1-1.3 4519116549) CALCIUM (test code = 7596889861) 9.4 mg/dL 8.6-10.6 T PROTEIN (test code = 7885306884) 7.6 g/dL 6.3-8.2 ALBUMIN (test code = 8719743657) 3.8 g/dL 3.5-5.0 ALK PHOS (test code = 7583232583) 122 U/L 34-122 ALTv (test code = 1742-6) 40 U/L 5-35 H AST(SGOT) (test code = 9649341794) 46 U/L 13-40 H eGFR (test code = 7860916864) 72.8 mL/min/1.73m2 FOREIGN (test code = FOREIGN) Association of Glomerular Filtration Rate (GFR) and Staging of Kidney Disease* + +-------- + ------+| GFR (mL/min/1.73 m2) ?| With Kidney Damage ?| ?Without Kidney Damage+ +-- + +| ?>90 ?| ?Stage one ?| ? Normal ?+ +------- + -------+| ?60-89 ?| ?Stage two ?| ? Decreased GFR ? + +-------- + ------+| ?30-59 ?| ?Stage three ?| ? Stage three ? + +-------- + ------+| ?15-29 ?| ?Stage four ? | ? Stage four ?+ +------- + -------+| ?<15 (or dialysis) ? ?| ?Stage five ? | ? Stage five ?+ +------- + -------+ *Each stage assumes the associated GFR level has been in effect for at least three months. ?Stages 1 to 5, with or without kidney disease, indicate chronic kidney disease. Notes: Determination of stages one and two (with eGFR >59mL/min/1.73 m2) requires estimation of kidney damage for at least three months as defined by structural or functional abnormalities of the kidney, manifested by either:Pathological abnormalities or Markers of kidney damage (including abnormalities in the composition of the blood or urine or abnormalities in imaging tests). Lab Interpretation (test code = Abnormal 65929-0) [facility] [id number] 02:26:06 Test Item Value Reference Range Interpretation Comments TROPONIN I (test code = 0.004 ng/mL <=0.034 1087491018) FOREIGN (test code = FOREIGN) Reference (Normal) Range (defined by the 99th percentile reference limit): <= 0.034 ng/mL Note: Cardiac troponin begins to rise 3-4 hours after the onset of ischemia. Repeat in 4-6 hours if the sample was drawn within 3-4 hours of the onset of the symptom and found normal. Diagnosis of myocardial injury is made with acute changes in cTn concentrations with at least one serial sample above the 99th percentile upper reference limit (URL), taken together with the patient's clinical presentation. Biotin has been reported to cause a negative bias, interpret results relative to patient's use of biotin. Lab Interpretation Normal (test code = 76002-1) [facility] [id number] 02:23:27 Test Item Value Reference Range Interpretation Comments NT-proBNP (test code = 66264-4) 95 pg/mL <=125 Lab Interpretation (test code = Normal 24884-9) [facility]2023-08-17 02:14:30 Test Item Value Reference Range Interpretation Comments LIPASE (test code = 8170160783) 30 U/L 0-220 Lab Interpretation (test code = Normal 11140-6) [facility] WITH [id number] 01:56:26 Test Item Value Reference Range Interpretation Comments WBC (test code = 10.63 See_Comment [Automated 6690-2) message] The sy stem which generated this result transmitted reference range : 4.30 - 11.10 10*3/?L. The reference range was not used to interpret this result as normal/abnormal . RBC (test code = 4.95 See_Comment [Automated 789-8) message] The sy stem which generated this result transmitted reference range : 3.93 - 5.25 10*6/?L. The reference range was not used to interpret this result as normal/abnormal . HGB (test code = 13.0 g/dL 11.6-15.0 718-7) HCT (test code = 41.6 % 35.7-45.2 4544-3) MCV (test code = 84.0 fL 80.6-95.5 787-2) MCH (test code = 26.3 pg 25.9-32.8 785-6) MCHC (test code = 31.3 g/dL 31.6-35.1 L 786-4) RDW-SD (test code = 53.9 fL 39.0-49.9 H 16921-7) RDW-CV (test code = 17.6 % 12.0-15.5 H 788-0) PLT (test code = 299 See_Comment [Automated 777-3) message] The sy stem which generated this result transmitted reference range : 166 - 358 10*3/ ?L. The reference r miky was not used to interpret this result as normal/abnormal . MPV (test code = 9.1 fL 9.5-12.9 L 24288-1) NRBC/100 WBC (test 0.0 See_Comment [Automat ed code = 4340594733) message] The system which generated this result transmitted reference range : 0.0 - 10.0 /100 WBCs. The refer ence range was not u sed to interpret th is result as normal/abnormal . NRBC x10^3 (test code See_Comment [Auto mated = 3506532272) message] The s ystem which generated this result transmitted reference range : 10*3/?L. The reference range was not used to interpret this result as normal/abnormal . GRAN MAT (NEUT) % 72.5 % (test code = 770-8) IMM GRAN % (test code 0.80 % = 8051971888) LYMPH % (test code = 17.1 % 736-9) MONO % (test code = 7.9 % 5905-5) EOS % (test code = 1.3 % 713-8) BASO % (test code = 0.4 % 706-2) GRAN MAT x10^3(ANC) 7.71 10*3/uL 1.88-7.09 H (test code = 5245850566) IMM GRAN x10^3 (test 0.08 10*3/uL 0.00-0.06 H code = 7351221637) LYMPH x10^3 (test code 1.82 10*3/uL 1.32-3.29 = 731-0) MONO x10^3 (test code 0.84 10*3/uL 0.33-0.92 = 742-7) EOS x10^3 (test code = 0.14 10*3/uL 0.03-0.39 711-2) BASO x10^3 (test code 0.04 10*3/uL 0.01-0.07 = 704-7) Lab Interpretation Abnormal (test code = 19661-5) [facility] Notes Date/Time Note Provider Source 2023-04-22 Formatting of this note might be differe nt from the original. Carolyn Zelaya RN [facility] 01:52:18-00:00 Pt given printed and verbal discharge instructions regarding solitary pulmonary nodule, treating PNA, uncertain causes of dizziness. Prescriptions provided. Discussed antibiotic therapy and to take until all completed unless adverse reaction occurs - if occurs, discontinue medication and follow up with pcp/seek medical attention. Pt verbalized understanding of instructions, pt awake alert oriented, resp reg unlabored, skin w/d, color appropriate for race, moves all ext well,pt encouraged to follow up with pcp. Advised to seek medical attention for new/prolon ged/worsening of symptoms. No adverse reaction to meds given in ER noted up on discharge. PIV d'cd, dressing to site, catheter in tact. Awake, alert oriented, resp reg unlabored, skin w/d, pt leaving amb with steady gait, in no apparent distress. 2023-04-21 Formatting of this note might be differe nt from the original. Vanita Delatorre RN [facility] 18:13:07-00:00 CC: patient presents to the ER with complaints of epigastric pain and dizziness that began about 3 months ago. Patient states she has been seen at [facility] for same symptoms, states she has a neurology appointment on 05/07/2023. PMHx: see history Awake, alert, oriented, resp reg unlabored, skin warm and dry, color appropriate for race, moves all ext without difficulty, amb without assistance. Appears in no distress. "
[2023-04-29 20:04] LABS: Absolute Lymphocytes (CBC) 1.8 K/uL (0.7-4.9); Hematocrit 41.4 % (36.0-45.0); Lymphocytes % 22.8 % (15.3-44.8); MCV 83.6 fL (80-100); MPV 6.3 fL (7.6-11.3); Platelets 371 thou/uL (152-406); RBC Red Blood Cell Count 4.95 M/uL (3.86-4.86)
--- NOTE | 2023-04-29 20:39 | RAD REPORT ---
EXAM DESCRIPTION: Gregorio Single View04/29/2023 8:29 pm CLINICAL HISTORY: Chest pain COMPARISON: February 2023 FINDINGS: The patient's known lingular nodule not clearly seen on this exam as it is obscured by ov erlying soft tissue. Refer to the CT chest report March 04, 2023 for recommendation The lungs appear clear of acute infiltrate. The heart is normal size
[2023-04-29 20:59] LABS: Bilirubin Direct 0.1 mg/dL (0-0.2); Bilirubin Indirect, Calculated 0.3 mg/dL (0.2-0.8); Bilirubin Total 0.4 mg/dL (0.2-1.0); Magnesium 2.1 mg/dL (1.6-2.4); Potassium 3.7 mEq/L (3.5-5.1)
[2023-04-29] MEDS ORDERED: DIAZEPAM 5 MG TABLET ONE (21:06)
[2023-04-29] MEDS ORDERED: FENTANYL CITR 100 MCG/2 ML ONE (21:07)
[2023-04-29] MEDS ORDERED: KETOROLAC 30 MG/ML INJ ONE (21:07)
[2023-04-29] MEDS ORDERED: ONDANSETRON 4 MG/2 ML VIAL ONE (21:08)
[2023-04-29 21:11] LABS: Protein, Total 7.4 g/dL (6.4-8.2); Troponin High Sensitivity 9.1 pg/mL (<58.9)
--- NOTE | 2023-04-29 21:22 | EDPHYS ---
Physician Documentation [facility] Name: Adela Watts Age: 67 yrs Sex: Female : 1955 Arrival Date: 04/29/2023 Time: 18:50 Bed 11 Private MD: ED Physician Patricio Gaviria HPI: 04/29 20:54 This 67 yrs old Black Female presents to ER via Wheelchair with complaints of fall and derick hit face. 20:54 The patient or guardian reports chest pain that is located primarily in the anterior derick chest wall, bilaterally. Onset: just prior to arrival. The pain does not radiate. Associated signs and symptoms: Pertinent positives: dizziness. The chest pain is described as from the fall , no cp prior. Duration: The patient or guardian reports a single episode, that is now resolved. Modifying factors: The symptoms are alleviated by remaining still, the symptoms are aggravated by movement, walking. Severity of pain: At its worst the pain was moderate in the emergency department the pain is unchanged. The patient has experienced similar episodes in the past, chronically. Historical: - Allergies: 19:13 No Known Allergies; as6 - PMHx: 19:13 Anxiety; Chronic pain; Depression; Diabetes - NIDDM; Glaucoma; Hypothyroidism; as6 - PSHx: 19:13 hysterectomy; Thyroidectomy; as6 - Immunization history:: Client reports receiving the 2nd dose of the Covid vaccine. - Social history:: Smoking status: Patient denies any tobacco usage or history of. ROS: 20:58 Constitutional: Negative for fever, chills, and weight loss, Eyes: Negative for injury, derick pain, redness, and discharge, ENT: Negative for injury, pain, and discharge, Neck: Negative for injury, pain, and swelling, Cardiovascular: Negative for chest pain, palpitations, and edema, Respiratory: Negative for shortness of breath, cough, wheezing, and pleuritic chest pain, Abdomen/GI: Negative for abdominal pain, nausea, vomiting, diarrhea, and constipation, : Negative for injury, bleeding, discharge, and swelling, MS/Extremity: Negative for injury and deformity, Skin: Negative for injury, rash, and discoloration, Neuro: Negative for headache, weakness, numbness, tingling, and seizure, Psych: Negative for depression, anxiety, suicide ideation, homicidal ideation, and hallucinations, Allergy/Immunology: Negative for hives, rash, and allergies, Endocrine: Negative for neck swelling, polydipsia, polyuria, polyphagia, and marked weight changes. 20:58 Back: Positive for injury or acute deformity, decreased range of motion, pain at rest, pain with movement, of the lumbar area, left low back and right low back. Exam: 20:58 Constitutional: This is a well developed, well nourished patient who is awake, alert, derick and in no acute distress. Head/Face: Normocephalic, atraumatic. Eyes: Pupils equal round and reactive to light, extra-ocular motions intact. Lids and lashes normal. Conjunctiva and sclera are non-icteric and not injected. Cornea within normal limits. Periorbital areas with no swelling, redness, or edema. ENT: Nares patent. No nasal discharge, no septal abnormalities noted. Tympanic membranes are normal and external auditory canals are clear. Oropharynx with no redness, swelling, or masses, exudates, or evidence of obstruction, uvula midline. Mucous membranes moist. Neck: Trachea midline, no thyromegaly or masses palpated, and no cervical lymphadenopathy. Supple, full range of motion without nuchal rigidity, or vertebral point tenderness. No Meningismus. Chest/axilla: Normal chest wall appearance and motion. Nontender with no deformity. No lesions are appreciated. Cardiovascular: Regular rate and rhythm with a normal S1 and S2. No gallops, murmurs, or rubs. Normal PMI, no JVD. No pulse deficits. Respiratory: Lungs have equal breath sounds bilaterally, clear to auscultation and percussion. No rales, rhonchi or wheezes noted. No increased work of breathing, no retractions or nasal flaring. Abdomen/GI: Soft, non-tender, with normal bowel sounds. No distension or tympany. No guarding or rebound. No evidence of tenderness throughout. Back: No spinal tenderness. No costovertebral tenderness. Full range of motion. Skin: Warm, dry with normal turgor. Normal color with no rashes, no lesions, and no evidence of cellulitis. Neuro: Awake and alert, GCS 15, oriented to person, place, time, and situation. Cranial nerves II-XII grossly intact. Motor strength 5/5 in all extremities. Sensory grossly intact. Cerebellar exam normal. Normal gait. Psych: Awake, alert, with orientation to person, place and time. Behavior, mood, and affect are within normal limits. 20:58 ECG was reviewed by the Attending Physician. 20:58 Back: pain, that is mild, that is moderate, of the lumbar area, ROM is painful, with all movement, normal spinal alignment noted, CVA tenderness, is absent. 20:58 Musculoskeletal/extremity: ROM: limited active range of motion due to pain, limited passive range of motion due to pain, Circulation is intact in all extremities. Sensation intact. Compartment Syndrome exam of affected extremity: the lumbar area, left low back and right low back DVT Exam: No signs of deep vein thrombosis. no pain, no swelling, no tenderness, negative Homans' sign noted on exam, no appreciated bluish discoloration, no erythema, no increased warmth. Vital Signs: 19:09 BP 148 / 111; Pulse 93; Resp 20 S; Temp 99.1(TE); Pulse Ox 96% on R/A; Weight 88.45 kg as6 (R); Height 5 ft. 5 in. (R); Pain 10/10; 21:57 BP 129 / 20; Pulse 82; Resp 18; Pulse Ox 98% on R/A; kl 19:09 Body Mass Index 32.45 (88.45 kg, 165.1 cm) as6 19:09 Pain Scale: Adult as6 [place] Coma Score: 21:01 Eye Response: spontaneous(4). Motor Response: obeys commands(6). Verbal Response: derick oriented(5). Total: 15. MDM: 19:18 Patient medically screened. derick 21:01 Differential diagnosis: Contusion of Hematoma on arthritis, strain, fracture, sciatica, derick contusion, Herniated disc UTI, abnormal EKG, acute pericarditis, anxiety, chest wall pain, pancreatitis, peptic ulcer disease, unstable angina. HEART Score: History: Slightly Suspicious (0), ECG: Non specific repolarization disturbance / LBTB / PM (1), Age: > or = 65 years (2), Risk Factors: 1 or 2 risk factors (1), [DM] [Obesity] Troponin: < or = 1 x Normal Limit (0). Differential diagnosis: closed head injury, contusion, fracture, laceration, multiple trauma, sprain, strain. The patient was given aspirin in the Emergency Department. Data reviewed: vital signs, nurses notes, lab test result(s), EKG, radiologic studies, plain films. Consideration of Admission/Observation Escalation of care including admission/observation considered. I considered the following discharge prescriptions or medication management in the emergency department Medications were administered in the Emergency Department. See 19:20 Order name: Basic Metabolic Panel; Complete Time: 21: [facility] 04/29 19:20 Order name: CBC with Diff; Complete Time: 20:29 [facility] 04/29 19:20 Order name: LFT's; Complete Time: 21: [facility] 04/29 19:20 Order name: Magnesium; Complete Time: 21: [facility] 04/29 19:20 Order name: NT PRO-BNP; Complete Time: 21: [facility] 04/29 19:20 Order name: PT-INR; Complete Time: : [facility] 04/29 19:20 Order name: Troponin HS; Complete Time: 21: [facility] 04/29 19:20 Order name: Lipase; Complete Time: 21: [facility] 04/29 19:20 Order name: XRAY Chest (1 view); Complete Time: 21: [facility] 04/29 19:20 Order name: EKG; Complete Time: 19:33 [facility] 04/29 19:20 Order name: Cardiac monitoring [facility] 04/29 19:20 Order name: EKG - Nurse/Tech; Complete Time: 20: [facility] 04/29 19:20 Order name: IV Saline Lock; Complete Time: 20:08 [facility] 04/29 19:20 Order name: Labs collected and sent; Complete Time: 20: [facility] 04/29 19:20 Order name: O2 Per Protocol; Complete Time: 20: [facility] 04/29 19:20 Order name: O2 Sat Monitoring; Complete Time: 20:08 [facility] EC:58 Rate is 87 beats/min. Rhythm is regular. QRS [place] is Normal. MS interval is normal. QRS derick interval is normal. QT interval is normal. No Q waves. T waves are Inverted in leads V1, V2, V3. No ST changes noted. Clinical impression: NSR w/ Non-specific ST/T Changes and No evidence of ischemia. Interpreted by me. Administered Medications: 19:45 Not Given (Patient Refused): Aspirin PO Chewable Tablet 162 mg PO once kl 20:55 Drug: fentaNYL (PF) IVP 50 mcg Route: IVP; Site: right antecubital; kl 21:56 Follow up: Response: No adverse reaction; Marked relief of symptoms kl 21:07 Drug: Ketorolac IVP 15 mg Route: IVP; Site: right antecubital; kl 21:57 Follow up: Response: No adverse reaction; Marked relief of symptoms kl 21:07 Drug: Diazepam PO 5 mg Route: PO; kl 21:57 Follow up: Response: No adverse reaction; Marked relief of symptoms kl 21:07 Drug: Ondansetron IVP 4 mg Route: IVP; Site: right antecubital; kl 21:56 Follow up: Response: No adverse reaction; Marked relief of symptoms kl Disposition Summary: 04/29/23 21:22 Discharge Ordered Location: Home derick Problem: new derick Symptoms: have improved derick Condition: Stable derick Diagnosis - Dizziness and giddiness derick - Type 2 diabetes mellitus with hyperglycemia derick - Low back pain derick - Muscle spasm of back derick - Fall on same level, unspecified derick - Solitary pulmonary nodule derick - Abnormal findings on diagnostic imaging of other specified body structures - derick pulmonary nodule Followup: derick - With: Private Physician - When: 2 - 3 days - Reason: Recheck today's complaints, Continuance of care, Re-evaluation by your physician Followup: derick - With: - When: 2 - 3 days - Reason: Recheck today's complaints, Continuance of care, Re-evaluation by your physician Followup: derick - With: Ernie Reeves MD - When: 5 - 6 days - Reason: Recheck today's complaints, Continuance of care, Re-evaluation by your physician Discharge Instructions: - Discharge Summary Sheet derick - Chronic Back Pain derick - Dizziness derick - Hyperglycemia derick - Muscle Cramps and Spasms derick - Musculoskeletal Pain derick - Chronic Back Pain, Dpax-yb-Psap derick - Diabetes Mellitus and Nutrition, Adult derick - Pulmonary Nodule derick - Pulmonary Nodule, Eksf-po-Eaot [facility] Forms: - Medication Reconciliation Form derick - Thank You Letter derick - Antibiotic Education derick - Prescription Opioid Use derick - Patient Portal Instructions derick - Leadership Thank You Letter [facility] Prescriptions: - acetaminophen-codeine 300-30 mg Oral tablet - take 1 tablet by ORAL route every 6 hours as needed for pain; 15 tablet; [facility] Refills: 0, Product Selection Permitted - Valium 2 mg Oral Tablet - take 1 tablet by ORAL route every 8 hours As needed; 15 tablet; Refills: 0, derick Product Selection Permitted - Medrol (Larry) 4 mg Oral Tablets, Dose Pack - take 1 tablet by ORAL route as directed - follow package instructions; 1 derick packet; Refills: 0, Product Selection Permitted - Motrin IB 200 mg Oral Tablet - take 2 tablet by ORAL route every 6 hours As needed as needed with food; 30 derick tablet; Refills: 0, Product Selection Permitted Signatures: Dispatcher [employer] Sigrid Lewis, RN Patricio Green MD MD cha Slawson, Ashby, RN RN as6
--- NOTE | 2023-04-29 21:22 | ER ---
Nurse's Notes [facility] Name: Adela Watts Age: 67 yrs Sex: Female : 1955 Arrival Date: 04/29/2023 Time: 18:50 Bed 11 Private MD: Diagnosis: Dizziness and giddiness;Type 2 diabetes mellitus with hyperglycemia;Low back pain;Muscle spasm of back;Fall on same level, unspecified;Solitary pulmonary nodule;Abnormal findings on diagnostic imaging of other specified body structures-pulmonary nodule Presentation: 04/29 19:09 Chief complaint: Patient states: "My back hurts, my leg hurts, the light hurts my eyes, as6 I'm nauseated and please help me". Coronavirus screen: At this time, the client does not indicate any symptoms associated with coronavirus-19. Ebola Screen: No symptoms or risks identified at this time. Initial Sepsis Screen: Does the patient meet any 2 criteria? No. Patient's initial sepsis screen is negative. Does the patient have a suspected source of infection? No. Patient's initial sepsis screen is negative. Risk Assessment: Do you want to hurt yourself or someone else? Patient reports no desire to harm self or others. Onset of symptoms was April 29, 2023. 19:09 Method Of Arrival: Wheelchair as6 19:09 Acuity: SHADY 3 as6 Historical: - Allergies: 19:13 No Known Allergies; as6 - PMHx: 19:13 Anxiety; Chronic pain; Depression; Diabetes - NIDDM; Glaucoma; Hypothyroidism; as6 - PSHx: 19:13 hysterectomy; Thyroidectomy; as6 - Immunization history:: Client reports receiving the 2nd dose of the Covid vaccine. - Social history:: Smoking status: Patient denies any tobacco usage or history of. Screenin:[facility] ED Fall Risk Assessment (Adult) History of falling in the last 3 months, kl including since admission Yes- single mechanical fall (1 pt) Confusion or Disorientation No (0 pts) Intoxicated or Sedated No (0 pts) Impaired Gait No (0 pts) Mobility Assist Device Used No (0 pt) Altered Elimination No (0 pt) Score/Fall Risk Level 0 - 2 = Low Risk Oriented to surroundings, Maintained a safe environment. Abuse screen: Denies threats or abuse. Nutritional screening: No deficits noted. Tuberculosis screening: No symptoms or risk factors identified. Assessment: 19:15 General: Appears distressed, uncomfortable, Behavior is anxious, restless. Pain: kyra Complains of pain in head back chest Pain currently is 10 out of 10 on a pain scale. Pain began off and on for months seen here x 5 for symptoms has appt with neurologist on 05/07. Neuro: Level of Consciousness is awake, alert, obeys commands, Oriented to person, place, time, situation, [employer] are equal bilaterally Moves all extremities. Speech is normal, Facial symmetry appears normal, Pupils are PERRLA, Reports dizziness, since off and on. Cardiovascular: Reports chest pain, intermittent. Respiratory: No deficits noted. GI: Reports nausea. : No deficits noted. No signs and/or symptoms were reported regarding the genitourinary system. 21:20 Reassessment: Patient appears in no apparent distress at this time. Patient states kl feeling better. Patient states symptoms have improved. Vital Signs: 19:09 BP 148 / 111; Pulse 93; Resp 20 S; Temp 99.1(TE); Pulse Ox 96% on R/A; Weight 88.45 kg as6 (R); Height 5 ft. 5 in. (R); Pain 10/10; 21:57 BP 129 / 20; Pulse 82; Resp 18; Pulse Ox 98% on R/A; kl 19:09 Body Mass Index 32.45 (88.45 kg, 165.1 cm) as6 19:09 Pain Scale: Adult as6 [place] Coma Score: 21:01 Eye Response: spontaneous(4). Motor Response: obeys commands(6). Verbal Response: derick oriented(5). Total: 15. ED Course: 18:56 Patient arrived in ED. mr 19:13 Triage completed. as6 19:14 Arm band placed on. as6 19:18 Patricio Gaviria MD is Attending Physician. [facility] 19:30 Patient has correct armband on for positive identification. Bed in low position. Call light in reach. Side rails up X2. Client placed on continuous cardiac and pulse oximetry monitoring. NIBP monitoring applied. 19:30 Inserted saline lock: 22 gauge in right antecubital area, using aseptic technique. Blood collected. 20:08 Lipase Sent. 20:08 Basic Metabolic Panel Sent. 20:08 LFT's Sent. kl 20:08 Magnesium Sent. kl 20:08 NT PRO-BNP Sent. kl 20:30 XRAY Chest (1 view) In Process Unspecified. EDMS 21:20 uYan Parmar DO is Referral Physician. [facility] 21:20 Ernie Reeves MD is Referral Physician. [facility] 21:58 No provider procedures requiring assistance completed. IV discontinued, intact, kl bleeding controlled, No redness/swelling at site. Pressure dressing applied. 21:59 Patient maintains SpO2 saturation greater than 95% on room air. kl Administered Medications: 19:45 Not Given (Patient Refused): Aspirin PO Chewable Tablet 162 mg PO once kl 20:55 Drug: fentaNYL (PF) IVP 50 mcg Route: IVP; Site: right antecubital; kl 21:56 Follow up: Response: No adverse reaction; Marked relief of symptoms kl 21:07 Drug: Ketorolac IVP 15 mg Route: IVP; Site: right antecubital; kl 21:57 Follow up: Response: No adverse reaction; Marked relief of symptoms kl 21:07 Drug: Diazepam PO 5 mg Route: PO; kl 21:57 Follow up: Response: No adverse reaction; Marked relief of symptoms kl 21:07 Drug: Ondansetron IVP 4 mg Route: IVP; Site: right antecubital; kl 21:56 Follow up: Response: No adverse reaction; Marked relief of symptoms Outcome: 21:22 Discharge ordered by . [facility] 21:57 Discharged to home via wheelchair, with family. 21:57 Condition: improved 21:57 Discharge instructions given to patient, Instructed on discharge instructions, follow up and referral plans. medication usage, Demonstrated understanding of instructions, follow-up care, medications. 21:59 Patient left the ED. Signatures: Dispatcher [employer] EDSigrid Krause RN RN kl Anderson, Corey, MD MD cha Rivera, Mary mr Slawson, Ashby, RN RN as6
[2023-04-29 22:25] VITALS: TEMP 99.1
[2023-04-29 22:30] VITALS: BP 129/20; O2SAT 98
--- NOTE | 2023-04-30 15:22 | EKG ---
Test Date: 2023-04-29 Test Time: 19:35:26 Bartender: DUC MEASUREMENT RESULTS: Intervals: Rate: 87 IN: 142 QRSD: 78 QT: 402 QTc: 483 [place]: P: 22 IN: 142 QRS: 88 T: 28 INTERPRETIVE STATEMENTS: Normal sinus rhythm Nonspecific ST and T wave abnormality Abnormal ECG Compared to ECG 03/17/2023 07:31:34 ST (T wave) deviation now present Myocardial infarct finding no longer present Electronically Signed On 04-30-23 15:20:32 CDT by Isaías Dixon
== END 2023-04-29 21:59 | disposition home or self-care (01) ==
LOC: ER 18:50
DX: E11.65 Type 2 diabetes mellitus with hyperglycemia (principal); M54.50 Low back pain, unspecified; M62.830 Muscle spasm of back; R91.1 Solitary pulmonary nodule; W18.30XA Fall on same level, unspecified, initial encounter
CPT/HCPCS: 93005; 85025; 80048; 36415; 83735; 85610; 80076; 84484; 83690; 83880; 71045; 96375; 96374; 99285; J3010; J2405

== ENCOUNTER 2023-05-03 20:04 | Emergency (ER) | payer OTHER ==
--- OUTSIDE RECORDS SUMMARY | 2023-05-03 21:08 | XMS REPORT | Continuity of Care Document ---
:1955 Author Organization [facility] t Address [address] [place] [address] Care Team Providers Name Role Phone Asked, No Pcp Primary Care Physician Unavailable DASHA ZIMMER Attending Clinician Unavailable DASHA ZIMMER Attending Clinician Unavailable CLARISSA MARQUEZ Attending Clinician Unavailable CLARISSA MARQUEZ Attending Clinician Unavailable VENUS PARK Attending Clinician Unavailable Venus Park MD Attending Clinician Doctor Unassigned, Gholson Attending Clinician Unavailable Only, Ang Db Test Attending Clinician Unavailable Davin Nunez RN Attending Clinician Unavailable Myra Tse Attending Clinician MYRA SUH Attending Clinician Unavailable MARISSA MERCADO Attending Clinician Unavailable CLARISSA MARQUEZ Admitting Clinician Unavailable Payers Payer Name Policy Type Policy Number Effective Date Expiration Date [facility] [id number] 2022 STAR [employer]US 00:00:00 Problems Condition Condition Condition Status Onset Resolution Last Treating Co mments Source Name Details Category Date Date Treatment Clinician Date Abdominal Abdominal Disease Active [facility] pain pain [facility]: Hosp[facility] 00 l No known No known Disease Unive rs active active ity of problems problems [facility] Allergies, Adverse Reactions, Alerts Allergy Allergy Status Severity Reaction(s) Onset Inactive Treating Comm ents Source Name Type Date Date Clinician NO KNOWN Drug Active Univers ALLERGIE Class ity of S [facility] Social History Social Habit Start Date Stop Date Quantity Comments Source History of tobacco Cigarette Smoker University of use [facility] Gender identity [facility] Exposure to 2022-08-31 2022-09-10 Not sure [facility] SARS-CoV-2 (event) 00:00:00 09:38:00 [facility] Tobacco use and 2022-09-10 2022-09-10 Smokeless Universit y of exposure 00:00:00 00:00:00 tobacco non-user [facility] History of Social 2019-08-04 2019-08-[address] function 00:00:00 00:00:00 Hospital Cigarettes smoked 2019-08-04 2019-08-[address] current (pack per 00:00:00 00:00:00 Hospita l day) - Reported Cigarette 2019-08-04 2019-08-04 [facility] pack-years 00:00:00 00:00:00 Hospital Alcohol intake 2019-08-04 2019-08-04 Current [facility] 00:00:00 00:00:00 non-drinker of Hospital alcohol (finding) Sex Ass[birth year] [facility] 00:00:00 [facility]:00:00 Hospital Smoking Status Start Date Stop Date Source Tobacco smoking [facility] [place] consumption unknown Medical Bran ch Ex-smoker 2022-09-10 00:00:00 2022-09-10 [facility] [place] 00:00:00 [facility] Medications Ordered Filled Start Stop Current Ordering Indication Dosage Frequency Signature Comments Components Source Medication Medication Date Date Medication? Clinician (SIG) Name Name cefTRIAXone No 1000mg 1,000 mg, Univers (ROCEPHIN) 04-22 IV ity of 1,000 mg in 06:00: 06:30 [place], [place] NaCl 0.9% 00 :00 ONCE, 1 [...] 04/22/23 at 0100, STAT iopamidol 2022- No [id number] 100mL 100 mL, Univers (ISOVUE 04-22 Intravenou [...] Branch mg 04/21/23 at 2315, GAY metoclopram 0 2022- No 10mg 10 mg, Uni vers elis HCl 04-22 Slow IV ity of (REGLAN) 04:15: 04:50 [place], [place] injection 00 :00 ONCE, 1 Medical 10 mg dose, On Branch 04/21/23 at 2315, GAY ondansetron 2022-0 Yes [id number] 4mg Take 1 Univers 4 mg 8-17 tablet by ity of disintegrat 00:00: mouth [place] ing tablet 00 every 8 Medica l (eight) Branch hours as needed for Nausea and Vomiting (N/V) for up to 20 doses. cefUROXime 2022- Yes [id number] 500mg Take 1 Univers 500 mg 04-22-23 tablet by ity of tablet 00:00: 04:59 mouth in [place] 00 :00 the [facility] and 1 tablet in the evening. Do all this for 5 days. azithromyci 2022- Yes [id number] 500mg Take 2 Univers n 250 mg 04-22- tablets by ity of tablet 00:00: 04:59 mouth in [place] 00 :00 the [facility] for 3 days. travoprost 2018-09 Yes 1[drp] [...] 3-14 by mouth ity of 15:22: at [place] [address] bedtime. Medical Branch hydrOXYzine 0 Yes 25mg Take 25 mg Univers 25 mg 3-14 by mouth ity of tablet 15:22: every 6 [place] 57 (six) Medical hours. Branch escitalopra 20190 Yes 20mg Take 20 mg Univers m oxalate 3-14 by mouth ity of 20 mg 15:22: daily. [place] [address] Medical Branch lisinopril 2019-0 Yes 10mg Take 10 mg U nivers 10 mg 3-14 by mouth ity of tablet 15:22: daily. [place] [address] Medical Branch levothyroxi 2018-0 Yes 88ug Take 88 Uni vers ne 88 mcg 3-14 mcg by ity of tablet 15:22: mouth [place] 57 every Medical morning. Branch rOPINIRole 2019-0 Yes 10mg Take 10 mg U nivers 5 mg tablet 3-14 by mouth ity of 15:22: at [place] bedtime. Medical Branch hydrOXYzine 2019-0 Yes 25mg Take 25 mg Univers 25 mg 3-14 by mouth ity of tablet 15:22: every 6 [place] 57 (six) Medical hours. Branch escitalopra 2019-0 Yes 20mg Take 20 mg Univers m oxalate 3-14 by mouth ity of 20 mg 15:22: daily. [place] tablet 57 Medical Branch lisinopril 2018-0 Yes 10mg Take 10 mg U nivers 10 mg 3-14 by mouth ity of tablet 15:22: daily. [place] [address] Medical Branch levothyroxi 20190 Yes 88ug Take 88 Uni vers ne 88 mcg 3-14 mcg by ity of tablet 15:22: mouth [place] 57 every Medical morning. Branch rOPINIRole 2018-0 Yes 10mg Take 10 mg U nivers 5 mg tablet 3-14 by mouth ity of 15:22: at [place] bedtime. Medical Branch hydrOXYzine 0 Yes 25mg Take 25 mg Univers 25 mg 3-14 by mouth ity of tablet 15:22: every 6 [place] (six) Medical hours. Branch escitalopra 2018-0 Yes 20mg Take 20 mg Univers m oxalate 3-14 by mouth ity of 20 mg 15:22: daily. [place] tablet 57 Medical Branch lisinopril 0 Yes 10mg Take 10 mg U nivers 10 mg 3-14 by mouth ity of tablet 15:22: daily. [place] [address] Medical Branch levothyroxi 2018-0 Yes 88ug Take 88 Uni vers ne 88 mcg 3-14 mcg by ity of tablet 15:22: mouth [place] 57 every Medical morning. Branch rOPINIRole 2019-0 Yes 10mg Take 10 mg U nivers 5 mg tablet 3-14 by mouth ity of 15:22: at [place] bedtime. Medical Branch hydrOXYzine 2019-0 Yes 25mg Take 25 mg Univers 25 mg 3-14 by mouth ity of tablet 15:22: every 6 [place] 57 (six) Medical hours. Branch escitalopra 2019-0 Yes 20mg Take 20 mg Univers m oxalate 3-14 by mouth ity of 20 mg 15:22: daily. [place] tablet 57 Medical Branch lisinopril 0 Yes 10mg Take 10 mg U nivers 10 mg 3-14 by mouth ity of tablet 15:22: daily. [place] [address] Medical Branch levothyroxi 0 Yes 88ug Take [...] mouth ity of 20 mg 15:22: daily. [place] tablet Medical Branch lisinopril Yes 10mg Take 10 mg U nivers 10 mg 3-14 by mouth ity of tablet 15:22: daily. [place] [address] Medical Branch levothyroxi Yes 88ug Take 88 Uni vers ne 88 mcg 3-14 mcg by ity of tablet 15:22: mouth [place] 57 every Medical morning. Branch rOPINIRole Yes 10mg Take 10 mg U nivers 5 mg tablet 3-14 by mouth ity of 15:22: at [place] [address] bedtime. Medical Branch hydrOXYzine Yes 25mg Take 25 mg Univers 25 mg 3-14 by mouth ity of tablet 15:22: every 6 [place] [address] (six) Medical hours. Branch escitalopra Yes 20mg Take 20 mg Univers m oxalate 3-14 by mouth ity of 20 mg 15:22: daily. [place] tablet Medical Branch lisinopril 0 Yes 10mg Take 10 mg U nivers 10 mg 3-14 by mouth ity of tablet 15:22: daily. [place] [address] Medical Branch levothyroxi 0 Yes 88ug Take 88 Uni vers ne 88 mcg 3-14 mcg by ity of tablet 15:22: mouth [place] 57 every Medical morning. Branch rOPINIRole Yes 10mg Take 10 mg U nivers 5 mg tablet 3-14 by mouth ity of 15:22: at [place] [address] bedtime. Medical Branch hydrOXYzine 2019-0 Yes 25mg Take 25 mg Univers 25 mg 3-14 by mouth ity of tablet 15:22: every 6 [place] 57 (six) Medical hours. Branch escitalopra 2019-0 Yes 20mg Take 20 mg Univers m oxalate 3-14 by mouth ity of 20 mg 15:22: daily. [place] tablet 57 Medical Branch lisinopril 2019-0 Yes 10mg Take 10 mg U nivers 10 mg 3-14 by mouth ity of tablet 15:22: daily. [place] [address] Medical Branch levothyroxi 0 Yes 88ug Take [...] mouth ity of tablet 15:22: every 6 [place] [address] (six) Medical hours. Branch escitalopra 2018-0 Yes 20mg Take 20 mg Univers m oxalate 3-14 by mouth ity of 20 mg 15:22: daily. [place] tablet Medical Branch lisinopril 0 Yes 10mg Take 10 mg U nivers 10 mg 3-14 by mouth ity of tablet 15:22: daily. [place] [address] Medical Branch levothyroxi 0 Yes 88ug Take 88 Uni vers ne 88 mcg 3-14 mcg by ity of tablet 15:22: mouth [place] 57 every Medical morning. Branch rOPINIRole 2019-0 Yes 10mg Take 10 mg U nivers 5 mg tablet 3-14 by mouth ity of 15:22: at [place] bedtime. Medical Branch hydrOXYzine 2018-0 Yes 25mg Take 25 mg Univers 25 mg 3-14 by mouth ity of tablet 15:22: every 6 [place] (six) Medical hours. Branch escitalopra 2019-0 Yes 20mg Take 20 mg Univers m oxalate 3-14 by mouth ity of 20 mg 15:22: daily. [place] tablet Medical Branch lisinopril 2019-0 Yes 10mg Take 10 mg U nivers 10 mg 3-14 by mouth ity of tablet 15:22: daily. [place] [address] Medical Branch levothyroxi 0 Yes 88ug Take 88 Uni vers ne 88 mcg 3-14 mcg by ity of tablet 15:22: mouth [place] [address] every Medical morning. Branch rOPINIRole 0 Yes 10mg Take 10 mg U nivers 5 mg tablet 3-14 by mouth ity of 15:22: at [place] [address] bedtime. Medical Branch hydrOXYzine 0 Yes 25mg Take 25 mg Univers 25 mg 3-14 by mouth ity of tablet 15:22: every 6 [place] [address] (six) Medical hours. Branch escitalopra 0 Yes 20mg Take 20 mg Univers m oxalate 3-14 by mouth ity of 20 mg 15:22: daily. [place] [address] Medical Branch lisinopril 0 Yes 10mg Take 10 mg U nivers 10 mg 3-14 by mouth ity of tablet 15:22: daily. [place] [address] Medical Branch ondansetron Yes [id number] 4mg Q8H Take 1 Methodi (ZOFRAN, 4-07 tablet (4 st HYDROCHLORI 00:00: mg total) H ospita [place],) 4 MG 00 by mouth l tablet every 8 (eight) hours as needed for nausea. ondansetron Yes [id number] 4mg Q8H Take 1 [facility]i (ZOFRAN, 4-07 tablet (4 st HYDROCHLORI 00:00: mg total) H ospita [place],) 4 MG 00 by mouth l tablet every 8 (eight) hours as needed for nausea. ondansetron Yes [id number] 4mg Q8H Take 1 Methodi (ZOFRAN, 4-07 tablet (4 st HYDROCHLORI 00:00: mg total) H ospita [place],) 4 MG 00 by mouth l tablet every 8 (eight) hours as needed for nausea. ondansetron Yes [id number] 4mg Q8H Take 1 Methodi (ZOFRAN, 4-07 tablet (4 st HYDROCHLORI 00:00: mg total) H ospita [place],) 4 MG 00 by mouth l tablet every 8 (eight) hours as needed for nausea. ondansetron 2016- Yes [id number] 4mg Q8H Take 1 Methodi (ZOFRAN, 4-07 tablet (4 st HYDROCHLORI 00:00: mg total) H ospita [place],) 4 MG 00 by mouth l tablet every 8 (eight) hours as needed for nausea. ondansetron 2017-0 Yes [id number] 4mg Q8H Take 1 Methodi (ZOFRAN, 4-07 tablet (4 st HYDROCHLORI 00:00: mg total) H ospita [place],) 4 MG 00 by mouth l tablet every 8 (eight) hours as needed for nausea. ondansetron 2017-0 Yes [id number] 4mg Q8H Take 1 Methodi (ZOFRAN, 4-07 tablet (4 st HYDROCHLORI 00:00: mg total) H ospita [place],) 4 MG 00 by mouth l tablet every 8 (eight) hours as needed for nausea. hydrocortis 2017-0 Yes Q.[id number] Take by Methodi one 3-[id number] (CORTEF) 20 21:05: 3D (three) [facility] [place] [facility] tablet 54 times a l day. unkown dose levothyroxi 2017-0 Yes 88ug QD Take 88 Met hodi ne 3-[address] (SYNTHROID, 21:05: mouth Hospi ta LEVOXYL) 88 54 every l mcg tablet morning. hydrocortis 2017-0 Yes Q.[id number] Take by Methodi one 3-[id number] (CORTEF) 20 21:05: 3D (three) [facility] [place] MG tablet 54 times a l day. unkown dose levothyroxi 2017-0 Yes 88ug QD Take 88 Met hodi ne 3-[address] (SYNTHROID, 21:05: mouth Hospi ta LEVOXYL) 88 54 every l mcg tablet morning. hydrocortis 2017-0 Yes Q.[id number] Take by Methodi one 3-[id number] (CORTEF) 20 21:05: 3D (three) [facility] [place] MG tablet 54 times a l day. unkown dose levothyroxi 2017-0 Yes 88ug QD Take 88 Met hodi ne 3-[address] (SYNTHROID, 21:05: mouth Hospi ta LEVOXYL) 88 54 every l mcg tablet morning. hydrocortis 2017-0 Yes Q.[id number] Take by Methodi one 3-[id number] (CORTEF) 20 21:05: 3D (three) [facility] [place] MG tablet 54 times a l day. unkown dose levothyroxi Yes 88ug QD Take 88 Met hodi ne 3-[address] (SYNTHROID, 21:05: mouth Hospi ta LEVOXYL) 88 54 every l mcg tablet morning. hydrocortis Yes Q.[id number] Take by Methodi one 3-[id number] (CORTEF) 20 21:05: 3D (three) [facility] [place] MG tablet 54 times a l day. unkown dose levothyroxi Yes 88ug QD Take 88 Met hodi ne 3-[address] (SYNTHROID, 21:05: mouth Hospi ta LEVOXYL) 88 54 every l mcg tablet morning. hydrocortis 0 Yes Q.[id number] Take by Methodi one 3-[id number] (CORTEF) 20 21:05: 3D (three) [facility] [place] MG tablet 54 times a l day. unkown dose levothyroxi Yes 88ug QD Take 88 Met hodi ne 3-[address] (SYNTHROID, 21:05: mouth Hospi ta LEVOXYL) 88 54 every l mcg tablet morning. hydrocortis Yes Q.[id number] Take by Methodi one 3-[id number] (CORTEF) 20 21:05: 3D (three) [facility] [place] MG tablet 54 times a l day. unkown dose levothyroxi Yes 88ug QD Take 88 Met hodi ne 3-[address] (SYNTHROID, 21:05: mouth Hospi ta LEVOXYL) 88 54 every l mcg tablet morning. Immunizations Ordered Filled Immunization Date Status Comments [facility] e Immunization Name Name Influenza Virus 2022-07-29 Completed Universit y of Vaccine 00:00:00 [facility] Influenza Virus 2022-07-29 Completed Universit y of Vaccine 00:00:00 [facility] Influenza Virus 2022-07-29 Completed Universit y of Vaccine 00:00:00 [facility] SARS-COV-2 COVID-19 2020-12-11 Completed [facility] 12[facility] 00:00:00 [place] Med ical VACCINE [...] Unive rsity of MODERNA 12+ YRS 00:00:00 [facility] ical VACCINE Branch FLUZONE QUAD PF 2016-11-25 Completed [facility] 00:00:00 [facility] FLUZONE QUAD PF 2016-11-25 Completed [facility] 00:00:00 Hospital FLUZONE QUAD PF 2016-11-25 Completed [facility] 00:00:00 Hospital FLUZONE QUAD PF 2016-11-25 Completed [facility] 00:00:00 Hospital FLUZONE QUAD PF 2016-11-25 Completed [facility] 00:00:00 Hospital FLUZONE QUAD PF 2016-11-25 Completed [facility] 00:00:00 Hospital FLUZONE QUAD PF 2016-11-25 Completed [facility] 00:[facility]:00 Hospital Vital Signs Vital Name Observation Time Observation Value Comments Source Systolic blood 2023-04-22 06:30:00 116 mm[Hg] Univer sity of pressure [facility] Diastolic blood 2023-04-22 06:30:00 77 mm[Hg] Unive rsity of pressure [facility] Heart rate 2023-04-22 06:30:00 82 /min [facility] Body temperature 2023-04-22 06:30:00 36.61 Marleny [facility] [place] ersity [facility] Respiratory rate 2023-04-22 06:30:00 18 /min [facility] in 2023-04-22 06:30:00 96 /min [facility] blood by [facility] Pulse oximetry Branch Body height 2023-04-21 23:14:00 165.1 cm [facility] Body weight 2023-04-21 23:14:00 89.359 kg [facility] BMI 2023-04-21 23:14:00 32.78 kg/m2 [facility] Systolic blood 2022-09-10 15:49:00 110 mm[Hg] Univer sity of pressure [facility] Diastolic blood 2022-09-10 15:49:00 78 mm[facility]Hg[facility] Heart rate 2022-09-10 15:49:00 92 /min [facility] Body height 2022-09-10 15:49:00 165.1 cm [facility] Body weight 2022-09-10 15:49:00 90.719 kg [facility] BMI 2022-09-10 15:49:00 33.28 kg/m2 [facility] Oxygen saturation in 2022-09-10 15:49:00 97 /min [facility] Arterial blood by [facility] Pulse oximetry Branch Procedures Procedure Date / Time Performed Performing Clinician Sour e CT ABDOMEN PELVIS W 2023-04-22 04:41:19 Wellington Fonseca [facility] CONTRAST [facility] CBC WITH DIFF 2023-04-22 01:02[facility]00 [facility] 2023-04-22 01:02:00 Wellington Fonseca [facility] BLOOD [facility] LIPASE 2023-04-22 00:56:[address] [facility] TROPONIN I 2023-04-22 00:56:00 [facility] COMP. METABOLIC PANEL 2023-04-22 00:56:00 Wellington Fonseca [facility] ([id number]) [facility] URINALYSIS 2023-04-22 00:56:00 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 - 2022-07-28 06:01:00 Doctor Unassigned, No [facility] [place] ADC REFERRAL Name Medical Branch Plan of Care Planned Activity Planned Date Details Comments Source Future Scheduled 2023-05-01 Screening for [facility] Test 07:07:46 malignant neoplasm of colon (procedure) [code = 149105958] Future Scheduled 2023-05-01 Screening for [facility] Test 07:07:46 malignant neoplasm of colon (procedure) [code = 406823792] Future Scheduled 2023-05-01 Screening for [facility] Test 07:07:46 malignant neoplasm of colon (procedure) [code = 148084208] Future Scheduled 2023-05-01 COVID-19 VACCINE (#1) [facility] Test 07:07:46 [code = COVID-19 VACCINE (#1)] Future Scheduled 2023-05-01 BREAST CANCER [facility] Test 07:07:46 SCREENING [code = BREAST CANCER SCREENING] Future Scheduled 2023-05-01 Screening for [facility] Test 07:07:46 malignant neoplasm of colon (procedure) [code = 069404863] Future Scheduled 2023-05-01 Screening for [facility] Test 07:07:46 malignant neoplasm of colon (procedure) [code = 451708328] Future Scheduled 2023-05-01 SHINGLES VACCINES ([facility] 07:07:46 of 2) [code = SHINGLES VACCINES (1 of 2)] Future Scheduled 2023-05-01 [address] [facility] Test 07:07:46 VACCINE (1 - PCV) [code = 65+ PNEUMOCOCCAL VACCINE (1 - PCV)] Future Scheduled 2023-05-01 INFLUENZA VACCINE (#1) [facility] Test 07:07:46 [code = INFLUENZA VACCINE (#1)] Future Scheduled 2023-04-07 Screening for [facility] Test 04:32:33 malignant neoplasm of colon (procedure) [code = 456733561] Future Scheduled 2023-04-07 Screening for [facility] Test 04:32:33 malignant neoplasm of colon (procedure) [code = 796189912] Future Scheduled 2023-04-07 Screening for [facility] Test 04:32:33 malignant neoplasm of colon (procedure) [code = 764566904] Future Scheduled 2023-04-07 [facility] 04:32:33 [code = COVID-19 VACCINE (#1)] Future Scheduled 2023-04-07 BREAST CANCER [facility] Test 04:32:33 SCREENING [code = BREAST CANCER SCREENING] Future Scheduled 2023-04-07 Screening for [facility] Test 04:32:33 malignant neoplasm of colon (procedure) [code = 987893744] Future Scheduled 2023-04-07 Screening for [facility] Test 04:32:33 malignant neoplasm of colon (procedure) [code = 518497075] Future Scheduled 2023-04-07 SHINGLES VACCINES (1 [facility] Test 04:32:33 of 2) [code = SHINGLES VACCINES (1 of 2)] Future Scheduled 2023-04-07 65+ P[facility]UMOCOCCAL [facility] Test 04:32:33 VACCINE (1 - PCV) [code = 65+ PNEUMOCOCCAL VACCINE (1 - PCV)] Future Scheduled 2023-04-07 INFLUENZA VACCINE [facility] Test 04:32:33 [code = INFLUENZA VACCINE] Future Scheduled 2023-02-24 Screening for [facility] Test 04:47:03 malignant neoplasm of colon (procedure) [code = 029272616] Future Scheduled 2023-02-24 Screening for [facility] Test 04:47:03 malignant neoplasm of colon (procedure) [code = 959760920] Future Scheduled 2023-02-24 Screening for [facility] Test 04:47:03 malignant neoplasm of colon (procedure) [code = 048065543] Future Scheduled 2023-02-24 COVID[facility]19 [facility] 04:47:03 [code = COVID-19 VACCINE (#1)] Future Scheduled 2023-02-24 BREAST CANCER [facility] Test 04:47:03 SCREENING [code = BREAST CANCER SCREENING] Future Scheduled 2023-02-24 Screening for [facility] Test 04:47:03 malignant neoplasm of colon (procedure) [code = 100209896] Future Scheduled 2023-02-24 Screening for [facility] Test 04:47:03 malignant neoplasm of colon (procedure) [code = 769691140] Future Scheduled 2023-02-24 SHINGLES VACCINES (1 [facility] Test 04:47:03 of 2) [code = SHINGLES VACCINES (1 of 2)] Future Scheduled 2023-02-24 65+ [facility]OCOCCAL [facility] Test 04:47:03 VACCINE (1 - PCV) [code = 65+ PNEUMOCOCCAL VACCINE (1 - PCV)] Future Scheduled 2023-02-24 INFLUENZA VACCINE [facility] Test 04:47:03 [code = INFLUENZA VACCINE] Future Scheduled 2023-02-24 Screening for [facility] Test 04:47:03 malignant neoplasm of colon (procedure) [code = 696793067] Future Scheduled 2023-02-24 Screening for [facility] Test 04:47:03 malignant neoplasm of colon (procedure) [code = 848380990] Future Scheduled 2023-02-24 Screening for [facility] Test 04:47:03 malignant neoplasm of colon (procedure) [code = 099254824] Future Scheduled 2023-02-24 COVID-19 VACCINE (#1) [facility] Test 04:47:03 [code = COVID-19 VACCINE (#1)] Future Scheduled 2023-02-24 BREAST CANCER [facility] Test 04:47:03 SCREENING [code = BREAST CANCER SCREENING] Future Scheduled 2023-02-24 Screening for [facility] Test 04:47:03 malignant neoplasm of colon (procedure) [code = 150997962] Future Scheduled 2023-02-24 Screening for [facility] Test 04:47:03 malignant neoplasm of colon (procedure) [code = 825912431] Future Scheduled 2023-02-24 SHINGLES VACCINES (1 [facility] Test 04:47:03 of 2) [code = SHINGLES VACCINES (1 of 2)] Future Scheduled 2023-02-24 65+ [facility]OCOCCAL [facility] Test 04:47:03 VACCINE (1 - PCV) [code = 65+ PNEUMOCOCCAL VACCINE (1 - PCV)] Future Scheduled 2023-02-24 INFLUENZA VACCINE [facility] Test 04:47:03 [code = INFLUENZA VACCINE] Future Scheduled 2022-12-27 COVID-19 VACCINE (#1) [facility] Test 22:44:07 [code = COVID-19 VACCINE (#1)] Future Scheduled 2022-12-27 BREAST CANCER [facility] Test 22:44:07 SCREENING [code = BREAST CANCER SCREENING] Future Scheduled 2022-12-27 COLONOSCOPY SCREENING [facility] Test 22:44:07 [code = COLONOSCOPY SCREENING] Future Scheduled 2022-12-27 SHINGLES VACCINES (1 [facility] Test 22:44:07 of 2) [code = SHINGLES VACCINES (1 of 2)] Future Scheduled 2022-12-27 65+ PNEUMOCOCCAL [facility] Test 22:44:07 VACCINE (1 - PCV) [code = 65+ PNEUMOCOCCAL VACCINE (1 - PCV)] Future Scheduled 2022-12-27 INFLUENZA VACCINE [facility] Test 22:44:07 [code = INFLUENZA VACCINE] Future Scheduled 2022-12-27 COVID-19 VACCINE (#1) [facility] Test 22:44:07 [code = COVID-19 VACCINE (#1)] Future Scheduled 2022-12-27 BREAST CANCER [facility] Test 22:44:07 SCREENING [code = BREAST CANCER SCREENING] Future Scheduled 2022-12-27 COLONOSCOPY SCREENING [facility] Test 22:44:07 [code = COLONOSCOPY SCREENING] Future Scheduled 2022-12-27 SHINGLES VACCINES (1 [facility] Test 22:44:07 of 2) [code = SHINGLES VACCINES (1 of 2)] Future Scheduled 2022-12-27 65+ PNEUMOCOCCAL [facility] Test 22:44:07 VACCINE (1 - PCV) [code = 65+ PNEUMOCOCCAL VACCINE (1 - PCV)] Future Scheduled 2022-12-27 INFLUENZA VACCINE [facility] Test 22:44:07 [code = INFLUENZA VACCINE] Future Scheduled 2022-12-27 COVID-19 VACCINE (#1) [facility] Test 22:44:07 [code = COVID-19 VACCINE (#1)] Future Scheduled 2022-12-27 BREAST CANCER [facility] Test 22:44:07 SCREENING [code = BREAST CANCER SCREENING] Future Scheduled 2022-12-27 COLONOSCOPY SCREENING [facility] Test 22:44:07 [code = COLONOSCOPY SCREENING] Future Scheduled 2022-12-27 SHINGLES VACCINES ([address] [facility] Test 22:44:07 of 2) [code = SHINGLES VACCINES (1 of 2)] Future Scheduled 2022-12-27 65+ PNEUMOCOCCAL Methodi [facility] Test 22:44:07 VACCINE (1 - PCV) [code = 65+ PNEUMOCOCCAL VACCINE (1 - PCV)] Future Scheduled 2022-12-27 INFLUENZA VACCINE Method [facility] Test 22:44:07 [code = INFLUENZA VACCINE] Encounters Start End Encounter Admission Attending Care Care Encounter Source Date/Time Date/Time Type Type Clinicians Facility Department ID 2023-04-21 2023-04-22 Emergency X CLARISSA MARQUEZ [facility] ERT [id number] Univers 19:03:00 01:53:00 CLARISSA MARQUEZ itliz [facility] 2023-04-21 2023-04-22 Emergency [place] [facility] 1.2.840.114 [id number] Univers 19:03:00 01:53:00 AILYN Fonseca 350.1.13.10 i ty Nishi CLARK 4.2.7.2.686 [facility] [id number] [facility] [address] 2022-10-06 2022-10-06 Outpatient Reagan [facility] [id number] Univers 09:30:00 09:30:00 VENUS bashir o [facility] 2022-09-10 2022-09-10 [facility] [id number] Univers 10:00:00 10:11:06 Visit Venus ROBERTSON 350.1.13.10 itliz AMBER 4.2.7.2.686 [facility] [id number] Oh dical [facility] 2022-09-10 2022-09-10 Outpatient Reagan [facility] [id number] Univers 10:00:00 10:11:06 VENUS bashir o [facility] 2022-09-10 2022-09-10 Orders Doctor NIEVES 1.2.840.114 [id number] Univers 00:00:00 00:00:00 Only Unassigned, NARDA 350.1.13.10 ity of [facility] 4.2.7.2.686 Cristiano as [phone] [facility] [address] [place] 2022-07-28 2022-07-28 Orders Doctor LIZBETH 1.2.840.114 [id number] Univers 00:00:00 00:00:00 Only Unassigned, NARDA 350.1.13.10 ity of [facility] 4.2.7.2.686 Cristiano as [phone] [facility] [address] [place] 2021-09-07 2021-09-07 Telephone Only, Ang [facility] 1.2.840.114 [id number] Univers 00:00:00 00:00:00 Db Test HEALTH 350.1.13.10 it y of [place] 4.2.7.2.686 Cristiano as FISH?BLEA [id number] [address] OFFICE [facility] 2021-09-07 2021-09-07 Telephone EnriqueLIZBETH 1.2.828.124 [id number] Univers 00:00:00 00:00:00 Aneatrice NARDA 350.1.13.10 ity of HOSPITAL 4.2.7.2.686 Cristiano as [id number] [facility] [address] [place] 2021-09-06 2021-09-06 Laboratory Only, Ang Db Test [facility] 1.2.8 40.114 [id number] Univers 15:30:00 15:45:00 Only Green, Myra HEALTH 350.1.13.10 ity of [place] 4.2.7.2.686 Cristiano as FISH?BLEA [phone] [address] OFFICE [facility] 2021-09-06 2021-09-06 Outpatient R ANGELI [facility] [id number] Univers 15:30:00 15:30:00 MYRA ity of [facility] 2021-09-06 2021-09-06 Letter Doctor LIZBETH 1.2.840.114 [id number] Univers 00:00:00 00:00:00 (Out) Unassigned, NARDA 350.1.13.10 ity of [facility] 4.2.7.2.686 Cristiano as [phone] [facility] [address] [place] 2021-09-06 2021-09-06 Letter Doctor LIZBETH 1.2.840.114 [id number] Univers 00:00:00 00:00:00 (Out) Unassigned, NARDA 350.1.13.10 ity of [facility] 4.2.7.2.686 Cristiano as [id number] [address] 2020-12-11 2020-12-11 Outpatient Reagan [facility] [id number] Univers 10:30:00 10:30:00 MARISSA [facility] 2020-11-13 2020-11-13 Outpatient Reagan [facility] [id number] Univers 08:20:00 08:20:[address] [facility] Results Test Description Test Time Test Comments Results Result Comments Source COMP. METABOLIC PANEL (03821) 2023-04-22 03:22:55 Test Item Value Reference Range Interpretation Comme nts NA (test code = 6852465307) 141 mmol/L 135-145 K (test code = 9826297554) 4.0 mmol/L 3.5-5.0 CL (test code = 7434890319) 103 mmol/L 98-108 CO2 TOTAL (test code = 2223990299) 33 mmol/L 23-31 H AGAP (test code = 2046042106) 5 2-16 BUN (test code = 0311144313) 12 mg/dL 7-23 GLUCOSE (test code = 7544466496) 100 mg/dL 70-110 CREATININE (test code = 0.79 mg/dL 0.50-1.04 7280619334) TOTAL BILI (test code = 0.6 mg/dL 0.1-1.4 0654843723) CALCIUM (test code = 6330290921) 9.4 mg/dL 8.6-10.6 T PROTEIN (test code = 4003337119) 7.6 g/dL 6.3-8.2 ALBUMIN (test code = 2721624021) 3.8 g/dL 3.5-5.0 ALK PHOS (test code = 2453857394) 122 U/L 34-122 ALTv (test code = 1742-6) 40 U/L 5-35 H AST(SGOT) (test code = 9962320221) 46 U/L 13-40 H eGFR (test code = 5062244529) 72.8 mL/min/1.73m2 FOREIGN (test code = FOREIGN) [...] tests). Lab Interpretation (test code = Abnormal 10454-9) [id number] 02:26:06 Test Item Value Reference Range Interpretation Comments TROPONIN I (test code = 0.004 ng/mL <=0.034 2728740123) FOREIGN (test code = FOREIGN) Reference (Normal) [...] biotin. Lab Interpretation Normal (test code = 70912-7) [facility] [id number] 02:23:27 Test Item Value Reference Range Interpretation Comments NT-proBNP (test code = 03338-3) 95 pg/mL <=125 Lab Interpretation (test code = Normal 22176-9) [facility] 02:14:30 Test Item Value Reference Range Interpretation Comments LIPASE (test code = 4592584074) 30 U/L 0-220 Lab Interpretation (test code = Normal 60507-4) [facility] [id number] 01:56:26 Test Item Value Reference Range Interpretation Comments WBC (test code = 10.63 See_Comment [Automated 3715-2) message] The sy stem which generated this result transmitted reference range : 4.30 - 11.10 10*3/?L. The reference range was not used to interpret this result as normal/abnormal . RBC (test code = 4.95 See_Comment [Automated 639-8) message] The sy stem which generated this [...] (test code = 53.9 fL 39.0-49.9 H 91844-1) RDW-CV (test code = 17.6 % 12.0-15.5 H 788-0) PLT (test code = 299 See_Comment [Automated 257-3) message] The sy stem which generated this result transmitted reference range : 166 - 358 10*3/ ?L. The reference r miky was not used to interpret this result as normal/abnormal . MPV (test code = 9.1 fL 9.5-12.9 L 63691-8) NRBC/100 WBC (test 0.0 See_Comment [Automat ed code = 7323034555) message] The system which generated this result transmitted reference range : 0.0 - 10.0 /100 WBCs. The refer ence range was not u sed to interpret th is result as normal/abnormal . NRBC x10^3 (test code See_Comment [Auto mated = 6921430783) message] The s ystem which generated this result transmitted reference range : 10*3/?L. The reference range was not used to interpret this result as normal/abnormal . GRAN MAT (NEUT) % 72.5 % (test code = 770-8) IMM GRAN % (test code 0.80 % = 7263636631) LYMPH % (test code = 17.1 % 736-9) MONO % (test code = 7.9 % 5905-5) EOS % (test code = 1.3 % 713-8) BASO % (test code = 0.4 % 706-2) GRAN MAT x10^3(ANC) 7.71 10*3/uL 1.88-7.09 H (test code = 0905291076) IMM GRAN x10^3 (test 0.08 10*3/uL 0.00-0.06 H code = 5000070959) LYMPH x10^3 (test code 1.82 10*3/uL 1.32-3.29 = 731-0) MONO x10^3 (test code 0.84 10*3/uL 0.33-0.92 = 742-7) EOS x10^3 (test code = 0.14 10*3/uL 0.03-0.39 711-2) BASO x10^3 (test code 0.04 10*3/uL 0.01-0.07 = 704-7) Lab Interpretation Abnormal (test code = 21268-7) [facility] Notes Date/Time Note Provider Source 2023-04-22 Formatting of this note might be differe nt from the original. Carolyn Zelaya RN [facility] 01:52:18-00:00 Pt given printed and verbal discharge [...] nt from the original. Vanita Delatorre RN [facility] 18:13:07-00:00 CC: patient presents to the ER with complaints of epigastric pain and dizziness that began about 3 months ago. Patient states she has been seen at [facility] for same symptoms, states she has a neurology appointment on 05/07/2023. PMHx: see history Awake, alert, oriented, resp reg unlabored, skin warm and dry, color appropriate for race, moves all ext without difficulty, amb without assistance. Appears in no distress. "
--- NOTE | 2023-05-03 21:17 | RAD REPORT ---
EXAM DESCRIPTION: RAD - Chest Single View - 05/03/2023 8:56 pm CLINICAL HISTORY: COUGH Chest pain. COMPARISON: Chest Single View dated 04/29/2023; Chest Single View dated 03/04/2023; Chest Single View dated 02/01/2023; Chest Single View dated 03/13/2018 FINDINGS: Portable technique limits examination quality. The lungs are grossly clear. The heart is normal in size. No displaced fractures. IMPRESSION: No acute intrathoracic process suspected.
--- NOTE | 2023-05-03 23:03 | EDPHYS ---
Physician Documentation [facility] Name: Adela Watts Age: 67 yrs Sex: Female : 1955 Arrival Date: 05/03/2023 Time: 20:04 Bed 19 Private MD: MARVEL Physician Patricio Gaviria HPI: 05/03 22:53 This 67 yrs old Black Female presents to ER via Wheelchair with complaints of Pain All derick Over. 22:53 The patient or guardian complains of pain, that is chronic. The symptoms are located at derick the cervical spine and thoracic spine. Onset: The symptoms/episode began/occurred 1 year(s) ago. Context: The problem was sustained at an unknown location. The patient presents with pain that is chronic, with no known mechanism of injury. Associated signs and symptoms: The patient has no apparent associated signs or symptoms. Modifying factors: The patient symptoms are alleviated by remaining still, the patient symptoms are aggravated by lifting, movement. Historical: - Allergies: 21:34 No Known Allergies; cm10 - PMHx: 21:34 Anxiety; Chronic pain; Depression; Diabetes - NIDDM; Glaucoma; Hypothyroidism; cm10 - PSHx: 21:34 hysterectomy; Thyroidectomy; cm10 - Immunization history:: Adult Immunizations unknown. - Social history:: Smoking status: unknown. - Family history:: not pertinent. ROS: 22:53 Constitutional: Negative for fever, chills, and weight loss, Eyes: Negative for injury, derick pain, redness, and discharge, ENT: Negative for injury, pain, and discharge, Cardiovascular: Negative for chest pain, palpitations, and edema, Respiratory: Negative for shortness of breath, cough, wheezing, and pleuritic chest pain, Abdomen/GI: Negative for abdominal pain, nausea, vomiting, diarrhea, and constipation, : Negative for injury, bleeding, discharge, and swelling, MS/Extremity: Negative for injury and deformity, Skin: Negative for injury, rash, and discoloration, Neuro: Negative for headache, weakness, numbness, tingling, and seizure, Psych: Negative for depression, anxiety, suicide ideation, homicidal ideation, and hallucinations, Allergy/Immunology: Negative for hives, rash, and allergies, Endocrine: Negative for neck swelling, polydipsia, polyuria, polyphagia, and marked weight changes, Hematologic/Lymphatic: Negative for swollen nodes, abnormal bleeding, and unusual bruising. 22:53 Neck: Positive for pain with movement, pain at rest. 22:53 Back: Positive for decreased range of motion, pain at rest, pain with movement. Exam: 22:53 Constitutional: This is a well developed, well nourished patient who is awake, alert, derick and in no acute distress. Head/Face: Normocephalic, atraumatic. Eyes: Pupils equal round and reactive to light, extra-ocular motions intact. Lids and lashes normal. Conjunctiva and sclera are non-icteric and not injected. Cornea within normal limits. Periorbital areas with no swelling, redness, or edema. ENT: Nares patent. No nasal discharge, no septal abnormalities noted. Tympanic membranes are normal and external auditory canals are clear. Oropharynx with no redness, swelling, or masses, exudates, or evidence of obstruction, uvula midline. Mucous membranes moist. Chest/axilla: Normal chest wall appearance and motion. Nontender with no deformity. No lesions are appreciated. Cardiovascular: Regular rate and rhythm with a normal S1 and S2. No gallops, murmurs, or rubs. Normal PMI, no JVD. No pulse deficits. Respiratory: Lungs have equal breath sounds bilaterally, clear to auscultation and percussion. No rales, rhonchi or wheezes noted. No increased work of breathing, no retractions or nasal flaring. Abdomen/GI: Soft, non-tender, with normal bowel sounds. No distension or tympany. No guarding or rebound. No evidence of tenderness throughout. Back: No spinal tenderness. No costovertebral tenderness. Full range of motion. Female : Normal external genitalia. Skin: Warm, dry with normal turgor. Normal color with no rashes, no lesions, and no evidence of cellulitis. MS/ Extremity: Pulses equal, no cyanosis. Neurovascular intact. Full, normal range of motion. Neuro: Awake and alert, GCS 15, oriented to person, place, time, and situation. Cranial nerves II-XII grossly intact. Motor strength 5/5 in all extremities. Sensory grossly intact. Cerebellar exam normal. Normal gait. Psych: Awake, alert, with orientation to person, place and time. Behavior, mood, and affect are within normal limits. 22:53 Neck: External neck: no acute changes, C-spine: appears grossly normal, no acute changes, ROM/movement: pain, that is mild, limited range of motion, that is mild, Meningeal signs: are not present, Kernig's sign is negative, Brudzinski's sign is negative, nuchal rigidity, is not appreciated, Lymph nodes: no appreciated lymphadenopathy. 22:53 ECG was reviewed by the Attending Physician. Vital Signs: 21:33 BP 132 / 95; Pulse 82; Resp 16; Temp 97.1; Pulse Ox 99% ; Weight 88.9 kg; Height 5 ft. cm10 5 in. ; Pain 10/10; 23:28 BP 141 / 89; Pulse 79; Resp 18 S; Pulse Ox 99% on R/A; as6 21:33 Body Mass Index 32.62 (88.90 kg, 165.1 cm) cm10 21:33 Pain Scale: Adult cm10 MDM: 20:17 Patient medically screened. [facility] 22:58 Differential diagnosis: Cervical Spondylosis cervical strain, Degenerative Disc Disease derick Neck Contusion Osteoarthritis Whiplash Injury. Data reviewed: vital signs, nurses notes, EKG. Consideration of Admission/Observation Escalation of care including admission/observation considered. I considered the following discharge prescriptions or medication management in the emergency department Medications were administered in the Emergency Department. See MAR. Test considered but Not performed: Labs: no labs. Care significantly affected by the following chronic conditions: Diabetes, depression, chronic pain, glaucoma. 05/03 20:17 Order name: XRAY Chest (1 view) [facility] 05/03 20:17 Order name: EKG; Complete Time: 20:18 [facility] 05/03 20:17 Order name: Cardiac monitoring [facility] 05/03 20:17 Order name: EKG - Nurse/Tech; Complete Time: 23:27 [facility] 05/03 20:17 Order name: IV Saline Lock [facility] 05/03 20:17 Order name: Labs collected and sent [facility] 05/03 20:17 Order name: O2 Per Protocol [facility] EC:53 Rate is 83 beats/min. Rhythm is regular. QRS [place] is Normal. CO interval is normal. QRS derick interval is normal. QT interval is normal. No Q waves. T waves are Normal. No ST changes noted. Clinical impression: NSR w/ Non-specific ST/T Changes and No evidence of ischemia. Interpreted by me. Reviewed by me. Administered Medications: 22:58 Not Given (Other Intervention Used): NS 0.9% IV 500 ml IV at bolus once as6 22:58 Not Given (Other Intervention Used): NS 0.9% IV 1000 ml IV at 125 ml/hr continuous as6 23:13 Drug: HYDROmorphone IM 2 mg Route: IM; Site: right ventrogluteal; as6 23:27 Follow up: Response: No adverse reaction as6 23:13 Drug: Promethazine IM 25 mg Route: IM; Site: right ventrogluteal; as6 23:27 Follow up: Response: No adverse reaction as6 23:13 Drug: Diazepam PO 10 mg Route: PO; as6 23:27 Follow up: Response: No adverse reaction as6 23:13 Drug: Dexamethasone IM 10 mg Route: IM; Site: left ventrogluteal; as6 23:27 Follow up: Response: No adverse reaction as6 Disposition Summary: 05/03/23 23:03 Discharge Ordered Location: Home derick Problem: new derick Symptoms: have improved derick Condition: Stable derick Diagnosis - Chronic pain, not elsewhere classified derick - Strain of muscle, fascia and tendon at neck level, subsequent encounter derick - Strain of muscle and tendon of back wall of thorax derick - Strain of muscle and tendon of front wall of thorax derick Followup: derick - With: Private Physician - When: 2 - 3 days - Reason: Recheck today's complaints, Continuance of care, Re-evaluation by your physician Followup: derick - With: Mian Jose MD - When: 2 - 3 days - Reason: Recheck today's complaints, Re-evaluation by your physician Followup: derick - With: Yuan Parmar DO - When: 2 - 3 days - Reason: Recheck today's complaints, Continuance of care, Re-evaluation by your physician Discharge Instructions: - Discharge Summary Sheet derick - Chronic Pain, Adult derick - Musculoskeletal Pain derick Forms: - Medication Reconciliation Form derick - Thank You Letter [facility] - Antibiotic Education derick - Prescription Opioid Use derick - Patient Portal Instructions [facility] - Leadership Thank You Letter [facility] Prescriptions: - acetaminophen-codeine 300-30 mg Oral tablet - take 2 tablet by ORAL route every 6 hours; 20 tablet; Refills: 0, Product [facility] Selection Permitted - dexamethasone 2 mg Oral tablet - take 1 tablet by ORAL route every 12 hours; 8 tablet; Refills: 0, Product [facility] Selection Permitted - diclofenac sodium 50 mg Oral tablet, delayed release (enteric coated) - take 1 tablet by ORAL route every 8 hours; 20 tablet; Refills: 0, Product [facility] Selection Permitted - Valium 2 mg Oral Tablet - take 1 tablet by ORAL route every 6 hours As needed; 20 tablet; Refills: 0, [facility] Product Selection Permitted Signatures: Dispatcher [employer] Patricio Carr MD MD cha Slawson, Ashby, RN RN as6 Stacey Combs RN RN cm10 Corrections: (The following items were deleted from the chart) 23:27 20:17 O2 Sat Monitoring ordered. derick as6
--- NOTE | 2023-05-03 23:03 | ER ---
Nurse's Notes [facility] Name: Adela Watts Age: 67 yrs Sex: Female : 1955 Arrival Date: 05/03/2023 Time: 20:04 Bed 19 Private MD: Diagnosis: Chronic pain, not elsewhere classified;Strain of muscle, fascia and tendon at neck level, subsequent encounter;Strain of muscle and tendon of back wall of thorax;Strain of muscle and tendon of front wall of thorax Presentation: 05/03 21:33 Chief complaint: Patient states: RIGHT SIDED NECK PAIN THAT RADIATES DOWN RIGHT SIDE OF cm10 BODY ONSET THIS MORNING. PT STATES THAT THE PAIN HAS BEEN GETTING WORSE THROUGH OUT THE DAY. Coronavirus screen: Vaccine status: Patient reports receiving the 2nd dose of the covid vaccine. Client denies travel out of the [place] in the last 14 days. Ebola Screen: Patient denies travel to an Ebola-affected area in the 21 days before illness onset. No symptoms or risks identified at this time. Initial Sepsis Screen: Does the patient meet any 2 criteria? No. Patient's initial sepsis screen is negative. Does the patient have a suspected source of infection? No. Patient's initial sepsis screen is negative. Risk Assessment: Do you want to hurt yourself or someone else? Patient reports no desire to harm self or others. Onset of symptoms was May 03, 2023. 21:33 Method Of Arrival: Wheelchair cm10 21:33 Acuity: SHADY 3 cm10 Historical: - Allergies: 21:34 No Known Allergies; cm10 - PMHx: 21:34 Anxiety; Chronic pain; Depression; Diabetes - NIDDM; Glaucoma; Hypothyroidism; cm10 - PSHx: 21:34 hysterectomy; Thyroidectomy; cm10 - Immunization history:: Adult Immunizations unknown. - Social history:: Smoking status: unknown. - Family history:: not pertinent. Screenin:27 [facility] ED Fall Risk Assessment (Adult) Impaired Gait Yes (1 pt) Score/Fall Risk Level as6 0 - 2 = Low Risk. Abuse screen: Denies threats or abuse. Denies injuries from another. Nutritional screening: No deficits noted. Tuberculosis screening: No symptoms or risk factors identified. Assessment: 23:29 General: Appears uncomfortable, Behavior is calm, cooperative. Pain: Complains of pain as6 in thoracic spine and cervical spine. Respiratory: Respiratory effort is even, unlabored, Respiratory pattern is regular, symmetrical. Vital Signs: 21:33 BP 132 / 95; Pulse 82; Resp 16; Temp 97.1; Pulse Ox 99% ; Weight 88.9 kg; Height 5 ft. cm10 5 in. ; Pain 10/10; 23:28 BP 141 / 89; Pulse 79; Resp 18 S; Pulse Ox 99% on R/A; as6 21:33 Body Mass Index 32.62 (88.90 kg, 165.1 cm) cm10 21:33 Pain Scale: Adult cm10 ED Course: 20:09 Patient arrived in ED. kj1 20:16 Patricio Gaviria MD is Attending Physician. derick 20:58 XRAY Chest (1 view) In Process Unspecified. EDMS 21:34 Triage completed. cm10 21:35 Arm band placed on Patient placed in an exam room, on a stretcher. cm10 21:48 Wan Cote, MILE is Primary Nurse. bp 23:01 Mian Jsoe MD is Referral Physician. derick 23:01 Yuan Parmar DO is Referral Physician. derick 23:28 Bed in low position. Call light in reach. Provided Education on: follow up. as6 23:28 No provider procedures requiring assistance completed. Patient did not have IV access as6 during this emergency room visit. Administered Medications: 22:58 Not Given (Other Intervention Used): NS 0.9% IV 500 ml IV at bolus once as6 22:58 Not Given (Other Intervention Used): NS 0.9% IV 1000 ml IV at 125 ml/hr continuous as6 23:13 Drug: HYDROmorphone IM 2 mg Route: IM; Site: right ventrogluteal; as6 23:27 Follow up: Response: No adverse reaction as6 23:13 Drug: Promethazine IM 25 mg Route: IM; Site: right ventrogluteal; as6 23:27 Follow up: Response: No adverse reaction as6 23:13 Drug: Diazepam PO 10 mg Route: PO; as6 23:27 Follow up: Response: No adverse reaction as6 23:13 Drug: Dexamethasone IM 10 mg Route: IM; Site: left ventrogluteal; as6 23:27 Follow up: Response: No adverse reaction as6 Medication: 23:29 VIS not applicable for this client. as6 Outcome: 23:03 Discharge ordered by . derick 23:29 Discharged to home via wheelchair, with family. as6 23:29 Condition: stable 23:29 Discharge instructions given to patient, Instructed on discharge instructions, follow up and referral plans. medication usage, Demonstrated understanding of instructions, follow-up care, medications, Prescriptions given X 4. 23:30 Patient left the ED. as6 Signatures: Dispatcher [employer] EDDC Patricio Gaviria MD MD cha Peltier, Brian, RN RN Zuleika Domingo kj1 Kemal Dillard RN RN as6 Stacey Combs RN RN cm10
[2023-05-03] MEDS ORDERED: PROMETHAZINE INJ 25 MG/ML AMP ONE (23:14)
[2023-05-03] MEDS ORDERED: DIAZEPAM 5 MG TABLET ONE (23:15)
[2023-05-03] MEDS ORDERED: HYDROMORPHONE HCL 2 MG/ML inj ONE (23:15)
[2023-05-03] MEDS ORDERED: dexAMETHasone 10 MG/ML VIAL ONE (23:16)
[2023-05-04 01:30] VITALS: TEMP 97.1; O2SAT 99
[2023-05-04 01:32] VITALS: BP 141/89
--- NOTE | 2023-05-04 16:28 | EKG ---
Test Date: 2023-05-03 Test Time: 22:14:43 Driver Salesman: JOSE MEASUREMENT RESULTS: Intervals: Rate: 83 [place]: 150 QRSD: 78 QT: 402 QTc: 472 [place]: P: 66 [place]: 150 QRS: -29 T: 72 INTERPRETIVE STATEMENTS: Normal sinus rhythm Cannot rule out Anterior infarct, age undetermined Abnormal ECG Compared to ECG 04/29/2023 19:35:26 Myocardial infarct finding now present ST (T wave) deviation no longer present Electronically Signed On 05-04-23 16:25:48 CDT by Isaías Dixon
== END 2023-05-03 23:30 | disposition home or self-care (01) ==
LOC: ER 20:04
DX: G89.29 Other chronic pain (principal); S16.1XXA Strain of muscle, fascia and tendon at neck level, initial encounter; S29.012A Strain of muscle and tendon of back wall of thorax, initial encounter; S29.011A Strain of muscle and tendon of front wall of thorax, initial encounter
CPT/HCPCS: 93005; 71045; 96372; 99284; J2550; J1170; J1100

== ENCOUNTER 2024-02-01 15:20 | Emergency (ER) | payer OTHER ==
[2024-02-01] MEDS ORDERED: MORPHINE 4 MG/ML SYR ONE ×2 (16:13→18:58)
[2024-02-01] MEDS ORDERED: KETOROLAC 30 MG/ML INJ ONE (18:09)
[2024-02-01] MEDS ORDERED: ONDANSETRON 4 MG/2 ML VIAL ONE (18:09)
[2024-02-01 18:15] LABS: Absolute Eosinophils 0.1 K/uL (0-0.5); Absolute Lymphocytes (CBC) 1.3 K/uL (0.7-4.9); Absolute Monocytes 0.4 K/uL (0.1-1.3); Absolute Neutrophil 2.8 K/uL (1.8-8.0); Basophils % 0.4 % (0-1.3); Eosinophils % 2.3 % (0-4.4); Hematocrit 37.1 % (36.0-45.0); Hemoglobin 11.9 g/dL (12.0-15.0); Lymphocytes % 28.1 % (15.3-44.8); MCH 26.7 pg (27.0-35.0); MCHC 32.1 g/dL (32.0-36.0); MCV 83.3 fL (80-100); MPV 6.9 fL (7.6-11.3); Monocytes % 9.1 % (3.3-12.3); Neutrophils % 60.1 % (41.7-73.7); Nucleated Red Blood Cells % 0.1 % (0-0); Platelets 271 thou/uL (152-406); RBC Red Blood Cell Count 4.46 M/uL (3.86-4.86); Red Cell Distribution Width 16.6 % (12.1-15.2)
[2024-02-01] MEDS ORDERED: FAMOTIDINE 20 MG/2 ML VIAL IV ONE (18:18)
[2024-02-01 18:38] LABS: Albumin 3.1 g/dL (3.4-5.0); Albumin/Globulin Ratio 0.8 (1.1-1.8); Anion Gap 7.1 mEq/L (5.0-15.0); Bilirubin Total 0.7 mg/dL (0.2-1.0); Globulin 3.9 g/dL (2.3-3.5); Potassium 3.1 mEq/L (3.5-5.1); Troponin High Sensitivity 10.7 pg/mL (<58.9)
[2024-02-01 19:44] LABS: Specific Gravity > 1.030 (1.005-1.030); Sqamous Epithelial <5 /HPF (None Seen); Urine Bacteria <20 /HPF (<20); Urine Bilirubin NEGATIVE (Negative); Urine Blood Negative (Negative); Urine Clarity Clear (Clear); Urine Color Yellow (Yellow); Urine Culture Reflex Order NOT NEEDED; Urine Glucose NEGATIVE (Negative); Urine Ketones NEGATIVE (Negative); Urine Micro Reflex YN NO BILL MICROSCOPIC; Urine Mucus Slight /HPF (None Seen); Urine Nitrite NEGATIVE (Negative); Urine Protein TRACE (Negative); Urine RBC <5 /HPF (None Seen); Urine Urobilinogen 1+ (Normal); Urine WBC <5 /HPF (<5)
--- NOTE | 2024-02-01 19:55 | RAD REPORT ---
EXAM DESCRIPTION: CT - Abdomen Pelvis W Contrast - 02/01/2024 7:14 pm CLINICAL HISTORY: Abdominal pain COMPARISON: 2018 TECHNIQUE: Computed axial tomography of the abdomen pelvis was obtained. 100 cc Isovue-300 was admin istered intravenously. Oral contrast was not requested which limits evaluation of bowel and appendix All CT scans are performed using dose optimization technique as appropriate and may include automated exposure control or mA/KV adjustment according to patient size. FINDINGS: 2 centimeter lingular opacity has enlarged. Pancreatic duct is dilated. . The pancreas appears normal in size Cholecystectomy. Mild dilatation of biliary tree. Spleen and adrenals are unremarkable. Small renal cysts. Small renal calculi. No hydronephrosis. Hysterectomy. No adnexal mass. No evidence of diverticulitis. Moderate amount stool throughout the colon. Normal appendix Postsurgical changes involve the stomach IMPRESSION: 2 centimeter lingular opacity has enlarged. This may represent neoplasm. PET CT scan rec ommended Dilatation of pancreatic and common bile ducts. This may be secondary to prior inflammation. Small n eoplasm can also result in this appearance. ERCP recommended
--- NOTE | 2024-02-01 19:57 | RAD REPORT ---
EXAM DESCRIPTION: RAD - Hip Left 2 View - 02/01/2024 5:05 pm CLINICAL HISTORY: Left hip pain FINDINGS: No fracture or dislocation is seen. Mild osteoarthritis left hip mainly consisting joint space narrowing subchondral sclerosis. The bones are osteoporotic
--- NOTE | 2024-02-01 19:57 | RAD REPORT ---
EXAM DESCRIPTION: RAD - Pelvis - 02/01/2024 5:05 pm CLINICAL HISTORY: Pelvic pain FINDINGS: No fracture or dislocation is seen. Mild osteoarthritis involves the hips mainly consisting joint space narrowing and subchondral scleros is. Bones are osteoporotic
--- NOTE | 2024-02-01 20:33 | ER ---
Nurse's Notes [facility] Name: Adela Watts Age: 68 yrs Sex: Female : 1955 Arrival Date: 02/01/2024 Time: 15:20 Bed 9 Private MD: Diagnosis: Pain in left hip;Dilation of Pancreatic and biliary Ducts;Abnormal results of liver function studies Presentation: 01/31 15:39 Chief complaint: Patient states: she has been having left hip pain that radiates into ap3 her left leg for approx one week. Coronavirus screen: At this time, the client does not indicate any symptoms associated with coronavirus-19. Ebola Screen: No symptoms or risks identified at this time. Initial Sepsis Screen: Does the patient meet any 2 criteria? No. Patient's initial sepsis screen is negative. Does the patient have a suspected source of infection? No. Patient's initial sepsis screen is negative. Risk Assessment: Do you want to hurt yourself or someone else? Patient reports no desire to harm self or others. Onset of symptoms was January 25, 2024. 15:39 Method Of Arrival: Ambulatory ap3 15:39 Acuity: SHADY 4 ap3 18:19 Acuity: SHADY 3 iw Triage Assessment: 15:40 General: Appears uncomfortable, Behavior is calm, cooperative, appropriate for age. ap3 Pain: Complains of pain in left hip Pain radiates to left leg Pain began gradually, for the last week. Neuro: Level of Consciousness is awake, alert, obeys commands, Oriented to person, place, time, situation, Speech is normal. Cardiovascular: Patient's skin is warm and dry. Respiratory: Airway is patent Respiratory effort is even, unlabored, Respiratory pattern is regular, symmetrical. Historical: - Allergies: 15:39 No Known Allergies; ap3 - PMHx: 15:39 Anxiety; Chronic pain; Depression; Diabetes - NIDDM; Glaucoma; Hypothyroidism; ap3 - Immunization history:: Client reports receiving the 2nd dose of the Covid vaccine. - Infectious Disease History:: Denies. - Social history:: Smoking status: Patient denies any tobacco usage or history of. Screenin:40 Abuse screen: Denies threats or abuse. Nutritional screening: No deficits noted. ap3 Tuberculosis screening: No symptoms or risk factors identified. 19:05 [facility] ED Fall Risk Assessment (Adult) History of falling in the last 3 months, iw including since admission No falls in past 3 months (0 pts) Confusion or Disorientation No (0 pts) Intoxicated or Sedated No (0 pts) Impaired Gait No (0 pts) Mobility Assist Device Used No (0 pt) Altered Elimination No (0 pt) Score/Fall Risk Level 0 - 2 = Low Risk. Assessment: 16:30 General: Appears uncomfortable, Behavior is calm, cooperative. Pain: Complains of pain iw in left hip Pain radiates to left leg and pelvis Pain currently is 9 out of 10 on a pain scale. Neuro: Level of Consciousness is awake, alert, obeys commands, Oriented to person, place, time, situation, Moves all extremities. Cardiovascular: Patient's skin is warm and dry. Respiratory: Respiratory effort is even, unlabored, Respiratory pattern is regular, symmetrical. Derm: Skin is intact, is healthy with good turgor. Musculoskeletal: Range of motion: limited in left hip. 19:04 Reassessment: Patient appears in no apparent distress at this time. Patient and/or iw family updated on plan of care and expected duration. Pain level reassessed. pt medicated for pain 05/16. 19:32 Reassessment: Patient appears in no apparent distress at this time. Patient and/or nj1 family updated on plan of care and expected duration. Pain level reassessed. Patient is alert, oriented x 3, equal unlabored respirations, skin warm/dry/pink. 21:24 Reassessment: Patient appears in no apparent distress at this time. Patient is alert, nj1 oriented x 3, equal unlabored respirations, skin warm/dry/pink. 21:24 Reassessment: Patient appears in no apparent distress at this time. Pt outside of room, nj1 by nurses station, wants to be discharged. Vital Signs: 15:41 BP 133 / 100; Pulse 74; Resp 17; Temp 98; Pulse Ox 100% ; Weight 83.91 kg; Height 5 ft. ap3 5 in. ; Pain 9/10; 18:30 BP 133 / 87; Pulse 74; Resp 16; Pulse Ox 97% on R/A; Pain 9/10; iw 19:32 BP 122 / 70; Pulse 69; Resp 16; Pulse Ox 94% on R/A; Pain 8/10; nj1 15:41 Body Mass Index 30.79 (83.91 kg, 165.1 cm) ap3 15:41 Pain Scale: Adult ap3 18:30 Pain Scale: Adult iw 19:32 Pain Scale: Adult nj1 ED Course: 15:24 Patient arrived in ED. mg5 15:24 Patricio Berry PA is PHCP. cp 15:24 Korey Thomas MD is Attending Physician. cp 15:39 Triage completed. ap3 15:41 Arm band placed on right wrist. ap3 16:04 Patient placed in an exam room, on a stretcher. iw 16:05 Warm blanket given. iw 16:10 Jie Zelaya, RN is Primary Nurse. iw 16:30 No provider procedures requiring assistance completed. iw 17:07 XRAY Hip LEFT 2 view In Process Unspecified. EDMS 17:07 XRAY Pelvis In Process Unspecified. EDMS 18:06 Initial lab(s) drawn, by me, sent to lab. Inserted saline lock: 22 gauge in right iw antecubital area, using aseptic technique. Blood collected. 19:16 CT Abd/Pelvis - IV Contrast Only In Process Unspecified. EDMS 19:32 Patient has correct armband on for positive identification. Bed in low position. Call nj1 light in reach. Provided Education on: call light, fall precautions. 20:31 Toya Gore MD is Referral Physician. cp 21:25 IV discontinued, intact, bleeding controlled, Pressure dressing applied. nj1 Administered Medications: 16:29 Drug: morphine IM 4 mg IM once Route: IM; Site: Ventrogluteal RIGHT; iw 18:00 Follow up: Response: No adverse reaction; Temperature is unchanged iw 17:10 CANCELLED (Physician Discretion): dexamethasone 10 mg IM once cp 18:17 Drug: TORadol - Ketorolac IVP 15 mg IVP once Route: IVP; Site: right antecubital; iw 19:00 Follow up: Response: No adverse reaction iw 18:17 Drug: Ondansetron IVP 4 mg IVP once; over 2 minutes Route: IVP; Site: right antecubital;iw 19:00 Follow up: Response: No adverse reaction iw 18:33 Drug: Famotidine IVP 20 mg IVP once; dilute with 10 mL 0.9% NaCl; give over 2 minutes iw Route: IVP; Site: right antecubital; 19:00 Follow up: Response: No adverse reaction iw 19:02 Drug: morphine IVP or IV 4 mg IVP once over 4 mins Route: IVP; Infused Over: 4 mins; iw Site: right antecubital; 19:32 Follow up: Response: No adverse reaction; Pain is decreased nj1 21:21 Drug: Methocarbamol PO 750 mg PO once Route: PO; nj1 Medication: 16:30 VIS not applicable for this client. iw Outcome: 20:32 Discharge ordered by . jazmin 21:25 Discharged to home ambulatory, nj1 21:25 Condition: stable 21:25 Discharge instructions given to patient, Instructed on discharge instructions, follow up and referral plans. medication usage, Demonstrated understanding of instructions, follow-up care, medications, Prescriptions given X 2, 21:30 Patient left the ED. nj1 Signatures: Dispatcher [employer] EDJie Perez, RN RN iw Patricio Berry PA PA cp Prokisch, Amanda, RN RN ap3 Pavithra Yung RN RN nj1 Elisa Shea mg5
--- NOTE | 2024-02-01 20:33 | EDPHYS ---
Physician Documentation [facility] Name: Adela Watts Age: 68 yrs Sex: Female : 1955 Arrival Date: 02/01/2024 Time: 15:20 Bed 9 Private MD: ED Physician Korey Thomas HPI: 01/31 16:00 This 68 yrs old Black Female presents to ER via Ambulatory with complaints of Hip Pain. cp 16:00 The patient or guardian reports pain. sustained from unknown reason, There is no cp obvious deformity, The patient is able to self ambulate. Patient is not able to bear weight. There is no radiation of the patient's discomfort. 16:00 The complaints affect the left hip. Onset: The symptoms/episode began/occurred 1 cp week(s) ago, and became worse today. Modifying factors: the symptoms are aggravated by any movement. Associated signs and symptoms: Pertinent negatives: chest pain, dysuria, fever, headache, incontinence, weakness. Severity of symptoms: in the emergency department the symptoms are unchanged. Historical: - Allergies: 15:39 No Known Allergies; ap3 - PMHx: 15:39 Anxiety; Chronic pain; Depression; Diabetes - NIDDM; Glaucoma; Hypothyroidism; ap3 - Immunization history:: Client reports receiving the 2nd dose of the Covid vaccine. - Infectious Disease History:: Denies. - Social history:: Smoking status: Patient denies any tobacco usage or history of. ROS: 16:05 Constitutional: Negative for body aches, chills, fever, poor PO intake, cp 16:05 Eyes: Negative for injury, pain, redness, and discharge, cp 16:05 Neck: Negative for pain with movement, pain at rest, stiffness, 16:05 Cardiovascular: Negative for chest pain, edema, palpitations, 16:05 Respiratory: Negative for cough, shortness of breath, wheezing, 16:05 Abdomen/GI: Negative for vomiting, diarrhea, constipation, 16:05 Back: Negative for injury or acute deformity, decreased range of motion, pain at rest, pain with movement, 16:05 : Negative for urinary symptoms, 16:05 MS/extremity: Positive for pain, tenderness, of the left hip, Negative for injury or acute deformity, decreased range of motion, paresthesias, 16:05 All other systems are negative, Exam: 16:10 Constitutional: The patient appears in no acute distress, alert, awake, cp non-diaphoretic, non-toxic, well developed, well nourished, uncomfortable, 16:10 Head/Face: Normocephalic, atraumatic. cp 16:10 Eyes: Periorbital structures: appear normal, Conjunctiva: normal, no exudate, no injection, Sclera: no appreciated abnormality, Lids and lashes: appear normal, bilaterally, 16:10 ENT: External ear(s): are unremarkable, Nose: is normal, Mouth: Lips: moist, Oral mucosa: pink and intact, moist, Posterior pharynx: Airway: no evidence of obstruction, patent, 16:10 Chest/axilla: Inspection: normal, 16:10 Cardiovascular: Rate: normal, Rhythm: regular, Edema: is not appreciated, JVD: is not appreciated, 16:10 Respiratory: the patient does not display signs of respiratory distress, Respirations: normal, no use of accessory muscles, no retractions, labored breathing, is not present, Breath sounds: are clear throughout, no decreased breath sounds, no stridor, no wheezing, 16:10 Abdomen/GI: Inspection: abdomen appears normal, Palpation: soft, in all quadrants, mild abdominal tenderness, in the anterior aspect of left lateral abdomen and left lower quadrant, rebound tenderness, is not appreciated, 16:10 Back: pain, is absent, ROM is normal, 16:10 Musculoskeletal/extremity: Extremities: grossly normal except: noted in the lateral side of left hip: pain, tenderness, There is no evidence of decreased ROM, deformity, swelling, ROM: limited passive range of motion due to pain, in the left hip, Perfusion: the extremity is normally perfused throughout, the left hip Severe pain noted. 16:10 Skin: cellulitis, is not appreciated, no rash present. 16:10 Neuro: Orientation: to person, place \T\ time. Mentation: is normal, Cerebellar function: is grossly normal, Motor: moves all fours, strength is normal, Sensation: is normal, 18:17 ECG was reviewed by the Attending Physician. cp Vital Signs: 15:41 BP 133 / 100; Pulse 74; Resp 17; Temp 98; Pulse Ox 100% ; Weight 83.91 kg; Height 5 ft. ap3 5 in. ; Pain 9/10; 18:30 BP 133 / 87; Pulse 74; Resp 16; Pulse Ox 97% on R/A; Pain 9/10; iw 19:32 BP 122 / 70; Pulse 69; Resp 16; Pulse Ox 94% on R/A; Pain 8/10; nj1 15:41 Body Mass Index 30.79 (83.91 kg, 165.1 cm) ap3 15:41 Pain Scale: Adult ap3 18:30 Pain Scale: Adult iw 19:32 Pain Scale: Adult nj1 MDM: 15:53 Patient medically screened. cp 20:15 Data reviewed: vital signs, nurses notes, lab test result(s), radiologic studies, CT cp scan, plain films. 20:15 Differential diagnosis: hip fracture, intertrochanteric fracture, femoral neck cp fracture, femoral shaft fracture, bursitis. Consideration of Admission/Observation Escalation of care including admission/observation considered. patient refused transfer at this time for GI/hepatology consultation due to issues at home and understands risk of symptoms worsening, , sepsis. I considered the following discharge prescriptions or medication management in the emergency department Medications were administered in the Emergency Department. See MAR. Counseling: I had a detailed discussion with the patient and/or guardian regarding the historical points, exam findings, and any diagnostic results supporting the discharge/admit diagnosis, lab results, radiology results. Response to treatment: the patient's symptoms have markedly improved after treatment, and as a result, I will discharge patient. 01/31 15:42 Order name: Urinalysis W/Microscopic; Complete Time: 20:00 cp 01/31 20:00 Interpretation: Normal except: Urine SG > 1.030; UPROT TRACE; UUROB 1+. 01/31 17:14 Order name: CBC with Diff; Complete Time: 18:48 cp 01/31 18:48 Interpretation: Normal except: HGB 11.9; MCH 26.7; RDW 16.6; MPV 6.9. cp 01/31 17:14 Order name: CMP; Complete Time: 18:48 cp 01/31 18:48 Interpretation: Normal except: K 3.1; CL 109; AST 391; ALT 158; ALK 196; ALB 3.1; GLOB cp 3.9; A/G 0.8. 01/31 17:14 Order name: Lipase; Complete Time: 18:48 cp 01/31 18:49 Interpretation: Abnormal: LIP 98. cp 01/31 17:14 Order name: Troponin High Sensitivity; Complete Time: 18:48 01/31 18:49 Interpretation: Troponin HS 10.7; Reviewed. 01/31 15:42 Order name: XRAY Hip LEFT 2 view; Complete Time: 20:00 01/31 20:01 Interpretation: Report reviewed. 01/31 15:42 Order name: XRAY Pelvis; Complete Time: 20:00 01/31 20:00 Interpretation: Report reviewed. 01/31 17:14 Order name: CT Abd/Pelvis - IV Contrast Only; Complete Time: 20:00 01/31 17:14 Order name: IV Saline Lock; Complete Time: 18:06 01/31 17:14 Order name: Labs collected and sent; Complete Time: 18:06 01/31 17:14 Order name: EKG - Nurse/Tech; Complete Time: 18:16 cp EC:17 Rate is 70 beats/min. Rhythm is regular. GA interval is normal. QRS interval is normal. cp QT interval is normal. T waves are Inverted in lead aVR. Interpreted by me. Reviewed by me. Administered Medications: 16:29 Drug: morphine IM 4 mg IM once Route: IM; Site: Ventrogluteal RIGHT; iw 18:00 Follow up: Response: No adverse reaction; Temperature is unchanged iw 17:10 CANCELLED (Physician Discretion): dexamethasone 10 mg IM once cp 18:17 Drug: TORadol - Ketorolac IVP 15 mg IVP once Route: IVP; Site: right antecubital; iw 19:00 Follow up: Response: No adverse reaction iw 18:17 Drug: Ondansetron IVP 4 mg IVP once; over 2 minutes Route: IVP; Site: right antecubital;iw 19:00 Follow up: Response: No adverse reaction iw 18:33 Drug: Famotidine IVP 20 mg IVP once; dilute with 10 mL 0.9% NaCl; give over 2 minutes iw Route: IVP; Site: right antecubital; 19:00 Follow up: Response: No adverse reaction iw 19:02 Drug: morphine IVP or IV 4 mg IVP once over 4 mins Route: IVP; Infused Over: 4 mins; iw Site: right antecubital; 19:32 Follow up: Response: No adverse reaction; Pain is decreased nj1 21:21 Drug: Methocarbamol PO 750 mg PO once Route: PO; nj1 Disposition: 02/01 07:06 Co-signature as Attending Physician, Korey Thomas MD I reviewed the patient's care rn provided by the Advanced Practice Provider and agree with the diagnosis and treatment plan. Disposition Summary: 02/01/24 20:32 Discharge Ordered Notes: Location: Home cp Problem: new cp Symptoms: have improved cp Condition: Stable cp Diagnosis - Pain in left hip cp - Dilation of Pancreatic and biliary Ducts cp - Abnormal results of liver function studies cp Followup: cp - With: Toya Gore MD - When: 1 - 2 days - Reason: abnormal liver enzymes and dilation pancreatic and biliary ducts Followup: cp - With: Private Physician - When: 2 - 3 days - Reason: left hip pain Discharge Instructions: - Discharge Summary Sheet cp - Hip Pain cp - Liver Function Tests cp Forms: - Medication Reconciliation Form cp - Antibiotic Education cp - Prescription Opioid Use cp - Patient Portal Instructions cp - Leadership Thank You Letter cp Prescriptions: - Mobic 7.5 mg Oral Tablet - take 1 tablet ORAL route once daily take with food; 20 tablet; Refills: 0, cp Product Selection Permitted - methocarbamol 750 mg Oral tablet - take 1 tablet ORAL route 4 times per day; 30 tablet; Refills: 0, Product cp Selection Permitted Signatures: Dispatcher [employer] EDJie Perez RN RN iw Nieto, Roman, MD MD rn Page, Corey, PA PA cp Carolyn Scherer RN RN ap3 Pavithra Yung RN RN nj1 Corrections: (The following items were deleted from the chart) 01/31 15:42 15:42 Urinalysis W/Microscopic+U.LAB.BRZ ordered. EDWV EDMS 15:42 15:42 Hip Left 2 View+RAD.RAD.BRZ ordered. EDMS EDMS 15:42 15:42 Pelvis+RAD.RAD.BRZ ordered. EDWV EDMS 17:10 17:09 Dexamethasone IM 10 mg IM once ordered. cp cp 17:15 17:15 Abdomen Pelvis W Con+CT.RAD.BRZ ordered. EDWV EDWV 02/01 20:13 01/31 16:00 sustained from unknown reason, The patient is able to self ambulate. The cp patient is able to bear their full body weight. cp
[2024-02-01] MEDS ORDERED: methocarbamoL 750 MG TAB ONE (21:16)
[2024-02-01 21:54] VITALS: BP 122/70; TEMP 98; O2SAT 94
--- NOTE | 2024-02-04 17:02 | EKG ---
Test Date: 2024-02-01 Test Time: 18:12:58 Fondant Cooker: SAMARA MEASUREMENT RESULTS: Intervals: Rate: 70 TX: 140 QRSD: 86 QT: 436 QTc: 470 Strong: P: 58 TX: 140 QRS: 2 T: 61 INTERPRETIVE STATEMENTS: Normal sinus rhythm Low voltage QRS Borderline ECG Compared to ECG 05/03/2023 22:14:43 Low QRS voltage now present Myocardial infarct finding no longer present Electronically Signed On 02-04-24 16:51:57 CDT by Isaías Dixon
== END 2024-02-01 21:30 | disposition home or self-care (01) ==
LOC: ER 15:20
DX: M25.552 Pain in left hip (principal); R94.5 Abnormal results of liver function studies; K83.8 Other specified diseases of biliary tract
CPT/HCPCS: 93005; 85025; 81001; 36415; 84484; 83690; 80053; 74177; 72170; 73502; 96375; 96372; 96374; 99284; Q9967; J2405

== ENCOUNTER 2024-02-02 07:12 | Emergency (ER) | payer OTHER ==
[2024-02-02] MEDS ORDERED: ONDANSETRON 4 MG/2 ML VIAL ONE (07:24)
[2024-02-02 07:54] LABS: Absolute Lymphocytes (CBC) 0.3 K/uL (0.7-4.9); Absolute Monocytes 0.5 K/uL (0.1-1.3); Basophils % 0.3 % (0-1.3); Eosinophils % 0.6 % (0-4.4); Hematocrit 37.2 % (36.0-45.0); Hemoglobin 11.9 g/dL (12.0-15.0); Lymphocytes % 4.1 % (15.3-44.8); MCH 27.1 pg (27.0-35.0); MCHC 32.1 g/dL (32.0-36.0); MCV 84.4 fL (80-100); MPV 7.2 fL (7.6-11.3); Monocytes % 7.3 % (3.3-12.3); Neutrophils % 87.7 % (41.7-73.7); Nucleated Red Blood Cells % 0.1 % (0-0); Platelets 255 thou/uL (152-406); RBC Red Blood Cell Count 4.41 M/uL (3.86-4.86); Red Cell Distribution Width 16.5 % (12.1-15.2)
[2024-02-02 08:07] LABS: Albumin 3.1 g/dL (3.4-5.0); Albumin/Globulin Ratio 0.8 (1.1-1.8); Anion Gap 5.1 mEq/L (5.0-15.0); Bilirubin Total 0.6 mg/dL (0.2-1.0); Globulin 3.8 g/dL (2.3-3.5); Potassium 3.1 mEq/L (3.5-5.1); Protein, Total 6.9 g/dL (6.4-8.2)
[2024-02-02] MEDS ORDERED: HYDROCODONE/APAP 5/325 MG TAB ONE (08:52)
--- NOTE | 2024-02-02 09:00 | ER ---
Nurse's Notes [facility] Name: Adela Watts Age: 68 yrs Sex: Female : 1955 Arrival Date: 02/02/2024 Time: 07:12 Bed 6 Private MD: Diagnosis: Disorders of gallbladder, biliary tract and pancreas in diseases classified elsewhere;Abnormal results of liver function studies Presentation: 02/01 07:20 Risk Assessment: Do you want to hurt yourself or someone else? Patient reports no mb9 desire to harm self or others. 07:27 Chief complaint: Patient states: LLQ pain and epigastric pain and nausea, was seen here iw yesterday and was supposed to be transferred but had to go home. Coronavirus screen: At this time, the client does not indicate any symptoms associated with coronavirus-19. Ebola Screen: Patient negative for fever greater than or equal to 101.5 degrees Fahrenheit, and additional compatible Ebola Virus Disease symptoms Patient denies exposure to infectious person. Patient denies travel to an Ebola-affected area in the 21 days before illness onset. No symptoms or risks identified at this time. Initial Sepsis Screen: Does the patient meet any 2 criteria? No. Patient's initial sepsis screen is negative. Does the patient have a suspected source of infection? No. Patient's initial sepsis screen is negative. 07:27 Method Of Arrival: Wheelchair iw 07:27 Acuity: SHADY 3 iw Historical: - Allergies: 07:30 No Known Allergies; iw - Home Meds: 07:19 levothyroxine 88 mcg tab 1 tab once daily [Active]; Wellbutrin XL 300 mg Oral Tb24 1 mb9 tab once daily [Active]; 07:30 Travatan Z 0.004 % ophthalmic drop 1 drop once daily [Active]; atorvastatin 10 mg oral iw tablet daily [Active]; fluoxetine 40 mg Oral capsule daily [Active]; hydrochlorothiazide 12.5 mg Oral tablet daily [Active]; lamotrigine 100 mg oral tablet daily [Active]; methocarbamol 500 mg Oral tablet twice a day [Active]; omeprazole 40 mg Oral capsule,delayed release (e.c.) daily [Active]; Ozempic 1 mg/dose (4 mg/3 mL) subcutaneous Pen Injector every week [Active]; - PMHx: 07:19 Anxiety; Chronic pain; Depression; Diabetes - NIDDM; Glaucoma; Hypothyroidism; mb9 - PSHx: 07:19 hysterectomy; Thyroidectomy; mb9 07:30 Cholecystectomy; iw - Immunization history:: Adult Immunizations up to date, Client reports receiving the 2nd dose of the Covid vaccine. - Infectious Disease History:: Denies. Denies. - Social history:: Smoking status: Patient/guardian denies using tobacco, but has a distant history of tobacco abuse, Smoking status: Patient denies any tobacco usage or history of. - Family history:: not pertinent. - Hospitalizations: : No recent hospitalization is reported. Screenin:32 [facility] ED Fall Risk Assessment (Adult) History of falling in the last 3 months, mb9 including since admission No falls in past 3 months (0 pts) Confusion or Disorientation No (0 pts) Intoxicated or Sedated No (0 pts) Impaired Gait No (0 pts) Mobility Assist Device Used No (0 pt) Altered Elimination No (0 pt) Score/Fall Risk Level 0 - 2 = Low Risk Oriented to surroundings, Maintained a safe environment, Educated pt \T\ family on fall prevention, incl call for assistance when getting out of bed. Abuse screen: Denies threats or abuse. Nutritional screening: No deficits noted. Tuberculosis screening: No symptoms or risk factors identified. Assessment: 07:30 General: Appears in no apparent distress. Behavior is calm, cooperative. Pain: mb9 Complains of pain in pelvis Pain radiates to left hip Pain currently is 10 out of 10 on a pain scale. Quality of pain is described as throbbing, Pain began 2-3 days ago. Is continuous, Aggravated by increased activity, repositioning, weight bearing. Neuro: Pace Agitation-Sedation Scale (RASS): 0 - Alert and Calm Level of Consciousness is awake, alert, obeys commands, Oriented to person, place, time, situation, Appropriate for age. Cardiovascular: Heart tones S1 S2 present Patient's skin is warm and dry. Respiratory: Airway is patent Respiratory effort is even, unlabored, Respiratory pattern is regular, symmetrical, Breath sounds are clear bilaterally. GI: Abdomen is round non-distended, Bowel sounds present X 4 quads. Abd is soft Abdomen is tender to palpation in left lower quadrant. GI: Reports nausea. : No signs and/or symptoms were reported regarding the genitourinary system. EENT: No signs and/or symptoms were reported regarding the EENT system. Derm: Skin is pink, warm \T\ dry. Musculoskeletal: Range of motion: intact in all extremities. 08:20 Reassessment: No changes from previously documented assessment. Patient and/or family mb9 updated on plan of care and expected duration. Pain level reassessed. Patient is alert, oriented x 3, equal unlabored respirations, skin warm/dry/pink. 09:30 Reassessment: No changes from previously documented assessment. Patient and/or family mb9 updated on plan of care and expected duration. Pain level reassessed. Patient is alert, oriented x 3, equal unlabored respirations, skin warm/dry/pink. 09:56 Reassessment: Attempted to call report to transferring facility. No answer. mb9 Vital Signs: 07:33 BP 106 / 82; Pulse 90; Resp 18; Pulse Ox 96% on R/A; Weight 83.91 kg; Height 5 ft. 5 iw in. ; Pain 10/10; 08:36 BP 115 / 78; Pulse 82; Resp 18; Pulse Ox 96% on R/A; mb9 09:32 BP 124 / 81; Pulse 78; Resp 18; Pulse Ox 97% on R/A; ld1 07:33 Body Mass Index 30.79 (83.91 kg, 165.1 cm) iw 07:33 Pain Scale: Adult iw ED Course: 07:15 Patient arrived in ED. mg5 07:16 Korey Thomas MD is Attending Physician. rn 07:19 Mary Dozier, MILE is Primary Nurse. mb9 07:19 Arm band placed on. mb9 07:19 Placed in gown. Bed in low position. Call light in reach. Side rails up X 1. Provided mb9 Education on: press call light if needing anything. Client placed on continuous cardiac and pulse oximetry monitoring. NIBP monitoring applied. Door closed. Noise minimized. Warm blanket given. 07:30 Triage completed. iw 07:32 No provider procedures requiring assistance completed. mb9 07:45 Patient requests pain medication. mb9 08:40 spoke with Murray at the [facility] transfer center she informed me that the [address] center was at capacity. 08:50 contacted mary with [facility] to initiate transfer. [facility] 09:29 RECEIVED ACCEPTANCE FROM MARY WITH [facility] SEEING DR DUMONT. TO BE TRANSFERRED ER TO [facility] ER. 10:18 GREG WITH [facility] PROVIDED AN ETA OF 30 MIN. [facility] Administered Medications: 07:30 Drug: Ondansetron IVP 4 mg IVP once; over 2 minutes Route: IVP; Site: right antecubital;mb9 08:20 Follow up: Response: No adverse reaction mb9 08:54 Drug: HYDROcodone-acetaminophen PO 5 mg-325 mg 1 tabs PO once Route: PO; mb9 09:56 Follow up: Response: No adverse reaction mb9 Medication: 07:19 VIS not applicable for this client. mb9 Outcome: 08:59 ER care complete, transfer ordered by . rn 10:42 Patient left the ED. ld1 Signatures: Jie Zelaya RN RN iw Korey Thomas MD MD rn Sims, Lauren, RN RN ld1 Mary Dozier RN RN mb9 Kaylin De La Garza [facility] Elisa Shea mg5 Corrections: (The following items were deleted from the chart) 07:33 07:19 Home Meds: Travatan Z 0.004 % ophthalmic drop 1 drop once daily; mb9 iw
--- NOTE | 2024-02-02 09:00 | EDPHYS ---
Physician Documentation [facility] Name: Adela Watts Age: 68 yrs Sex: Female : 1955 Arrival Date: 02/02/2024 Time: 07:12 Bed 6 Private MD: ED Physician Korey Thomas HPI: 02/01 08:38 This 68 yrs old Black Female presents to ER via Wheelchair with complaints of nausea, rn Hip Pain. 08:39 The patient presents with abdominal pain in the periumbilical area. Onset: The rn symptoms/episode began/occurred at an unknown time. The symptoms do not radiate. Associated signs and symptoms: Pertinent positives: nausea, Pertinent negatives: blood in stools, chest pain, fever. The symptoms are described as intermittent. Modifying factors: The symptoms are alleviated by nothing, the symptoms are aggravated by touching the area. Severity of pain: At its worst the pain was mild in the emergency department the pain is unchanged. The patient has not experienced similar symptoms in the past. Patient seen here last night, abnormal imaging and LFTs, was recommended to be transferred but patient refused. Patient returns today for worsening nausea and continued abdominal pain. Also complains of left hip pain without acute injury or fall.. Historical: - Allergies: 07:30 No Known Allergies; iw - Home Meds: 07:19 levothyroxine 88 mcg tab 1 tab once daily [Active]; Wellbutrin XL 300 mg Oral Tb24 1 mb9 tab once daily [Active]; 07:30 Travatan Z 0.004 % ophthalmic drop 1 drop once daily [Active]; atorvastatin 10 mg oral iw tablet daily [Active]; fluoxetine 40 mg Oral capsule daily [Active]; hydrochlorothiazide 12.5 mg Oral tablet daily [Active]; lamotrigine 100 mg oral tablet daily [Active]; methocarbamol 500 mg Oral tablet twice a day [Active]; omeprazole 40 mg Oral capsule,delayed release (e.c.) daily [Active]; Ozempic 1 mg/dose (4 mg/3 mL) subcutaneous Pen Injector every week [Active]; - PMHx: 07:19 Anxiety; Chronic pain; Depression; Diabetes - NIDDM; Glaucoma; Hypothyroidism; mb9 - PSHx: 07:19 hysterectomy; Thyroidectomy; mb9 07:30 Cholecystectomy; iw - Immunization history:: Adult Immunizations up to date, Client reports receiving the 2nd dose of the Covid vaccine. - Infectious Disease History:: Denies. Denies. - Social history:: Smoking status: Patient/guardian denies using tobacco, but has a distant history of tobacco abuse, Smoking status: Patient denies any tobacco usage or history of. - Family history:: not pertinent. - Hospitalizations: : No recent hospitalization is reported. ROS: 08:39 Constitutional: Negative for fever, chills, and weight loss, Cardiovascular: Negative rn for chest pain, palpitations, and edema, Respiratory: Negative for shortness of breath, cough, wheezing, and pleuritic chest pain, Abdomen/GI: Positive for abdominal pain and nausea Back: Negative for injury and pain, : Negative for injury, bleeding, discharge, and swelling, MS/Extremity: Negative for injury and deformity, Skin: Negative for injury, rash, and discoloration, Neuro: Negative for headache, weakness, numbness, tingling, and seizure, Exam: 08:39 Constitutional: This is a well developed, well nourished patient who is awake, alert, rn and in no acute distress. Cardiovascular: Regular rate and rhythm. No pulse deficits. Respiratory: No increased work of breathing, no retractions or nasal flaring. Abdomen/GI: Soft, mild periumbilical and left lower quadrant tenderness. No masses. MS/ Extremity: Pulses equal, no cyanosis. Neurovascular intact. Full, normal range of motion. Equal circumference. Neuro: Awake and alert, GCS 15 Vital Signs: 07:33 BP 106 / 82; Pulse 90; Resp 18; Pulse Ox 96% on R/A; Weight 83.91 kg; Height 5 ft. 5 iw in. ; Pain 10/10; 08:36 BP 115 / 78; Pulse 82; Resp 18; Pulse Ox 96% on R/A; mb9 09:32 BP 124 / 81; Pulse 78; Resp 18; Pulse Ox 97% on R/A; ld1 07:33 Body Mass Index 30.79 (83.91 kg, 165.1 cm) iw 07:33 Pain Scale: Adult iw MDM: 07:16 Patient medically screened. rn 08:40 ED course: Transfer center states no GI at [place], also [facility]n full and unavailable bed. Decision made to go to outside hospital.. 08:47 Differential diagnosis: bowel obstruction, gastroesophageal reflux disease, rn non-specific abd pain, pancreatitis, Peptic Ulcer Disease, Neoplasm, pancreatitis, biliary ductal dilatation. Data reviewed: vital signs, nurses notes, lab test result(s), radiologic studies, CT scan, and as a result, I will admit patient. Consideration of Admission/Observation Patient was admitted/placed on observation. Escalation of care including admission/observation considered. Counseling: I had a detailed discussion with the patient and/or guardian regarding the historical points, exam findings, and any diagnostic results supporting the discharge/admit diagnosis, lab results, radiology results, the need to transfer to another facility, for higher level of care, [facility] does not immediately have the required specialist. ED course: Patient with worsening of her liver function tests, imaging yesterday showed dilated CBD and pancreatic duct. Recommended ERCP but patient declined transfer last night. Is amenable to transfer today. Organizing transfer now. [facility] unavailable, going to [facility] facility.. 02/01 07:22 Order name: CBC with Diff rn 02/01 07:22 Order name: CMP; Complete Time: 08:31 rn 02/01 07:22 Order name: Lipase; Complete Time: 08:31 rn 02/01 09:41 Order name: CBC Smear Scan EDMS 02/01 07:22 Order name: IV Saline Lock; Complete Time: 07:30 rn 02/01 07:22 Order name: Labs collected and sent; Complete Time: 07:30 rn Administered Medications: 07:30 Drug: Ondansetron IVP 4 mg IVP once; over 2 minutes Route: IVP; Site: right antecubital;mb9 08:20 Follow up: Response: No adverse reaction mb9 08:54 Drug: HYDROcodone-acetaminophen PO 5 mg-325 mg 1 tabs PO once Route: PO; mb9 09:56 Follow up: Response: No adverse reaction mb9 Disposition Summary: 02/02/24 08:59 Transfer Ordered Notes: Transfer Location: [facility] System rn Reason: Higher level of care rn Condition: Stable rn Problem: new rn Symptoms: have worsened rn Accepting Physician: (02/02/24 10:42) ld1 Diagnosis - Disorders of gallbladder, biliary tract and pancreas in diseases classified rn elsewhere - Abnormal results of liver function studies rn travel Instructions: - Discharge Summary Sheet bc6 Forms: - Medication Reconciliation Form rn - SBAR form bc6 Signatures: Dispatcher [employer] Jie Tinoco RN RN iw Korey Thomas MD MD rn Sims, Lauren, RN RN ld1 Mary Dozier RN RN mb9 Corrections: (The following items were deleted from the chart) 07:33 07:19 Home Meds: Travatan Z 0.004 % ophthalmic drop 1 drop once daily; mb9 iw 08:42 08:39 Constitutional: This is a well developed, well nourished patient who is awake, rn alert, and in no acute distress. rn 10:42 08:59 Dr. reyna ld1
[2024-02-02 09:40] LABS: Blood Morphology Comment NOT SEEN (NOT SEEN); Platelet Estimate ADEQ; White Blood Cell Scan OK (OK)
[2024-02-02 10:58] VITALS: BP 124/81; O2SAT 97
== END 2024-02-02 10:42 | disposition short-term general hospital (02) ==
LOC: ER 07:12
DX: R94.5 Abnormal results of liver function studies (principal); K82.9 Disease of gallbladder, unspecified; K83.8 Other specified diseases of biliary tract; K86.89 Other specified diseases of pancreas; M25.552 Pain in left hip
CPT/HCPCS: 85025; 36415; 83690; 80053; 96374; 99284; J2405

== ENCOUNTER 2024-05-11 13:34 | Emergency (ER) | payer OTHER ==
--- NOTE | 2024-05-11 14:44 | RAD REPORT ---
EXAM DESCRIPTION: CT - Head Brain Wo Cont - 05/11/2024 2:19 pm CLINICAL HISTORY: Left pupil non-reactive COMPARISON: Head Brain Wo Cont dated 03/14/2018 TECHNIQUE: Noncontrast head CT images were obtained without IV contrast. Multiplanar reformats were generated and reviewed. All CT scans are performed using dose optimization technique as appropriate and may include automated exposure control or mA/KV adjustment according to patient size. FINDINGS: No intracranial hemorrhage, mass, or edema. Midline structures are unremarkable. Normal ventricular caliber for age. Espinosa-white matter differentiation is preserved, without evidence of acute infarct. No abnormal extra- axial fluid collections. Mastoid air cells and visualized portions of the paranasal sinuses are clear. No acute bony findings. IMPRESSION: No evidence of an acute intracranial process.
--- NOTE | 2024-05-11 15:40 | ER ---
Nurse's Notes [facility] Name: Adela Watts Age: 68 yrs Sex: Female : 1955 Arrival Date: 05/11/2024 Time: 13:34 Bed 14 Private MD: Diagnosis: Low back pain;Ocular pain, left eye;Dialated pupil Presentation: 05/11 13:44 Chief complaint: Patient states: Pt c/o pain to entire back. States she has chronic dd2 back pain. She states headache and eye pain x1week. Pt also states she is out of her psych meds x1 week and was told by insurance to come to the ER. Coronavirus screen: At this time, the client does not indicate any symptoms associated with coronavirus-19. Ebola Screen: No symptoms or risks identified at this time. Initial Sepsis Screen: Does the patient meet any 2 criteria? HR > 90 bpm. Does the patient have a suspected source of infection? No. Patient's initial sepsis screen is negative. Risk Assessment: Do you want to hurt yourself or someone else? Patient reports no desire to harm self or others. Onset of symptoms is unknown. 13:44 Method Of Arrival: Ambulatory dd2 13:44 Acuity: SHADY 3 dd2 Triage Assessment: 13:48 General: Appears in no apparent distress. Behavior is calm, cooperative, appropriate dd2 for age. Pain: Complains of pain in BACK, HEAD, EYES Pain currently is 6 out of 10 on a pain scale. Musculoskeletal: Range of motion: intact in all extremities, Reports pain in BACK, HEAD, EYES. 13:55 EENT: Eyes Lt pupil larger and non-reactive to light. Neuro: Pupils are Pupil Size: Lt dd2 pupil larger than Rt and non-reactive to light non-reactive. Historical: - Allergies: 13:48 No Known Allergies; dd2 - Home Meds: 13:48 fluoxetine 50 MG oral capsule once for depression associated with bipolar disorder, dd2 adjunct treatment [Active]; lamotrigine 100 mg Oral tablet daily [Active]; - PMHx: 13:48 Anxiety; Chronic pain; Depression; Diabetes - NIDDM; Glaucoma; Hypothyroidism; Bipolar dd2 disorder; - PSHx: 13:48 Cholecystectomy; hysterectomy; Thyroidectomy; dd2 - Immunization history:: Adult Immunizations unknown. - Infectious Disease History:: Denies. - Social history:: Smoking status: Patient denies any tobacco usage or history of. Screenin:19 [facility] ED Fall Risk Assessment (Adult) History of falling in the last 3 months, kj2 including since admission No falls in past 3 months (0 pts) Confusion or Disorientation No (0 pts) Intoxicated or Sedated No (0 pts) Impaired Gait No (0 pts) Mobility Assist Device Used No (0 pt) Altered Elimination No (0 pt) Score/Fall Risk Level 0 - 2 = Low Risk Maintained a safe environment, Educated pt \T\ family on fall prevention, incl call for assistance when getting out of bed, Hourly rounding (assess needs \T\ fall precautionary measures) done. Abuse screen: Denies threats or abuse. Denies injuries from another. Nutritional screening: No deficits noted. Tuberculosis screening: No symptoms or risk factors identified. Assessment: 14:15 General: Appears in no apparent distress. Behavior is calm, cooperative. Pain: kj2 Complains of pain in head, back, shoulders Pain currently is 6 out of 10 on a pain scale. Neuro: Level of Consciousness is awake, alert, obeys commands, Oriented to person, place, time, situation. Cardiovascular: Patient's skin is warm and dry. Respiratory: Airway is patent Respiratory effort is even, unlabored. GI: No deficits noted. : No deficits noted. 15:15 Reassessment: Patient appears in no apparent distress at this time. Patient and/or kj2 family updated on plan of care and expected duration. Pain level reassessed. Patient is alert, oriented x 3, equal unlabored respirations, skin warm/dry/pink. 16:05 Reassessment: Dr Yung made aware of blood pressure, no new orders at this time, ok to kj2 discharge. Vital Signs: 13:44 BP 142 / 97; Pulse 74; Resp 16; Temp 98.1; Pulse Ox 98% ; Weight 86.18 kg; Height 5 ft. dd2 5 in. ; 14:18 BP 140 / 94; Pulse 81; Resp 18; Temp 98; Pulse Ox 100% on R/A; kj2 16:00 BP 132 / 97; Pulse 76; Resp 18; Temp 98; Pulse Ox 100% on R/A; kj2 13:44 Body Mass Index 31.62 (86.18 kg, 165.1 cm) dd2 Visual Acuity: 14:15 Left Eye Visual acuity 20/30, ; Right Eye Visual acuity 20/50, ; Both Eyes Visual kj2 acuity 20/30; With Lenses; ED Course: 13:40 Patient arrived in ED. mg5 13:43 Neymar Yung DO is Attending Physician. ms3 13:48 Triage completed. dd2 13:48 Arm band placed on left wrist. Patient placed in waiting room, in view of staff dd2 members, Patient notified of wait time. 14:04 Lauren Deleon, RN is Primary Nurse. kj2 14:20 CT Head Brain wo Cont In Process Unspecified. EDMS 14:20 Patient has correct armband on for positive identification. Bed in low position. Call kj2 light in reach. Provided Education on: call light, fall precautions. 15:44 No provider procedures requiring assistance completed. kj2 15:45 Patient did not have IV access during this emergency room visit. kj2 Administered Medications: 16:04 Drug: HYDROcodone-acetaminophen PO 5 mg-325 mg 1 tabs PO once Route: PO; kj2 16:06 Follow up: Response: No adverse reaction; Medication administered at discharge. kj2 Medication: 14:19 VIS not applicable for this client. kj2 Outcome: 15:39 Discharge ordered by MD. ms3 15:45 Discharged to home ambulatory, kj2 15:45 Condition: stable 15:45 Discharge instructions given to patient, Instructed on discharge instructions, follow up and referral plans. medication usage, Demonstrated understanding of instructions, follow-up care, medications, 16:07 Patient left the ED. kj2 Signatures: Dispatcher [employer] EDGA Neymar Yung DO DO ms3 Elisa Shea mg5 Lauren Deleon, RN RN kj2 KENNY LEMA RN RN dd2
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
[2024-05-11] MEDS ORDERED: HYDROCODONE/APAP 5/325 MG TAB ONE (16:02)
[2024-05-11 16:16] VITALS: TEMP 98; O2SAT 100
[2024-05-11 16:18] VITALS: BP 132/97
== END 2024-05-11 16:07 | disposition home or self-care (01) ==
LOC: ER 13:34
DX: M54.50 Low back pain, unspecified (principal); H57.12 Ocular pain, left eye; H57.04 Mydriasis; Z76.0 Encounter for issue of repeat prescription
CPT/HCPCS: 70450; 99283